=== PATIENT | male | born 1970 | race Caucasian/White ===

== ENCOUNTER 2020-12-31 08:06 | Inpatient (IN) | payer OTHER ==
[2020-12-31] MEDS ORDERED: SODIUM CHLORIDE 0.9% 500 ML 500 ML IV STA (08:35)
[2020-12-31] MEDS ORDERED: HYDROmorphone 0.5 MG/0.5 ML SYRINGE IVP STA (08:35)
[2020-12-31] MEDS ORDERED: LORazepam 2 MG/ML INJ IV STA (08:36)
[2020-12-31] MEDS ORDERED: PANTOPRAZOLE 40 MG/10 ML VIAL IVP STA (08:40)
--- NOTE | 2020-12-31 09:01 | ED ---
General Adult HPI - General Chief complaint: GI Bleed Stated complaint: abd pain & blood in stool Time Seen by Provider: 12/31/20 08:28 Source: patient, RN notes reviewed, old records reviewed Mode of arrival: ambulatory Limitations: no limitations - History of Present Illness Initial comments: 42-year-old male presenting with 24 hours of bright red rectal bleeding. Multiple episodes including some clots. No previous history of inflammatory bowel disease. The patient has had crampy lower abdominal pain over this period as well which she describes as quite severe. He states that he also had some right shoulder pain for the past 2 weeks without injury. No central chest pain. No fever. He's had several episodes of vomiting. He does admit to daily alcohol consumption and states that for the past 2 days he has not had any alcohol. - Related Data Home Medications Medication Instructions Recorded Confirmed Gabapentin [Neurontin] 100 mg PO DAILY 12/31/20 12/31/20 Insulin Degludec [Tresiba 30 units SQ QAM 12/31/20 12/31/20 Flextouch U-100 Pen] traMADol HCL 50 mg PO BID PRN 12/31/20 12/31/20 Allergies Allergy/AdvReac Type Severity Reaction Status Date / Time metformin AdvReac Nausea Verified 12/31/20 11:06 Review of Systems ROS Statement: Those systems with pertinent positive or pertinent negative responses have been documented in the HPI. ROS Other: All systems not noted in ROS Statement are negative. Past Medical History Past Medical History: Diabetes Mellitus, Hypertension Additional Past Medical History / Comment(s): neuropathy legs and feet, alcoholism Additional Past Surgical History / Comment(s): bone graft and finger Past Psychological History: No Psychological Hx Reported Smoking Status: Current every day smoker Past Alcohol Use History: Abuse, Daily Past Drug Use History: Marijuana General Exam Limitations: no limitations General appearance: alert, anxious Head exam: Present: atraumatic, normocephalic Eye exam: Present: normal appearance, PERRL ENT exam: Present: mucous membranes dry Neck exam: Present: normal inspection. Absent: tenderness, meningismus Respiratory exam: Present: normal lung sounds bilaterally. Absent: respiratory distress, wheezes Cardiovascular Exam: Present: regular rate, normal rhythm GI/Abdominal exam: Present: tenderness (Bilateral lower quadrants). Absent: distended, guarding, rebound Extremities exam: Present: normal inspection, normal capillary refill. Absent: pedal edema, calf tenderness Neurological exam: Present: alert, oriented X3, CN II-XII intact, other (Resting tremor). Absent: motor sensory deficit Psychiatric exam: Present: anxious Skin exam: Present: warm, dry, intact. Absent: cyanosis, diaphoretic Course Vital Signs 12/31/20 08:21 Temperature 98.4 F Pulse Rate 63 Respiratory 18 Rate Blood Pressure 133/93 O2 Sat by Pulse 98 Oximetry EKG Findings - EKG Comments: EKG Findings:: EKG: Sinus rhythm with sinus arrhythmia, rate of 78, AR interval 150, QRS duration 102, QTC 478. No ST segment elevation. Medical Decision Making - Medical Decision Making 42-year-old male with abdominal pain, bright red rectal bleeding. Patient describes a fairly significant amount of bright red blood and clots. His hemoglobin is stable at 16.6. Repeat will be pending. CT showing colitis. He has minor L abnormalities likely secondary to daily alcohol use. He will be watched on a CIWA scale for withdrawal. Will be admitted to internal medicine with gastroenterology on consult. Case discussed with Dr. Oliver. - Lab Data Result diagrams: 12/31/20 08:53 12/31/20 08:53 Lab Results 12/31/20 12/31/20 12/31/20 Range/Units 08:32 08:47 08:53 WBC 8.3 (3.8-10.6) k/uL RBC 4.72 (4.30-5.90) m/uL Hgb 16.6 (13.0-17.5) gm/dL Hct 48.0 (39.0-53.0) % MCV 101.7 H (80.0-100.0) fL MCH 35.1 H (25.0-35.0) pg MCHC 34.5 (31.0-37.0) g/dL RDW 13.3 (11.5-15.5) % Plt Count 104 L (150-450) k/uL MPV 10.0 Neutrophils % 85 % Lymphocytes % 10 % Monocytes % 3 % Eosinophils % 1 % Basophils % 0 % Neutrophils # 7.0 (1.3-7.7) k/uL Lymphocytes # 0.8 L (1.0-4.8) k/uL Monocytes # 0.3 (0-1.0) k/uL Eosinophils # 0.1 (0-0.7) k/uL Basophils # 0.0 (0-0.2) k/uL Macrocytosis Slight PT (9.0-12.0) sec INR (<1.2) APTT (22.0-30.0) sec Sodium (137-145) mmol/L Potassium (3.5-5.1) mmol/L Chloride (98-107) mmol/L Carbon Dioxide (22-30) mmol/L Anion Gap mmol/L BUN (9-20) mg/dL Creatinine (0.66-1.25) mg/dL Est GFR (CKD-EPI)AfAm (>60 ml/min/1.73 sqM) Est GFR (CKD-EPI)NonAf (>60 ml/min/1.73 sqM) Glucose (74-99) mg/dL Plasma Lactic Acid Samir (0.7-2.0) mmol/L Calcium (8.4-10.2) mg/dL Magnesium (1.6-2.3) mg/dL Total Bilirubin (0.2-1.3) mg/dL AST (17-59) U/L ALT (4-49) U/L Alkaline Phosphatase (38-126) U/L Troponin I (0.000-0.034) ng/mL Total Protein (6.3-8.2) g/dL Albumin (3.5-5.0) g/dL Lipase (23-300) U/L Blood Type O Positive Blood Type Confirm O Positive Blood Type Recheck Bld Type Recheck Status Antibody Screen NEGATIVE Spec Expiration Date 12/31/20 12/31/20 12/31/20 Range/Units 08:53 08:53 08:53 WBC (3.8-10.6) k/uL RBC (4.30-5.90) m/uL Hgb (13.0-17.5) gm/dL Hct (39.0-53.0) % MCV (80.0-100.0) fL MCH (25.0-35.0) pg MCHC (31.0-37.0) g/dL RDW (11.5-15.5) % Plt Count (150-450) k/uL MPV Neutrophils % % Lymphocytes % % Monocytes % % Eosinophils % % Basophils % % Neutrophils # (1.3-7.7) k/uL Lymphocytes # (1.0-4.8) k/uL Monocytes # (0-1.0) k/uL Eosinophils # (0-0.7) k/uL Basophils # (0-0.2) k/uL Macrocytosis PT 11.7 (9.0-12.0) sec INR 1.1 (<1.2) APTT 25.5 (22.0-30.0) sec Sodium 131 L (137-145) mmol/L Potassium 3.3 L (3.5-5.1) mmol/L Chloride 93 L (98-107) mmol/L Carbon Dioxide 26 (22-30) mmol/L Anion Gap 12 mmol/L BUN 7 L (9-20) mg/dL Creatinine 0.55 L (0.66-1.25) mg/dL Est GFR (CKD-EPI)AfAm >90 (>60 ml/min/1.73 sqM) Est GFR (CKD-EPI)NonAf >90 (>60 ml/min/1.73 sqM) Glucose 270 H (74-99) mg/dL Plasma Lactic Acid Samir (0.7-2.0) mmol/L Calcium 9.0 (8.4-10.2) mg/dL Magnesium 1.4 L (1.6-2.3) mg/dL Total Bilirubin 2.6 H (0.2-1.3) mg/dL AST 93 H (17-59) U/L ALT 45 (4-49) U/L Alkaline Phosphatase 115 (38-126) U/L Troponin I <0.012 (0.000-0.034) ng/mL Total Protein 7.6 (6.3-8.2) g/dL Albumin 3.9 (3.5-5.0) g/dL Lipase 69 (23-300) U/L Blood Type Blood Type Confirm Blood Type Recheck Bld Type Recheck Status Antibody Screen Spec Expiration Date 12/31/20 12/31/20 Range/Units 08:53 08:53 WBC (3.8-10.6) k/uL RBC (4.30-5.90) m/uL Hgb (13.0-17.5) gm/dL Hct (39.0-53.0) % MCV (80.0-100.0) fL MCH (25.0-35.0) pg MCHC (31.0-37.0) g/dL RDW (11.5-15.5) % Plt Count (150-450) k/uL MPV Neutrophils % % Lymphocytes % % Monocytes % % Eosinophils % % Basophils % % Neutrophils # (1.3-7.7) k/uL Lymphocytes # (1.0-4.8) k/uL Monocytes # (0-1.0) k/uL Eosinophils # (0-0.7) k/uL Basophils # (0-0.2) k/uL Macrocytosis PT (9.0-12.0) sec INR (<1.2) APTT (22.0-30.0) sec Sodium (137-145) mmol/L Potassium (3.5-5.1) mmol/L Chloride (98-107) mmol/L Carbon Dioxide (22-30) mmol/L Anion Gap mmol/L BUN (9-20) mg/dL Creatinine (0.66-1.25) mg/dL Est GFR (CKD-EPI)AfAm (>60 ml/min/1.73 sqM) Est GFR (CKD-EPI)NonAf (>60 ml/min/1.73 sqM) Glucose (74-99) mg/dL Plasma Lactic Acid Samir 2.0 (0.7-2.0) mmol/L Calcium (8.4-10.2) mg/dL Magnesium (1.6-2.3) mg/dL Total Bilirubin (0.2-1.3) mg/dL AST (17-59) U/L ALT (4-49) U/L Alkaline Phosphatase (38-126) U/L Troponin I (0.000-0.034) ng/mL Total Protein (6.3-8.2) g/dL Albumin (3.5-5.0) g/dL Lipase (23-300) U/L Blood Type Blood Type Confirm Blood Type Recheck No Previous Record Bld Type Recheck Status CABO Indicated Antibody Screen Spec Expiration Date 01/03/20212352 Disposition Clinical Impression: Hematochezia, Colitis Disposition: ADMITTED IP TO THIS [facility] Condition: Stable Is patient prescribed a controlled substance at d/c from ED?: No Referrals: None,Stated [Primary Care Provider] - 1-2 days Decision to Admit Reason: Admit from EC Decision Date: 12/31/20 Decision Time: 11:37
[2020-12-31 09:17] LABS: Basophils % (A) 0 %; Eosinophils # (A) 0.1 k/uL (0-0.7); Eosinophils % (A) 1 %; HGB 16.6 gm/dL (13.0-17.5); Lymphocytes # (A) 0.8 k/uL (1.0-4.8); Lymphocytes % (A) 10 %; MCH 35.1 pg (25.0-35.0); MCHC 34.5 g/dL (31.0-37.0); MCV 101.7 fL (80.0-100.0); Macrocytosis Slight; Monocytes # (A) 0.3 k/uL (0-1.0); Monocytes % (A) 3 %; Neutrophils % (A) 85 %; Platelet Count 104 k/uL (150-450); RBC 4.72 m/uL (4.30-5.90); RDW 13.3 % (11.5-15.5); WBC 8.3 k/uL (3.8-10.6)
[2020-12-31 09:24] LABS: ALT 45 U/L (4-49); AST 93 U/L (17-59); African American GFR (CKD) >90 (>60 ml/min/1.73 sqM); Albumin 3.9 g/dL (3.5-5.0); Alkaline Phosphatase 115 U/L (38-126); Anion Gap 12 mmol/L; Blood Urea Nitrogen 7 mg/dL (9-20); Carbon Dioxide 26 mmol/L (22-30); Chloride 93 mmol/L (98-107); Glucose 270 mg/dL (74-99); INR 1.1 (<1.2); Lipase 69 U/L (23-300); Magnesium 1.4 mg/dL (1.6-2.3); Non-African American GFR(CKD) >90 (>60 ml/min/1.73 sqM); Partial Thromboplastin Time 25.5 sec (22.0-30.0); Potassium 3.3 mmol/L (3.5-5.1); Prothrombin Time 11.7 sec (9.0-12.0); Sodium 131 mmol/L (137-145); Total Bilirubin 2.6 mg/dL (0.2-1.3); Total Protein 7.6 g/dL (6.3-8.2)
--- NOTE | 2020-12-31 10:50 | CT ---
EXAMINATION TYPE: CT abdomen pelvis w con DATE OF EXAM: 12/31/2020 COMPARISON: HISTORY: Abdominal pain and rectal bleeding CT DLP: 990.5 mGycm Automated exposure control for dose reduction was used. TECHNIQUE: Helical acquisition of images from the lung bases through the pelvis have been completed. CONTRAST: Performed without Oral Contrast and with IV Contrast, patient injected with 100 ml mL of Isovue 300. FINDINGS: LUNG BASES: No significant abnormality is appreciated. AORTA: No significant abnormality is appreciated. LIVER/GB: Liver shows low attenuation likely due to hepatic steatosis. PANCREAS: No significant abnormality is seen. SPLEEN: No significant abnormality is seen. ADRENALS: No significant abnormality is seen. KIDNEYS: No significant abnormality is seen. REPRODUCTIVE ORGANS: No significant abnormality is seen BOWEL: There is abnormal thickening of the colon with some pericolonic inflammatory change. The appe ndix is normal FREE AIR: No Free Air visible. ASCITES: Small amount of free fluid is present within the pelvis. PELVIC ADENOPATHY: None visualized. RETROPERITONEAL ADENOPATHY: No Retroperitoneal Adenopathy visible. URINARY BLADDER: No significant abnormality is seen. OSSEOUS STRUCTURES: No significant abnormality is seen. IMPRESSION: CORRELATE FOR COLITIS and additional findings above.
[2020-12-31] MEDS ORDERED: POTASSIUM CHLORIDE ER 20 MEQ TAB.ER PO STA (10:52)
[2020-12-31] MEDS ORDERED: MAGNESIUM SULFATE-D5W PMX 1 GM in DEXTROSE/WATER 1 100ML.BAG IVPB ONE (10:52)
[2020-12-31] MEDS ORDERED: ACETAMINOPHEN TAB 325 MG TAB PO PRN (11:34)
[2020-12-31] MEDS ORDERED: THIAMINE 100 MG/ML 2 ML VIAL IM STA (11:34)
[2020-12-31] MEDS ORDERED: LORazepam 2 MG/ML INJ IV PRN ×2 (11:34)
[2020-12-31] MEDS ORDERED: NALOXONE 0.4 MG/ML 1 ML VIAL IV PRN (11:34)
[2020-12-31 12:01] LABS: Appearance,Urine Clear (Clear); Bilirubin,Urine Negative (Negative); Blood,Urine Negative (Negative); Color,Urine Yellow; Glucose,Urine (UA) 3+ (Negative); Ketones,Urine 1+ (Negative); Leukocyte Esterase,Urine Negative (Negative); Nitrite,Urine Negative (Negative); Protein,Urine Negative (Negative); Urobilinogen,Urine <2.0 mg/dL (<2.0)
[2020-12-31] MEDS: SODIUM CHLORIDE 0.9% 1,000 ML IV SCH (12:01)
[2020-12-31 12:06] LABS: Specific Gravity,Urine >1.050 (1.001-1.035)
[2020-12-31] MEDS: HYDROmorphone 0.5 MG/0.5 ML SYRINGE IVP PRN ×3 (13:38→22:19)
[2020-12-31] MEDS: LEVOFLOXACIN 500MG-D5W PMX 500 MG in DEXTROSE/WATER 1 100ML.BAG IVPB SCH (13:40)
--- NOTE | 2020-12-31 14:50 | P.CONS ---
History of Present Illness - Reason for Consult Consult date: 12/31/20 rectal bleeding, colitis Requesting physician: Osito Whitney - Chief Complaint Rectal bleeding - History of Present Illness This is a 50-year-old male who presented to the emergency department today with complaints of abdominal cramping and pain associated with rectal bleeding. Has a past medical history that includes diabetes mellitus, hypertension, and neuropathy. Patient states he was feeling constipated and took a laxative and then started having abdominal cramping followed by multiple episodes of rectal bleeding yesterday. The bleeding continued and he had 1-2 more episodes today which she states was a larger amount. He denies any previous history of rectal bleeding. He has no previous history of colonoscopy. He does have a history of all abuse. Admitting labs include WBC 8.3 hemoglobin 16 hematocrit 48 platelet count 104,000 INR 1.1 total bilirubin 2.6 AST 93 ALT 45 alk phos 115. He denies any previous history of ulcerative colitis or Crohn's disease. Had a CT of the abdomen and pelvis that had findings of abdominal thickening of the colon with some pericolonic inflammatory change. Appendix is normal. Correlate for colitis. Review of Systems REVIEW OF SYSTEMS: CARDIOPULMONARY: No chest pain or shortness of breath. Gastrointestinal: Abdominal cramping associated with loose bowel movements with bright red blood. No nausea or vomiting. No hematemesis, coffee-ground emesis. GENITOURINARY: No dysuria or hematuria. MUSCULOSKELETAL: Reports normal range of motion., Joint pain. SKIN: No rashes. No jaundice. ENDOCRINE: No chills, fevers. No excessive weight gain or loss. No polydipsia or polyuria. PSYCHIATRIC: Unremarkable. NEUROLOGY: No change in mental status. Denies dizziness, headache. ENT: Vision unremarkable. CONSTITUTIONAL: No recent weight loss. No fever, chills, night sweats. Past Medical History Past Medical History: Diabetes Mellitus, Hypertension Additional Past Medical History / Comment(s): neuropathy legs and feet, alcoholism Additional Past Surgical History / Comment(s): bone graft and finger Past Psychological History: No Psychological Hx Reported Smoking Status: Current every day smoker Past Alcohol Use History: Abuse, Daily Past Drug Use History: Marijuana Medications and Allergies Home Medications Medication Instructions Recorded Confirmed Type Gabapentin [Neurontin] 100 mg PO DAILY 12/31/20 12/31/20 History Insulin Degludec [Tresiba 30 units SQ QAM 10/11/21 10/11/21 History Flextouch U-100 Pen] traMADol HCL 50 mg PO BID PRN 12/31/20 12/31/20 History Allergies Allergy/AdvReac Type Severity Reaction Status Date / Time metformin AdvReac Nausea Verified 12/31/20 11:06 Physical Exam Vitals: Vital Signs Temp Pulse Resp BP Pulse Ox 12/31/20 13:00 75 18 151/101 97 12/31/20 12:25 66 18 97 12/31/20 11:25 78 18 97 12/31/20 10:25 70 18 143/92 97 12/31/20 09:25 73 18 97 12/31/20 08:21 98.4 F 63 18 133/93 98 Intake and Output 12/30/20 12/31/20 12/31/20 22:59 06:59 14:59 Other: Weight 80.739 kg General appearance: The patient is alert, oriented, appears in no acute distress. HET: Head is normocephalic and atraumatic. Conjunctiva pink. Sclera anicteric. Neck: Supple without lymphadenopathy. Trachea midline. Heart: S1 S2. Regular rate and rhythm. Lungs: Clear to auscultation. Abdomen: Soft, lower abdominal tenderness, nondistended with bowel sounds. No guarding or rigidity. Skin: No rashes. No jaundice. Extremities: Normal skin color and turgor. No pedal edema. Neurological: No focal deficits. Alert and oriented 3.. Results CBC & Chem 7: 12/31/20 08:53 12/31/20 08:53 Labs: Abnormal Lab Results - Last 24 Hours (Table) 12/31/20 12/31/20 12/31/20 Range/Units 08:53 08:53 11:46 MCV 101.7 H (80.0-100.0) fL MCH 35.1 H (25.0-35.0) pg Plt Count 104 L (150-450) k/uL Lymphocytes # 0.8 L (1.0-4.8) k/uL Sodium 131 L (137-145) mmol/L Potassium 3.3 L (3.5-5.1) mmol/L Chloride 93 L (98-107) mmol/L BUN 7 L (9-20) mg/dL Creatinine 0.55 L (0.66-1.25) mg/dL Glucose 270 H (74-99) mg/dL Magnesium 1.4 L (1.6-2.3) mg/dL Total Bilirubin 2.6 H (0.2-1.3) mg/dL AST 93 H (17-59) U/L Ur Specific [place] >1.050 H (1.001-1.035) Urine Glucose (UA) 3+ H (Negative) Urine Ketones 1+ H (Negative) CT scan - pelvis: report reviewed (Abnormal thickening of the colon with some pericolonic inflammatory change. Correlate for colitis) Assessment and Plan (1) Colitis Narrative/Plan: 50-year-old male who presented to the emergency department with onset of abdominal pain and cramping that began yesterday followed by 5-6 episodes of loose stool with bright red blood. Patient states he was feeling constipated and took a laxative started having some cramping followed by rectal bleeding. He's had 2 further episodes today which he states were larger in amount. He has no previous history of a GI bleed, no history of Crohn's disease or ulcerative colitis. He has no previous history of colonoscopy. He does have a history of heavy alcohol use. Admitting labs WBC 8.3 hemoglobin 16 hematocrit 48 platelet count 104,000 INR 1.1 total bilirubin 2.6 AST 93 ALT 45 alkaline phosphatase 115. Likely dealing with infectious or ischemic colitis, unlikely inflammatory bowel disease. Will start on empiric antibiotics with Flagyl and Levaquin. Current Visit: Yes Status: Acute Code(s): K52.9 - NONINFECTIVE GASTROENTERITIS AND COLITIS, UNSPECIFIED SNOMED Code(s): 67406749 (2) Hematochezia Current Visit: Yes Status: Acute Code(s): K92.1 - MELENA SNOMED Code(s): 815805428 (3) Alcohol abuse Current Visit: Yes Status: Acute Code(s): F10.10 - ALCOHOL ABUSE, UNCOMPLICATED SNOMED Code(s): 13944694 Plan: 1. Continue symptomatic and supportive care 2. Continue clear liquid diet 3. Repeat CBC daily 4. Will start Levaquin and Flagyl 5. No plans on endoscopic evaluation at this time Thank you for this consultation, we will continue to follow. Dr. Thea Anderson I agree with the dictator's note, documented as a scribe by Sahra Hoff.
[2020-12-31] MEDS: metroNIDAZOLE-NS PMX 500 MG in SALINE 1 100ML.BAG IVPB SCH ×2 (16:52→23:54)
[2020-12-31 16:59] LABS: Basophils % (A) 0 %; Eosinophils # (A) 0.1 k/uL (0-0.7); Eosinophils % (A) 1 %; HCT 41.7 % (39.0-53.0); HGB 14.4 gm/dL (13.0-17.5); Lymphocytes # (A) 1.5 k/uL (1.0-4.8); Lymphocytes % (A) 20 %; MCH 34.8 pg (25.0-35.0); MCHC 34.5 g/dL (31.0-37.0); MCV 100.9 fL (80.0-100.0); Mean Platelet Volume 10.2; Monocytes # (A) 0.3 k/uL (0-1.0); Monocytes % (A) 4 %; Neutrophils # (A) 5.5 k/uL (1.3-7.7); Neutrophils % (A) 74 %; RBC 4.13 m/uL (4.30-5.90); RDW 13.1 % (11.5-15.5); WBC 7.5 k/uL (3.8-10.6)
[2020-12-31 17:45] LABS: Platelet Count 95 k/uL (150-450)
--- NOTE | 2020-12-31 18:58 | P.HPIM ---
History of Present Illness H&P Date: 12/31/20 Chief Complaint: Abdominal pain Patient is a 50-year-old male with a known history of hypertension and insulin- dependent diabetes type 2 and bilateral neuropathy diabetic in the legs, alcohol abuse and currently everyday smoker and marijuana use presents to ER with complaints of dark maroon colored stools per rectum. Patient is also complaining of passing clots and is also having lower abdominal cramping pain. Also complaining of nausea and episodes of vomiting.. Patient thought he is constipated and took laxatives at home. Patient presented to ER due to worsening symptoms. Denied any history of prior EGD or colonoscopy procedures. Patient does drink alcohol on daily basis. CT of the abdomen pelvis showed correlate for colitis. There is abnormal thickening of the colon with some acholic intermittently change. Laboratory data showed WBC 8.3 hemoglobin 16.6 and platelets 104 and MCV 101.7 INR 1.1 Sodium 131 potassium 3.3 chloride 93 BUN 7 and creatinine 0.55 and blood glucose is 270 on admission, magnesium 1.4, total bilirubin level is 2.6 AST 93 ALT 45 and alk phos 15 troponin 1 negative and lipase level is 69 Karen urinalysis showed increased specific gravity with 3+ glucose and 1+ ketones. C. diff was sent. [place] Virus PCR not detected. Review of Systems Constitutional: Patient denies any fever or chills . No generalized weakness or weight loss. Abdomen: Does complain of lower abdominal pain as a with nausea and vomiting and blood per rectum.. Cardiovascular: Patient denies any chest pain or short of breath no palpitations. Respiratory: patient denied any cough is from production. No shortness of breath Neurologic: Patient denied any numbness or tingling headache. Musculoskeletal: Patient denies any complaints of joint swelling or deformity. Skin: Negative Psychiatric: Anxious Endocrine: No heat or cold intolerance. No recent weight gain. Genitourinary: No dysuria or hematuria. All other 14 point ROS negative except the above Past Medical History Past Medical History: Diabetes Mellitus, Hypertension Additional Past Medical History / Comment(s): neuropathy legs and feet, alcoholism Additional Past Surgical History / Comment(s): bone graft and finger Past Psychological History: No Psychological Hx Reported Smoking Status: Current every day smoker Past Alcohol Use History: Abuse, Daily Past Drug Use History: Marijuana Medications and Allergies Home Medications Medication Instructions Recorded Confirmed Type Gabapentin [Neurontin] 100 mg PO DAILY 12/31/20 12/31/20 History Insulin Degludec [Tresiba 30 units SQ QAM 12/31/20 12/31/20 History Flextouch U-100 Pen] traMADol HCL 50 mg PO BID PRN 12/31/20 12/31/20 History Allergies Allergy/AdvReac Type Severity Reaction Status Date / Time metformin AdvReac Nausea Verified 12/31/20 11:06 Physical Exam Vitals: Vital Signs Temp Pulse Resp BP Pulse Ox 12/31/20 17:00 72 18 98 12/31/20 16:00 98.7 F 73 18 150/93 98 12/31/20 15:00 71 18 97 12/31/20 14:00 71 18 97 12/31/20 13:00 75 18 151/101 97 12/31/20 12:25 66 18 97 12/31/20 11:25 78 18 97 12/31/20 10:25 70 18 143/92 97 12/31/20 09:25 73 18 97 12/31/20 08:21 98.4 F 63 18 133/93 98 Intake and Output 12/31/20 12/31/20 12/31/20 06:59 14:59 22:59 Other: Weight 80.739 kg PHYSICAL EXAMINATION: Patient is lying in the bed comfortably, no acute distress, awake alert and oriented. Anxious. HEENT: Normocephalic. Neck is supple. Pupils reactive. Nostrils clear. Oral cavity is moist. Neck reveals no JVD, carotid bruits, or thyromegaly. CHEST EXAMINATION: Trachea is central. Symmetrical expansion. Bibasilar diminished sounds. Lung irizarry clear to auscultation and percussion. CARDIAC: Normal S1, S2 with no gallops. No murmurs ABDOMEN: Soft. Nontender. Bowel sounds normal. No organomegaly. No abdominal bruits. Extremities: reveal no edema. No clubbing or cyanosis Neurologically awake, alert, oriented x3 with well-coordinated movements. No focal deficits noted Skin: No rash or skin lesions. Psychiatric: Coperative. Could not bases are completely. Musculoskeletal: No joint swelling or deformity. Normal range of motion. Results CBC & Chem 7: 01/01/21 03:48 01/01/21 03:48 Labs: Abnormal Lab Results - Last 24 Hours (Table) 12/31/20 12/31/20 12/31/20 Range/Units 08:53 08:53 11:46 RBC (4.30-5.90) m/uL MCV 101.7 H (80.0-100.0) fL MCH 35.1 H (25.0-35.0) pg Plt Count 104 L (150-450) k/uL Lymphocytes # 0.8 L (1.0-4.8) k/uL Sodium 131 L (137-145) mmol/L Potassium 3.3 L (3.5-5.1) mmol/L Chloride 93 L (98-107) mmol/L BUN 7 L (9-20) mg/dL Creatinine 0.55 L (0.66-1.25) mg/dL Glucose 270 H (74-99) mg/dL Magnesium 1.4 L (1.6-2.3) mg/dL Total Bilirubin 2.6 H (0.2-1.3) mg/dL AST 93 H (17-59) U/L Ur Specific [place] >1.050 H (1.001-1.035) Urine Glucose (UA) 3+ H (Negative) Urine Ketones 1+ H (Negative) 12/31/20 Range/Units 16:31 RBC 4.13 L (4.30-5.90) m/uL MCV 100.9 H (80.0-100.0) fL MCH (25.0-35.0) pg Plt Count 95 L (150-450) k/uL Lymphocytes # (1.0-4.8) k/uL Sodium (137-145) mmol/L Potassium (3.5-5.1) mmol/L Chloride (98-107) mmol/L BUN (9-20) mg/dL Creatinine (0.66-1.25) mg/dL Glucose (74-99) mg/dL Magnesium (1.6-2.3) mg/dL Total Bilirubin (0.2-1.3) mg/dL AST (17-59) U/L Ur Specific [place] (1.001-1.035) Urine Glucose (UA) (Negative) Urine Ketones (Negative) Thrombosis Risk Factor Assmnt - DVT/VTE Prophylaxis DVT/VTE Prophylaxis: Mechanical Prophylaxis ordered Assessment and Plan Assessment: Acute colitis. Possible infectious colitis. Lower abdominal cramping pain and blood per rectum. Alcohol abuse Diabetes type 2 insulin-dependent with hyperglycemia on admission bilateral lower extremity diabetic peripheral neuropathy Hypertension Hypokalemia and hypomagnesemia Hypovolemic hyponatremia Currently with a smoker and marijuana use DVT prophylaxis with SCDs Plan: Patient will be continued on IV hydration and monitor hemoglobin level.. No active bleeding at this time. Patient will be continued on antibiotics in the form of Levaquin and Flagyl. Patient was started on clear liquid diet and GI is following. Monitor for alcohol withdrawal symptoms. Continue with multivitamins and thiamine. Follow-up BMP tomorrow. Time with Patient: Greater than 30
[2020-12-31] MEDS: THIAMINE 100 MG TAB PO SCH (19:38)
[2020-12-31] MEDS: LORazepam 2 MG/ML INJ IV PRN (19:40)
[2021-01-01] MEDS: SODIUM CHLORIDE 0.9% 1,000 ML IV SCH ×2 (02:45→13:36)
[2021-01-01] MEDS: HYDROmorphone 0.5 MG/0.5 ML SYRINGE IVP PRN (03:59)
[2021-01-01] MEDS: LORazepam 2 MG/ML INJ IV PRN (04:00)
[2021-01-01 07:16] LABS: Basophils % (A) 0 %; Eosinophils # (A) 0.1 k/uL (0-0.7); Eosinophils % (A) 1 %; HCT 42.8 % (39.0-53.0); HGB 14.1 gm/dL (13.0-17.5); Lymphocytes # (A) 1.2 k/uL (1.0-4.8); Lymphocytes % (A) 15 %; MCH 34.3 pg (25.0-35.0); MCHC 32.9 g/dL (31.0-37.0); MCV 104.3 fL (80.0-100.0); Macrocytosis Slight; Mean Platelet Volume 11.4; Monocytes # (A) 0.4 k/uL (0-1.0); Monocytes % (A) 6 %; Neutrophils % (A) 77 %; RBC 4.11 m/uL (4.30-5.90); RDW 12.5 % (11.5-15.5); WBC 7.8 k/uL (3.8-10.6)
[2021-01-01 07:29] LABS: African American GFR (CKD) >90 (>60 ml/min/1.73 sqM); Anion Gap 8 mmol/L; Blood Urea Nitrogen 4 mg/dL (9-20); Calcium 7.9 mg/dL (8.4-10.2); Carbon Dioxide 23 mmol/L (22-30); Chloride 100 mmol/L (98-107); Glucose 155 mg/dL (74-99); Non-African American GFR(CKD) >90 (>60 ml/min/1.73 sqM); Potassium 3.7 mmol/L (3.5-5.1); Sodium 131 mmol/L (137-145)
[2021-01-01 07:35] LABS: Platelet Count 90 k/uL (150-450)
[2021-01-01] MEDS: metroNIDAZOLE-NS PMX 500 MG in SALINE 1 100ML.BAG IVPB SCH ×3 (07:53→23:24)
[2021-01-01] MEDS: INSULIN ASPART (NovoLOG) 100 UNIT/ML VIAL SQ SCH ×4 (07:54→20:53)
[2021-01-01] MEDS: THIAMINE 100 MG TAB PO SCH ×2 (07:54→17:44)
[2021-01-01] MEDS: PANTOPRAZOLE 40 MG/10 ML VIAL IV SCH (07:54)
[2021-01-01] MEDS ORDERED: traMADol 50 MG TAB PO PRN (10:29)
[2021-01-01] MEDS: GABAPENTIN 100 MG CAP PO SCH (11:11)
[2021-01-01 11:15] LABS: Glucose,Whole Blood 227 mg/dL (75-99)
[2021-01-01] MEDS: INSULIN DETEMIR (LEVEMIR) 100 UNIT/ML SYR SQ SCH (11:37)
[2021-01-01] MEDS: LEVOFLOXACIN 500MG-D5W PMX 500 MG in DEXTROSE/WATER 1 100ML.BAG IVPB SCH (13:38)
--- NOTE | 2021-01-01 14:24 | P.PN ---
Subjective Progress Note Date: 01/01/21 Principal diagnosis: colitis 5-year-old male who presented to the emergency department with complaints of abdominal pain and cramping associated with loose bloody stools. He had a CT of the abdomen and pelvis which was significant for colitis. Patient states he's had another 5-6 episodes of loose bloody bowel movements since yesterday. However he states that he's only had 1-2 so far today and watch less volume. Abdominal cramping is also improving. He remains on Flagyl and Levaquin. He is been afebrile. WBC 7.8 Hemoglobin is stable at 14.1 C. difficile toxin negati ve. Stool cultures pending. Objective - Vital Signs Vital signs: Vital Signs Temp 98.1 F 01/01/21 01:53 Pulse 86 01/01/21 01:53 Resp 18 01/01/21 01:53 BP 129/89 01/01/21 01:53 Pulse Ox 97 01/01/21 01:53 Intake & Output 12/31/20 01/01/21 01/01/21 18:59 06:59 18:59 Weight 80.739 kg - Exam General appearance: The patient is alert, oriented, appears in no acute di stress. HET: Head is normocephalic and atraumatic. Conjunctiva pink. Sclera anicteric. Neck: Supple without lymphadenopathy. Abdomen: Soft, lower abdominal tenderness, nondistended with bowel sounds. No guarding or rigidity. Extremities: Normal skin color and turgor. No pedal edema Skin: No rashes, no jaundice Neurological: No focal deficits. Alert and oriented -3. - Labs CBC & Chem 7: 01/01/21 03:48 01/01/21 03:48 Labs: Abnormal Lab Results - Last 24 Hours (Table) 12/31/20 12/31/20 12/31/20 Range/Units 08:53 11:46 16:31 RBC 4.13 L (4.30-5.90) m/uL MCV 101.7 H 100.9 H (80.0-100.0) fL MCH 35.1 H (25.0-35.0) pg Plt Count 104 L 95 L (150-450) k/uL Lymphocytes # 0.8 L (1.0-4.8) k/uL Sodium (137-145) mmol/L BUN (9-20) mg/dL Creatinine (0.66-1.25) mg/dL Glucose (74-99) mg/dL Calcium (8.4-10.2) mg/dL Ur Specific Dema >1.050 H (1.001-1.035) Urine Glucose (UA) 3+ H (Negative) Urine Ketones 1+ H (Negative) 01/01/21 01/01/21 Range/Units 03:48 03:48 RBC 4.11 L (4.30-5.90) m/uL MCV 104.3 H (80.0-100.0) fL MCH (25.0-35.0) pg Plt Count 90 L (150-450) k/uL Lymphocytes # (1.0-4.8) k/uL Sodium 131 L (137-145) mmol/L BUN 4 L (9-20) mg/dL Creatinine 0.45 L (0.66-1.25) mg/dL Glucose 155 H (74-99) mg/dL Calcium 7.9 L (8.4-10.2) mg/dL Ur Specific Dema (1.001-1.035) Urine Glucose (UA) (Negative) Urine Ketones (Negative) Microbiology - Last 24 Hours (Table) 12/31/20 16:30 Stool Culture - Preliminary Stool Assessment and Plan (1) Colitis Narrative/Plan: 50-year-old male who presented to the emergency department with onset of abdo ellis pain and cramping that began yesterday followed by 5-6 episodes of loose stool with bright red blood. Patient states he was feeling constipated and took a laxative started having some cramping followed by rectal bleeding. He's had 2 further episodes today which he states were larger in amount. He has no previous history of a GI bleed, no history of Crohn's disease or ulcerative colitis. He has no previous history of colonoscopy. He does have a history of heavy alcohol use. Admitting labs WBC 8.3 hemoglobin 16 hematocrit 48 platelet count 104,000 INR 1.1 total bilirubin 2.6 AST 93 ALT 45 alkaline phosphatase 115. Likely dealing with infectious or ischemic colitis, unlikely inflammatory bowel disease. Will start on empiric antibiotics with Flagyl and Levaquin. Symptoms seem to be improving. Likely infectious colitis and patient is responding to antibiotics. Current Visit: Yes Status: Acute Code(s): K52.9 - NONINFECTIVE GASTROENTERITIS AND COLITIS, UNSPECIFIED SNOMED Code(s): 87817999 (2) Hematochezia Current Visit: Yes Status: Acute Code(s): K92.1 - MELENA SNOMED Code(s): 059997141 (3) Alcohol abuse Current Visit: Yes Status: Acute Code(s): F10.10 - ALCOHOL ABUSE, UNCOMPLICATED SNOMED Code(s): 22452764 Plan: 1. Continue symptomatic and supportive care 2. Advance to full liquid diet 3. Repeat CBC daily 4. Continue Levaquin and Flagyl 5. No plans on endoscopic evaluation at this time. Recommend outpatient colonoscopy in 6-8 weeks Thank you for this consultation, we will continue to follow. Dr. Thea Anderson I agree with the dictator's note, documented as a scribe by Sahra Hoff.
[2021-01-01 17:33] LABS: Glucose,Whole Blood 155 mg/dL (75-99)
[2021-01-01] MEDS ORDERED: MELATONIN 3 MG TABLET PO PRN (19:40)
[2021-01-01 20:28] LABS: Glucose,Whole Blood 110 mg/dL (75-99)
[2021-01-02] MEDS: SODIUM CHLORIDE 0.9% 1,000 ML IV SCH (06:30)
[2021-01-02 06:54] LABS: Glucose,Whole Blood 114 mg/dL (75-99)
[2021-01-02] MEDS: INSULIN ASPART (NovoLOG) 100 UNIT/ML VIAL SQ SCH ×2 (07:08→12:41)
[2021-01-02] MEDS: GABAPENTIN 100 MG CAP PO SCH (08:19)
[2021-01-02] MEDS: PANTOPRAZOLE 40 MG/10 ML VIAL IV SCH (08:19)
[2021-01-02] MEDS: THIAMINE 100 MG TAB PO SCH (08:19)
[2021-01-02] MEDS: INSULIN DETEMIR (LEVEMIR) 100 UNIT/ML SYR SQ SCH (08:19)
[2021-01-02] MEDS: metroNIDAZOLE-NS PMX 500 MG in SALINE 1 100ML.BAG IVPB SCH (08:19)
[2021-01-02 12:02] LABS: Glucose,Whole Blood 141 mg/dL (75-99)
[2021-01-02] MEDS: LEVOFLOXACIN 500MG-D5W PMX 500 MG in DEXTROSE/WATER 1 100ML.BAG IVPB SCH (13:00)
[2021-01-02 14:27] VITALS: BMI 24.1
[2021-01-02 15:00] VITALS: BP 145/87; PULSE 129; RESP 17; TEMP 99
--- NOTE | 2021-01-02 15:51 | P.PN ---
Subjective Progress Note Date: 01/02/21 Principal diagnosis: colitis 5-year-old male who presented to the emergency department with complaints of abdominal pain and cramping associated with loose bloody stools. He had a CT of the abdomen and pelvis which was significant for colitis. Patient states abdominal cramping improved, as well as diarrhea. States he is still having loose stools and had one this morning however they are nonbloody. He remains on Flagyl and Levaquin. He is been afebrile. Objective - Vital Signs Vital signs: Vital Signs Temp 99.0 F 01/02/21 14:00 Pulse 129 H 01/02/21 14:00 Resp 17 01/02/21 14:00 BP 145/87 01/02/21 14:00 Pulse Ox 99 01/02/21 14:00 Intake & Output 01/01/21 01/02/21 01/02/21 18:59 06:59 18:59 Intake Total 800 925 800 Balance 800 925 800 Weight 80.739 kg 80.739 kg Intake: Intake, IV Titration 800 925 800 Amount Levofloxacin 500Mg-D5w 100 100 Pmx 500 mg In Dextrose/ Water 1 100ml.bag @ 100 mls/hr IVPB Q24H [facility] Rx#: [id number] Sodium Chloride 0.9% 1, 600 825 600 000 ml @ 75 mls/hr IV . [id number] [facility] Rx#:[id number] metroNIDAZOLE-NS PMX 500 100 100 100 mg In Saline 1 100ml.bag @ 100 mls/hr IVPB Q8HR [facility] Rx#:[id number] - Exam General appearance: The patient is alert, oriented, appears in no acute distress. HET: Head is normocephalic and atraumatic. Conjunctiva pink. Sclera anicteric. Neck: Supple without lymphadenopathy. Abdomen: Soft, nontender, nondistended with bowel sounds. No guarding or rigidity. Extremities: Normal skin color and turgor. No pedal edema Skin: No rashes, no jaundice Neurological: No focal deficits. Alert and oriented -3. - Labs CBC & Chem 7: 01/01/21 03:48 01/01/21 03:48 Labs: Abnormal Lab Results - Last 24 Hours (Table) 10/12/21 10/12/21 10/13/21 Range/Units 17:32 20:26 06:52 POC Glucose (mg/dL) 155 H 110 H 114 H (75-99) mg/dL 01/02/21 Range/Units 11:58 POC Glucose (mg/dL) 141 H (75-99) mg/dL Assessment and Plan (1) Colitis Narrative/Plan: 50-year-old male who presented to the emergency department with onset of abdominal pain and cramping that began yesterday followed by 5-6 episodes of loose stool with bright red blood. Patient states he was feeling constipated and took a laxative started having some cramping followed by rectal bleeding. He's had 2 further episodes today which he states were larger in amount. He has no previous history of a GI bleed, no history of Crohn's disease or ulcerative colitis. He has no previous history of colonoscopy. He does have a history of heavy alcohol use. Admitting labs WBC 8.3 hemoglobin 16 hematocrit 48 platelet count 104,000 INR 1.1 total bilirubin 2.6 AST 93 ALT 45 alkaline phosphatase 115. Likely dealing with infectious or ischemic colitis, unlikely inflammatory bowel disease. Will start on empiric antibiotics with Flagyl and Levaquin. Symptoms seem to be improving. Likely infectious colitis and patient is responding to antibiotics. Patient will follow-up in 3-4 weeks for outpatient colonoscopy Status: Acute Code(s): K52.9 - NONINFECTIVE GASTROENTERITIS AND COLITIS, UNSPECIFIED SNOMED Code(s): 47093823 (2) Hematochezia Status: Acute Code(s): K92.1 - MELENA SNOMED Code(s): 036570726 (3) Alcohol abuse Status: Acute Code(s): F10.10 - ALCOHOL ABUSE, UNCOMPLICATED SNOMED Code(s): 17887337 Plan: 1. Continue symptomatic and supportive care 2. Advance low fiber diet 3. Continue oral Levaquin and Flagyl 4. No plans on endoscopic evaluation at this time. Recommend outpatient colonoscopy in 6-8 weeks Thank you for this consultation, patient is cleared for discharge from gastroenterology. Dr. Thea Anderson I agree with the dictator's note, documented as a scribe by Sahra Hoff.
--- NOTE | 2021-01-20 23:18 | P.PN ---
Subjective Progress Note Date: 01/01/21 Principal diagnosis: Acute colitis. Possible infectious colitis. Lower abdominal cramping pain and blood per rectum. 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 Patient is also complaining of passing clots and is also having lower abdominal cramping pain. Also complaining of nausea and episodes of vomiting.. Patient thought he is constipated and took laxatives at home. Patient presented to ER due to worsening symptoms. Denied any history of prior EGD or colonoscopy procedures. Patient does drink alcohol on daily basis. CT of the abdomen pelvis showed correlate for colitis. There is abnormal thickening of the colon with some acholic intermittently change. Laboratory data showed WBC 8.3 hemoglobin 16.6 and platelets 104 and MCV 101.7 INR 1.1 Sodium 131 potassium 3.3 chloride 93 BUN 7 and creatinine 0.55 and blood glucose is 270 on admission, magnesium 1.4, total bilirubin level is 2.6 AST 93 ALT 45 and alk phos 15 troponin 1 negative and lipase level is 69 Karen urinalysis showed increased specific gravity with 3+ glucose and 1+ ketones. C. diff was sent. Dumas Virus PCR not detected. 01/01/2021 Patient is currently lying in the bed. Awake alert and oriented. Still having episodes of loose bloody bowel movements. Interval decrease in frequency 1-2 so far. Abdominal cramping is also improving. Patient is being cannula antibiotics above Levaquin and Flagyl due to CT evidence of colitis. Patient has been afebrile. Laboratory data showed WBC 7.8 hemoglobin 14.1 and platelets 90 BUN 4 and creatinine 0.45 Nausea with no episodes of vomiting. No chest pain or shortness breath. Patient is being continued alcohol withdrawal protocol. Diet advanced to full liquid diet. Current medications reviewed. Objective - Vital Signs Vital signs: Vital Signs Temp 97.9 F 01/01/21 18:52 Pulse 61 01/01/21 18:52 Resp 17 01/01/21 18:52 BP 138/95 01/01/21 18:52 Pulse Ox 95 01/01/21 18:52 Intake & Output 01/01/21 01/01/21 01/02/21 06:59 18:59 06:59 Intake Total 800 Balance 800 Weight 80.739 kg Intake: Intake, IV Titration 800 Amount Levofloxacin 500Mg-D5w 100 Pmx 500 mg In Dextrose/ Water 1 100ml.bag @ 100 mls/hr IVPB Q24H [facility] Rx#: [id number] Sodium Chloride 0.9% 1, 600 000 ml @ 75 mls/hr IV . [id number] [facility] Rx#:[id number] metroNIDAZOLE-NS PMX 500 100 mg In Saline 1 100ml.bag @ 100 mls/hr IVPB Q8HR [facility] Rx#:[id number] - Exam PHYSICAL EXAMINATION: Patient is lying in the bed comfortably, no acute distress, awake alert and oriented. Anxious. HEENT: Normocephalic. Neck is supple. Pupils reactive. Nostrils clear. Oral cavity is moist. Neck reveals no JVD, carotid bruits, or thyromegaly. CHEST EXAMINATION: Trachea is central. Symmetrical expansion. Bibasilar diminished sounds. Lung irizarry clear to auscultation and percussion. CARDIAC: Normal S1, S2 with no gallops. No murmurs ABDOMEN: Soft. Nontender. Bowel sounds normal. No organomegaly. No abdominal bruits. Extremities: reveal no edema. No clubbing or cyanosis Neurologically awake, alert, oriented x3 with well-coordinated movements. No focal deficits noted Skin: No rash or skin lesions. Psychiatric: Coperative. Could not bases are completely. Musculoskeletal: No joint swelling or deformity. Normal range of motion. - Labs CBC & Chem 7: 01/01/21 03:48 01/01/21 03:48 Labs: Abnormal Lab Results - Last 24 Hours (Table) 01/01/21 01/01/21 01/01/21 Range/Units 03:48 03:48 11:13 RBC 4.11 L (4.30-5.90) m/uL MCV 104.3 H (80.0-100.0) fL Plt Count 90 L (150-450) k/uL Sodium 131 L (137-145) mmol/L BUN 4 L (9-20) mg/dL Creatinine 0.45 L (0.66-1.25) mg/dL Glucose 155 H (74-99) mg/dL POC Glucose (mg/dL) 227 H (75-99) mg/dL Calcium 7.9 L (8.4-10.2) mg/dL 01/01/21 01/01/21 Range/Units 17:32 20:26 RBC (4.30-5.90) m/uL MCV (80.0-100.0) fL Plt Count (150-450) k/uL Sodium (137-145) mmol/L BUN (9-20) mg/dL Creatinine (0.66-1.25) mg/dL Glucose (74-99) mg/dL POC Glucose (mg/dL) 155 H 110 H (75-99) mg/dL Calcium (8.4-10.2) mg/dL Microbiology - Last 24 Hours (Table) 12/31/20 16:30 Stool Culture - Preliminary Stool Assessment and Plan Assessment: Acute colitis. Possible infectious colitis. Lower abdominal cramping pain and blood per rectum. Alcohol abuse Diabetes type 2 insulin-dependent with hyperglycemia on admission bilateral lower extremity diabetic peripheral neuropathy Hypertension Hypokalemia and hypomagnesemia Hypovolemic hyponatremia Currently with a smoker and marijuana use DVT prophylaxis with SCDs Plan: Patient will be continued on IV hydration and monitor hemoglobin level.. No active bleeding at this time. Patient will be continued on antibiotics in the form of Levaquin and Flagyl. Patient was started on full liquid diet and GI is following. Monitor for alcohol withdrawal symptoms. Continue with multivitamins and thiamine. Follow-up BMP tomorrow.
--- NOTE | 2021-01-20 23:22 | P.DS ---
Providers Date of admission: 12/31/20 11:34 Expected date of discharge: 01/02/21 Attending physician: Ksenia Oliver Consults: 12/31/20 11:34 Consult Physician Routine Consulting Provider: Viviana Anderson Consult Reason/Comments: GI bleed Do you want consulting provider notified?: Yes Primary care physician: Stated None Hospital Course: Discharge diagnosis Acute colitis. Possible infectious colitis. Lower abdominal cramping pain and blood per rectum. improved. Alcohol abuse Diabetes type 2 insulin-dependent with hyperglycemia on admission bilateral lower extremity diabetic peripheral neuropathy Hypertension Hypokalemia and hypomagnesemia Hypovolemic hyponatremia Currently with a smoker and marijuana use DVT prophylaxis with SCDs Hospital course Patient is a 50-year-old male with a known history of hypertension and insulin- dependent diabetes type 2 and bilateral neuropathy diabetic in the legs, alcohol abuse and currently everyday smoker and marijuana use presents to ER with complaints of dark maroon colored stools per rectum. Patient is also complaining of passing clots and is also having lower abdominal cramping pain. Also complaining of nausea and episodes of vomiting.. Patient thought he is constipated and took laxatives at home. Patient presented to ER due to worsening symptoms. Denied any history of prior EGD or colonoscopy procedures. Patient does drink alcohol on daily basis. CT of the abdomen pelvis showed correlate for colitis. There is abnormal thickening of the colon with some acholic intermittently change. Laboratory data showed WBC 8.3 hemoglobin 16.6 and platelets 104 and MCV 101.7 INR 1.1 Sodium 131 potassium 3.3 chloride 93 BUN 7 and creatinine 0.55 and blood glucose is 270 on admission, magnesium 1.4, total bilirubin level is 2.6 AST 93 ALT 45 and alk phos 15 troponin 1 negative and lipase level is 69 Karen urinalysis showed increased specific gravity with 3+ glucose and 1+ ketones. C. diff was sent. Dumas Virus PCR not detected. 01/01/2021 Patient is currently lying in the bed. Awake alert and oriented. Still having episodes of loose bloody bowel movements. Interval decrease in frequency 1-2 so far. Abdominal cramping is also improving. Patient is being cannula antibiotics above Levaquin and Flagyl due to CT evidence of colitis. Patient has been afebrile. Laboratory data showed WBC 7.8 hemoglobin 14.1 and platelets 90 BUN 4 and creatinine 0.45 Nausea with no episodes of vomiting. No chest pain or shortness breath. Patient is being continued alcohol withdrawal protocol. Diet advanced to full liquid diet. 01/02/2021 Patient is currently resting in the bed comfortably. Diarrhea is much improved. No complaints of chest pain or shortness breath. Patient has been afebrile. Nonbloody bowel movements. Tolerating oral diet advanced to full liquid diet and as tolerated. Patient is cleared from GI standpoint and will be discharged and follow-up with GI in the clinic for colonoscopy in the next 6 to 8 weeks. Patient was counseled extensively for alcohol abuse/cessation and information given for follow-up with GI clinic. Patient is being discharged home today. PHYSICAL EXAMINATION: Patient is lying in the bed comfortably, no acute distress, awake alert and oriented.. HEENT: Normocephalic. Neck is supple. Pupils reactive. Nostrils clear. Oral cavity is moist. Neck reveals no JVD, carotid bruits, or thyromegaly. CHEST EXAMINATION: Trachea is central. Symmetrical expansion. Lung irizarry clear to auscultation and percussion. CARDIAC: Normal S1, S2 with no gallops. No murmurs ABDOMEN: Soft. Bowel sounds normal. No organomegaly. No abdominal bruits. Extremities: reveal no edema. No clubbing or cyanosis Neurologically awake, alert, oriented x3 with well-coordinated movements. No focal deficits noted Skin: No rash or skin lesions. Psychiatric: Cooperative. Nonsuicidal Musculoskeletal: No joint swelling or deformity. Normal range of motion. Objective - Vital Signs Vital signs: Vital Signs Temp 99.0 F 01/02/21 14:00 Pulse 129 H 01/02/21 14:00 Resp 17 01/02/21 14:00 BP 145/87 01/02/21 14:00 Pulse Ox 99 01/02/21 14:00 Intake & Output 01/01/21 01/02/21 01/02/21 18:59 06:59 18:59 Intake Total 800 925 800 Balance 800 925 800 Weight 80.739 kg 80.739 kg Intake: Intake, IV Titration 800 925 800 Amount Levofloxacin 500Mg-D5w 100 100 Pmx 500 mg In Dextrose/ Water 1 100ml.bag @ 100 mls/hr IVPB Q24H [facility] Rx#: [id number] Sodium Chloride 0.9% 1, 600 825 600 000 ml @ 75 mls/hr IV . [id number] [facility] Rx#:[id number] metroNIDAZOLE-NS PMX 500 100 100 100 mg In Saline 1 100ml.bag @ 100 mls/hr IVPB Q8HR [facility] Rx#:[id number] Patient Condition at Discharge: Stable Plan - Discharge Summary New Discharge Prescriptions: New Levofloxacin [Levaquin] 500 mg PO DAILY 4 Days #4 tab Thiamine [Vitamin B-1] 100 mg PO DAILY #30 tab metroNIDAZOLE [Flagyl] 500 mg PO Q8HR 4 Days #12 tab Continue traMADol HCL 50 mg PO BID PRN PRN Reason: Pain Gabapentin [Neurontin] 100 mg PO DAILY Insulin Degludec [Tresiba Flextouch U-100 Pen] 30 units SQ QAM Discharge Medication List Gabapentin [Neurontin] 100 mg PO DAILY 12/31/20 [History] Insulin Degludec [Tresiba Flextouch U-100 Pen] 30 units SQ QAM 12/31/20 [History] traMADol HCL 50 mg PO BID PRN 12/31/20 [History] Levofloxacin [Levaquin] 500 mg PO DAILY 4 Days #4 tab 01/02/21 [Rx] Thiamine [Vitamin B-1] 100 mg PO DAILY #30 tab 01/02/21 [Rx] metroNIDAZOLE [Flagyl] 500 mg PO Q8HR 4 Days #12 tab 01/02/21 [Rx] Follow up Appointment(s)/Referral(s): Viviana Anderson MD [STAFF PHYSICIAN] - 02/20/21 (Office will mail out prep instructions prior to appointment for colonoscopy. Office will also send prescriptions for prep to [facility] in [place]. Hospital will call the afternoon before colonoscopy with your scheduled time.) None,Stated [Primary Care Provider] - 1-2 days Patient Instructions/Handouts: Rectal Bleeding (DC), Colitis (ED) Discharge Disposition: HOME SELF-CARE
== END 2021-01-02 14:45 | disposition home or self-care (01) | DRG 392 ==
LOC: EC 08:06 → 4SSUR 11:34
PROVIDERS: ADMIT Internal Medicine; ATTEND Internal Medicine
DX: A09 Infectious gastroenteritis and colitis, unspecified (principal); E87.1 Hypo-osmolality and hyponatremia; K92.1 Melena; E11.42 Type 2 diabetes mellitus with diabetic polyneuropathy; Z20.822 Contact with and (suspected) exposure to COVID-19; E11.65 Type 2 diabetes mellitus with hyperglycemia; E83.42 Hypomagnesemia; E86.1 Hypovolemia; E87.6 Hypokalemia; F10.10 Alcohol abuse, uncomplicated; F17.200 Nicotine dependence, unspecified, uncomplicated; I10 Essential (primary) hypertension; K59.00 Constipation, unspecified; Z79.4 Long term (current) use of insulin; Z79.899 Other long term (current) drug therapy
CPT/HCPCS: 36415; 74177; 80048; 80053; 81003; 83605; 83690; 83735; 84484; 85025; 85610; 85730; 86850; 86900; 86901; 87045; 87046; 87324; 87635; 93005; 96374; 96375; 99285

== ENCOUNTER 2021-02-20 07:27 | Day surgery (SDC) | payer OTHER ==
[2021-02-18 18:00] VITALS: BMI 23.1
[2021-02-20 08:03] VITALS: TEMP 97.3
[2021-02-20] MEDS: LACTATED RINGERS 1,000 ML IV SCH ×2 (08:11→08:33)
[2021-02-20 08:20] LABS: Glucose,Whole Blood 137 mg/dL (75-99)
[2021-02-20] MEDS ORDERED: PROPOFOL 10 MG/ML 20 ML VIAL IV ONE (08:36)
[2021-02-20] MEDS ORDERED: LIDOCAINE 1% INJ 10MG/ML (20 ML MDV) ONE (08:36)
--- NOTE | 2021-02-20 08:51 | P.PCN ---
Date of Procedure: 02/20/21 Procedure(s) Performed: BRIEF HISTORY: Patient is a 89-year-old pleasant white male scheduled for an elective colonoscopy as a part of evaluation of recent episode of acute colitis for which she was admitted to [facility] for 2 days ago treated with empiric antibiotics. He presented with lower abdominal pain and bloody diarrhea of 2 days' duration. CAT scan showed thickening of the colon. He was treated with antibiotics and symptoms subsided. He scheduled for an elective colonoscopy today. PROCEDURE PERFORMED: Colonoscopy. PREOPERATIVE DIAGNOSIS: 8 cm of acute colitis with rectal bleeding and diarrhea. IV sedation per Anesthesia. PROCEDURE: After informed consent was obtained, the patient, was brought into the endoscopy unit. IV sedation was administered by Anesthesia under continuous monitoring. Digital rectal examination was normal. Initially the Olympus CF-160 flexible video colonoscope was then inserted in the rectum, gradually advanced into the cecum without any difficulty. Careful examination was performed as the scope was gradually being withdrawn. Ileocecal valve and the appendiceal orifice were visualized and appeared normal. Prep was excellent. Mucosa of the cecum, ascending colon, transverse colon, descending colon, sigmoid colon, and rectum appeared normal. Retroflexion was performed in the rectum and monitor hemorrhoids were seen. The patient tolerated the procedure well. IMPRESSION: Normal-appearing colon from rectum to cecum with no evidence of colitis or colorectal neoplasia . Small internal hemorrhoids. RECOMMENDATIONS: Findings of this examination were discussed with the patient as well as his family. He was lightly had an episode of acute infectious colitis that has completely resolved. No evidence of inflammatory bowel disease. He was advised to be a high-fiber diet. He can have a repeat screening colonoscopy in 10 years.
[2021-02-20 09:08] VITALS: BP 111/84; PULSE 90; RESP 16
== END 2021-02-20 09:33 | disposition home or self-care (01) ==
LOC: ORWHC2ENDO 07:27
PROVIDERS: ATTEND Internal Medicine Gastroenterology
DX: K52.9 Noninfective gastroenteritis and colitis, unspecified (principal); K62.5 Hemorrhage of anus and rectum; K64.8 Other hemorrhoids; F17.210 Nicotine dependence, cigarettes, uncomplicated; K21.9 Gastro-esophageal reflux disease without esophagitis; I10 Essential (primary) hypertension; E11.40 Type 2 diabetes mellitus with diabetic neuropathy, unspecified; Z79.899 Other long term (current) drug therapy
CPT/HCPCS: 45378; J2001; J2704

== ENCOUNTER → 2021-05-15 | Outpatient (CLI) | payer OTHER ==
--- NOTE | 2021-05-16 03:51 | MR ---
EXAMINATION TYPE: MR shoulder RT wo con DATE OF EXAM: 05/15/2021 COMPARISON: None HISTORY: Right shoulder pain, injury 2 weeks ago. Multiplanar multiecho imaging of the right shoulder without contrast. There is some retraction of the supraspinatus tendon. There is a large full-thickness tear of the sup raspinatus tendon. There is a mild shoulder joint effusion. There is some spurring at the AC joint an d mild subacromial impingement. The subscapularis tendon is intact. The biceps tendon is intact. Glenoid yvonne appear intact. There i s some increased fluid signal in the infraspinatus muscle and tendon seen on the sagittal images. IMPRESSION: Large rotator cuff tear with full-thickness defect in the anterior aspect of the supraspinatus tendon . Shoulder joint effusion. There is edema and fluid involving the infraspinatus tendon and muscle consistent with at least parti al tear.
== END | disposition home or self-care (01) ==
LOC: RADMRIMAIN 18:37
PROVIDERS: ATTEND Orthopaedic Surgery
DX: S46.011A Strain of muscle(s) and tendon(s) of the rotator cuff of right shoulder, initial encounter (principal); M25.411 Effusion, right shoulder; X58.XXXA Exposure to other specified factors, initial encounter

== ENCOUNTER 2021-07-02 05:48 | Day surgery (SDC) | payer OTHER ==
[2021-07-01 08:52] VITALS: BMI 23.1
--- NOTE | 2021-07-01 13:20 | HP ---
HISTORY AND PHYSICAL CHIEF COMPLAINT: Right shoulder pain. HISTORY OF PRESENT ILLNESS: The patient is a 50-year-old [id number] male who presents with right shoulder pain after an injury in April. He was lifting a door frame in his garage when he felt a pop in his shoulder. He notes pain and weakness ever since. He denies significant previous problems. PAST MEDICAL HISTORY: Significant for type 2 diabetes and neuropathy. PAST SURGICAL HISTORY: Significant for right hand surgery. CURRENT MEDICATIONS: Gabapentin along with tramadol, lisinopril and Tresiba. FAMILY HISTORY: Negative. SOCIAL HISTORY: Significant for social alcohol use. REVIEW OF SYSTEMS: Sixteen-point review of systems otherwise reviewed and is noncontributory. PHYSICAL EXAMINATION: On examination, the patient is approximately 6 feet tall, 185 pounds of mesomorphic habitus. HEENT exam is nonfocal. Neck is supple. On examination of the right shoulder, he is tender about the anterior subacromial space. Active range of motion: Forward elevation 40 degrees, external rotation with arm at side 55 degrees, internal rotation to L3. Passively I am able to forward-elevate him 165 degrees. Motor strength 4 minus over 5 for abduction and external rotation. Impingement test, Neer test and Speed test are positive. His distal neurovascular exam appears otherwise intact in the left upper extremity. MRI report right shoulder shows evidence of a large rotator cuff tear with some retraction. No definite muscular atrophy is noted. IMPRESSION: 1. Acute symptomatic right rotator cuff tear. 2. Diabetes. RECOMMENDATIONS: I talked to the patient at length regarding his condition along with treatment options. With the acute nature of his injury, at this point I have recommended proceeding with surgical intervention. We will plan to proceed with arthroscopic evaluation of the right shoulder with probable rotator cuff repair and possible biceps tenotomy. Risks and benefits were discussed at length in layman's terms. We will likely perform it an as outpatient procedure. MMODL / IJN: [id number] /
[~2021-07-02 05:48] MED LIST: DEXAMETHASONE SOD PHOSPHATE 4 MG/ML 1 ML VIAL IV ONE; LACTATED RINGERS 1,000 ML IV SCH; ONDANSETRON 4 MG/2 ML VIAL IVP ONE
[2021-07-02] MEDS ORDERED: HYDROmorphone 0.5 MG/0.5 ML SYRINGE IVP PRN (07:00)
[2021-07-02 07:02] LABS: Glucose,Whole Blood 147 mg/dL (75-99)
[2021-07-02] MEDS ORDERED: LIDOCAINE 1% (10MG/ML) FOR IV START INTRADERMA ONE (07:02)
[2021-07-02] MEDS ORDERED: MIDAZOLAM 2 MG/2 ML VIAL IV ONE (07:16)
[2021-07-02] MEDS ORDERED: fentaNYL (PF) 50 MCG/ML 2 ML AMP IV ONE (07:16)
[2021-07-02] MEDS ORDERED: ROCURONIUM 10 MG/ML (5 ML VIAL) IV ONE (07:43)
[2021-07-02] MEDS ORDERED: SUCCINYLCHOLINE CHLORIDE 100 MG/5 ML SYR IV ONE (07:43)
[2021-07-02] MEDS ORDERED: ROPIVACAINE 5 MG/ML 30 ML VIAL ONE (07:43)
[2021-07-02] MEDS ORDERED: MIDAZOLAM 2 MG/2 ML VIAL ONE (07:43)
[2021-07-02] MEDS ORDERED: PHENYLEPHRINE-0.9% NACL SYG 1,000 MCG/10 ML SYRINGE ONE (07:43)
[2021-07-02] MEDS ORDERED: DEXAMETHASONE SOD PHOSPHATE 4 MG/ML 1 ML VIAL ONE (07:43)
[2021-07-02] MEDS ORDERED: PROPOFOL 10 MG/ML 20 ML VIAL IV ONE (07:43)
[2021-07-02] MEDS ORDERED: LIDOCAINE 1% INJ 10MG/ML (20 ML MDV) ONE (07:43)
[2021-07-02] MEDS ORDERED: fentaNYL (PF) 50 MCG/ML 2 ML AMP ONE (07:43)
[2021-07-02] MEDS ORDERED: EPINEPHrine (PF) 1 ML in SODIUM CHLORIDE 0.9% IRRIGATIO 3,000 ML IRRIGATION ONE ×8 (07:45)
[2021-07-02] MEDS ORDERED: LACTATED RINGERS 1,000 ML IV ONE (09:02)
--- NOTE | 2021-07-02 09:12 | P.OP ---
Date of Procedure: 07/02/21 Preoperative Diagnosis: Acute right rotator cuff tear Postoperative Diagnosis: 5 cm rotator cuff tear/high-grade partial-thickness tear interarticular portion proximal biceps Procedure(s) Performed: Right shoulder arthroscopic subacromial decompression/biceps tenotomy/rotator cuff repair Implants: Arthrex 4.75 mm swivel lock anchor 2, 5.5 mm swivel lock anchor 2 [facility] Surgeon: Uriel Mckeon Pediatric Care Coordinator #1: Leonel Chavez Estimated Blood Loss (ml): 10 Pathology: none sent Condition: stable Disposition: PACU Indications for Procedure: The patient's a 50-year-old male who presents after falling injuring his right shoulder recently with significant pain and weakness. His MRI showed a large rotator cuff tear. A discussion of the risks and benefits of operative intervention was made with the patient. He opted to proceed with surgery. Operative risks to include infection, neurovascular injury, development of blood clots, possible tendon rerupture, possible postoperative stiffness and need for subsequent procedures was discussed. Informed consent was obtained. Operative Findings: As below Description of Procedure: The patient was brought to the operating room, and after induction of general anesthesia was placed in a beachchair position. A preoperative interscalene block was placed for postoperative analgesia. I examined the right shoulder. There was no gross block to passive motion or gross glenohumeral instability. The right upper extremity was prepped and draped in normal fashion. The bony outlines the acromion, distal clavicle, and coracoid process were outlined with a skin marker. The glenohumeral joint was inflated with 50 mL of saline utilizing a spinal needle from posterior approach. A posterior portal was made through a 5 mm skin incision 1 cm medial and inferior to the posterior lateral border time. A blunt trocar was used to easily into the joint. Diagnostic arthroscopy was performed. An anterior portal was made just lateral to the coracoid process entering the joint above the subscapularis tendon. The subscapularis tendon appeared to be intact. Anterior labrum was intact. The inferior recess was inspected. The posterior labrum was intact. There was a high-grade partial-thickness tear of the long head of the biceps involving interarticular portion. It was elected to proceed with release at this point. This was released from the superior labrum with electrocautery and was allowed to retract to the bicipital groove. On inspection the rotator cuff, a large tear involving the supraspinatus and infraspinatus was noted with some retraction. A lateral portal was made 2 centimeters inferior to the anterior lateral border of the acromion. The rotator cuff was then mobilized with a traction suture. This was then brought back to the greater tuberosity. Bursal adhesions were removed with a motorized shaver. The soft tissue on the undersurface of the acromion was debrided with a motorized shaver and electrocautery clearly defining the anterior medial and lateral borders as well as the distal clavicle. An anterior inferior acromioplasty was performed with a motorized marilyn starting anterolateral, then extending this posteriorly, then extending this medially. I converted to a flat acromion and this was verified in the posterior and lateral viewing portals. The greater tuberosity was lightly decorticating with a shaver down to a bleeding bony surface. An accessory superior lateral portals made just off the lateral edge of the acromion for anchor placement. 2 anchors were then placed just off the articular surface with the appropriate starting awl. 4.75 mm anchors preloaded with #2 fiber tape were placed. Good purchase was obtained. These fiber tapes were then passed the rotator cuff with a scorpion suture passer. A lateral row was created crisscrossing these tapes. 5.5 mm swivel lock anchors x 2 were placed laterally. Good purchase was obtained. Final arthroscopic view showed adequate compression at the footprint. The arthroscope was then removed. The portals were closed with simple 3-0 nylon sutures. A sterile dressing was applied in addition to an abductor brace. The patient was then awoken from general anesthesia and transferred to recovery room in good condition. Blood loss was estimated at 10 mL. No complications were incurred. Sponge and needle counts were correct in the case. Leonel RIGGS assisted and the major components of the case to include arm positioning, anchor placement, and rotator cuff repair.
--- NOTE | 2021-07-02 09:16 | P.ANPRN ---
Procedure Note - Anesthesia - Nerve Block Performed Right Interscalene Single Time Out Performed: Yes ([id number]) Date of Procedure: 07/02/21 Procedure Start Time: :17 Procedure Stop Time: :24 Indication: Acute Post-Operative Pain, Requested by Surgeon Specifically requested for management of pain by : Uriel Mckeon Sedation Type: Sedate with meaningful contact maintained Preparation: Sterile Prep Position: Supine Catheter: None Needle Types: Pajunk Needle Gauge: 21 Ultrasound used to visualize needle placement: Yes Ultrasound used to observe medication spread: Yes Injectate: 0.5% Ropivacaine (see comment for volume) (30cc + decadron 4mg) Blood Aspirated: No Pain Paresthesia on Injection Noted: No Resistance on Injection: Normal Image Stored and Saved: Yes Events: Uneventful and Well Tolerated
[2021-07-02 09:20] VITALS: TEMP 97.1
[2021-07-02 09:28] LABS: Glucose,Whole Blood 157 mg/dL (75-99)
[2021-07-02 10:13] VITALS: RESP 20
[2021-07-02 10:28] VITALS: BP 151/95; PULSE 70
== END 2021-07-02 10:58 | disposition home or self-care (01) ==
LOC: OR 05:48
PROVIDERS: ATTEND Orthopaedic Surgery
DX: M75.101 Unspecified rotator cuff tear or rupture of right shoulder, not specified as traumatic (principal); E11.9 Type 2 diabetes mellitus without complications; G62.9 Polyneuropathy, unspecified; Z79.899 Other long term (current) drug therapy; G89.18 Other acute postprocedural pain
CPT/HCPCS: 29822; 64415; 76942; C1713 ×2; C1894; J2250; J1100; J0690; J2405; J0171; J2001; J3010; J2795; J2370; J0330; J2704

== ENCOUNTER → 2023-04-27 | Outpatient (CLI) | payer BC ==
--- NOTE | 2023-04-27 14:54 | NM ---
EXAMINATION TYPE: NM bone 3 phase DATE OF EXAM: 04/27/2023 COMPARISON: NONE CLINICAL INDICATION: Male, 52 years old with history of E08.621 DIABETES MELLITUS DUE TO UNDERLYING C ONDIT; Triple phase bone scintigraphy was performed following the injection of 25.1 mCi Tc 99m MDP. Immedia te images and 5.5 hours post injection images acquired. FINDINGS: Increased radiotracer accumulation noted on all 3 phases of scarring involving the left sec ond toe. Osteomyelitis is not excluded. Degenerative uptake about the left midfoot and left first met atarsal-phalangeal joint. Nonspecific Focal intense uptake involving the right second toe. IMPRESSION: Osteomyelitis left second toe is not excluded.
== END | disposition home or self-care (01) ==
LOC: RADNMMAIN 07:08
PROVIDERS: ATTEND Thoracic Surgery (Cardiothoracic Vascular Surgery)
DX: E08.621 Diabetes mellitus due to underlying condition with foot ulcer (principal); L97.525 Non-pressure chronic ulcer of other part of left foot with muscle involvement without evidence of necrosis; L97.515 Non-pressure chronic ulcer of other part of right foot with muscle involvement without evidence of necrosis; F17.210 Nicotine dependence, cigarettes, uncomplicated
CPT/HCPCS: 78315; A9503

== ENCOUNTER 2023-07-28 08:06 | Emergency (ER) | payer BC ==
[2023-07-28 08:14] VITALS: RESP 18
--- NOTE | 2023-07-28 09:07 | XR ---
EXAMINATION TYPE: XR foot complete LT DATE OF EXAM: 07/28/2023 COMPARISON: NONE HISTORY: Discoloration and swelling fifth toe TECHNIQUE: Three views are submitted. FINDINGS: Moderate hypertrophic arthropathy present with hallux valgus. There is sclerosis and deformity of the distal margin proximal phalanx second digit which may be rela kristine to incomplete healed fracture. Chronic osteomyelitis not excluded. Regard to the fifth digit there is no acute fracture or destructive change. Vascular calcifications n oted. IMPRESSION: 1. Sclerosis and lucency proximal phalanx second digit most likely on the basis of incompletely heale d fracture. Chronic osteomyelitis not excluded. 2. No acute fracture or destructive change of the fifth digit.
--- NOTE | 2023-07-28 09:54 | ED ---
General Adult HPI - General Chief complaint: Skin/Abscess/Foreign Body Stated complaint: L foot pain Time Seen by Provider: 07/28/23 08:13 Source: patient, RN notes reviewed Mode of arrival: ambulatory Limitations: no limitations - History of Present Illness Initial comments: 52-year-old male presents emergency department complaint of left foot discolora tion. Patient states he is unsure if he had an injury has neuropathy states he cannot feel when he has injuries he states he believes there is a wound there is a chronic infection of his second digit. Patient denies fevers or chills no other complaints. Patient states blood sugar was 120 this morning. - Related Data Home Medications Medication Instructions Recorded Confirmed Gabapentin [Neurontin] 100 mg PO TID 12/31/20 07/02/21 Insulin Degludec [Tresiba 18 units SQ HS 12/31/20 07/02/21 Flextouch U-100 Pen] traMADol HCL 50 mg PO BID PRN 12/31/20 07/02/21 lisinopriL [Zestril] 10 mg PO QAM 02/18/21 07/02/21 Previous Rx's Medication Instructions Recorded Thiamine [Vitamin B-1] 100 mg PO DAILY #30 tab 01/02/21 HYDROcodone/APAP 7.5-325MG [[place] 1 each PO Q6HR PRN #28 tab 07/02/21 7.5] Cephalexin [Keflex] 500 mg PO Q6HR #40 cap 07/28/23 Allergies Allergy/AdvReac Type Severity Reaction Status Date / Time metformin AdvReac Nausea Verified 07/02/21 06:26 Review of Systems ROS Statement: Those systems with pertinent positive or pertinent negative responses have been documented in the HPI. ROS Other: All systems not noted in ROS Statement are negative. Past Medical History Past Medical History: Diabetes Mellitus, GERD/Reflux, Hypertension, Osteoarthritis (OA) Additional Past Medical History / Comment(s): Neuropathy legs and feet, Ulcerative Colitis, "resolved for some time now". History of Any Multi-Drug Resistant Organisms: None Reported Past Surgical History: Orthopedic Surgery Additional Past Surgical History / Comment(s): 3rd & 4th fingers reattached w/bone grafts after accident, colonoscopy. Past Anesthesia/Blood Transfusion Reactions: No Reported Reaction Past Psychological History: No Psychological Hx Reported Smoking Status: Never smoker Past Alcohol Use History: Abuse, Daily Past Drug Use History: Marijuana - Past Family History Father Family Medical History: Diabetes Mellitus, Hyperlipidemia, Hypertension Brother(s) Family Medical History: Diabetes Mellitus, Hyperlipidemia, Hypertension General Exam Limitations: no limitations General appearance: alert, in no apparent distress Head exam: Present: atraumatic, normocephalic, normal inspection Neck exam: Present: normal inspection, full ROM. Absent: tenderness, meningismus, lymphadenopathy Respiratory exam: Present: normal lung sounds bilaterally. Absent: respiratory distress, wheezes, rales, rhonchi, stridor Cardiovascular Exam: Present: regular rate, normal rhythm, normal heart sounds. Absent: systolic murmur, diastolic murmur, rubs, gallop, clicks Course Vital Signs 07/28/23 07/28/23 08:07 10:08 Temperature 98.0 F 98.1 F Pulse Rate 97 84 Respiratory 18 18 Rate Blood Pressure 162/91 160/85 O2 Sat by Pulse 98 96 Oximetry Medical Decision Making - Medical Decision Making Was pt. sent in by a medical professional or institution (Dr. PA, DIRECTOR WRITING, urgent care, hospital, or senior care...) When possible be specific @ -No Did you speak to anyone other than the patient for history (EMS, parent, family, police, friend...)? What history was obtained from this source @ -No Did you review nursing and triage notes (agree or disagree)? Why? @ -I reviewed and agree with nursing and triage notes Were old charts reviewed (outside hosp., previous admission, EMS record, old EKG, old radiological studies, urgent care reports/EKG's, senior care records)? Report findings @ -No old charts were reviewed Differential Diagnosis (chest pain, altered mental status, abdominal pain women, abdominal pain men, vaginal bleeding, weakness, fever, dyspnea, syncope, headache, dizziness, GI bleed, back pain, seizure, CVA, palpatations, mental health, musculoskeletal)? @ -Foot contusion, foot fracture, diabetic infection EKG interpreted by me (3pts min.). @ -None X-rays interpreted by me (1pt min.). @ -X-ray a left foot showing chronic changes second digit otherwise no acute normality CT interpreted by me (1pt min.). @ -None done U/S interpreted by me (1pt. min.). @ -None done What testing was considered but not performed or refused? (CT, X-rays, U/S, labs)? Why? @ -None What meds were considered but not given or refused? Why? @ -None Did you discuss the management of the patient with other professionals (professionals i.e. , PA, DIRECTOR WRITING, lab, RT, psych nurse, manager social media, human resources trainee, teacher, navigation officer, director of casework department)? Give summary @ -No Was smoking cessation discussed for >3mins.? @ -No Was critical care preformed (if so, how long)? @ -No Were there social determinants of health that impacted care today? How? (Homelessness, low income, unemployed, alcoholism, drug addiction, transportation, low edu. Level, literacy, decrease access to med. care, fci, rehab)? @ -No Was there de-escalation of care discussed even if they declined (Discuss DNR or withdrawal of care, Hospice)? DNR status @ -No What co-morbidities impacted this encounter? (DM, HTN, Smoking, COPD, CAD, Cancer, CVA, ARF, Chemo, Hep., AIDS, mental health diagnosis, sleep apnea, morbid obesity)? @ -Diabetes Was patient admitted / discharged? Hospital course, mention meds given and route, prescriptions, significant lab abnormalities, going to OR and other pertinent info. @ -Discharged patient has left foot contusion he does have a small open wound will be placed on antibiotics given his diabetic history will follow-up with podiatry Undiagnosed new problem with uncertain prognosis? @ -No Drug Therapy requiring intensive monitoring for toxicity (Heparin, Nitro, Insulin, Cardizem)? @ -No Were any procedures done? @ -No Diagnosis/symptom? @ -Foot contusion, open wound Acute, or Chronic, or Acute on Chronic? @ -Acute Uncomplicated (without systemic symptoms) or Complicated (systemic symptoms)? @ -Uncomplicated Side effects of treatment? @ -No Exacerbation, Progression, or Severe Exacerbation? @ -No Poses a threat to life or bodily function? How? (Chest pain, [place], [place], pneumonia, PE, COPD, DKA, ARF, appy, cholecystitis, CVA, Diverticulitis, Homicidal, Suicidal, threat to staff... and all critical care pts) @ -No Disposition Clinical Impression: Foot contusion, Open wound of foot Disposition: HOME SELF-CARE Condition: Stable Instructions (If sedation given, give patient instructions): Acute Wounds (ED) Additional Instructions: Please return to the Emergency Department if symptoms worsen or any other concerns. Prescriptions: Cephalexin [Keflex] 500 mg PO Q6HR #40 cap Is patient prescribed a controlled substance at d/c from ED?: No Referrals: Anushka Grimes [Primary Care Provider] - 1-2 days Landon Noe DPM [STAFF PHYSICIAN] - 1-2 days Time of Disposition: 09:53
[2023-07-28 10:37] VITALS: BP 160/85; PULSE 84; TEMP 98.1
== END 2023-07-28 10:10 | disposition home or self-care (01) ==
LOC: EC 08:06
DX: S91.302A Unspecified open wound, left foot, initial encounter (principal); S90.32XA Contusion of left foot, initial encounter; Z88.5 Allergy status to narcotic agent; X58.XXXA Exposure to other specified factors, initial encounter
CPT/HCPCS: 99283

== ENCOUNTER 2024-06-03 08:32 | Emergency (ER) | payer BC ==
[2024-06-03] MEDS: SODIUM CHLORIDE 0.9% 1,000 ML IV ONE (10:00)
[2024-06-03] MEDS: methylPREDNISolone SOD SUCCI 40 MG/ML 1 ML VIAL IV STA (10:00)
[2024-06-03] MEDS: KETOROLAC 15 MG/ML 1 ML VIAL IVP STA (10:00)
--- NOTE | 2024-06-03 10:52 | XR ---
EXAMINATION TYPE: XR shoulder complete LT DATE OF EXAM: 06/03/2024 10:31 AM COMPARISON: None CLINICAL INDICATION: Male, 53 years old with history of neck pain, left radiculopathy symptoms; PHH, pain TECHNIQUE: XR shoulder complete LT; examined in AP, internally rotated and scapular Y projections. FINDINGS: No evidence of acute osseous pathology, joint dislocation, or soft tissue swelling. The remaining po rtions of the visualized chest are unremarkable. Degeneration changes of the acromion, distal clavic le with osteophyte formation. There is osteophyte formation of the glenoid and humeral head. There is joint space narrowing of glenohumeral joint. IMPRESSION: 1. No acute osseous pathology. 2. Mild shoulder osteoarthrosis. [facility], , 06/03/2024 10:50 AM
--- NOTE | 2024-06-03 10:53 | XR ---
EXAMINATION TYPE: XR hand complete RT DATE OF EXAM: 06/03/2024 10:31 AM COMPARISON: None CLINICAL INDICATION: Male, 53 years old with history of hand pain; PHH, pain TECHNIQUE: XR hand complete RT 3 views were obtained. FINDINGS: Normal alignment of the visualized joints. No acute osseous pathology is identified. No e vidence of soft tissue swelling. Multifocal degeneration changes with joint space narrowing and osteo phyte formation. Particularly the second digit distal interphalangeal joint.. Osseous fusion of the d istal interphalangeal joints of the third and fourth digits. IMPRESSION: 1. No acute osseous pathology. 2. Mild Second digit distal interphalangeal joint osteoarthrosis as well as throughout the joints of the hand. 3. Osseous fusion of the distal interphalangeal joints of the third and fourth digits. [facility], , 06/03/2024 10:51 AM
--- NOTE | 2024-06-03 11:05 | CT ---
EXAMINATION TYPE: CT cervical spine wo con DATE OF EXAM: 06/03/2024 10:45 AM COMPARISON: None. CLINICAL INDICATION: Male, 53 years old with history of neck pain, left radiculopathy symptoms; neck pain, left radiculopathy symptoms TECHNIQUE: Axial CT images from the skull base to the inferior aspect of T2 we obtained without intra venous contrast. Coronal and sagittal reformatted images were also reviewed. Contrast used: mL of , (if blank None) Oral contrast used: (if blank None) CT DLP: 487.7 mGycm, Automated exposure control for dose reduction was used. FINDINGS: Fracture: None. Osseous structures: Multilevel degenerative disc disease changes with endplate spurring and disc oste ophyte complex's. Findings worse at C5-C6. Vertebral alignment: Alignment within normal limits. Spinal canal/Neural Foramina: Disc osteophyte complexes at C5-C6 with at least mild spinal canal sten osis. Facet joint uncovertebral joint arthropathy scattered throughout the cervical spine with varyin g degrees of neural foraminal stenosis. Moderate bilateral C5-C6 and left C6-C7 neural foraminal sten osis.. Neck soft tissues: Prevertebral soft tissues are within normal limits. Other: The airway is patent. Atherosclerosis of the carotid bifurcations. IMPRESSION: 1. No evidence of cervical spine fracture. 2. Moderate to severe C5-C6 disc degeneration changes with moderate to severe bilateral neural forami nal stenosis as well as moderate severe left C6-C7 neural foraminal stenosis which is moderate to sev ere. [facility], , 06/03/2024 11:02 AM
[2024-06-03] MEDS: MORPHINE SULFATE 4 MG/ML SYRINGE IVP STA (11:37)
[2024-06-03] MEDS: LIDOCAINE 4% PATCH TOPICAL STA (11:38)
--- NOTE | 2024-06-03 12:22 | ED ---
General Adult HPI - General Chief complaint: Extremity Injury, Upper Stated complaint: neck,back,shoulder pain Time Seen by Provider: 06/03/24 09:06 Source: patient, RN notes reviewed, old records reviewed Mode of arrival: ambulatory Limitations: no limitations - History of Present Illness Initial comments: Patient is a 53-year-old male who presents emergency department complaining of left-sided neck pain and shoulder pain. States he was lifting heavy things at work which she does regularly 2 days ago when the pain started. States is loc ated on the top part of his left shoulder with involvement of the trapezius muscle on his left back and he has shooting pains from his left neck down into his fingertips on the left side. Pain with certain movements of the left arm as well as certain movements of the neck. Endorses pulling sensation. Presents for further evaluation at this time. Denies any chest pain, shortness of breath. Denies any blurry vision. Denies any leg or midline back pain. Denies any new injuries other than the heavy lifting. He does endorse a right first metacarpal pain and is currently wearing an Declan bandage. States this is typical for his rheumatoid arthritis. - Related Data Home Medications Medication Instructions Recorded Confirmed Gabapentin [Neurontin] 100 mg PO TID 12/31/20 07/02/21 Insulin Degludec [Tresiba 18 units SQ HS 12/31/20 07/02/21 Flextouch U-100 Pen] traMADol HCL 50 mg PO BID PRN 12/31/20 07/02/21 lisinopriL [Zestril] 10 mg PO QAM 02/18/21 07/02/21 Previous Rx's Medication Instructions Recorded Thiamine [Vitamin B-1] 100 mg PO DAILY #30 tab 01/02/21 HYDROcodone/APAP 7.5-325MG [[place] 1 each PO Q6HR PRN #28 tab 07/02/21 7.5] Cephalexin [Keflex] 500 mg PO Q6HR #40 cap 07/28/23 Acetaminophen [Tylenol Extra 500 mg PO TID PRN 7 Days #21 packet 06/03/24 Strength] HYDROcodone/APAP 5-325MG [[place] 1 tab PO Q4HR PRN 3 Days #18 tab 06/03/24 5-325] Lidocaine 5% Patch [Lidoderm 5% 1 patch TOPICAL DAILY PRN 14 Days 06/03/24 Patch] #14 patch Allergies Allergy/AdvReac Type Severity Reaction Status Date / Time metformin AdvReac Nausea Verified 06/03/24 08:40 Review of Systems ROS Statement: Those systems with pertinent positive or pertinent negative responses have been documented in the HPI. Review of Systems: CONST: Denies fever EYES: Denies blurry vision ENT: Denies nasal congestion C/V: Denies Chest pain RESP: Denies shortness of breath GI: Denies abdominal pain : Denies dysuria SKIN: Denies rash. MSK: Endorses neck pain, shoulder pain NEURO: Denies headache ROS Other: All systems not noted in ROS Statement are negative. Past Medical History Past Medical History: Diabetes Mellitus, GERD/Reflux, Hypertension, Osteoarthritis (OA) Additional Past Medical History / Comment(s): Neuropathy legs and feet, Ulcerative Colitis, "resolved for some time now". History of Any Multi-Drug Resistant Organisms: None Reported Past Surgical History: Orthopedic Surgery Additional Past Surgical History / Comment(s): 3rd & 4th fingers reattached w/bone grafts after accident, colonoscopy. Past Anesthesia/Blood Transfusion Reactions: No Reported Reaction Past Psychological History: No Psychological Hx Reported Smoking Status: Never smoker Past Alcohol Use History: Abuse, Daily Past Drug Use History: Marijuana - Past Family History Father Family Medical History: Diabetes Mellitus, Hyperlipidemia, Hypertension Brother(s) Family Medical History: Diabetes Mellitus, Hyperlipidemia, Hypertension General Exam - General Exam Comments Initial Comments: General: Appears in moderate distress secondary to pain in the left shoulder and left neck and HEAD: Normal with no signs of head trauma. EYES: PERRLA, EOMI, conjunctiva normal, no discharge. Pupils are 2 mm and equal bilaterally. ENT: Hearing grossly intact, normal oropharynx. RESPIRATORY: Clear breath sounds bilaterally. No wheezes, rales, or rhonchi. C/V: Regular rate and rhythm. S1 and S2 auscultated, no edema, peripheral pulses 2+ and intact throughout ABD: Abd is soft, nontender, nondistended EXT: No obvious deformity. Decreased range of motion left shoulder secondary to pain. Pain is aggravated by movement of the neck as well as movement of the left shoulder. Seems to be the trapezius muscle as well as possible radiculopathy. No significant midline spinal tenderness to palpation of the cervical or thoracic spine. No obvious injuries. Right hand does show edema at the first metacarpal joint. SKIN: No rashes or lesions observed on exposed skin. NEURO: Alert and oriented x 4. No focal deficits. Limitations: no limitations Course Vital Signs 06/03/24 06/03/24 08:38 12:42 Temperature 97.4 F L 97.9 F Pulse Rate 87 84 Respiratory 24 20 Rate Blood Pressure 108/74 112/72 O2 Sat by Pulse 98 99 Oximetry Medical Decision Making - Medical Decision Making Was pt. sent in by a medical professional or institution (, PA, [facility] [employer]TER, urgent care, hospital, or correction...) When possible be specific @ -No Did you speak to anyone other than the patient for history (EMS, parent, family, police, friend...)? What history was obtained from this source @ -No Did you review nursing and triage notes (agree or disagree)? Why? @ -I reviewed and agree with nursing and triage notes Were old charts reviewed (outside hosp., previous admission, EMS record, old EKG, old radiological studies, urgent care reports/EKG's, correction records)? Report findings @ -No old charts were reviewed Differential Diagnosis (chest pain, altered mental status, abdominal pain women, abdominal pain men, vaginal bleeding, weakness, fever, dyspnea, syncope, headache, dizziness, GI bleed, back pain, seizure, CVA, palpatations, mental health, musculoskeletal)? @ -Differential Musculoskeletal Muscular strain, contusion, ligament sprain, fracture, arthritis, septic arthritis, bursitis, cellulitis, muscle spasm, nerve compression, DVT, arterial occlusion, herpes zoster, electrolyte abnormality, tumor.... This is not meant to be in all inclusive list EKG interpreted by me (3pts min.). @ -As above X-rays interpreted by me (1pt min.). @ -Right hand x-ray shows arthritis. Left shoulder x-ray shows arthritis but no obvious acute process CT interpreted by me (1pt min.). @ -CT cervical spine shows diffuse degeneration with left-sided foraminal stenosis narrowing. Moderate to severe. Worse on the left. U/S interpreted by me (1pt. min.). @ -None done What testing was considered but not performed or refused? (CT, X-rays, U/S, labs)? Why? @ -None What meds were considered but not given or refused? Why? @ -None Did you discuss the management of the patient with other professionals (professionals i.e. , PA, [facility], lab, RT, psych nurse, delinquency prevention social worker, mid level business analyst, teacher, chief compliance officer, business case analyst)? Give summary @ -No Was smoking cessation discussed for >3mins.? @ -No Was critical care preformed (if so, how long)? @ -No Were there social determinants of health that impacted care today? How? (Homelessness, low income, unemployed, alcoholism, drug addiction, transportation, low edu. Level, literacy, decrease access to med. care, [facility], rehab)? @ -No Was there de-escalation of care discussed even if they declined (Discuss DNR or withdrawal of care, Hospice)? DNR status @ -No What co-morbidities impacted this encounter? (DM, HTN, Smoking, COPD, CAD, Cancer, CVA, ARF, Chemo, Hep., AIDS, mental health diagnosis, sleep apnea, morbid obesity)? @ -None Was patient admitted / discharged? Hospital course, mention meds given and route, prescriptions, significant lab abnormalities, going to OR and other pertinent info. @ -Patient presents with what seems like musculoskeletal pain of the left shoulder as well as radiculopathy of the neck and shoulder. Patient will be administered analgesia medications and we will obtain imaging. Screening EKG obtained in triage which was unremarkable. Vitals are within acceptable limits. He was in agreement this plan. Imaging negative for any obvious acute traumatic injury however neck CT does show the significant degeneration of the left neck as well as significant foraminal stenosis that is moderate to severe in nature. This is likely the source of his pain. Patient redosed medications and reevaluated. He is feeling improved. We discussed his findings. He will be given a work note and follow- up with orthopedic spine. He was in agreement this plan. Patient has followed up with Dr. Mckeon in the past which is why he was provided with contact information for Dr. Duarte. I instructed the patient to follow up with their PCP in the next 1-3 days. I explained that the patient should return to the emergency department if they experience any worsening symptoms. Strict return precautions were discussed with the patient. The patient expressed understanding of these instructions. I answered all questions that the patient had. The patient was discharged home in fair condition with their prescriptions and follow up information. Undiagnosed new problem with uncertain prognosis? @ -No Drug Therapy requiring intensive monitoring for toxicity (Heparin, Nitro, Insulin, Cardizem)? @ -No Were any procedures done? @ -No Diagnosis/symptom? @ -Cervical spine degeneration, cervical radiculopathy, arthritis Acute, or Chronic, or Acute on Chronic? @ -Acute Uncomplicated (without systemic symptoms) or Complicated (systemic symptoms)? @ -Complicated Side effects of treatment? @ -No Exacerbation, Progression, or Severe Exacerbation? @ -No Poses a threat to life or bodily function? How? (Chest pain, [place], [place], pneumonia, PE, COPD, DKA, ARF, appy, cholecystitis, CVA, Diverticulitis, Homicidal, Suicidal, threat to staff... and all critical care pts) @ -Unlikely at this time - EKG Data -: EKG Interpreted by Me EKG Comments: 12-lead Electrocardiogram Interpretation Note EKG was reviewed and interpreted by myself. 12-lead ECG performed at 0846 is interpreted by me as revealing normal sinus rhythm at a rate of 87 beats per minute. [place] is normal. [place] interval is 152 ms, QRS duration is 96 ms, QTc is 408 ms.. There were no ST or T wave abnormalities to suggest myocardial ischemia or injury. R wave progression across the precordium was satisfactory. By my interpretation this EKG is non-diagnostic for acute ischemia. Disposition Clinical Impression: Cervical spine degeneration, Cervical radiculopathy, Arthritis Disposition: HOME SELF-CARE Condition: Fair Instructions (If sedation given, give patient instructions): Cervical Radiculopathy (ED), Neck Pain (ED) Additional Instructions: You have significant cervical radiculopathy, degeneration of the cervical spine. You need to follow-up with spinal surgeon. You have previously saw Dr. Ibrahim of orthopedic surgery and can follow-up with Dr. Duarte who is also out of that office. Return to the ER for any worsening symptoms. Use the prescribed medications as well as [id number] ibuprofen 800 mg every 8 hours. Take pain medications as needed for pain control. Prescriptions: Lidocaine 5% Patch [Lidoderm 5% Patch] 1 patch TOPICAL DAILY PRN 14 Days #14 patch PRN Reason: Pain HYDROcodone/APAP 5-325MG [[place] 5-325] 1 tab PO Q4HR PRN 3 Days #18 tab PRN Reason: Pain Acetaminophen [Tylenol Extra Strength] 500 mg PO TID PRN 7 Days #21 packet PRN Reason: Pain Is patient prescribed a controlled substance at d/c from ED?: Yes When asked, does pt state using other controlled substances?: No If prescribed controlled substance>3 days was MAPS reviewed?: Prescribed <3 Days If opioid is for acute pain is fill amount 7 days or less?: Yes Referrals: Anushka Grimes [Primary Care Provider] - 1-2 days Parish Duarte DO [Doctor of Osteopathic Medicine] - 1-2 days Time of Disposition: 12:21
[2024-06-03 12:44] VITALS: BP 112/72; PULSE 84; RESP 20; TEMP 97.9
== END 2024-06-03 12:43 | disposition home or self-care (01) ==
LOC: EC 08:32
DX: M48.02 Spinal stenosis, cervical region (principal); M54.12 Radiculopathy, cervical region; M19.041 Primary osteoarthritis, right hand; Z88.8 Allergy status to other drugs, medicaments and biological substances
CPT/HCPCS: 73030; 73130; 72125; 99284; 96374; 96375; 96361; J2270; J3360; J1885; J2919

== ENCOUNTER 2024-06-05 16:03 | Inpatient (IN) | payer BC ==
--- NOTE | 2024-06-05 16:38 | ED ---
Recheck HPI - General Chief Complaint: Recheck/Abnormal Lab/Rx Stated Complaint: Back Pain Time Seen by Provider: 06/05/24 16:34 Source: patient, RN notes reviewed Mode of arrival: EMS Limitations: no limitations - History of Present Illness Initial Comments: 53-year-old male presenting for neck pain. He was seen in the ER for same complaint 2 days ago where he underwent CT of the neck and diagnosed with significant cervical radiculopathy and degeneration. He has been taking [place] fives, lidocaine patches, ibuprofen, and Tylenol however reports pain has worsened. Admits to heavy lifting prior to symptom onset however denies any specific injury or trauma. Also reports his urine has been dark brown for the for the past 5 days and worsening right hand redness and swelling. Denies chest pain, shortness of breath, fever. He does endorse nausea. Denies focal weakness, numbness, or tingling. - Related Data Home Medications Medication Instructions Recorded Confirmed Gabapentin [Neurontin] 100 mg PO TID 12/31/20 07/02/21 Insulin Degludec [Tresiba 18 units SQ HS 12/31/20 07/02/21 Flextouch U-100 Pen] traMADol HCL 50 mg PO BID PRN 12/31/20 07/02/21 lisinopriL [Zestril] 10 mg PO QAM 02/18/21 07/02/21 Previous Rx's Medication Instructions Recorded Thiamine [Vitamin B-1] 100 mg PO DAILY #30 tab 01/02/21 HYDROcodone/APAP 7.5-325MG [[place] 1 each PO Q6HR PRN #28 tab 07/02/21 7.5] Cephalexin [Keflex] 500 mg PO Q6HR #40 cap 07/28/23 Acetaminophen [Tylenol Extra 500 mg PO TID PRN 7 Days #21 packet 06/03/24 Strength] HYDROcodone/APAP 5-325MG [[place] 1 tab PO Q4HR PRN 3 Days #18 tab 06/03/24 5-325] Lidocaine 5% Patch [Lidoderm 5% 1 patch TOPICAL DAILY PRN 14 Days 06/03/24 Patch] #14 patch Allergies Allergy/AdvReac Type Severity Reaction Status Date / Time metformin AdvReac Nausea Verified 06/05/24 16:12 Review of Systems ROS Statement: Those systems with pertinent positive or pertinent negative responses have been documented in the HPI. ROS Other: All systems not noted in ROS Statement are negative. Past Medical History Past Medical History: Diabetes Mellitus, GERD/Reflux, Hypertension, Osteoarthritis (OA) Additional Past Medical History / Comment(s): Neuropathy legs and feet, Ulcerative Colitis, "resolved for some time now". History of Any Multi-Drug Resistant Organisms: None Reported Past Surgical History: Orthopedic Surgery Additional Past Surgical History / Comment(s): 3rd & 4th fingers reattached w/bone grafts after accident, colonoscopy. Past Anesthesia/Blood Transfusion Reactions: No Reported Reaction Past Psychological History: No Psychological Hx Reported Smoking Status: Never smoker Past Alcohol Use History: Abuse, Daily Past Drug Use History: Marijuana - Past Family History Father Family Medical History: Diabetes Mellitus, Hyperlipidemia, Hypertension Brother(s) Family Medical History: Diabetes Mellitus, Hyperlipidemia, Hypertension General Exam Limitations: no limitations General appearance: alert, in no apparent distress Head exam: Present: atraumatic, normocephalic, normal inspection Eye exam: Present: normal appearance, PERRL, EOMI. Absent: scleral icterus, conjunctival injection, periorbital swelling ENT exam: Present: normal exam, mucous membranes moist Neck exam: Present: normal inspection, other (No point tenderness to palpation). Absent: tenderness, meningismus, lymphadenopathy Respiratory exam: Present: normal lung sounds bilaterally. Absent: respiratory distress, wheezes, rales, rhonchi, stridor Cardiovascular Exam: Present: regular rate, normal rhythm, normal heart sounds. Absent: systolic murmur, diastolic murmur, rubs, gallop, clicks Extremities exam: Present: normal inspection, full ROM, normal capillary refill. Absent: tenderness, pedal edema, joint swelling, calf tenderness Neurological exam: Present: alert, oriented X3 Psychiatric exam: Present: normal affect, normal mood Skin exam: Present: warm, dry, intact, normal color. Absent: rash Course Vital Signs 06/05/24 06/05/24 16:09 17:27 Temperature 97.5 F L Pulse Rate 106 H 101 H Respiratory 24 22 Rate Blood Pressure 180/106 212/81 O2 Sat by Pulse 97 99 Oximetry Medical Decision Making - Medical Decision Making Was pt. sent in by a medical professional or institution (, PA, ASSEMBLY LINE LEADER, urgent care, hospital, or skilled nursing...) When possible be specific @ -No Did you speak to anyone other than the patient for history (EMS, parent, family, police, friend...)? What history was obtained from this source @ -Family supplemented history Did you review nursing and triage notes (agree or disagree)? Why? @ -I reviewed and agree with nursing and triage notes Were old charts reviewed (outside hosp., previous admission, EMS record, old EKG, old radiological studies, urgent care reports/EKG's, skilled nursing records)? Report findings @ -Reviewed ER chart from [address] which revealed significant degeneration of left neck and significant for aminal stenosis Differential Diagnosis (chest pain, altered mental status, abdominal pain women, abdominal pain men, vaginal bleeding, weakness, fever, dyspnea, syncope, headache, dizziness, GI bleed, back pain, seizure, CVA, palpatations, mental health, musculoskeletal)? @ -Differential Back Pain: Strain, zoster, cauda equina syndrome, epidural abscess, vertebral osteomyelitis, discitis, fracture, subluxation, disc herniation, DJD, spinal stenosis, dissection, AAA, pancreatitis, peptic ulcer disease, pyelonephritis, kidney stone, this is not meant to be an all-inclusive list. EKG interpreted by me (3pts min.). @ -As above X-rays interpreted by me (1pt min.). @ -None done CT interpreted by me (1pt min.). @ -CT angio chest, abdomen, pelvis reveals no evidence for aortic dissection, aneurysm, or occlusion, nodular contour to the liver with splenomegaly U/S interpreted by me (1pt. min.). @ -Ultrasound bilateral lower extremities pending at time of admission What testing was considered but not performed or refused? (CT, X-rays, U/S, labs)? Why? @ -None What meds were considered but not given or refused? Why? @ -None Did you discuss the management of the patient with other professionals (professionals i.e. , PA, ASSEMBLY LINE LEADER, lab, RT, psych nurse, nephrology social worker, tax consultant, teacher, business development officer, family caseworker)? Give summary @ -I spoke with Dr. Cardoso who accepts admission for intractable back pain and alcohol withdrawal Was smoking cessation discussed for >3mins.? @ -No Was critical care preformed (if so, how long)? @ -No Were there social determinants of health that impacted care today? How? (Homelessness, low income, unemployed, alcoholism, drug addiction, transportation, low edu. Level, literacy, decrease access to med. care, usp, rehab)? @ -No Was there de-escalation of care discussed even if they declined (Discuss DNR or withdrawal of care, Hospice)? DNR status @ -No What co-morbidities impacted this encounter? (DM, HTN, Smoking, COPD, CAD, Cancer, CVA, ARF, Chemo, Hep., AIDS, mental health diagnosis, sleep apnea, morbid obesity)? @ -alcohol use disorder Was patient admitted / discharged? Hospital course, mention meds given and rou te, prescriptions, significant lab abnormalities, going to OR and other pertinent info. @ -Admitted. 53-year-old male presenting for neck/back pain x 3 days. No specific injury or trauma. He was evaluated in the ER 2 days ago and diagnosed with cervical radiculopathy/degeneration at that time. Patient is hypertensive and tachycardic. Neurovascularly intact. There is diffuse erythema and edema to right hand. Appears very uncomfortable on physical examination. Patient was provided with IV fluids and pain medication with little improvement of symptoms. Lab work remarkable for white blood cell count 11, creatinine 1.71, BUN 47, lactic 2.4, glucose 236, phosphorus 2.1, venous CO2 27, D-dimer 7.88, urinalysis remarkable for large amount of red blood cells and white blood cells. Patient was provided with an additional dose of pain medication and labetalol for hypertension/tachycardia. CT angio chest/abdomen/pelvis reveals no evidence for aortic dissection, aneurysm, or occlusion. Pain continues to be uncontrolled. Ultrasound bilateral lower extremities pending at time of admission. I spoke with Dr. Cardoso who accepts admission for intractable back pain and alcohol withdrawal. [facility] protocol will be initiated. Case was discussed with my ED attending Dr. Aceves. Undiagnosed new problem with uncertain prognosis? @ -No Drug Therapy requiring intensive monitoring for toxicity (Heparin, Nitro, Insulin, Cardizem)? @ -No Were any procedures done? @ -No Diagnosis/symptom? @ -Intractable back pain, alcohol withdrawal Acute, or Chronic, or Acute on Chronic? @ -Acute Uncomplicated (without systemic symptoms) or Complicated (systemic symptoms)? @ -Complicated Side effects of treatment? @ -No Exacerbation, Progression, or Severe Exacerbation? @ -No Poses a threat to life or bodily function? How? (Chest pain, [place], [place], pneumonia, PE, COPD, DKA, ARF, appy, cholecystitis, CVA, Diverticulitis, Homicidal, Suicidal, threat to staff... and all critical care pts) @ -Yes - Lab Data Result diagrams: 06/05/24 16:30 06/05/24 16:30 Lab Results 06/05/24 06/05/24 06/05/24 Range/Units 16:20 16:30 16:30 WBC 11.0 H (3.8-10.6) k/uL RBC 4.60 (4.30-5.90) m/uL Hgb 14.4 (13.0-17.5) gm/dL Hct 45.5 (39.0-53.0) % MCV 99.0 (80.0-100.0) fL MCH 31.2 (25.0-35.0) pg MCHC 31.5 (31.0-37.0) g/dL RDW 13.6 (11.5-15.5) % Plt Count 106 L (150-450) k/uL MPV 10.0 Neutrophils % 88 % Lymphocytes % 6 % Monocytes % 3 % Eosinophils % 1 % Basophils % 0 % Neutrophils # 9.6 H (1.3-7.7) k/uL Lymphocytes # 0.7 L (1.0-4.8) k/uL Monocytes # 0.4 (0-1.0) k/uL Eosinophils # 0.1 (0-0.7) k/uL Basophils # 0.0 (0-0.2) k/uL Manual Slide Review Performed PT (10.0-12.5) sec INR (<1.2) APTT (22.0-30.0) sec D-Dimer (<0.60) mg/L FEU VBG pH (7.31-7.41) VBG pCO2 (37-51) mmHg VBG HCO3 (24-28) mmol/L Sodium 134 L (137-145) mmol/L Potassium 4.4 (3.5-5.1) mmol/L Chloride 102 (98-107) mmol/L Carbon Dioxide 23 (22-30) mmol/L Anion Gap 9 mmol/L BUN 47 H (9-20) mg/dL Creatinine 1.78 H (0.66-1.25) mg/dL Est GFR (CKD-EPI)AfAm 50 (>60 ml/min/1.73 sqM) Est GFR (CKD-EPI)NonAf 43 (>60 ml/min/1.73 sqM) Glucose 236 H (74-99) mg/dL Plasma Lactic Acid Samir (0.7-2.0) mmol/L Calcium 8.5 (8.4-10.2) mg/dL Phosphorus 2.1 L (2.5-4.5) mg/dL Magnesium 1.9 (1.6-2.3) mg/dL Total Bilirubin 1.7 H (0.2-1.3) mg/dL AST 40 (17-59) U/L ALT 21 (4-49) U/L Alkaline Phosphatase 150 H (38-126) U/L Ammonia (<30) umol/L Creatine Kinase 29 L (55-170) U/L Total Protein 6.8 (6.3-8.2) g/dL Albumin 2.9 L (3.5-5.0) g/dL Lipase (23-300) U/L Urine Color Red Urine Appearance Cloudy (Clear) Urine pH 6.0 (5.0-8.0) Ur Specific [place] 1.018 (1.001-1.035) Urine Protein 2+ H (Negative) Urine Glucose (UA) 3+ H (Negative) Urine Ketones Negative (Negative) Urine Blood Large H (Negative) Urine Nitrite Negative (Negative) Urine Bilirubin Negative (Negative) Urine Urobilinogen <2.0 (<2.0) mg/dL Ur Leukocyte Esterase Trace H (Negative) Urine RBC >182 H (0-5) /hpf Urine WBC 84 H (0-5) /hpf Urine Bacteria Occasional H (None) /hpf Serum Alcohol mg/dL 06/05/24 06/05/24 06/05/24 Range/Units 17:58 17:58 17:58 WBC (3.8-10.6) k/uL RBC (4.30-5.90) m/uL Hgb (13.0-17.5) gm/dL Hct (39.0-53.0) % MCV (80.0-100.0) fL MCH (25.0-35.0) pg MCHC (31.0-37.0) g/dL RDW (11.5-15.5) % Plt Count (150-450) k/uL MPV Neutrophils % % Lymphocytes % % Monocytes % % Eosinophils % % Basophils % % Neutrophils # (1.3-7.7) k/uL Lymphocytes # (1.0-4.8) k/uL Monocytes # (0-1.0) k/uL Eosinophils # (0-0.7) k/uL Basophils # (0-0.2) k/uL Manual Slide Review PT (10.0-12.5) sec INR (<1.2) APTT (22.0-30.0) sec D-Dimer (<0.60) mg/L FEU VBG pH 7.46 H (7.31-7.41) VBG pCO2 27 L (37-51) mmHg VBG HCO3 19 L (24-28) mmol/L Sodium (137-145) mmol/L Potassium (3.5-5.1) mmol/L Chloride (98-107) mmol/L Carbon Dioxide (22-30) mmol/L Anion Gap mmol/L BUN (9-20) mg/dL Creatinine (0.66-1.25) mg/dL Est GFR (CKD-EPI)AfAm (>60 ml/min/1.73 sqM) Est GFR (CKD-EPI)NonAf (>60 ml/min/1.73 sqM) Glucose (74-99) mg/dL Plasma Lactic Acid Samir 2.4 H* (0.7-2.0) mmol/L Calcium (8.4-10.2) mg/dL Phosphorus (2.5-4.5) mg/dL Magnesium (1.6-2.3) mg/dL Total Bilirubin (0.2-1.3) mg/dL AST (17-59) U/L ALT (4-49) U/L Alkaline Phosphatase (38-126) U/L Ammonia 12 (<30) umol/L Creatine Kinase (55-170) U/L Total Protein (6.3-8.2) g/dL Albumin (3.5-5.0) g/dL Lipase 103 (23-300) U/L Urine Color Urine Appearance (Clear) Urine pH (5.0-8.0) Ur Specific [place] (1.001-1.035) Urine Protein (Negative) Urine Glucose (UA) (Negative) Urine Ketones (Negative) Urine Blood (Negative) Urine Nitrite (Negative) Urine Bilirubin (Negative) Urine Urobilinogen (<2.0) mg/dL Ur Leukocyte Esterase (Negative) Urine RBC (0-5) /hpf Urine WBC (0-5) /hpf Urine Bacteria (None) /hpf Serum Alcohol <10 mg/dL 06/05/24 Range/Units 17:58 WBC (3.8-10.6) k/uL RBC (4.30-5.90) m/uL Hgb (13.0-17.5) gm/dL Hct (39.0-53.0) % MCV (80.0-100.0) fL MCH (25.0-35.0) pg MCHC (31.0-37.0) g/dL RDW (11.5-15.5) % Plt Count (150-450) k/uL MPV Neutrophils % % Lymphocytes % % Monocytes % % Eosinophils % % Basophils % % Neutrophils # (1.3-7.7) k/uL Lymphocytes # (1.0-4.8) k/uL Monocytes # (0-1.0) k/uL Eosinophils # (0-0.7) k/uL Basophils # (0-0.2) k/uL Manual Slide Review PT 12.2 (10.0-12.5) sec INR 1.1 (<1.2) APTT 27.0 (22.0-30.0) sec D-Dimer 7.88 H (<0.60) mg/L FEU VBG pH (7.31-7.41) VBG pCO2 (37-51) mmHg VBG HCO3 (24-28) mmol/L Sodium (137-145) mmol/L Potassium (3.5-5.1) mmol/L Chloride (98-107) mmol/L Carbon Dioxide (22-30) mmol/L Anion Gap mmol/L BUN (9-20) mg/dL Creatinine (0.66-1.25) mg/dL Est GFR (CKD-EPI)AfAm (>60 ml/min/1.73 sqM) Est GFR (CKD-EPI)NonAf (>60 ml/min/1.73 sqM) Glucose (74-99) mg/dL Plasma Lactic Acid Samir (0.7-2.0) mmol/L Calcium (8.4-10.2) mg/dL Phosphorus (2.5-4.5) mg/dL Magnesium (1.6-2.3) mg/dL Total Bilirubin (0.2-1.3) mg/dL AST (17-59) U/L ALT (4-49) U/L Alkaline Phosphatase (38-126) U/L Ammonia (<30) umol/L Creatine Kinase (55-170) U/L Total Protein (6.3-8.2) g/dL Albumin (3.5-5.0) g/dL Lipase (23-300) U/L Urine Color Urine Appearance (Clear) Urine pH (5.0-8.0) Ur Specific [place] (1.001-1.035) Urine Protein (Negative) Urine Glucose (UA) (Negative) Urine Ketones (Negative) Urine Blood (Negative) Urine Nitrite (Negative) Urine Bilirubin (Negative) Urine Urobilinogen (<2.0) mg/dL Ur Leukocyte Esterase (Negative) Urine RBC (0-5) /hpf Urine WBC (0-5) /hpf Urine Bacteria (None) /hpf Serum Alcohol mg/dL - EKG Data -: EKG Interpreted by Nd EKG Comments: EKG reveals sinus tachycardia with no acute ST changes. Ventricular rate 102 bpm, WA interval 153, QRS duration 98, QT/QTc 318/376 Disposition Clinical Impression: Intractable back pain, Alcohol withdrawal Disposition: ADMITTED IP TO THIS [facility] Referrals: None,Stated [Primary Care Provider] - 1-2 days Time of Disposition: 18:55
[2024-06-05 16:41] LABS: Basophils % (A) 0 %; Eosinophils # (A) 0.1 k/uL (0-0.7); Eosinophils % (A) 1 %; HCT 45.5 % (39.0-53.0); HGB 14.4 gm/dL (13.0-17.5); Lymphocytes # (A) 0.7 k/uL (1.0-4.8); Lymphocytes % (A) 6 %; MCH 31.2 pg (25.0-35.0); MCHC 31.5 g/dL (31.0-37.0); Monocytes # (A) 0.4 k/uL (0-1.0); Monocytes % (A) 3 %; Neutrophils # (A) 9.6 k/uL (1.3-7.7); Neutrophils % (A) 88 %; Platelet Count 106 k/uL (150-450); RDW 13.6 % (11.5-15.5)
[2024-06-05 16:50] LABS: ALT 21 U/L (4-49); African American GFR (CKD) 50 (>60 ml/min/1.73 sqM); Albumin 2.9 g/dL (3.5-5.0); Anion Gap 9 mmol/L; Blood Urea Nitrogen 47 mg/dL (9-20); Calcium 8.5 mg/dL (8.4-10.2); Carbon Dioxide 23 mmol/L (22-30); Chloride 102 mmol/L (98-107); Creatine Kinase 29 U/L (55-170); Glucose 236 mg/dL (74-99); Non-African American GFR(CKD) 43 (>60 ml/min/1.73 sqM); Phosphorus 2.1 mg/dL (2.5-4.5); Sodium 134 mmol/L (137-145); Total Bilirubin 1.7 mg/dL (0.2-1.3); Total Protein 6.8 g/dL (6.3-8.2)
[2024-06-05 16:53] LABS: Potassium 4.4 mmol/L (3.5-5.1)
[2024-06-05 16:54] LABS: AST 40 U/L (17-59); Alkaline Phosphatase 150 U/L (38-126); Magnesium 1.9 mg/dL (1.6-2.3)
[2024-06-05 16:55] LABS: Appearance,Urine Cloudy (Clear); Bacteria,Urine Occasional /hpf; Bilirubin,Urine Negative (Negative); Blood,Urine Large (Negative); Color,Urine Red; Glucose,Urine (UA) 3+ (Negative); Ketones,Urine Negative (Negative); Leukocyte Esterase,Urine Trace (Negative); Nitrite,Urine Negative (Negative); Protein,Urine 2+ (Negative); RBC,Urine >182 /hpf (0-5); Specific Gravity,Urine 1.018 (1.001-1.035); Urobilinogen,Urine <2.0 mg/dL (<2.0); WBC,Urine 84 /hpf (0-5)
[2024-06-05] MEDS: SODIUM CHLORIDE 0.9% 1,000 ML IV STA (17:02)
[2024-06-05] MEDS: HYDROmorphone 1 MG/ML 1 ML SYRINGE IVP STA ×2 (17:03→17:33)
[2024-06-05] MEDS: ORPHENADRINE 30 MG/ML 2 ML VIAL IM STA (17:04)
[2024-06-05] MEDS: FAMOTIDINE 20 MG/2 ML VIAL IV STA (17:05)
[2024-06-05] MEDS: KETOROLAC 15 MG/ML 1 ML VIAL IVP STA (17:31)
[2024-06-05] MEDS: LORazepam 2 MG/ML INJ IV STA (17:51)
[2024-06-05] MEDS: SODIUM CHLORIDE 0.9% 1,000 ML IV ONE (18:00)
[2024-06-05 18:06] LABS: VBG PH 7.46 (7.31-7.41)
--- NOTE | 2024-06-05 18:25 | CT ---
EXAMINATION TYPE: CT noncontrast chest abdomen pelvis. CT angio thor/abd pel aorta DATE OF EXAM: 06/05/2024 6:05 PM COMPARISON: 12/31/2020. CLINICAL INDICATION: Male, 53 years old with history of pain; [facility], Pt was here on Thursday for same thi ng and was d/c home. Pt having pain to his back, neck and estefany arms. Medications at home not working. Pt was given 200 mcg of Fentanyl on route by EMS. Pt is also having swelling to right hand that is ge tting worse. TECHNIQUE: Noncontrast CT chest abdomen pelvis followed by CT angiogram chest abdomen pelvis. A Multiple axial CT images of the chest, abdomen, and pelvis were obtained prior to and after the administration of IV contrast. 3-D reformats and maximum intensity projection format were performed on a separate worksta tion. . Contrast used:100ml mL of Isovue 370 with IV Contrast, Oral contrast used: CT DLP: 1572.3 mGycm, Automated exposure control for dose reduction was used. FINDINGS: ARTERIAL VASCULATURE: Ascending thoracic aorta and descending thoracic aorta are within normal limits for size. There is no evidence for intramural hematoma within the aorta on noncontrast imaging. Post contrast imaging demonstrates no evidence for dissection. The major vessels of the aortic arch are pa tent. The major vessels of the abdominal aorta are patent. Small varicosities are seen in the upper abdomen near the esophagus. PULMONARY ARTERIAL VASCULATURE: Normal caliber. No evidence of filling defect to suggest pulmonary em bolus. VENOUS SYSTEM: Unremarkable. LUNGS/ PLEURA: No focal consolidation, pneumothorax or pleural effusion. AIRWAY: Patent and unremarkable. HEART: Size within normal limits. No significant coronary artery calcifications. MEDIASTINUM: No gross evidence of adenopathy. MUSCULOSKELETAL: No acute osseous abnormalities SOFT TISSUES/LYMPH NODES: Unremarkable. LOWER NECK: No significant findings. Abdomen: LIVER: Nodular contour to liver. Correlate lobe hypertrophy changes. GALLBLADDER AND BILE DUCTS: Unremarkable. PANCREAS: Unremarkable. SPLEEN: Largely measuring up to 14.3 cm. ADRENAL GLANDS: Unremarkable. KIDNEYS AND URETERS: Nonobstructing left renal collecting 4 mm. No right renal calculi. No obstructiv e uropathy. PELVIS BLADDER: Unremarkable REPRODUCTIVE: Prostate is enlarged in size measuring 5.0 cm in transverse dimension. ABDOMEN & PELVIS STOMACH AND BOWEL: No evidence of bowel obstruction. Scattered colonic diverticula. The appendix is n ormal. PERITONEUM/RETROPERITONEUM: No evidence of pneumoperitoneum or free fluid. MUSCULOSKELETAL: No acute osseous abnormalities. Mild disc degeneration changes are present throughou t the thoracolumbar spine. No evidence for significant spinal canal or neural foraminal stenosis. LYMPH NODES: No gross evidence for lymphadenopathy. SOFT TISSUE/ABDOMINAL WALL: Bilateral fat-containing inguinal hernias. No umbilical hernia. IMPRESSION: 1. No evidence for aortic dissection, aneurysm or occlusion. 2. Nodular contour to liver with splenomegaly. A few varicosities in the upper abdomen, correlate fo r cirrhosis with early portal hypertension. 3. Prostatomegaly, correlate with serum PSA. 4. Bilateral fat-containing inguinal hernias. 5. Nonobstructing left renal calculus. 6. Colonic diverticulosis. [facility], , 06/05/2024 6:23 PM
[2024-06-05 18:27] LABS: INR 1.1 (<1.2); Prothrombin Time 12.2 sec (10.0-12.5)
[2024-06-05 18:32] LABS: Alcohol <10 mg/dL; Lipase 103 U/L (23-300)
[2024-06-05 18:36] LABS: Lactic Acid, Venous 2.4 mmol/L (0.7-2.0)
[2024-06-05] MEDS: LABETALOL 5 MG/ML VIAL MDV IVP STA (18:46)
[2024-06-05] MEDS ORDERED: ONDANSETRON 4 MG/2 ML VIAL IVP PRN (19:04)
[2024-06-05] MEDS ORDERED: IBUPROFEN 400 MG TAB PO PRN (19:04)
[2024-06-05] MEDS ORDERED: NALOXONE 0.4 MG/ML 1 ML VIAL IV PRN (19:04)
[2024-06-05] MEDS ORDERED: LORazepam 0.5 MG TAB PO PRN (19:07)
[2024-06-05] MEDS ORDERED: LORazepam 1 MG TAB PO PRN ×3 (19:07)
[2024-06-05] MEDS ORDERED: LORazepam 2 MG/ML INJ IV PRN ×3 (19:07)
--- NOTE | 2024-06-05 19:47 | US ---
EXAMINATION TYPE: US venous doppler duplex UE RT DATE OF EXAM: 06/05/2024 COMPARISON: NONE CLINICAL INDICATION: Male, 53 years old with history of dvt; Elevated ddimer. Poor historian. Hand redness. TECHNIQUE: Grayscale, color Doppler and spectral Doppler imaging of the upper extremity. SIDE PERFORMED: Right VESSELS IMAGED: IJV Subclavian Vein Axilla Vein Brachial Vein(s) Radial Paired Veins Ulnar Paired Veins Cephalic Vein* Basilic Vein* (*superficial vessels) FINDINGS: Right Arm: Negative for DVT at time of scan Grayscale, color doppler, spectral doppler imaging performed of the deep veins of the upper extremiti es. IMPRESSION: No evidence for deep vein tendinosis. [facility], , 06/05/2024 7:45 PM
--- NOTE | 2024-06-05 19:48 | US ---
EXAMINATION TYPE: US venous doppler duplex LE BI DATE OF EXAM: 06/05/2024 6:38 PM COMPARISON: NONE CLINICAL INDICATION: Male, 53 years old with history of dvt; Elevated ddimer. Poor historian. No re dness or swelling, Pain TECHNIQUE: The lower extremity deep venous system is examined utilizing real time linear array sonog gudelia with graded compression, color doppler sonography, and spectral doppler. SIDE PERFORMED: Bilateral FINDINGS: VESSELS IMAGED: Common Femoral Vein Deep Femoral Vein Greater Saphenous Vein * Femoral Vein Popliteal Vein Small Saphenous Vein * Proximal Calf Veins (* superficial vessels) Right Leg: Negative for DVT, Color Doppler imaging shows patency of the vessels. Spectral waveforms are within normal limits. Left Leg: Negative for DVT, Color Doppler imaging shows patency of the vessels. Spectral waveforms a re within normal limits. IMPRESSION: No ultrasound evidence for deep venous thrombosis. [facility], , 06/05/2024 7:46 PM
[2024-06-05] MEDS: HYDROmorphone 0.5 MG/0.5 ML SYRINGE IVP STA (19:52)
[2024-06-05] MEDS: THIAMINE 100 MG/ML 2 ML VIAL IM STA (19:58)
[2024-06-05] MEDS: SODIUM CHLORIDE 0.9% 1,000 ML IV SCH (21:27)
[2024-06-05] MEDS ORDERED: DEXTROSE 50% SYRINGE 50 ML IVP PRN ×2 (21:28)
--- NOTE | 2024-06-05 21:54 | XR ---
EXAMINATION TYPE: XR hand limited RT DATE OF EXAM: 06/05/2024 9:42 PM COMPARISON: None CLINICAL INDICATION: Male, 53 years old with history of fracture??; , pain TECHNIQUE: XR hand limited RT 3 views were obtained. FINDINGS: Normal alignment of the visualized joints. No acute osseous pathology is identified. Soft tissue swelling of the hand. Multifocal degeneration changes with joint space narrowing and osteophy te formation worse at the second digit metatarsophalangeal joint.. ankylosis of the third and fourth digits distal interphalangeal joints. IMPRESSION: 1. Soft tissue swelling without fracture definitely visualized acute osseous pathology. 2. Multifocal osteoarthrosis throughout the joints of the hand worse at the second digit metacarpal phalangeal joint. 3. Ankylosis of the third and fourth digits distal interphalangeal joints. [facility], , 06/05/2024 9:52 PM
[2024-06-05] MEDS: INSULIN GLARGINE (LANTUS) 100 UNIT/ML SYR SQ SCH (22:03)
[2024-06-05 22:52] LABS: Glucose,Whole Blood 187 mg/dL (70-110)
--- NOTE | 2024-06-05 22:53 | HP ---
HISTORY AND PHYSICAL CHIEF COMPLAINT: Neck pain, back pain as well as right arm pain. HISTORY OF PRESENT ILLNESS: This 53-year-old gentleman with a past medical history of diabetes mellitus, GERD, hypertension, history of ETOH, and rheumatoid arthritis, is complaining of neck and back pain as well as significant right arm pain. There is some significant swelling also. The patient also had multiple bruises, possibly from falls. The patient is confused at this time. PAST MEDICAL HISTORY: Rheumatoid arthritis, diabetes mellitus, EtOH. Rest of history and rest of the chart is also reviewed. HOME MEDICATIONS: Reviewed and include insulin. ALLERGIES: Metformin. FAMILY HISTORY: History of diabetes mellitus and hypertension. SOCIAL HISTORY: History of EtOH abuse and THC. REVIEW OF SYSTEMS: Fourteen-point review of systems negative except as mentioned earlier. PHYSICAL EXAMINATION: VITAL SIGNS: Pulse is 105, blood pressure 130/88, respirations 16. HEENT: Conjunctivae are normal. NECK: No jugular venous distention. No carotid bruit. RESPIRATION: Breath sounds diminished at the bases. A few scattered rhonchi. ABDOMEN: Soft and nontender. LEGS: No excoriations present. EXTREMITIES: Examination of the right hand, significant pain and swelling and erythema; tenderness and cellulitis present. NERVOUS SYSTEM: No focal deficits. LABORATORY DATA: Reviewed. ASSESSMENT: 1. Acute cellulitis of the right hand as well as rheumatoid arthritis, acute exacerbation possibly. 2. Possible acute delirium tremens. 3. Elevated WBC. 4. Diabetes mellitus type 2. 5. Hypertension. 6. History of EtOH. 7. Multiple complex medical issues. RECOMMENDATIONS AND DISCUSSION: This 53-year-old gentleman presented with multiple complex medical issues, we will monitor the patient closely. I would recommend empiric antibiotics as well as IV steroids. The compliance has been questioned at this time, and I would recommend Infectious Disease evaluation as well. The prognosis is guarded because of the multiple complex medical conditions. Further recommendations to follow. See orders for further details. I would recommend a course of steroids also at this time. X-rays of the hand also will be ordered. The thoracic aortic study showed no aortic dissection, but splenomegaly. Prognosis is guarded. [facility] protocol. MMAMILCARL / IJN: [id number] /
[2024-06-06] MEDS: HYDROmorphone 0.5 MG/0.5 ML SYRINGE IVP PRN (00:28)
[2024-06-06] MEDS: PIPERACILLIN-TAZOBACTAM 3.375 GM in SODIUM CHLORIDE 0.9% 100 ML IVPB SCH (00:29)
[2024-06-06] MEDS: methylPREDNISolone SOD SUCCI 125 MG/2 ML VIAL IV SCH (00:29)
[2024-06-06 08:38] LABS: Glucose,Whole Blood 262 mg/dL (70-110)
[2024-06-06] MEDS: HEPARIN SODIUM,PORCINE 5,000 UNIT/ML 1 ML VIAL SQ SCH (08:44)
[2024-06-06] MEDS: PANTOPRAZOLE 40 MG TABLET PO SCH (08:45)
[2024-06-06] MEDS: INSULIN LISPRO (HumaLOG) 100 UNIT/ML 10 mL VL SQ SCH (08:51)
[2024-06-06 09:27] LABS: Blood Urea Nitrogen 43.8 mg/dL (9.0-27.0); Chloride 108 mmol/L (96-109); Glucose 246 mg/dL (70-110); Potassium 4.5 mmol/L (3.5-5.5); Sodium 138 mmol/L (135-145)
[2024-06-06 09:28] LABS: ALT 18 U/L (10-49); AST 35 U/L (14-35); Albumin 2.4 g/dL (3.8-4.9); Albumin/Globulin Ratio 0.77 Ratio (1.60-3.17); Alkaline Phosphatase 138 U/L (41-126); Calcium 7.5 mg/dL (8.7-10.3); Carbon Dioxide 16.7 mmol/L (21.6-31.8); Globulin 3.1 g/dL (1.6-3.3); Total Bilirubin 1.2 mg/dL (0.3-1.2); Total Protein 5.5 g/dL (6.2-8.2)
--- NOTE | 2024-06-06 09:45 | P.CNOR ---
History of Present Illness - [facility] Consult date: 06/06/24 Consult reason: other (Right hand swelling redness and pain, along with persistent neck pain and left upper extremity radicular pain) History of present illness: Patient is a 53-year-old male accompanied by his . He is seen and examined at bedside. His primary complaint is that of his right hand swelling redness and pain. He says that his hands been having some swelling over the past several days but yesterday it became significantly more swollen and red over the dorsum of his hand primarily toward his index finger. The patient denies fevers or chills. 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 He does not recall a specific injury to his hands or fingers. He was trying to move a large weight around at work a few days ago and started having swelling after that. They tried treating his hand for arthritic issues when he presented to the emergency room a couple of days ago. But he had worsening of his hand symptoms with swelling and erythema and he presented back to the emergency room yesterday. He had not been started on any antibiotics prior to his second visit to the emergency room yesterday. Patient also has history of chronic neck pain. He had been having worsening particular at his neck and toward his left upper extremity in his biceps. He presented to the emergency room a few days ago in this regard. He was treated for some pain control and his degenerative disc disease at his cervical spine and was plan for follow-up on outpatient basis. The patient denies any specific injury to his neck. He denies any progressive weakness in his upper extremity. He says the pain stems from his neck down toward his bicep and into his hand and fingers primarily on the left side. He has significant soreness with his neck which is chronic for him but has been having worsening over the past several months and over the past couple of weeks. He has a history of right shoulder rotator cuff injury with surgery [place] [address] Ibrahim. 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 He is right-hand dominant. He denies any specific injury but did do some increased heavy work moving some batteries the other day. He began having swelling in his right hand a few days ago and got significantly worse at his right hand yesterday. He has chronic issues at his cervical spine with radicular type pain toward his left upper extremity. History of right rotator cuff surgery. He is diabetic. He denies chest pain or shortness of breath. Past Medical History Past Medical History: Diabetes Mellitus, GERD/Reflux, Hypertension, Osteoar thritis (OA) Additional Past Medical History / Comment(s): Neuropathy legs and feet, Ulcerative Colitis, "resolved for some time now". History of Any Multi-Drug Resistant Organisms: None Reported Past Surgical History: Orthopedic Surgery Additional Past Surgical History / Comment(s): 3rd & 4th fingers reattached w/bone grafts after accident, colonoscopy. Past Anesthesia/Blood Transfusion Reactions: No Reported Reaction Past Psychological History: No Psychological Hx Reported Smoking Status: Never smoker Past Alcohol Use History: Abuse, Daily Past Drug Use History: Marijuana - Past Family History Father Family Medical History: Diabetes Mellitus, Hyperlipidemia, Hypertension Brother(s) Family Medical History: Diabetes Mellitus, Hyperlipidemia, Hypertension Medications and Allergies Home Medications Medication Instructions Recorded Confirmed Type Insulin Degludec [Tresiba 25 units SQ BID 12/31/20 06/05/24 History Flextouch U-100 Pen] HYDROcodone/APAP 5-325MG [[place] 1 tab PO Q4HR PRN 3 Days #18 tab 06/03/24 06/05/24 Rx 5-325] Allergies Allergy/AdvReac Type Severity Reaction Status Date / Time metformin AdvReac Nausea Verified 06/05/24 19:36 Physical Examination Osteopathic Statement: *. No significant issues noted on an osteopathic structural exam other than those noted in the History and Physical/Consult. - Wrist & Hand right Location of pain: dorsal hand (There is significant diffuse swelling of his dorsal hand targeting over his index MCP joint. There is small abrasion at that area. The swelling is soft. He has further inflammation and erythema at the proximal phalanx of his index finger. He has good motion through his other fingers), index finger (At the index finger he has limited motion. He is able to try to flex. I am able to touch and move his finger at the PIP and MCP joint. There is no flexor tendon streaking. There is no streaking up his arm or above his wrist. There is no specific fluid abscess.) Wrist pain modifiers: with motion, other Symptoms: dorsal hand swelling Appearance: hand redness, hand erythema, wrist warmth (dorsal) Results - Labs Labs: Abnormal Lab Results - Last 24 Hours (Table) 06/05/24 06/05/24 06/05/24 Range/Units 16:20 16:30 16:30 WBC 11.0 H (3.8-10.6) k/uL Plt Count 106 L (150-450) k/uL Neutrophils # 9.6 H (1.3-7.7) k/uL Lymphocytes # 0.7 L (1.0-4.8) k/uL ESR (0-20) mm/Hr D-Dimer (<0.60) mg/L FEU VBG pH (7.31-7.41) VBG pCO2 (37-51) mmHg VBG HCO3 (24-28) mmol/L Sodium 134 L (137-145) mmol/L Carbon Dioxide (21.6-31.8) mmol/L Anion Gap (4.00-12.00) mmol/L BUN 47 H (9-20) mg/dL Creatinine 1.78 H (0.66-1.25) mg/dL Est GFR (CKD-EPI) (>=60) BUN/Creatinine Ratio (12.00-20.00) Ratio Glucose 236 H (74-99) mg/dL POC Glucose (mg/dL) (70-110) mg/dL Plasma Lactic Acid Samir (0.7-2.0) mmol/L Calcium (8.7-10.3) mg/dL Phosphorus 2.1 L (2.5-4.5) mg/dL Total Bilirubin 1.7 H (0.2-1.3) mg/dL Alkaline Phosphatase 150 H (38-126) U/L Creatine Kinase 29 L (55-170) U/L C-Reactive Protein (<1.0) mg/dL Total Protein (6.2-8.2) g/dL Albumin 2.9 L (3.5-5.0) g/dL Albumin/Globulin Ratio (1.60-3.17) Ratio Urine Protein 2+ H (Negative) Urine Glucose (UA) 3+ H (Negative) Urine Blood Large H (Negative) Ur Leukocyte Esterase Trace H (Negative) Urine RBC >182 H (0-5) /hpf Urine WBC 84 H (0-5) /hpf Urine Bacteria Occasional H (None) /hpf 06/05/24 06/05/24 06/05/24 Range/Units 17:58 17:58 17:58 WBC (3.8-10.6) k/uL Plt Count (150-450) k/uL Neutrophils # (1.3-7.7) k/uL Lymphocytes # (1.0-4.8) k/uL ESR (0-20) mm/Hr D-Dimer 7.88 H (<0.60) mg/L FEU VBG pH 7.46 H (7.31-7.41) VBG pCO2 27 L (37-51) mmHg VBG HCO3 19 L (24-28) mmol/L Sodium (137-145) mmol/L Carbon Dioxide (21.6-31.8) mmol/L Anion Gap (4.00-12.00) mmol/L BUN (9-20) mg/dL Creatinine (0.66-1.25) mg/dL Est GFR (CKD-EPI) (>=60) BUN/Creatinine Ratio (12.00-20.00) Ratio Glucose (74-99) mg/dL POC Glucose (mg/dL) (70-110) mg/dL Plasma Lactic Acid Samir 2.4 H* (0.7-2.0) mmol/L Calcium (8.7-10.3) mg/dL Phosphorus (2.5-4.5) mg/dL Total Bilirubin (0.2-1.3) mg/dL Alkaline Phosphatase (38-126) U/L Creatine Kinase (55-170) U/L C-Reactive Protein (<1.0) mg/dL Total Protein (6.2-8.2) g/dL Albumin (3.5-5.0) g/dL Albumin/Globulin Ratio (1.60-3.17) Ratio Urine Protein (Negative) Urine Glucose (UA) (Negative) Urine Blood (Negative) Ur Leukocyte Esterase (Negative) Urine RBC (0-5) /hpf Urine WBC (0-5) /hpf Urine Bacteria (None) /hpf 06/05/24 06/05/24 06/05/24 Range/Units 21:46 21:46 22:51 WBC (3.8-10.6) k/uL Plt Count (150-450) k/uL Neutrophils # (1.3-7.7) k/uL Lymphocytes # (1.0-4.8) k/uL ESR 72 H (0-20) mm/Hr D-Dimer (<0.60) mg/L FEU VBG pH (7.31-7.41) VBG pCO2 (37-51) mmHg VBG HCO3 (24-28) mmol/L Sodium (137-145) mmol/L Carbon Dioxide (21.6-31.8) mmol/L Anion Gap (4.00-12.00) mmol/L BUN (9-20) mg/dL Creatinine (0.66-1.25) mg/dL Est GFR (CKD-EPI) (>=60) BUN/Creatinine Ratio (12.00-20.00) Ratio Glucose (74-99) mg/dL POC Glucose (mg/dL) 187 H (70-110) mg/dL Plasma Lactic Acid Samir (0.7-2.0) mmol/L Calcium (8.7-10.3) mg/dL Phosphorus (2.5-4.5) mg/dL Total Bilirubin (0.2-1.3) mg/dL Alkaline Phosphatase (38-126) U/L Creatine Kinase (55-170) U/L C-Reactive Protein 18.0 H (<1.0) mg/dL Total Protein (6.2-8.2) g/dL Albumin (3.5-5.0) g/dL Albumin/Globulin Ratio (1.60-3.17) Ratio Urine Protein (Negative) Urine Glucose (UA) (Negative) Urine Blood (Negative) Ur Leukocyte Esterase (Negative) Urine RBC (0-5) /hpf Urine WBC (0-5) /hpf Urine Bacteria (None) /hpf 06/06/24 06/06/24 Range/Units 06:37 08:36 WBC (3.8-10.6) k/uL Plt Count (150-450) k/uL Neutrophils # (1.3-7.7) k/uL Lymphocytes # (1.0-4.8) k/uL ESR (0-20) mm/Hr D-Dimer (<0.60) mg/L FEU VBG pH (7.31-7.41) VBG pCO2 (37-51) mmHg VBG HCO3 (24-28) mmol/L Sodium (137-145) mmol/L Carbon Dioxide 16.7 L (21.6-31.8) mmol/L Anion Gap 13.30 H (4.00-12.00) mmol/L BUN 43.8 H (9-20) mg/dL Creatinine 2.0 H (0.66-1.25) mg/dL Est GFR (CKD-EPI) 40 L (>=60) BUN/Creatinine Ratio 21.90 H (12.00-20.00) Ratio Glucose 246 H (74-99) mg/dL POC Glucose (mg/dL) 262 H (70-110) mg/dL Plasma Lactic Acid Samir (0.7-2.0) mmol/L Calcium 7.5 L (8.7-10.3) mg/dL Phosphorus (2.5-4.5) mg/dL Total Bilirubin (0.2-1.3) mg/dL Alkaline Phosphatase 138 H (38-126) U/L Creatine Kinase (55-170) U/L C-Reactive Protein (<1.0) mg/dL Total Protein 5.5 L (6.2-8.2) g/dL Albumin 2.4 L (3.5-5.0) g/dL Albumin/Globulin Ratio 0.77 L (1.60-3.17) Ratio Urine Protein (Negative) Urine Glucose (UA) (Negative) Urine Blood (Negative) Ur Leukocyte Esterase (Negative) Urine RBC (0-5) /hpf Urine WBC (0-5) /hpf Urine Bacteria (None) /hpf H & H 06/05/24 Range/Units 16:30 Hgb 14.4 (13.0-17.5) gm/dL Hct 45.5 (39.0-53.0) % Coagulation 06/05/24 Range/Units 17:58 INR 1.1 (<1.2) Result Diagrams: 06/05/24 16:30 06/06/24 06:37 - Diagnostic results Wrist/Hand x-ray: report reviewed, image reviewed (Right hand x-ray shows diffuse swelling. There is no evidence of fracture or foreign bodies) CT scan - cervical: report reviewed, image reviewed (CT scan from 2 days ago shows significant disc degeneration C5-6 C6-7 with evidence of stenosis at those levels. There is no fracture. There is no instability) Assessment and Plan Assessment: Right hand cellulitis with swelling and erythema Right index finger swelling and erythema with tenderness Cervical degenerative disc disease with spinal stenosis C5-6 C6-7 Left upper extremity radiculopathy Chronic diabetes Plan: Right hand cellulitis with swelling and erythema Right index finger swelling and erythema with tenderness Cervical degenerative disc disease with spinal stenosis C5-6 C6-7 Left upper extremity radiculopathy Chronic diabetes Possible EtOH withdrawal The patient has a number of medical issues and has 2 acute issues being actively treated. He has significant right hand cellulitis which have been worsening over the past day. He had just started antibiotics here in the emergency room. We have to monitor closely to see if he develops a specific abscess or evidence of flexor tendon synovitis. His primary issue is around his MCP joint of his right index finger and the proximal phalanx of his right index finger with spreading erythema over the dorsum of his hand. He is not having pain out of proportion with his exam nor significant pain with passive stretch. In terms of his right hand cellulitis and erythema, at this point I think he should continue his IV antibiotics. I agree with the evaluation with infectious disease. Will have to monitor the area closely to see if he develops evidence of flexor tendon synovitis or specific abscess. For the current time being I do not plan surgical intervention and we would like to see if his infection seems to resolve with antibiotic and medical management. Will have them place a warm compress of his right hand to see if we can help with some of the swelling and erythema as well. His duplex was negative for any DVT He also has significant disc degeneration at his cervical spine at C5-6 C6-7 with evidence of stenosis causing left upper extremity radiculopathy He is not having acute neurologic loss at his left upper extremity or weakness. He has diffuse pain and is difficult for him to perform activities with robust strength. I think that he could have some benefit with steroid medication. He is a diabetic and I explained to him the issues with his blood sugars and the steroid. I also explained the difficulties in terms of his infectious process at his right hand and treating his other issue of inflammation at his neck and radicular symptoms with steroid. He seems to understand this. He will continue the IV steroid medication to see if it helps alleviate some of the issues at his neck and left upper extremity. If he is not responding well we may need further imaging such as an MRI. Typically we would consider the possibility of interventional pain management but in the face of active infection at his right hand I would not plan on doing interventional epidural steroid injections at this point. The patient is being actively manage in terms of his insulin-dependent diabetes. He is also being actively managed in terms of possible ETOH withdrawal We will continue to follow along closely with you in terms of his cellulitis at his right upper extremity and his cervical spine stenosis with radiculopathy. Time with Patient: Greater than 30
[2024-06-06 10:31] LABS: Basophils # (A) 0.11 X 10*3/uL (0.00-0.10); Basophils % (A) 0.9 %; Eosinophils # (A) 0 X 10*3/uL (0.04-0.35); Eosinophils % (A) 0 %; HCT 39.8 % (39.6-50.0); HGB 13.2 g/dL (13.0-17.0); Lymphocytes # (A) 0.72 X 10*3/uL (0.90-5.00); Lymphocytes % (A) 5.8 %; MCH 32.4 pg (27.0-32.0); MCHC 33.2 g/dL (32.0-37.0); MCV 97.5 FL (80.0-97.0); Mean Platelet Volume 12.2 FL (9.5-12.2); NRBC Per 100 WBC 0 X 10*3/uL (0.00-0.01); Neutrophils # (A) 11.02 X 10*3/uL (1.80-7.70); Neutrophils % (A) 88.6 %; Platelet Count 86 X 10*3/uL (140-440); RBC 4.08 X 10*6/uL (4.40-5.60); RBC Morphology Normal (Normal); RDW 14.4 % (11.5-14.5); WBC 12.44 X 10*3/uL (4.50-10.00)
[2024-06-06 11:39] LABS: Glucose,Whole Blood 290 mg/dL (70-110)
[2024-06-06] MEDS: methylPREDNISolone SOD SUCCI 40 MG/ML 1 ML VIAL IV SCH (16:02)
[2024-06-06] MEDS: HYDROcodone/APAP 5-325MG 1 EACH TAB PO PRN (16:10)
[2024-06-06 17:33] LABS: Glucose,Whole Blood 329 mg/dL (70-110)
[2024-06-06] MEDS: THIAMINE 100 MG TAB PO SCH (18:16)
[2024-06-06] MEDS ORDERED: LORazepam 1 MG/0.5 ML VIAL IV PRN ×3 (18:33→18:35)
[2024-06-06 20:33] LABS: Glucose,Whole Blood 280 mg/dL (70-110)
[2024-06-06] MEDS: INSULIN GLARGINE (LANTUS) 100 UNIT/ML SYR SQ SCH (21:23)
--- NOTE | 2024-06-06 23:16 | PN ---
PROGRESS NOTE DATE OF SERVICE: 06/06/2024 SUBJECTIVE: This is a 53-year-old gentleman, who was admitted with acute cellulitis of the hands, also had possible rheumatoid arthritis acute exacerbation also. The patient also has cervical DJD as well. The culture is preliminarily showing gram-positive cocci in clusters. There is no history of any fever, rigors, or chills. PHYSICAL EXAMINATION: VITAL SIGNS: Pulse is 84, blood pressure 160/109, respirations 18. HEENT: Conjunctivae normal. NECK: No JVD. CARDIOVASCULAR: S1, S2. RESPIRATIONS: Breath sounds diminished at the bases. Bilateral scattered rhonchi and crackles. ABDOMEN: Soft, significant swelling and pain of the right hand present. LABORATORY DATA: Reviewed. C-reactive protein is 18. Rest of the labs are noted. ASSESSMENT: 1. Acute cellulitis of the right hand as well as possible rheumatoid arthritis acute exacerbation. 2. Possible acute delirium tremens with alcohol withdrawal. 3. Diabetes mellitus, type 2. 4. Elevated WBC with possible sepsis with Staph aureus. 5. Hypertension. 6. History of EtOH. 7. Multiple complex medical issues. RECOMMENDATIONS: Recommend to continue current management. Continue symptomatic treatment. Continue with antibiotics. Infectious Disease evaluation. Orthopedic evaluation recommended. I would also recommend to initiate Lantus and continue to monitor. Guarded prognosis because of multiple complex medical issues. Further recommendations to follow. See orders for further details. MMODL / IJN: [id number] /
--- NOTE | 2024-06-06 23:39 | P.CONS ---
History of Present Illness - Reason for Consult Consult date: 06/06/24 Sepsis Requesting physician: Bang Clark - Chief Complaint Right hand pain swelling redness x 2 days - History of Present Illness Patient is a 53-year-old male with a past medical history of again for diabetes mellitus reflux hypertension osteoarthritis chronic back pain presenting to the hospital for evaluation of worsening pain swelling and redness to the right hand area that apparently started getting worse over the last day or 2 patient denies any history of any trauma has been complaining of pain to the right hand to be sharp moderate intensity without radiation with associated swelling redness denied any skin breakdown or any drainage on presentation to the hospital the patient was afebrile no fever have been recorded subsequently patient was tachycardic but not hypotensive or hypoxic did have white count of 12.44 creatinine is 2.0 electrolytes are normal liver enzymes normal patient did have a x-ray of the hand soft tissue swelling without fracture venous Doppler negative for DVT right leg was also negative for DVT patient be started on Zosyn infectious he was consulted for further management of antibiotic therapy Review of Systems Positive point and negatives has been mentioned in the HPI, complete review of systems was performed and all other systems are negative Past Medical History Past Medical History: Diabetes Mellitus, GERD/Reflux, Hypertension, Osteoarthri tis (OA) Additional Past Medical History / Comment(s): Neuropathy legs and feet, Ulcerative Colitis, "resolved for some time now". History of Any Multi-Drug Resistant Organisms: None Reported Past Surgical History: Orthopedic Surgery Additional Past Surgical History / Comment(s): 3rd & 4th fingers reattached w/bone grafts after accident, colonoscopy. Past Anesthesia/Blood Transfusion Reactions: No Reported Reaction Past Psychological History: No Psychological Hx Reported Smoking Status: Never smoker Past Alcohol Use History: Abuse, Daily Past Drug Use History: Marijuana - Past Family History Father Family Medical History: Diabetes Mellitus, Hyperlipidemia, Hypertension Brother(s) Family Medical History: Diabetes Mellitus, Hyperlipidemia, Hypertension Medications and Allergies Home Medications Medication Instructions Recorded Confirmed Type Insulin Degludec [Tresiba 25 units SQ BID 12/31/20 06/05/24 History Flextouch U-100 Pen] HYDROcodone/APAP 5-325MG [[place] 1 tab PO Q4HR PRN 3 Days #18 tab 06/03/24 06/05/24 Rx 5-325] Allergies Allergy/AdvReac Type Severity Reaction Status Date / Time metformin AdvReac Nausea Verified 06/05/24 19:36 Physical Exam Vitals: Vital Signs Temp Pulse Resp BP Pulse Ox 06/06/24 13:45 84 18 164/109 99 06/06/24 12:00 81 20 160/94 97 06/06/24 11:30 92 20 142/94 96 06/06/24 08:00 91 22 150/98 95 06/06/24 05:49 91 18 123/92 95 06/06/24 03:44 96 16 139/92 97 06/06/24 00:15 96 16 126/78 95 06/05/24 22:11 101 H 18 156/97 95 06/05/24 20:11 105 H 16 138/87 95 06/05/24 18:55 108 H 18 142/82 97 06/05/24 17:27 101 H 22 212/81 99 06/05/24 16:09 97.5 F L 106 H 24 180/106 97 Intake and Output 06/05/24 06/06/24 06/06/24 22:59 06:59 14:59 Output Total 800 Balance -800 Output: Urine 800 Other: Voiding Method Toilet Weight 83.915 kg GENERAL DESCRIPTION: Male lying in bed, no distress. No tachypnea or accessory muscle of respiration use. HEENT: Shows Pallor , no scleral icterus. Oral mucous membrane is dry. No pharyngeal erythema or thrush NECK: Trachea central, no thyromegaly. LUNGS: Unlabored breathing. Clear to auscultation anteriorly. No wheeze or crackle. HEART: S1, S2, regular rate and rhythm. No loud murmur ABDOMEN: Soft, no tenderness , guarding or rigidity, no organomegaly EXTREMITIES: Right hand dorsum did have diffuse swelling and redness which is warm and tender to touch no drainage SKIN: No rash, no masses palpable. NEUROLOGICAL: The patient is awake, alert, oriented x3, mood and affect normal. Results CBC & Chem 7: 06/06/24 06:37 06/06/24 06:37 Labs: Abnormal Lab Results - Last 24 Hours (Table) 06/05/24 06/05/24 06/05/24 Range/Units 16:20 16:30 16:30 WBC 11.0 H (3.8-10.6) k/uL RBC (4.40-5.60) X 10*6/uL MCV (80.0-97.0) FL MCH (27.0-32.0) pg Plt Count 106 L (150-450) k/uL Immature Gran # (0.00-0.04) X 10*3/uL Neutrophils # 9.6 H (1.3-7.7) k/uL Lymphocytes # 0.7 L (1.0-4.8) k/uL Eosinophils # (0.04-0.35) X 10*3/uL Basophils # (0.00-0.10) X 10*3/uL ESR (0-20) mm/Hr D-Dimer (<0.60) mg/L FEU VBG pH (7.31-7.41) VBG pCO2 (37-51) mmHg VBG HCO3 (24-28) mmol/L Sodium 134 L (137-145) mmol/L Carbon Dioxide (21.6-31.8) mmol/L Anion Gap (4.00-12.00) mmol/L BUN 47 H (9-20) mg/dL Creatinine 1.78 H (0.66-1.25) mg/dL Est GFR (CKD-EPI) (>=60) BUN/Creatinine Ratio (12.00-20.00) Ratio Glucose 236 H (74-99) mg/dL POC Glucose (mg/dL) (70-110) mg/dL Hemoglobin A1c (<=6.0) % Plasma Lactic Acid Samir (0.7-2.0) mmol/L Calcium (8.7-10.3) mg/dL Phosphorus 2.1 L (2.5-4.5) mg/dL Total Bilirubin 1.7 H (0.2-1.3) mg/dL Alkaline Phosphatase 150 H (38-126) U/L Creatine Kinase 29 L (55-170) U/L C-Reactive Protein (<1.0) mg/dL Total Protein (6.2-8.2) g/dL Albumin 2.9 L (3.5-5.0) g/dL Albumin/Globulin Ratio (1.60-3.17) Ratio Urine Protein 2+ H (Negative) Urine Glucose (UA) 3+ H (Negative) Urine Blood Large H (Negative) Ur Leukocyte Esterase Trace H (Negative) Urine RBC >182 H (0-5) /hpf Urine WBC 84 H (0-5) /hpf Urine Bacteria Occasional H (None) /hpf 06/05/24 06/05/24 06/05/24 Range/Units 17:58 17:58 17:58 WBC (3.8-10.6) k/uL RBC (4.40-5.60) X 10*6/uL MCV (80.0-97.0) FL MCH (27.0-32.0) pg Plt Count (150-450) k/uL Immature Gran # (0.00-0.04) X 10*3/uL Neutrophils # (1.3-7.7) k/uL Lymphocytes # (1.0-4.8) k/uL Eosinophils # (0.04-0.35) X 10*3/uL Basophils # (0.00-0.10) X 10*3/uL ESR (0-20) mm/Hr D-Dimer 7.88 H (<0.60) mg/L FEU VBG pH 7.46 H (7.31-7.41) VBG pCO2 27 L (37-51) mmHg VBG HCO3 19 L (24-28) mmol/L Sodium (137-145) mmol/L Carbon Dioxide (21.6-31.8) mmol/L Anion Gap (4.00-12.00) mmol/L BUN (9-20) mg/dL Creatinine (0.66-1.25) mg/dL Est GFR (CKD-EPI) (>=60) BUN/Creatinine Ratio (12.00-20.00) Ratio Glucose (74-99) mg/dL POC Glucose (mg/dL) (70-110) mg/dL Hemoglobin A1c (<=6.0) % Plasma Lactic Acid Samir 2.4 H* (0.7-2.0) mmol/L Calcium (8.7-10.3) mg/dL Phosphorus (2.5-4.5) mg/dL Total Bilirubin (0.2-1.3) mg/dL Alkaline Phosphatase (38-126) U/L Creatine Kinase (55-170) U/L C-Reactive Protein (<1.0) mg/dL Total Protein (6.2-8.2) g/dL Albumin (3.5-5.0) g/dL Albumin/Globulin Ratio (1.60-3.17) Ratio Urine Protein (Negative) Urine Glucose (UA) (Negative) Urine Blood (Negative) Ur Leukocyte Esterase (Negative) Urine RBC (0-5) /hpf Urine WBC (0-5) /hpf Urine Bacteria (None) /hpf 06/05/24 06/05/24 06/05/24 Range/Units 21:46 21:46 22:51 WBC (3.8-10.6) k/uL RBC (4.40-5.60) X 10*6/uL MCV (80.0-97.0) FL MCH (27.0-32.0) pg Plt Count (150-450) k/uL Immature Gran # (0.00-0.04) X 10*3/uL Neutrophils # (1.3-7.7) k/uL Lymphocytes # (1.0-4.8) k/uL Eosinophils # (0.04-0.35) X 10*3/uL Basophils # (0.00-0.10) X 10*3/uL ESR 72 H (0-20) mm/Hr D-Dimer (<0.60) mg/L FEU VBG pH (7.31-7.41) VBG pCO2 (37-51) mmHg VBG HCO3 (24-28) mmol/L Sodium (137-145) mmol/L Carbon Dioxide (21.6-31.8) mmol/L Anion Gap (4.00-12.00) mmol/L BUN (9-20) mg/dL Creatinine (0.66-1.25) mg/dL Est GFR (CKD-EPI) (>=60) BUN/Creatinine Ratio (12.00-20.00) Ratio Glucose (74-99) mg/dL POC Glucose (mg/dL) 187 H (70-110) mg/dL Hemoglobin A1c (<=6.0) % Plasma Lactic Acid Samir (0.7-2.0) mmol/L Calcium (8.7-10.3) mg/dL Phosphorus (2.5-4.5) mg/dL Total Bilirubin (0.2-1.3) mg/dL Alkaline Phosphatase (38-126) U/L Creatine Kinase (55-170) U/L C-Reactive Protein 18.0 H (<1.0) mg/dL Total Protein (6.2-8.2) g/dL Albumin (3.5-5.0) g/dL Albumin/Globulin Ratio (1.60-3.17) Ratio Urine Protein (Negative) Urine Glucose (UA) (Negative) Urine Blood (Negative) Ur Leukocyte Esterase (Negative) Urine RBC (0-5) /hpf Urine WBC (0-5) /hpf Urine Bacteria (None) /hpf 06/06/24 06/06/24 06/06/24 Range/Units 06:37 06:37 06:37 WBC 12.44 H (3.8-10.6) k/uL RBC 4.08 L (4.40-5.60) X 10*6/uL MCV 97.5 H (80.0-97.0) FL MCH 32.4 H (27.0-32.0) pg Plt Count 86 L (150-450) k/uL Immature Gran # 0.09 H (0.00-0.04) X 10*3/uL Neutrophils # 11.02 H (1.3-7.7) k/uL Lymphocytes # 0.72 L (1.0-4.8) k/uL Eosinophils # 0 L (0.04-0.35) X 10*3/uL Basophils # 0.11 H (0.00-0.10) X 10*3/uL ESR (0-20) mm/Hr D-Dimer (<0.60) mg/L FEU VBG pH (7.31-7.41) VBG pCO2 (37-51) mmHg VBG HCO3 (24-28) mmol/L Sodium (137-145) mmol/L Carbon Dioxide 16.7 L (21.6-31.8) mmol/L Anion Gap 13.30 H (4.00-12.00) mmol/L BUN 43.8 H (9-20) mg/dL Creatinine 2.0 H (0.66-1.25) mg/dL Est GFR (CKD-EPI) 40 L (>=60) BUN/Creatinine Ratio 21.90 H (12.00-20.00) Ratio Glucose 246 H (74-99) mg/dL POC Glucose (mg/dL) (70-110) mg/dL Hemoglobin A1c 8.4 H (<=6.0) % Plasma Lactic Acid Samir (0.7-2.0) mmol/L Calcium 7.5 L (8.7-10.3) mg/dL Phosphorus (2.5-4.5) mg/dL Total Bilirubin (0.2-1.3) mg/dL Alkaline Phosphatase 138 H (38-126) U/L Creatine Kinase (55-170) U/L C-Reactive Protein (<1.0) mg/dL Total Protein 5.5 L (6.2-8.2) g/dL Albumin 2.4 L (3.5-5.0) g/dL Albumin/Globulin Ratio 0.77 L (1.60-3.17) Ratio Urine Protein (Negative) Urine Glucose (UA) (Negative) Urine Blood (Negative) Ur Leukocyte Esterase (Negative) Urine RBC (0-5) /hpf Urine WBC (0-5) /hpf Urine Bacteria (None) /hpf 06/06/24 06/06/24 Range/Units 08:36 11:38 WBC (3.8-10.6) k/uL RBC (4.40-5.60) X 10*6/uL MCV (80.0-97.0) FL MCH (27.0-32.0) pg Plt Count (150-450) k/uL Immature Gran # (0.00-0.04) X 10*3/uL Neutrophils # (1.3-7.7) k/uL Lymphocytes # (1.0-4.8) k/uL Eosinophils # (0.04-0.35) X 10*3/uL Basophils # (0.00-0.10) X 10*3/uL ESR (0-20) mm/Hr D-Dimer (<0.60) mg/L FEU VBG pH (7.31-7.41) VBG pCO2 (37-51) mmHg VBG HCO3 (24-28) mmol/L Sodium (137-145) mmol/L Carbon Dioxide (21.6-31.8) mmol/L Anion Gap (4.00-12.00) mmol/L BUN (9-20) mg/dL Creatinine (0.66-1.25) mg/dL Est GFR (CKD-EPI) (>=60) BUN/Creatinine Ratio (12.00-20.00) Ratio Glucose (74-99) mg/dL POC Glucose (mg/dL) 262 H 290 H (70-110) mg/dL Hemoglobin A1c (<=6.0) % Plasma Lactic Acid Samir (0.7-2.0) mmol/L Calcium (8.7-10.3) mg/dL Phosphorus (2.5-4.5) mg/dL Total Bilirubin (0.2-1.3) mg/dL Alkaline Phosphatase (38-126) U/L Creatine Kinase (55-170) U/L C-Reactive Protein (<1.0) mg/dL Total Protein (6.2-8.2) g/dL Albumin (3.5-5.0) g/dL Albumin/Globulin Ratio (1.60-3.17) Ratio Urine Protein (Negative) Urine Glucose (UA) (Negative) Urine Blood (Negative) Ur Leukocyte Esterase (Negative) Urine RBC (0-5) /hpf Urine WBC (0-5) /hpf Urine Bacteria (None) /hpf Microbiology - Last 24 Hours (Table) 06/05/24 19:45 Blood Culture Gram Stain - Preliminary Blood Assessment and Plan (1) Sepsis Current Visit: Yes Status: Acute Code(s): A41.9 - SEPSIS, UNSPECIFIED ORGANISM SNOMED Code(s): 91205276 (2) Cellulitis of right hand Current Visit: Yes Status: Acute Code(s): L03.113 - CELLULITIS OF RIGHT UPPER LIMB SNOMED Code(s): 38693502209546498 Plan: 1patient [facility] with sepsis in this patient who did have elevated white count tachycardia meeting criteria for SIRS source is right hand cellulitis and likely from gram-positive skin ana 2-marked area of the redness 3-discontinue Zosyn 4-start the patient cefazolin 2 g every 8 hours We will follow on clinical condition and cultures to further adjust medication if needed Thank you for this consultation we will follow the patient along with you Dictation was produced using [employer] dictation software. please excuse any grammatical, word or spelling errors. Time with Patient: Greater than 30
[2024-06-06] MEDS: HYDROmorphone 1 MG/ML 1 ML SYRINGE IVP PRN (23:44)
[2024-06-07 08:30] LABS: Glucose,Whole Blood 172 mg/dL (70-110)
--- NOTE | 2024-06-07 08:36 | P.PN ---
Progress Note - Text Progress Note Date: 06/07/24 The patient is seen and examined at bedside. He denies any fevers. His culture came back sensitive to cefazolin and that has been changed with appropriate antibiotic. Infectious disease has seen him. He feels his hand has made some slight improvement . It is still swollen at the dorsum of his hand is still sore at his index finger. He denies any problems in his forearm. Denies any other issues. He feels his neck is still sore globally as well as his left upper extremity. But this has not changed significantly for him. On exam he is afebrile. His neck has good motion. Left upper extremities full active and passive range of motion. 5 out of 5 strength throughout. Mildly positive Spurling's on the left. In his right hand, there is still significant swelling dorsally with erythema. It is diminished very slightly. There is erythema around his proximal phalanx. There is no streaking volarly or at his palm or over his flexor tendon. There is no streaking up his wrist. He does not have pain with passive stretch that is tightness around his finger and knuckle. He has some motion in his finger but is somewhat limited at his index finger. His other fingers move well. Assessment and plan Right hand cellulitis with significant swelling and tightness Cervical degenerative disc disease with left lower extremity radiculopathy without neurologic loss I think the patient's primary current issue is at his right hand. He has significant cellulitis and swelling. He has started to make some improvement but has not resolved as much as I would have expected. If he does not continue to improve significantly we would consider incision and drainage surgically. I explained this to him today. We will have him n.p.o. after midnight if he is not improving well, we can consider the possibility of surgical washout tomorrow. In regards to his cervical spine, he is not having any neurologic loss. His pain is fairly controlled but still bothering him. I do not think that his cervical spine at is keeping him in the hospital at this point and that is something that could be manage outpatient. I think that we need to address the infectious issue at his right hand before we can do much with his neck. Will continue to follow him closely. I will make him n.p.o. after midnight if his hand is not improving
[2024-06-07] MEDS: FOLIC ACID 1 MG TAB PO SCH (08:58)
[2024-06-07] MEDS: MULTIVITAMINS, THERA 1 EACH TAB PO SCH (08:58)
[2024-06-07 09:16] LABS: ALT 14 U/L (10-49); AST 26 U/L (14-35); Albumin 2.4 g/dL (3.8-4.9); Albumin/Globulin Ratio 0.69 Ratio (1.60-3.17); Alkaline Phosphatase 128 U/L (41-126); BUN/Creat Ratio 22.26 Ratio (12.00-20.00); Blood Urea Nitrogen 51.2 mg/dL (9.0-27.0); Calcium 7.4 mg/dL (8.7-10.3); Carbon Dioxide 17.4 mmol/L (21.6-31.8); Chloride 107 mmol/L (96-109); Globulin 3.5 g/dL (1.6-3.3); Glucose 174 mg/dL (70-110); Sodium 138 mmol/L (135-145); Total Bilirubin 0.6 mg/dL (0.3-1.2); Total Protein 5.9 g/dL (6.2-8.2)
[2024-06-07 09:37] LABS: HCT 38.2 % (39.6-50.0); HGB 12.9 g/dL (13.0-17.0); MCHC 33.8 g/dL (32.0-37.0); MCV 94.8 FL (80.0-97.0); Mean Platelet Volume 12.2 FL (9.5-12.2); NRBC Per 100 WBC 0 X 10*3/uL (0.00-0.01); Platelet Count 105 X 10*3/uL (140-440); RBC 4.03 X 10*6/uL (4.40-5.60); RDW 14.6 % (11.5-14.5); WBC 14.95 X 10*3/uL (4.50-10.00)
[2024-06-07 10:54] LABS: Basophils # (A) 0.06 X 10*3/uL (0.00-0.10); Basophils % (A) 0.4 %; Eosinophils # (A) 0 X 10*3/uL (0.04-0.35); Eosinophils % (A) 0 %; Lymphocytes # (A) 0.95 X 10*3/uL (0.90-5.00); Lymphocytes % (A) 6.4 %; Monocytes # (A) 0.67 X 10*3/uL (0.20-1.00); Monocytes % (A) 4.5 %; Neutrophils # (A) 12.89 X 10*3/uL (1.80-7.70); Neutrophils % (A) 86.2 %
[2024-06-07 12:42] LABS: Glucose,Whole Blood 264 mg/dL (70-110)
[2024-06-07] MEDS: methylPREDNISolone SOD SUCCI 40 MG/ML 1 ML VIAL IV SCH (16:11)
[2024-06-07 17:05] LABS: Glucose,Whole Blood 239 mg/dL (70-110)
[2024-06-07 20:21] LABS: Glucose,Whole Blood 208 mg/dL (70-110)
--- NOTE | 2024-06-07 21:37 | PN ---
PROGRESS NOTE DATE OF SERVICE: 06/07/2024 SUBJECTIVE: This is a 53-year-old gentleman, who was admitted with acute cellulitis of the right hand. He had a possible rheumatoid arthritis also. Orthopedic Surgery is following the patient closely as well. If the hand is not improving, we will consider surgical evaluation also. The culture showed presumptive Staph aureus PAST MEDICAL HISTORY: Reviewed. REVIEW OF SYSTEMS: Fourteen-point review of systems negative except as mentioned earlier. CURRENT MEDICATIONS: Reviewed. PHYSICAL EXAMINATION: VITAL SIGNS: Pulse is 74, blood pressure 140/90, respirations 20. HEENT: Conjunctivae normal. CARDIOVASCULAR: S1 and S2. ABDOMEN: Soft. EXTREMITIES: Significant pain and swelling and erythema. Bluish discoloration. Tenderness present. LABORATORY DATA: Noted. Creatinine is 2.3. X-ray, soft tissue swelling without any fracture multifocal DJD, ankylosis. ASSESSMENT: 1. Acute cellulitis of the right hand as well as possible rheumatoid arthritis with acute exacerbation with Staphylococcus sepsis. 2. Acute delirium with alcohol withdrawal. 3. Diabetes mellitus type 2. 4. Elevated WBC. 5. Hypertension. 6. History of EtOH. 7. Multiple complex medical issues. RECOMMENDATIONS: Recommended to continue current medications, continue symptomatic treatment. Taper steroids faster. Otherwise, I would recommend monitoring blood sugars closely. Antibiotics. Orthopedic evaluation. Guarded prognosis because of multiple complex medical issues. Further recommendations to follow. See orders for details. MMODL / IJN: [id number] /
[2024-06-08 07:28] LABS: Glucose,Whole Blood 206 mg/dL (70-110)
--- NOTE | 2024-06-08 08:35 | P.PN ---
Progress Note - Text Progress Note Date: 06/08/24 The patient is seen and examined at bedside. He still has significant erythema at the dorsum of his hand and at his index finger on the right. He says it is sore and does not feel like it is getting better. He denies fevers. He denies any new issues in his left upper extremity or his neck. He remained afebrile overnight Chest has good excursion with deep inspiration expiration. Abdomen soft nontender. Right hand has continued swelling the dorsum of the hand at the base of the index finger. It is sore to touch it is not out of proportion with exam. There is no streaking. His elbow is nontender. Right hand cellulitis Right hand abscess Minimal improvement despite IV antibiotics I think that the patient is not responding well to the antibiotics and likely has an abscess. I think that he needs surgical formal decompression of the abscess and irrigation and debridement to help with the infectious process. I discussed this with him at length today I discussed the risk complications alternatives benefits of surgery and of the anesthesia involved. I discussed the issues with the wound and the continued need for IV antibiotics and the possible need for further surgery. I answered his questions and he is agreeable and will sign informed consent for irrigation debridement at the right hand abscess. We will plan for surgery today.
[2024-06-08 08:44] LABS: HCT 37.9 % (39.6-50.0); HGB 12.7 g/dL (13.0-17.0); MCH 31.7 pg (27.0-32.0); MCHC 33.5 g/dL (32.0-37.0); MCV 94.5 FL (80.0-97.0); Mean Platelet Volume 12.5 FL (9.5-12.2); NRBC Per 100 WBC 0 X 10*3/uL (0.00-0.01); Platelet Count 104 X 10*3/uL (140-440); RBC 4.01 X 10*6/uL (4.40-5.60); RDW 14.6 % (11.5-14.5); WBC 15.97 X 10*3/uL (4.50-10.00)
--- NOTE | 2024-06-08 09:05 | XR ---
EXAMINATION TYPE: XR chest 2V DATE OF EXAM: 06/08/2024 8:56 AM COMPARISON: None. CLINICAL INDICATION: Male, 53 years old with history of Preop evaluation: Shortness of breath TECHNIQUE: XR chest 2V views of the chest are obtained. FINDINGS: Scattered senescent parenchymal changes noted. Hyperinflation compatible with COPD. No evidence for infiltrate. No evidence for atelectasis. Heart size is stable. Mediastinal structures are stable and grossly unremarkable. No evidence for hilar prominence. Degenerative changes dorsal spine. IMPRESSION: 1. No evidence for acute pulmonary disease. [facility], , 06/08/2024 9:02 AM
[2024-06-08 09:13] LABS: BUN/Creat Ratio 24.82 Ratio (12.00-20.00); Blood Urea Nitrogen 54.6 mg/dL (9.0-27.0); Carbon Dioxide 18.1 mmol/L (21.6-31.8); Chloride 106 mmol/L (96-109); Glucose 174 mg/dL (70-110); Sodium 136 mmol/L (135-145)
[2024-06-08 09:14] LABS: ALT 10 U/L (10-49); AST 25 U/L (14-35); Albumin 2.3 g/dL (3.8-4.9); Albumin/Globulin Ratio 0.68 Ratio (1.60-3.17); Alkaline Phosphatase 123 U/L (41-126); Calcium 7.5 mg/dL (8.7-10.3); Creatine Kinase 31 U/L (35-257); Globulin 3.4 g/dL (1.6-3.3); Total Bilirubin 0.4 mg/dL (0.3-1.2); Total Protein 5.7 g/dL (6.2-8.2); Uric Acid 6.1 mg/dL (3.7-8.7)
[2024-06-08] MEDS: hydrALAZINE HCL 20 MG/ML 1 ML VIAL IVP STA (09:40)
[2024-06-08 10:03] LABS: Basophils # (A) 0.11 X 10*3/uL (0.00-0.10); Basophils % (A) 0.7 %; Eosinophils # (A) 0 X 10*3/uL (0.04-0.35); Eosinophils % (A) 0 %; Lymphocytes # (A) 1.25 X 10*3/uL (0.90-5.00); Lymphocytes % (A) 7.8 %; Monocytes # (A) 0.62 X 10*3/uL (0.20-1.00); Monocytes % (A) 3.9 %; Neutrophils # (A) 13.64 X 10*3/uL (1.80-7.70); Neutrophils % (A) 85.4 %; RBC Morphology Normal (Normal)
[2024-06-08 10:37] LABS: Glucose,Whole Blood 193 mg/dL (70-110)
[2024-06-08] MEDS: LACTATED RINGERS 1,000 ML IV ONE (10:40)
[2024-06-08] MEDS: LABETALOL SYRINGE 5 MG/ML (4 ML SYR) IVP STA (10:58)
[2024-06-08] MEDS ORDERED: fentaNYL (PF) 50 MCG/ML 2 ML AMP ONE (11:14)
[2024-06-08] MEDS ORDERED: PROPOFOL 10 MG/ML 20 ML VIAL IV ONE (11:14)
[2024-06-08] MEDS ORDERED: SUCCINYLCHOLINE CHLORIDE 200 MG/10 ML VIAL IV ONE (11:14)
[2024-06-08] MEDS ORDERED: MIDAZOLAM 2 MG/2 ML VIAL ONE (11:14)
[2024-06-08] MEDS ORDERED: KETOROLAC 15 MG/ML 1 ML VIAL ONE (11:14)
[2024-06-08] MEDS ORDERED: HYDROmorphone (PF) 1 MG/ML ONE (11:14)
[2024-06-08] MEDS ORDERED: LIDOCAINE 1% INJ 10MG/ML (20 ML MDV) ONE (11:14)
[2024-06-08] MEDS ORDERED: PHENYLEPHRINE 10 MG/ML VIAL ONE (11:14)
[2024-06-08] MEDS ORDERED: BENZOCAINE/MENTHOL LOZENG 1 EACH LOZENGE MUCOUS MEM PRN (12:06)
--- NOTE | 2024-06-08 12:16 | P.OP ---
Date of Procedure: 06/08/24 Preoperative Diagnosis: Right hand abscess, right hand cellulitis, minimal response to antibiotics Postoperative Diagnosis: Right hand abscess, right hand cellulitis, minimal response to antibiotics With findings of deep space abscess at the right dorsum of the hand and right proximal phalanx of the index finger Anesthesia: GETA Pathology: other (Deep cultures x 2 at the right dorsum of the hand and x 1 at the right proximal phalanx index finger) Condition: stable Disposition: PACU Description of Procedure: BRIEF OPERATIVE NOTE Preoperative Diagnosis:Right hand abscess, right hand cellulitis, minimal response to antibiotics Postoperative Diagnosis:Right hand abscess, right hand cellulitis, minimal response to antibiotics With findings of significant abscess with purulence and pus at the deep space of the hand Procedure: Irrigation and excisional debridement of right hand deep space wound over the dorsum of the hand and metacarpals with a 2 cm incision and through a separate incision a deep space irrigation and excisional debridement of the abscess at the right dorsum of the proximal phalanx of the index finger Surgeon: Dr. Martinez Prepress Supervisor: Stew RIGGS who is present throughout the entire the case persistence during positioning, dissection, exposure, visualization, and all crucial elements of the case as well as closure. Anesthesia: General anesthesia per Dr. Portillo Estimated blood loss: Approximately 50 cc Findings of copious amounts of pus and purulence from the dorsum of the hand and the proximal phalanx base soft tissue of the index finger Complications: None apparent Components implanted: I placed iodoform gauze x 2 Disposition: To recovery room in good stable condition. OPERATIVE INDICATIONS The patient has been having swelling and erythema in his right hand over the past few days. He had been treated with IV antibiotics over the past 2 days and had some improvement initially but the improvement seemed to stall between last night and today. He had continued erythema at his right dorsum of his hand and the base of his right index finger. He was not having significant volar erythema or swelling. He was not having streaking over his flexor tendon. He had been on IV antibiotics as per infectious disease. He was not having significant improvement over the past 24 hours and I felt that there was some f luctuance at the area and I believe that there was an abscess at the space. I discussed with him the various possibilities of continuing conservative treatment with the medication and antibiotics through the IV as well as the possibility of surgical intervention for formal irrigation and excisional debridement. I discussed the risk complications alternatives and benefits of surgery at length with him.. The patient has been through conservative treatment. We discussed various treatment options including surgery, and the patient wishes to proceed with surgery We discussed the risk, patient's alternatives and benefits of surgery including but not limited to, risk of bleeding risk of infection, risk of need for further surgery, risk of decreased, loss of motion, muscle function, malunion nonunion, hardware failure, nerve damage, paralysis, heart attack, and . OPERATIVE SUMMARY After discussing all the risks, patient alternatives and benefits at length, the patient elected to proceed with surgical intervention, signed informed consent, and presented for their procedure. The patient was seen and examined in the preoperative holding area and the surgical site was marked. The patient was given antibiotics and brought to the operating room. The patient was remained on supine position onto his stretcher being care pad any bony promises pressure points and keeping his head neck in good neutral alignment and position. He was intubated and sedated by anesthesia in standard fashion. Once his airway and C-spine were secured his right upper extremity was prepped and draped in normal standard fashion and arm table we were careful to maintain the patient's cervical spine and good neutral alignment and position throughout. The patient was prepped and draped in a normal standard fashion. An appropriate timeout and keystone protocol performed. We were able to proceed with the surgery. Appropriate timeout was completed and we will proceed with the surgery. He had a nonsterile tourniquet placed over his proximal arm before the draping but we did not inflate it. Over the dorsum of his hand I made a longitudinal 2 cm incision. I was able to dissect through the skin and scope his tissue and there was obvious copious amounts of purulence and pus that was able to be evacuated. There is greater than 100 cc of pus at the space. I took deep cultures at the right hand x 2 for this. This was copiously irrigated and suctioned dry. At the index finger I also placed small incision at the dorsal ulnar aspect and we had pus from that space through the abscess which was able to be extracted. It extended down to the deep space. It did not seem to extend into the flexor tendon sheath. We were able to extract significant pus from that space. Both areas were copiously irrigated suctioned dry. There was denuded tissue which was excised appropriately. All of the pus that was removed and we put at least 3 L of antibiotic saline and regular saline. The area was perfused appropriately without any evidence of further purulence. The wound is clean and dry and I was able to place iodoform gauze into the space and loosely close the skin. I was able to dressed with a bulky dressing and nonstick nonadherent dressing. We will drop the draping the patient was woken up by anesthesia extubated and able to be transferred to recovery room in good stable condition. The patient will be admitted to the hospital for appropriate postoperative care, continued IV antibiotics medical management and monitoring. We will continue to follow them closely about the postoperative course. At this point I do not have further plans of surgical intervention but we will need to follow closely each day to determine if he needs repeat irrigation and debridement.
[2024-06-08] MEDS: SODIUM CHLORIDE 0.9% 1,000 ML IV ONE (12:49)
--- NOTE | 2024-06-08 13:03 | P.PN ---
Subjective Progress Note Date: 06/07/24 Principal diagnosis: Reason for follow-up is right hand cellulitis and bacteremia Patient is a 53-year-old male with a past medical history of again for diabetes mellitus reflux hypertension osteoarthritis chronic back pain presenting to the hospital for evaluation of worsening pain swelling and redness to the right hand area patient be diagnosed with cellulitis subsequent blood culture came positive with MSSA. On today's evaluation that is 06/07/2024, Patient is afebrile this morning patient denies having any chest pain shortness of breath or cough, the patient is currently on room air, patient denies any abdominal pain no diarrhea no nausea no vomiting or pain cellulitis slightly decreased. Patient white count is 14.85, platelets 2.3 Objective - Vital Signs Vital signs: Vital Signs Temp 97.9 F 06/07/24 13:04 Pulse 74 06/07/24 13:04 Resp 20 06/07/24 13:04 BP 145/91 06/07/24 13:04 Pulse Ox 96 06/07/24 13:04 FiO2 Intake & Output 06/06/24 06/07/24 06/07/24 18:59 06:59 18:59 Intake Total 240 740 Output Total 800 Balance -800 240 740 Weight 83.915 kg Intake: Intake, IV Titration 240 Amount Sodium Chloride 0.9% 1, 190 000 ml @ 20 mls/hr IV . Q24H [facility] Rx#:[id number] ceFAZolin 2 gm In Sodium 50 Chloride 0.9% 50 ml @ 100 mls/hr IVPB Q8HR [facility] Rx# :[id number] Oral 740 Output: Urine 800 Other: Voiding Method Toilet Toilet # Voids 2 1 - Exam GENERAL DESCRIPTION: ashley pugh male lying in bed in no distress RESPIRATORY SYSTEM: Unlabored breathing , decreased breath sounds at bases HEART: S1 S2 regular rate and rhythm , ABDOMEN: Soft , no tenderness EXTREMITIES: Right swelling redness slightly decreased - Labs CBC & Chem 7: 06/08/24 03:27 06/08/24 03:27 Labs: Abnormal Lab Results - Last 24 Hours (Table) 06/06/24 06/06/24 06/07/24 Range/Units 17:26 20:29 04:37 WBC 14.95 H (4.50-10.00) X 10*3/uL RBC 4.03 L (4.40-5.60) X 10*6/uL Hgb 12.9 L (13.0-17.0) g/dL Hct 38.2 L (39.6-50.0) % RDW 14.6 H (11.5-14.5) % Plt Count 105 L (140-440) X 10*3/uL Immature Gran # 0.38 H (0.00-0.04) X 10*3/uL Neutrophils # 12.89 H (1.80-7.70) X 10*3/uL Eosinophils # 0 L (0.04-0.35) X 10*3/uL Carbon Dioxide (21.6-31.8) mmol/L Anion Gap (4.00-12.00) mmol/L BUN (9.0-27.0) mg/dL Creatinine (0.6-1.5) mg/dL Est GFR (CKD-EPI) (>=60) BUN/Creatinine Ratio (12.00-20.00) Ratio Glucose (70-110) mg/dL POC Glucose (mg/dL) 329 H 280 H (70-110) mg/dL Calcium (8.7-10.3) mg/dL Alkaline Phosphatase (41-126) U/L Total Protein (6.2-8.2) g/dL Albumin (3.8-4.9) g/dL Globulin (1.6-3.3) g/dL Albumin/Globulin Ratio (1.60-3.17) Ratio 06/07/24 06/07/24 06/07/24 Range/Units 04:37 08:27 12:19 WBC (4.50-10.00) X 10*3/uL RBC (4.40-5.60) X 10*6/uL Hgb (13.0-17.0) g/dL Hct (39.6-50.0) % RDW (11.5-14.5) % Plt Count (140-440) X 10*3/uL Immature Gran # (0.00-0.04) X 10*3/uL Neutrophils # (1.80-7.70) X 10*3/uL Eosinophils # (0.04-0.35) X 10*3/uL Carbon Dioxide 17.4 L (21.6-31.8) mmol/L Anion Gap 13.60 H (4.00-12.00) mmol/L BUN 51.2 H (9.0-27.0) mg/dL Creatinine 2.3 H (0.6-1.5) mg/dL Est GFR (CKD-EPI) 34 L (>=60) BUN/Creatinine Ratio 22.26 H (12.00-20.00) Ratio Glucose 174 H (70-110) mg/dL POC Glucose (mg/dL) 172 H 264 H (70-110) mg/dL Calcium 7.4 L (8.7-10.3) mg/dL Alkaline Phosphatase 128 H (41-126) U/L Total Protein 5.9 L (6.2-8.2) g/dL Albumin 2.4 L (3.8-4.9) g/dL Globulin 3.5 H (1.6-3.3) g/dL Albumin/Globulin Ratio 0.69 L (1.60-3.17) Ratio Microbiology - Last 24 Hours (Table) 06/05/24 19:45 Blood Culture Gram Stain - Preliminary Blood Blood Culture - Preliminary Presumptive Staph aureus Molecular ID Assessment and Plan (1) Sepsis Current Visit: Yes Status: Acute Code(s): A41.9 - SEPSIS, UNSPECIFIED ORGANISM SNOMED Code(s): 14998467 (2) Cellulitis of right hand Current Visit: Yes Status: Acute Code(s): L03.113 - CELLULITIS OF RIGHT UPPER LIMB SNOMED Code(s): 19964515356832283 Plan: 1patient presented hospital with sepsis in this patient who did have elevated white count tachycardia meeting criteria for SIRS source is right hand cellulitis and likely from gram-positive skin ana 2-patient did have a positive blood culture with MSSA source likely right hand cellulitis 3would benefit from a CT however the patient did have elevated creatinineto make sure no evidence of any underlying abscess that may need to be drained surgically , will discuss with ortho 4will treat with cefazolin blood culture to be document clearance of his bacteremia Dictation was produced using [employer] dictation software. please excuse any grammatical, word or spelling errors. Time with Patient: Less than 30
[2024-06-08 13:22] LABS: Glucose,Whole Blood 186 mg/dL (70-110)
[2024-06-08] MEDS: SODIUM CHLORIDE 0.9% 1,000 ML IV SCH (13:24)
--- NOTE | 2024-06-08 16:43 | P.PN ---
Subjective Progress Note Date: 06/08/24 Principal diagnosis: Reason for follow-up is right hand cellulitis and bacteremia Patient is a 53-year-old male with a past medical history of again for diabetes mellitus reflux hypertension osteoarthritis chronic back pain presenting to the hospital for evaluation of worsening pain swelling and redness to the right hand area patient be diagnosed with cellulitis subsequent blood culture came positive with MSSA. Patient is status post surgical drainage of the right hand abscess completed by orthopedic 06/08/2024 On today's evaluation that is 06/08/2024,the patient denies any fever or any chills, patient is breathing comfortably on room air, the patient denies chest pain shortness of breath and no significant cough, patient denies abdominal pain, no nausea vomiting or diarrhea. Pain to the right hand slightly decreased in intensity. Patient white count is 15.97 creatinine is 2.2 blood culture repeat pending Objective - Vital Signs Vital signs: Vital Signs Temp 97.3 F L 06/08/24 10:23 Pulse 75 06/08/24 12:44 Resp 16 06/08/24 12:44 BP 147/83 06/08/24 12:44 Pulse Ox 96 06/08/24 11:09 FiO2 Intake & Output 06/07/24 06/08/24 06/08/24 18:59 06:59 18:59 Intake Total 7899 236 3785 Output Total 50 Balance 1520 250 950 Intake: IV 1000 Intake, IV Titration 250 Amount Sodium Chloride 0.9% 1, 200 000 ml @ 20 mls/hr IV . Q24H [facility] Rx#:[id number] ceFAZolin 2 gm In Sodium 50 Chloride 0.9% 50 ml @ 100 mls/hr IVPB Q8HR [facility] Rx# :[id number] Oral 1520 Output: Estimated Blood Loss 50 Other: Voiding Method Toilet Toilet Toilet # Voids 2 3 1 - Exam GENERAL DESCRIPTION: ashley pugh male lying in bed in no distress RESPIRATORY SYSTEM: Unlabored breathing , decreased breath sounds at bases HEART: S1 S2 regular rate and rhythm , ABDOMEN: Soft , no tenderness EXTREMITIES: Right hand is currently dressing in OR dressing - Labs CBC & Chem 7: 06/08/24 03:27 06/08/24 03:27 Labs: Abnormal Lab Results - Last 24 Hours (Table) 06/07/24 06/07/24 06/08/24 Range/Units 17:04 20:19 03:27 WBC 15.97 H (4.50-10.00) X 10*3/uL RBC 4.01 L (4.40-5.60) X 10*6/uL Hgb 12.7 L (13.0-17.0) g/dL Hct 37.9 L (39.6-50.0) % RDW 14.6 H (11.5-14.5) % Plt Count 104 L (140-440) X 10*3/uL MPV 12.5 H (9.5-12.2) FL Immature Gran # 0.35 H (0.00-0.04) X 10*3/uL Neutrophils # 13.64 H (1.80-7.70) X 10*3/uL Eosinophils # 0 L (0.04-0.35) X 10*3/uL Basophils # 0.11 H (0.00-0.10) X 10*3/uL Carbon Dioxide (21.6-31.8) mmol/L BUN (9.0-27.0) mg/dL Creatinine (0.6-1.5) mg/dL Est GFR (CKD-EPI) (>=60) BUN/Creatinine Ratio (12.00-20.00) Ratio Glucose (70-110) mg/dL POC Glucose (mg/dL) 239 H 208 H (70-110) mg/dL Calcium (8.7-10.3) mg/dL Creatine Kinase (35-257) U/L Total Protein (6.2-8.2) g/dL Albumin (3.8-4.9) g/dL Globulin (1.6-3.3) g/dL Albumin/Globulin Ratio (1.60-3.17) Ratio 06/08/24 06/08/24 06/08/24 Range/Units 03:27 07:25 10:36 WBC (4.50-10.00) X 10*3/uL RBC (4.40-5.60) X 10*6/uL Hgb (13.0-17.0) g/dL Hct (39.6-50.0) % RDW (11.5-14.5) % Plt Count (140-440) X 10*3/uL MPV (9.5-12.2) FL Immature Gran # (0.00-0.04) X 10*3/uL Neutrophils # (1.80-7.70) X 10*3/uL Eosinophils # (0.04-0.35) X 10*3/uL Basophils # (0.00-0.10) X 10*3/uL Carbon Dioxide 18.1 L (21.6-31.8) mmol/L BUN 54.6 H (9.0-27.0) mg/dL Creatinine 2.2 H (0.6-1.5) mg/dL Est GFR (CKD-EPI) 35 L (>=60) BUN/Creatinine Ratio 24.82 H (12.00-20.00) Ratio Glucose 174 H (70-110) mg/dL POC Glucose (mg/dL) 206 H 193 H (70-110) mg/dL Calcium 7.5 L (8.7-10.3) mg/dL Creatine Kinase 31 L (35-257) U/L Total Protein 5.7 L (6.2-8.2) g/dL Albumin 2.3 L (3.8-4.9) g/dL Globulin 3.4 H (1.6-3.3) g/dL Albumin/Globulin Ratio 0.68 L (1.60-3.17) Ratio Microbiology - Last 24 Hours (Table) 06/07/24 04:37 Blood Culture - Preliminary Blood 06/05/24 19:45 Blood Culture Gram Stain - Final Blood Blood Culture - Final Staphylococcus aureus Molecular ID Assessment and Plan (1) Sepsis Current Visit: Yes Status: Acute Code(s): A41.9 - SEPSIS, UNSPECIFIED ORGANISM SNOMED Code(s): 19108811 (2) Cellulitis of right hand Current Visit: Yes Status: Acute Code(s): L03.113 - CELLULITIS OF RIGHT UPPER LIMB SNOMED Code(s): 61141092682183956 Plan: 1patient presented hospital with sepsis in this patient who did have elevated white count tachycardia meeting criteria for SIRS source is right hand cellulitis and likely from gram-positive skin ana 2-patient did have a positive blood culture with MSSA source likely right hand cellulitis 3patient is status post surgical drainage of the abscess and deep culture. 4we will switch antibiotic therapy to Naficillin keeping in mind the infection bacteremia Dictation was produced using [employer] software. please excuse any grammatical, word or spelling errors. Time with Patient: Less than 30
[2024-06-08 17:13] LABS: Glucose,Whole Blood 257 mg/dL (70-110)
[2024-06-08 20:48] LABS: Glucose,Whole Blood 233 mg/dL (70-110)
[2024-06-08] MEDS: NAFCILLIN 2 GM in DEXTROSE 5% IN WATER 100 ML IVPB SCH (20:52)
[2024-06-08 22:18] LABS: Basophils # (A) 0.02 X 10*3/uL (0.00-0.10); Basophils % (A) 0.1 %; Crenated RBC 2+ (None Seen); Eosinophils # (A) 0 X 10*3/uL (0.04-0.35); Eosinophils % (A) 0 %; HGB 13.5 g/dL (13.0-17.0); Lymphocytes # (A) 0.95 X 10*3/uL (0.90-5.00); Lymphocytes % (A) 6.4 %; MCH 31.8 pg (27.0-32.0); MCHC 32.1 g/dL (32.0-37.0); MCV 99.1 FL (80.0-97.0); Mean Platelet Volume 12.2 FL (9.5-12.2); Monocytes # (A) 0.56 X 10*3/uL (0.20-1.00); Monocytes % (A) 3.7 %; NRBC Per 100 WBC 0.03 X 10*3/uL (0.00-0.01); Neutrophils # (A) 13.15 X 10*3/uL (1.80-7.70); Neutrophils % (A) 87.9 %; Platelet Count 103 X 10*3/uL (140-440); RBC 4.24 X 10*6/uL (4.40-5.60); RDW 15.3 % (11.5-14.5); WBC 14.96 X 10*3/uL (4.50-10.00)
[2024-06-09 07:27] LABS: Glucose,Whole Blood 131 mg/dL (70-110)
[2024-06-09 09:29] LABS: BUN/Creat Ratio 25.45 Ratio (12.00-20.00); Calcium 6.7 mg/dL (8.7-10.3); Chloride 105 mmol/L (96-109); Glucose 315 mg/dL (70-110); Potassium 3.7 mmol/L (3.5-5.5); Sodium 135 mmol/L (135-145)
[2024-06-09 09:48] LABS: Acanthocytes 2+ (None Seen); Basophils # (A) 0.06 X 10*3/uL (0.00-0.10); Basophils % (A) 0.4 %; Eosinophils # (A) 0 X 10*3/uL (0.04-0.35); Eosinophils % (A) 0 %; HCT 34.6 % (39.6-50.0); HGB 11.8 g/dL (13.0-17.0); Lymphocytes # (A) 1.12 X 10*3/uL (0.90-5.00); MCH 32.1 pg (27.0-32.0); MCHC 34.1 g/dL (32.0-37.0); Mean Platelet Volume 11.4 FL (9.5-12.2); Monocytes # (A) 0.92 X 10*3/uL (0.20-1.00); Monocytes % (A) 6.5 %; NRBC Per 100 WBC 0 X 10*3/uL (0.00-0.01); Neutrophils # (A) 11.67 X 10*3/uL (1.80-7.70); Platelet Count 79 X 10*3/uL (140-440); RBC 3.68 X 10*6/uL (4.40-5.60); RDW 14.8 % (11.5-14.5); WBC 14.06 X 10*3/uL (4.50-10.00)
--- NOTE | 2024-06-09 10:15 | P.PN ---
Progress Note - Text Progress Note Date: 06/09/24 Postoperative day #1 Patient is seen and examined today at bedside. The patient has some pain around the surgical site as expected, but he says it feels less sore today and less tense. Pain is being controlled with medication. He denies fevers chills. He says his neck and his left upper extremity has not had any change in his managing adequately. Physical Exam Afebrile with stable vital signs Abdomen is soft nontender. Chest has good excursion deep and space expiration At his right hand, I took down the dressing. I left the t iodoform gauze intact. He incision site is clean and intact with some scant bloody drainage. There is no obvious purulence on the dressing. The erythema has significantly improved as is the swelling. He has better motion in his hands and fingers. There is still significant swelling at the hand and finger but it is improved considerably compared to yesterday. There is no streaking up his arm or forearm Extremities have not had neurologic change from prior to surgery. Calves and thighs were soft nontender without evidence of DVT. Assessment/Plan Postoperative day #1 status post incision and excisional drainage at the right hand abscess to the dorsum of his hand and the index finger proximal phalanx with significant improvement thus far Patient is progressing as expected from the surgery. I left the iodoform gauze drains intact which will be pulled tomorrow morning. At this point I do not have plans of surgery again but we will have to monitor this closely His infectious disease note is appreciated and they have changed the antibiotics. We are awaiting further cultures. We did new cultures at the time of surgery but he had already been on antibiotics. It is okay for him to try to mobilize his fingers with gentle motion without any heavy activity. If other surfaces need to take the dressing down it is okay from a surgical standpoint. To just leave the iodoform gauze intact and replace dry gauze to cover the hand with dry dressing and Declan wrap. We will continue to increase the patient's mobilization with therapy. We will continue pain control with oral or IV medications. We'll continue to follow patient closely.
--- NOTE | 2024-06-09 10:22 | P.PN ---
Subjective Progress Note Date: 06/08/24 This is a pleasant 53-year-old male who was recently admitted with right hand swelling and concerns for cellulitis as well as rheumatoid arthritis. Orthopedics following and scheduled to undergo I&D with washout today. Patient is maintained on antibiotics with infectious disease following and will await deep tissue cultures to determine appropriate antibiotics. Patient to continue with local wound care and elevating right hand while at rest. Continue with pain management. Cultures preliminary showing presumptive Staph aureus MSSA. Kidney functions worsened at 2.3 creatinine and will consult nephrology and appreciate input and recommendations. Continue IV hydration. Also recommend incentive spirometer and increased activity as tolerated and getting out of the bed more frequently. Monitor for any fevers. Review of systems: Constitutional: No reports of fatigue, fever, or chills Cardiovascular: No reports of chest pain or palpitations Respiratory: No reports of shortness of breath or cough GI: No reports of nausea, no reports of vomiting, no diarrhea : No reports of dysuria or retention Neurovascular: reports of right hand pain and swelling although denies numbness All medications have been reviewed PHYSICAL EXAMINATION: GENERAL: The patient is alert and oriented x4, Well developed, well nourished. HEENT: Pupils are round and equally reacting to light. EOMI. no scleral icterus. No conjunctival pallor. Normocephalic, atraumatic. No pharyngeal erythema. No thyromegaly. CARDIOVASCULAR: S1 and S2 muffled PULMONARY: diminished breath sounds bilaterally with no wheezing or rhonchi noted. ABDOMEN: soft. Nontender on exam. non-distended, normoactive bowel sounds. No palpable organomegaly. MUSCULOSKELETAL: No joint swelling or deformity. EXTREMITIES: No cyanosis, clubbing, or pedal edema. Significant right hand swelling with redness with intact skin NEUROLOGICAL: Gross neurological examination did not reveal any focal deficits. SKIN: No rashes. Assessment: Acute cellulitis of the right hand as well as possible rheumatoid arthritis with acute exacerbation with sepsis, present on admission MSSA sepsis secondary to above Leukocytosis, secondary to above History of GERD Acute kidney injury, likely ATN secondary to sepsis Acute delirium with alcohol withdrawal, maintained on CIWA protocol Diabetes mellitus, type II uncontrolled with hyperglycemia Thrombocytopenia, likely secondary to ongoing alcohol abuse History of hypertension History of daily EtOH use GI prophylaxis DVT prophylaxis Full code Plan: Recommend to continue with current medications and management with orthopedics and infectious disease following. Patient is currently maintained on Unasyn and blood cultures preliminary showing Staphylococcus aureus MSSA and repeat blood cultures pending at this time Patient being followed by orthopedics scheduled to undergo incision and drainage and washout and hopeful for deep cultures to determine appropriate discharge antibiotics Patient may require IV antibiotic on discharge although will wait cultures and discuss further with orthopedics as well as infectious disease Follow-up on repeat labs and continue with gentle hydration Continue CIWA protocol although patient does not appear to be actively withdrawing Nephrology consulted and pending for acute kidney injury with a creatinine of 2.3. Patient is continued on heparin subcu and will monitor closely platelet levels. Encouraged increase activity as tolerated and getting up out of the bed more frequently Continue monitoring Accu-Cheks before meals and at bedtime and home medications have been resumed. Will adjust insulins accordingly Continue local wound care per ID and orthopedic recommendations and instructed patient to continue elevating right hand while at rest Due to multiple complex medical issues, overall prognosis is guarded The impression and plan of care has been dictated by Ruthy Ariza, nurse practitioner as directed. Dr. Eduardo MD I have performed a history and examination and MDM of this patient, discussed the same with the dictator, and agree with the dictator's assessment and plan as written ,documented as a scribe. Based on total visit time, I have performed more than 50% of the visit. Any additional findings or plans will be noted. Objective - Vital Signs Vital signs: Vital Signs Temp 97.4 F L 06/08/24 13:15 Pulse 73 06/08/24 13:15 Resp 19 06/08/24 13:15 BP 165/91 06/08/24 13:15 Pulse Ox 97 06/08/24 13:15 FiO2 Intake & Output 06/07/24 06/08/24 06/08/24 18:59 06:59 18:59 Intake Total 2310 532 4607 Output Total 50 Balance 1520 250 950 Intake: IV 1000 Intake, IV Titration 250 Amount Sodium Chloride 0.9% 1, 200 000 ml @ 20 mls/hr IV . Q24H [facility] Rx#:[id number] ceFAZolin 2 gm In Sodium 50 Chloride 0.9% 50 ml @ 100 mls/hr IVPB Q8HR [facility] Rx# :[id number] Oral 1520 Output: Estimated Blood Loss 50 Other: Voiding Method Toilet Toilet Toilet # Voids 2 3 1 - Labs CBC & Chem 7: 06/09/24 05:23 06/09/24 05:19 Labs: Abnormal Lab Results - Last 24 Hours (Table) 06/07/24 06/07/24 06/08/24 Range/Units 17:04 20:19 03:27 WBC 15.97 H (4.50-10.00) X 10*3/uL RBC 4.01 L (4.40-5.60) X 10*6/uL Hgb 12.7 L (13.0-17.0) g/dL Hct 37.9 L (39.6-50.0) % RDW 14.6 H (11.5-14.5) % Plt Count 104 L (140-440) X 10*3/uL MPV 12.5 H (9.5-12.2) FL Immature Gran # 0.35 H (0.00-0.04) X 10*3/uL Neutrophils # 13.64 H (1.80-7.70) X 10*3/uL Eosinophils # 0 L (0.04-0.35) X 10*3/uL Basophils # 0.11 H (0.00-0.10) X 10*3/uL Carbon Dioxide (21.6-31.8) mmol/L BUN (9.0-27.0) mg/dL Creatinine (0.6-1.5) mg/dL Est GFR (CKD-EPI) (>=60) BUN/Creatinine Ratio (12.00-20.00) Ratio Glucose (70-110) mg/dL POC Glucose (mg/dL) 239 H 208 H (70-110) mg/dL Calcium (8.7-10.3) mg/dL Creatine Kinase (35-257) U/L Total Protein (6.2-8.2) g/dL Albumin (3.8-4.9) g/dL Globulin (1.6-3.3) g/dL Albumin/Globulin Ratio (1.60-3.17) Ratio 06/08/24 06/08/24 06/08/24 Range/Units 03:27 07:25 10:36 WBC (4.50-10.00) X 10*3/uL RBC (4.40-5.60) X 10*6/uL Hgb (13.0-17.0) g/dL Hct (39.6-50.0) % RDW (11.5-14.5) % Plt Count (140-440) X 10*3/uL MPV (9.5-12.2) FL Immature Gran # (0.00-0.04) X 10*3/uL Neutrophils # (1.80-7.70) X 10*3/uL Eosinophils # (0.04-0.35) X 10*3/uL Basophils # (0.00-0.10) X 10*3/uL Carbon Dioxide 18.1 L (21.6-31.8) mmol/L BUN 54.6 H (9.0-27.0) mg/dL Creatinine 2.2 H (0.6-1.5) mg/dL Est GFR (CKD-EPI) 35 L (>=60) BUN/Creatinine Ratio 24.82 H (12.00-20.00) Ratio Glucose 174 H (70-110) mg/dL POC Glucose (mg/dL) 206 H 193 H (70-110) mg/dL Calcium 7.5 L (8.7-10.3) mg/dL Creatine Kinase 31 L (35-257) U/L Total Protein 5.7 L (6.2-8.2) g/dL Albumin 2.3 L (3.8-4.9) g/dL Globulin 3.4 H (1.6-3.3) g/dL Albumin/Globulin Ratio 0.68 L (1.60-3.17) Ratio //25 Range/Units 13:19 WBC (4.50-10.00) X 10*3/uL RBC (4.40-5.60) X 10*6/uL Hgb (13.0-17.0) g/dL Hct (39.6-50.0) % RDW (11.5-14.5) % Plt Count (140-440) X 10*3/uL MPV (9.5-12.2) FL Immature Gran # (0.00-0.04) X 10*3/uL Neutrophils # (1.80-7.70) X 10*3/uL Eosinophils # (0.04-0.35) X 10*3/uL Basophils # (0.00-0.10) X 10*3/uL Carbon Dioxide (21.6-31.8) mmol/L BUN (9.0-27.0) mg/dL Creatinine (0.6-1.5) mg/dL Est GFR (CKD-EPI) (>=60) BUN/Creatinine Ratio (12.00-20.00) Ratio Glucose (70-110) mg/dL POC Glucose (mg/dL) 186 H (70-110) mg/dL Calcium (8.7-10.3) mg/dL Creatine Kinase (35-257) U/L Total Protein (6.2-8.2) g/dL Albumin (3.8-4.9) g/dL Globulin (1.6-3.3) g/dL Albumin/Globulin Ratio (1.60-3.17) Ratio Microbiology - Last 24 Hours (Table) 06/07/24 04:37 Blood Culture - Preliminary Blood 06/05/24 19:45 Blood Culture Gram Stain - Final Blood Blood Culture - Final Staphylococcus aureus Molecular ID
--- NOTE | 2024-06-09 11:46 | P.NPCON ---
History of Present Illness - Reason for Consult acute renal failure - History of Present Illness Patient is a 53-year-old male who is admitted to the hospital with significant right hand pain and swelling. He has underlying history of rheumatoid arthritis and diabetes as well. Wound cultures are growing Staph aureus. Patient is status post I&D of right hand abscess on 06/08/2024. Currently maintained on nafcillin. Patient was on cefazolin previously. No previous history of kidney diseases. Serum creatinine was 1.7 on admission and increased to 2.2 today. It was 0.9 on 04/08/2023. Patient is voiding on his own. Past Medical History Past Medical History: Diabetes Mellitus, GERD/Reflux, Hypertension, Osteoarthritis (OA) Additional Past Medical History / Comment(s): Neuropathy legs and feet, Ulcerative Colitis, "resolved for some time now". History of Any Multi-Drug Resistant Organisms: None Reported Past Surgical History: Orthopedic Surgery Additional Past Surgical History / Comment(s): 3rd & 4th fingers reattached w/bone grafts after accident, colonoscopy. Past Anesthesia/Blood Transfusion Reactions: No Reported Reaction Past Psychological History: No Psychological Hx Reported Smoking Status: Never smoker Past Alcohol Use History: Abuse, Daily Past Drug Use History: Marijuana - Past Family History Father Family Medical History: Diabetes Mellitus, Hyperlipidemia, Hypertension Brother(s) Family Medical History: Diabetes Mellitus, Hyperlipidemia, Hypertension Medications and Allergies Home Medications Medication Instructions Recorded Confirmed Type Insulin Degludec [Tresiba 25 units SQ BID 12/31/20 06/05/24 History Flextouch U-100 Pen] HYDROcodone/APAP 5-325MG [[place] 1 tab PO Q4HR PRN 3 Days #18 tab 06/03/24 06/05/24 Rx 5-325] Allergies Allergy/AdvReac Type Severity Reaction Status Date / Time metformin AdvReac Nausea Verified 06/05/24 19:36 Physical Exam Vitals: Vital Signs Temp Pulse Pulse Resp BP BP Pulse Ox 06/09/24 08:00 18 06/09/24 07:26 97.7 F 65 19 164/86 97 06/09/24 01:57 98.4 F 78 16 129/74 95 06/08/24 20:00 98.3 F 74 16 166/85 95 06/08/24 16:33 73 157/87 94 L 06/08/24 15:15 70 158/87 94 L 06/08/24 14:45 73 170/97 94 L 06/08/24 14:15 77 156/93 95 06/08/24 14:00 72 161/92 96 06/08/24 13:45 91 104/57 96 06/08/24 13:30 73 144/85 97 06/08/24 13:15 97.4 F L 73 19 165/91 97 06/08/24 12:44 75 16 147/83 06/08/24 12:29 79 16 161/92 06/08/24 12:14 78 16 158/90 Intake and Output 06/08/24 06/09/24 06/09/24 22:59 06:59 14:59 Intake Total 590 Balance 590 Intake: Intake, IV Titration 50 Amount ceFAZolin 2 gm In Sodium 50 Chloride 0.9% 50 ml @ 100 mls/hr IVPB Q8HR [facility] Rx# :[id number] Oral 540 Other: Voiding Method Toilet Toilet # Voids 1 3 Patient is awake, comfortable, alert oriented x 3 Examination of the heart S1 and S2 Examination of the lungs bilateral breath sounds are heard Abdomen is soft nontender Examination of lower extremity shows no significant edema Right hand is swollen and is currently dressed [employer] exam grossly intact Results - Lab Results Most recent lab results Calcium 6.7 mg/dL (8.7-10.3) L 06/09/24 05:19 Phosphorus 2.1 mg/dL (2.5-4.5) L 06/05/24 16:30 Magnesium 2.0 mg/dL (1.5-2.4) 06/09/24 05:19 06/09/24 05:23 06/09/24 05:19 Assessment and Plan Assessment: 1. Acute kidney injury, ATN from underlying infection. UA shows 2+ protein and RBCs more than 182 with WBCs 84. Rule out underlying GN. No proteinuria noted in 2020. Check ultrasound of the kidneys 2. [place] metabolic acidosis associated with acute kidney injury 3. Right hand cellulitis/abscess status post I&D on 06/08/2024 maintained on nafcillin. Wound cultures are growing MSSA 4. Mental status changes on admission, currently improved 5. History of EtOH abuse Plan: Continue with IV fluids Avoid NSAIDs Check baseline serologies Check ultrasound of the kidneys Thank you for the consultation. We will continue to follow the patient with you during his hospitalization.
[2024-06-09 12:20] LABS: Glucose,Whole Blood 137 mg/dL (70-110)
[2024-06-09] MEDS: HYDROcodone/APAP 5-325MG 1 EACH TAB PO PRN (15:39)
--- NOTE | 2024-06-09 16:18 | P.PN ---
Subjective Progress Note Date: 06/09/24 Principal diagnosis: Reason for follow-up is right hand cellulitis and bacteremia Patient is a 53-year-old male with a past medical history of again for diabetes mellitus reflux hypertension osteoarthritis chronic back pain presenting to the hospital for evaluation of worsening pain swelling and redness to the right hand area patient be diagnosed with cellulitis subsequent blood culture came positive with MSSA. Patient is status post surgical drainage of the right hand abscess completed by orthopedic 06/08/2024 On today's evaluation that is 06/09/2024,the patient remains to be afebrile, patient is on room air not requiring supplemental oxygen and denies any shor tness of breath no chest pain or cough.Patient denies having any nausea or vomiting, no abdominal pain and no diarrhea has been reported pain in the right hand has decreased in intensity. Patient white count is 14.06 creatinine is 2.2 right hand culture positive for MSSA blood culture repeat on 06/07/2024 has been negative Objective - Vital Signs Vital signs: Vital Signs Temp 97.7 F 06/09/24 07:26 Pulse 65 06/09/24 07:26 Resp 18 06/09/24 08:00 BP 164/86 06/09/24 07:26 Pulse Ox 97 06/09/24 07:26 FiO2 Intake & Output 06/08/24 06/09/24 06/09/24 18:59 06:59 18:59 Intake Total 1590 Output Total 50 Balance 1540 Intake: IV 1000 Intake, IV Titration 50 Amount ceFAZolin 2 gm In Sodium 50 Chloride 0.9% 50 ml @ 100 mls/hr IVPB Q8HR [facility] Rx# :[id number] Oral 540 Output: Estimated Blood Loss 50 Other: Voiding Method Toilet Toilet Toilet # Voids 1 3 - Exam GENERAL DESCRIPTION: ashley pugh male lying in bed in no distress RESPIRATORY SYSTEM: Unlabored breathing , decreased breath sounds at bases HEART: S1 S2 regular rate and rhythm , ABDOMEN: Soft , no tenderness EXTREMITIES: Right hand is currently dressed no drainage - Labs CBC & Chem 7: 06/09/24 05:23 06/09/24 05:19 Labs: Abnormal Lab Results - Last 24 Hours (Table) 06/08/24 06/08/24 06/08/24 Range/Units 13:19 15:09 17:11 WBC 14.96 H (4.50-10.00) X 10*3/uL RBC 4.24 L (4.40-5.60) X 10*6/uL Hgb (13.0-17.0) g/dL Hct (39.6-50.0) % MCV 99.1 H (80.0-97.0) FL MCH (27.0-32.0) pg RDW 15.3 H (11.5-14.5) % Plt Count 103 L (140-440) X 10*3/uL Immature Gran # 0.28 H (0.00-0.04) X 10*3/uL Neutrophils # 13.15 H (1.80-7.70) X 10*3/uL Eosinophils # 0 L (0.04-0.35) X 10*3/uL NRBC/100 WBC Diff 0.03 H (0.00-0.01) X 10*3/uL Crenated Cell 2+ A (None Seen) Acanthocytes (Spur) (None Seen) Carbon Dioxide (21.6-31.8) mmol/L Anion Gap (4.00-12.00) mmol/L BUN (9.0-27.0) mg/dL Creatinine (0.6-1.5) mg/dL Est GFR (CKD-EPI) (>=60) BUN/Creatinine Ratio (12.00-20.00) Ratio Glucose (70-110) mg/dL POC Glucose (mg/dL) 186 H 257 H (70-110) mg/dL Calcium (8.7-10.3) mg/dL 06/08/24 06/09/24 06/09/24 Range/Units 20:40 05:19 05:23 WBC 14.06 H (4.50-10.00) X 10*3/uL RBC 3.68 L (4.40-5.60) X 10*6/uL Hgb 11.8 L (13.0-17.0) g/dL Hct 34.6 L (39.6-50.0) % MCV (80.0-97.0) FL MCH 32.1 H (27.0-32.0) pg RDW 14.8 H (11.5-14.5) % Plt Count 79 L (140-440) X 10*3/uL Immature Gran # 0.29 H (0.00-0.04) X 10*3/uL Neutrophils # 11.67 H (1.80-7.70) X 10*3/uL Eosinophils # 0 L (0.04-0.35) X 10*3/uL NRBC/100 WBC Diff (0.00-0.01) X 10*3/uL Crenated Cell (None Seen) Acanthocytes (Spur) 2+ A (None Seen) Carbon Dioxide 16.0 L (21.6-31.8) mmol/L Anion Gap 14.00 H (4.00-12.00) mmol/L BUN 56.0 H (9.0-27.0) mg/dL Creatinine 2.2 H (0.6-1.5) mg/dL Est GFR (CKD-EPI) 35 L (>=60) BUN/Creatinine Ratio 25.45 H (12.00-20.00) Ratio Glucose 315 H (70-110) mg/dL POC Glucose (mg/dL) 233 H (70-110) mg/dL Calcium 6.7 L (8.7-10.3) mg/dL 06/09/24 Range/Units 07:19 WBC (4.50-10.00) X 10*3/uL RBC (4.40-5.60) X 10*6/uL Hgb (13.0-17.0) g/dL Hct (39.6-50.0) % MCV (80.0-97.0) FL MCH (27.0-32.0) pg RDW (11.5-14.5) % Plt Count (140-440) X 10*3/uL Immature Gran # (0.00-0.04) X 10*3/uL Neutrophils # (1.80-7.70) X 10*3/uL Eosinophils # (0.04-0.35) X 10*3/uL NRBC/100 WBC Diff (0.00-0.01) X 10*3/uL Crenated Cell (None Seen) Acanthocytes (Spur) (None Seen) Carbon Dioxide (21.6-31.8) mmol/L Anion Gap (4.00-12.00) mmol/L BUN (9.0-27.0) mg/dL Creatinine (0.6-1.5) mg/dL Est GFR (CKD-EPI) (>=60) BUN/Creatinine Ratio (12.00-20.00) Ratio Glucose (70-110) mg/dL POC Glucose (mg/dL) 131 H (70-110) mg/dL Calcium (8.7-10.3) mg/dL Microbiology - Last 24 Hours (Table) 06/08/24 11:39 Gram Stain - Preliminary Finger - Right Second Wound Culture - Preliminary Presumptive Staph aureus 06/08/24 11:39 Gram Stain - Preliminary Hand - Right Wound Culture - Preliminary Presumptive Staph aureus 06/08/24 11:39 Gram Stain - Preliminary Hand - Right Wound Culture - Preliminary Presumptive Staph aureus 06/07/24 04:37 Blood Culture - Preliminary Blood 06/05/24 19:45 Blood Culture Gram Stain - Final Blood Blood Culture - Final Staphylococcus aureus Molecular ID Assessment and Plan (1) Sepsis Current Visit: Yes Status: Acute Code(s): A41.9 - SEPSIS, UNSPECIFIED ORGANISM SNOMED Code(s): 79912302 (2) Cellulitis of right hand Current Visit: Yes Status: Acute Code(s): L03.113 - CELLULITIS OF RIGHT UPPER LIMB SNOMED Code(s): 41856653918294682 Plan: 1patient presented hospital with sepsis in this patient who did have elevated white count tachycardia meeting criteria for SIRS source is right hand cellulitis and likely from gram-positive skin ana 2-patient did have a positive blood culture with MSSA source likely right hand cellulitis 3patient is status post surgical drainage of the abscess and deep culture. 4patient to continue with Naficillin, patient has cleared his bacteremia will need a midline and outpatient IV cefazolin on discharge once cleared by other consultants. Discussed with the case management director Dictation was produced using [email or web address] dictation software. please excuse any grammatical, word or spelling errors. Time with Patient: Less than 30
[2024-06-09 17:10] LABS: Glucose,Whole Blood 169 mg/dL (70-110)
[2024-06-09] MEDS: HYDROmorphone 1 MG/ML 1 ML SYRINGE IVP PRN (17:23)
[2024-06-09 20:18] LABS: DNA Double-Stranded Negative (Negative)
[2024-06-09 20:25] LABS: Glucose,Whole Blood 112 mg/dL (70-110)
[2024-06-10 07:31] LABS: Glucose,Whole Blood 77 mg/dL (70-110)
[2024-06-10 08:17] LABS: Magnesium 1.9 mg/dL (1.5-2.4)
[2024-06-10 08:49] LABS: BUN/Creat Ratio 23.71 Ratio (12.00-20.00); Blood Urea Nitrogen 49.8 mg/dL (9.0-27.0); Calcium 7.1 mg/dL (8.7-10.3); Carbon Dioxide 16.4 mmol/L (21.6-31.8); Chloride 104 mmol/L (96-109); Glucose 64 mg/dL (70-110); Potassium 3.1 mmol/L (3.5-5.5); Sodium 133 mmol/L (135-145)
--- NOTE | 2024-06-10 09:06 | P.PN ---
Progress Note - Text Progress Note Date: 06/10/24 Orthopedics: History of present illness: Patient is a very pleasant 53-year-old male who is seen examined the bedside with his family present for follow-up evaluation of his right hand. He is status post incision and excisional drainage of the right hand abscess to the dorsum of the right hand and index finger at the proximal phalanx. He has had significant improvement so far postoperatively. He continues with IV antibiotics. He has better range of motion of the fingers of his right hand. Dressing is changed with iodoform gauze removed. There is some mild drainage without obvious purulent discharge. Patient states his most significant pain is pain radiating from his cervical spine to his shoulder blades. He feels muscle spasm. He has had difficulty with controlling his pain. Patient continues to be seen exam by multiple medical providers including infectious disease and medicine. Blood cultures were identified as gram-positive cocci in clusters. Nafcillin is appropriate for organism identified per pharmacy. Patient will continue with his antibiotic per infectious disease. Infectious diseases planning for PICC line with outpatient cefazolin IV. Patient states they have had discussion with human services case manager about home care for PICC line management and medications. Physical Exam: Patient is awake, alert, and oriented 3 Vital signs stable Good chest excursion with deep inspiration and expiration Dressing is removed over the right hand and index finger Iodoform gauze is removed from the dorsum of the right hand right index finger Significant improvement of swelling over the dorsum of the right hand Some continued swelling at the right index finger. No significant active drainage from the surgical sites at the dorsum of the right hand and index finger Patient is able to perform some active range of motion of the fingers of the right hand without significant difficulty Dressing is reapplied over the right hand and right index finger Assessment: Status post incision and excisional drainage of the right hand abscess to the dorsum of the right hand and right index finger at the proximal phalanx Right hand cellulitis Right index finger cellulitis Cervical degenerative disc disease C5-6 and C6-7 spinal stenosis Left upper extremity radiculopathy Cervical pain radiating to the shoulder blades Chronic diabetes mellitus Sepsis at presentation Plan: 1. We will continue with dressing changes as needed over the right hand and right index finger. We will continue wound care. We would consider consultation with wound care if needed 2. Patient is improving from an orthopedic standpoint. Will continue to follow the patient closely. We did discuss in detail patient's plan of care will be controlled by infectious disease in terms of antibiotic regimen at the time of discharge. Infectious disease is currently planning for PICC line placement with cefazolin at discharge. Patient states case management has discussed home care with PICC line treatment and IV antibiotic administration. 3. Patient is also having continued cervical pain radiating to shoulder blades. He has left upper extremity radiculopathy. He will continue with oral hydrocodone and IV Dilaudid as prescribed as needed for pain control. We will add cyclobenzaprine 10 mg, 1 tab, 3 times daily, as needed for muscle spasm. 4. We will continue to follow patient closely. If he continues to improve and he is cleared by infectious disease and medicine, patient could be discharged home over the next 1 to 2 days.
[2024-06-10 09:16] LABS: Basophils % (A) 0.5 %; Eosinophils # (A) 0 X 10*3/uL (0.04-0.35); Eosinophils % (A) 0 %; HCT 40.7 % (39.6-50.0); Lymphocytes # (A) 1.54 X 10*3/uL (0.90-5.00); Lymphocytes % (A) 7.5 %; MCH 32.2 pg (27.0-32.0); MCHC 34.4 g/dL (32.0-37.0); MCV 93.6 FL (80.0-97.0); Mean Platelet Volume 11.3 FL (9.5-12.2); Monocytes # (A) 1.19 X 10*3/uL (0.20-1.00); Monocytes % (A) 5.8 %; NRBC Per 100 WBC 0 X 10*3/uL (0.00-0.01); Neutrophils # (A) 17.26 X 10*3/uL (1.80-7.70); Neutrophils % (A) 83.5 %; Platelet Count 112 X 10*3/uL (140-440); RBC 4.35 X 10*6/uL (4.40-5.60); WBC 20.64 X 10*3/uL (4.50-10.00)
--- NOTE | 2024-06-10 09:21 | P.PN ---
Subjective Progress Note Date: 06/09/24 This is a pleasant 53-year-old male who was recently admitted with right hand swelling and concerns for cellulitis as well as rheumatoid arthritis. Orthopedics following and scheduled to undergo I&D with washout today. Patient is maintained on antibiotics with infectious disease following and will await deep tissue cultures to determine appropriate antibiotics. Patient to continue with local wound care and elevating right hand while at rest. Continue with pain management. Cultures preliminary showing presumptive Staph aureus MSSA. Kidney functions worsened at 2.3 creatinine and will consult nephrology and appreciate input and recommendations. Continue IV hydration. Also recommend incentive spirometer and increased activity as tolerated and getting out of the bed more frequently. Monitor for any fevers. 06/09/2024 Patient is seen in follow-up status post incision and drainage along with washout of the right hand with orthopedics today. Per OR documentation, there were copious amounts of purulent drainage noted requiring 2 small incisions and cultures were obtained. Preliminary cultures are showing Staphylococcus aureus and will await finalized cultures. Infectious disease following and will discuss if patient will require likely IV antibiotics on discharge. Patient is afebrile although white count remains elevated at 14.06. Patient is also maintained on gentle hydration and will continue along with nafcillin per ID recommendations. Will discuss further with infectious disease regarding discharge planning. Patient is not ready for discharge as of yet. Patient to continue on CIWA protocol and encouraged increase activity as tolerated. Patient does not appear to be actively withdrawing although continues to have difficulty with pain management. Review of systems: Constitutional: No reports of fatigue, fever, or chills Cardiovascular: No reports of chest pain or palpitations Respiratory: No reports of shortness of breath or cough GI: No reports of nausea, no reports of vomiting, no diarrhea : No reports of dysuria or retention Neurovascular: reports of right hand pain and swelling although denies numbness All medications have been reviewed PHYSICAL EXAMINATION: GENERAL: The patient is alert and oriented x4, Well developed, well nourished. Mildly anxious HEENT: Pupils are round and equally reacting to light. EOMI. no scleral icterus. No conjunctival pallor. Normocephalic, atraumatic. No pharyngeal erythema. No thyromegaly. CARDIOVASCULAR: S1 and S2 muffled PULMONARY: diminished breath sounds bilaterally with no wheezing or rhonchi noted. ABDOMEN: soft. Nontender on exam. non-distended, normoactive bowel sounds. No palpable organomegaly. MUSCULOSKELETAL: No joint swelling or deformity. EXTREMITIES: No cyanosis, clubbing, or pedal edema. Significant right hand swelling with redness with intact skin NEUROLOGICAL: Gross neurological examination did not reveal any focal deficits. SKIN: No rashes. Assessment: Acute cellulitis of the right hand as well as possible rheumatoid arthritis with acute exacerbation with sepsis, present on admission MSSA sepsis secondary to above, cultures from incision and drainage also showing Staphylococcus aureus Leukocytosis, secondary to above History of GERD Acute kidney injury, likely ATN secondary to sepsis Acute delirium with alcohol withdrawal, maintained on CIWA protocol Diabetes mellitus, type II uncontrolled with hyperglycemia Thrombocytopenia, likely secondary to ongoing alcohol abuse History of hypertension History of daily EtOH use GI prophylaxis DVT prophylaxis Full code Plan: Recommend to continue with current medications and management with orthopedics and infectious disease following. Patient is currently maintained on Unasyn and blood cultures preliminary showing Staphylococcus aureus MSSA and repeat blood cultures pending at this time. Wound culture showing this as well as patient is status post incision and drainage with washout and cultures were sent per orthopedics Patient will likely require IV antibiotic on discharge although will await cult ures and discuss further with orthopedics as well as infectious disease Follow-up on repeat labs and continue with gentle hydration Continue CIWA protocol although patient does not appear to be actively withdrawing Nephrology following for acute kidney injury with a creatinine of 2.2. Patient is continued on heparin subcu and will monitor closely platelet levels. Encouraged increase activity as tolerated and getting up out of the bed more frequently Continue monitoring Accu-Cheks before meals and at bedtime and home medications have been resumed. Will adjust insulins accordingly Continue local wound care per ID and orthopedic recommendations and instructed patient to continue elevating right hand while at rest Social work following in the event patient will require IV antibiotics on disc harge. To verify coverage and currently awaiting finalized cultures to determine appropriate antibiotics per ID recommendations Due to multiple complex medical issues, overall prognosis is guarded The impression and plan of care has been dictated by Ruthy Ariza, nurse practitioner as directed. Dr. Eduadro MD I have performed a history and examination and MDM of this patient, discussed the same with the dictator, and agree with the dictator's assessment and plan as written ,documented as a scribe. Based on total visit time, I have performed more than 50% of the visit. Any additional findings or plans will be noted. Objective - Vital Signs Vital signs: Vital Signs Temp 97.7 F 06/09/24 12:14 Pulse 71 06/09/24 12:14 Resp 19 06/09/24 12:14 BP 158/85 06/09/24 12:14 Pulse Ox 99 06/09/24 12:14 FiO2 Intake & Output 06/08/24 06/09/24 06/09/24 18:59 06:59 18:59 Intake Total 1590 Output Total 50 Balance 1540 Intake: IV 1000 Intake, IV Titration 50 Amount ceFAZolin 2 gm In Sodium 50 Chloride 0.9% 50 ml @ 100 mls/hr IVPB Q8HR [facility] Rx# :[id number] Oral 540 Output: Estimated Blood Loss 50 Other: Voiding Method Toilet Toilet Toilet # Voids 1 3 - Labs CBC & Chem 7: 06/09/24 05:23 06/10/24 05:28 Labs: Abnormal Lab Results - Last 24 Hours (Table) 06/08/24 06/08/24 06/08/24 Range/Units 15:09 17:11 20:40 WBC 14.96 H (4.50-10.00) X 10*3/uL RBC 4.24 L (4.40-5.60) X 10*6/uL Hgb (13.0-17.0) g/dL Hct (39.6-50.0) % MCV 99.1 H (80.0-97.0) FL MCH (27.0-32.0) pg RDW 15.3 H (11.5-14.5) % Plt Count 103 L (140-440) X 10*3/uL Immature Gran # 0.28 H (0.00-0.04) X 10*3/uL Neutrophils # 13.15 H (1.80-7.70) X 10*3/uL Eosinophils # 0 L (0.04-0.35) X 10*3/uL NRBC/100 WBC Diff 0.03 H (0.00-0.01) X 10*3/uL Crenated Cell 2+ A (None Seen) Acanthocytes (Spur) (None Seen) Carbon Dioxide (21.6-31.8) mmol/L Anion Gap (4.00-12.00) mmol/L BUN (9.0-27.0) mg/dL Creatinine (0.6-1.5) mg/dL Est GFR (CKD-EPI) (>=60) BUN/Creatinine Ratio (12.00-20.00) Ratio Glucose (70-110) mg/dL POC Glucose (mg/dL) 257 H 233 H (70-110) mg/dL Calcium (8.7-10.3) mg/dL 06/09/24 06/09/24 06/09/24 Range/Units 05:19 05:23 07:19 WBC 14.06 H (4.50-10.00) X 10*3/uL RBC 3.68 L (4.40-5.60) X 10*6/uL Hgb 11.8 L (13.0-17.0) g/dL Hct 34.6 L (39.6-50.0) % MCV (80.0-97.0) FL MCH 32.1 H (27.0-32.0) pg RDW 14.8 H (11.5-14.5) % Plt Count 79 L (140-440) X 10*3/uL Immature Gran # 0.29 H (0.00-0.04) X 10*3/uL Neutrophils # 11.67 H (1.80-7.70) X 10*3/uL Eosinophils # 0 L (0.04-0.35) X 10*3/uL NRBC/100 WBC Diff (0.00-0.01) X 10*3/uL Crenated Cell (None Seen) Acanthocytes (Spur) 2+ A (None Seen) Carbon Dioxide 16.0 L (21.6-31.8) mmol/L Anion Gap 14.00 H (4.00-12.00) mmol/L BUN 56.0 H (9.0-27.0) mg/dL Creatinine 2.2 H (0.6-1.5) mg/dL Est GFR (CKD-EPI) 35 L (>=60) BUN/Creatinine Ratio 25.45 H (12.00-20.00) Ratio Glucose 315 H (70-110) mg/dL POC Glucose (mg/dL) 131 H (70-110) mg/dL Calcium 6.7 L (8.7-10.3) mg/dL 06/09/24 Range/Units 12:17 WBC (4.50-10.00) X 10*3/uL RBC (4.40-5.60) X 10*6/uL Hgb (13.0-17.0) g/dL Hct (39.6-50.0) % MCV (80.0-97.0) FL MCH (27.0-32.0) pg RDW (11.5-14.5) % Plt Count (140-440) X 10*3/uL Immature Gran # (0.00-0.04) X 10*3/uL Neutrophils # (1.80-7.70) X 10*3/uL Eosinophils # (0.04-0.35) X 10*3/uL NRBC/100 WBC Diff (0.00-0.01) X 10*3/uL Crenated Cell (None Seen) Acanthocytes (Spur) (None Seen) Carbon Dioxide (21.6-31.8) mmol/L Anion Gap (4.00-12.00) mmol/L BUN (9.0-27.0) mg/dL Creatinine (0.6-1.5) mg/dL Est GFR (CKD-EPI) (>=60) BUN/Creatinine Ratio (12.00-20.00) Ratio Glucose (70-110) mg/dL POC Glucose (mg/dL) 137 H (70-110) mg/dL Calcium (8.7-10.3) mg/dL Microbiology - Last 24 Hours (Table) 06/07/24 04:37 Blood Culture - Preliminary Blood 06/08/24 11:39 Gram Stain - Preliminary Finger - Right Second Wound Culture - Preliminary Presumptive Staph aureus 06/08/24 11:39 Gram Stain - Preliminary Hand - Right Wound Culture - Preliminary Presumptive Staph aureus 06/08/24 11:39 Gram Stain - Preliminary Hand - Right Wound Culture - Preliminary Presumptive Staph aureus 06/05/24 19:45 Blood Culture Gram Stain - Final Blood Blood Culture - Final Staphylococcus aureus Molecular ID
[2024-06-10] MEDS: CYCLOBENZAPRINE 10 MG TAB PO PRN (09:22)
[2024-06-10 12:22] LABS: Glucose,Whole Blood 109 mg/dL (70-110)
[2024-06-10 13:51] VITALS: BMI 24.4
[2024-06-10 14:23] LABS: Anti-Glomerular Basement Memb <1.5 U/mL (<7.0)
[2024-06-10] MEDS ORDERED: Potassium Replacement Protocol 1 EACH MISC MISCELLANE PRN (15:32)
[2024-06-10] MEDS: POTASSIUM CHLORIDE ER 20 MEQ TAB.ER PO SCH (15:51)
[2024-06-10] MEDS: cloNIDine HCL 0.1 MG TAB PO SCH (15:51)
--- NOTE | 2024-06-10 16:01 | P.PN ---
Subjective Progress Note Date: 06/10/24 Principal diagnosis: Reason for follow-up is right hand cellulitis and bacteremia Patient is a 53-year-old male with a past medical history of again for diabetes mellitus reflux hypertension osteoarthritis chronic back pain presenting to the hospital for evaluation of worsening pain swelling and redness to the right hand area patient be diagnosed with cellulitis subsequent blood culture came positive with MSSA. Patient is status post surgical drainage of the right hand abscess completed by orthopedic 06/08/2024 On today's evaluation that is 06/10/2024, the patient continues to be afebrile, the patient is on room air and breathing comfortably, the Pt denies having any chest pain or cough, the patient denies having any abdominal pain no vomiting or any diarrhea, pain to the right hand is currently controlled. Patient white count is 20.64, creatinine is 2.1 blood culture from 06/07/2024 came back positive this morning local culture also growing MSSA Objective - Vital Signs Vital signs: Vital Signs Temp 94.5 F L 06/10/24 07:17 Pulse 55 L 06/10/24 07:17 Resp 18 06/10/24 07:17 BP 165/93 06/10/24 07:17 Pulse Ox 98 06/10/24 07:17 FiO2 Intake & Output 06/09/24 06/10/24 06/10/24 18:59 06:59 18:59 Other: Voiding Method Toilet Toilet # Voids 1 3 - Exam GENERAL DESCRIPTION: ashley pugh male lying in bed in no distress RESPIRATORY SYSTEM: Unlabored breathing , decreased breath sounds at bases HEART: S1 S2 regular rate and rhythm , ABDOMEN: Soft , no tenderness EXTREMITIES: Right hand is currently dressed no drainage - Labs CBC & Chem 7: 06/10/24 05:28 06/10/24 05:28 Labs: Abnormal Lab Results - Last 24 Hours (Table) 06/09/24 06/09/24 06/10/24 Range/Units 17:08 20:20 05:28 WBC 20.64 H (4.50-10.00) X 10*3/uL RBC 4.35 L (4.40-5.60) X 10*6/uL MCH 32.2 H (27.0-32.0) pg RDW 15.0 H (11.5-14.5) % Plt Count 112 L (140-440) X 10*3/uL Immature Gran # 0.55 H (0.00-0.04) X 10*3/uL Neutrophils # 17.26 H (1.80-7.70) X 10*3/uL Monocytes # 1.19 H (0.20-1.00) X 10*3/uL Eosinophils # 0 L (0.04-0.35) X 10*3/uL Sodium (135-145) mmol/L Potassium (3.5-5.5) mmol/L Carbon Dioxide (21.6-31.8) mmol/L Anion Gap (4.00-12.00) mmol/L BUN (9.0-27.0) mg/dL Creatinine (0.6-1.5) mg/dL Est GFR (CKD-EPI) (>=60) BUN/Creatinine Ratio (12.00-20.00) Ratio Glucose (70-110) mg/dL POC Glucose (mg/dL) 169 H 112 H (70-110) mg/dL Calcium (8.7-10.3) mg/dL 06/10/24 Range/Units 05:28 WBC (4.50-10.00) X 10*3/uL RBC (4.40-5.60) X 10*6/uL MCH (27.0-32.0) pg RDW (11.5-14.5) % Plt Count (140-440) X 10*3/uL Immature Gran # (0.00-0.04) X 10*3/uL Neutrophils # (1.80-7.70) X 10*3/uL Monocytes # (0.20-1.00) X 10*3/uL Eosinophils # (0.04-0.35) X 10*3/uL Sodium 133 L (135-145) mmol/L Potassium 3.1 L (3.5-5.5) mmol/L Carbon Dioxide 16.4 L (21.6-31.8) mmol/L Anion Gap 12.60 H (4.00-12.00) mmol/L BUN 49.8 H (9.0-27.0) mg/dL Creatinine 2.1 H (0.6-1.5) mg/dL Est GFR (CKD-EPI) 37 L (>=60) BUN/Creatinine Ratio 23.71 H (12.00-20.00) Ratio Glucose 64 L (70-110) mg/dL POC Glucose (mg/dL) (70-110) mg/dL Calcium 7.1 L (8.7-10.3) mg/dL Microbiology - Last 24 Hours (Table) 06/08/24 11:39 Anaerobic Culture - Preliminary Hand - Right 06/08/24 11:39 Anaerobic Culture - Preliminary Hand - Right 06/08/24 11:39 Anaerobic Culture - Preliminary Finger - Right Second 06/07/24 04:37 Blood Culture Gram Stain - Preliminary Blood Blood Culture - Preliminary Presumptive Staph aureus 06/08/24 11:39 Gram Stain - Final Hand - Right Wound Culture - Final Staphylococcus aureus 06/08/24 11:39 Gram Stain - Final Finger - Right Second Wound Culture - Final Staphylococcus aureus 06/08/24 11:39 Gram Stain - Final Hand - Right Wound Culture - Final Staphylococcus aureus Assessment and Plan (1) Sepsis Current Visit: Yes Status: Acute Code(s): A41.9 - SEPSIS, UNSPECIFIED ORGANISM SNOMED Code(s): 06655292 (2) Cellulitis of right hand Current Visit: Yes Status: Acute Code(s): L03.113 - CELLULITIS OF RIGHT UPPER LIMB SNOMED Code(s): 60656769794862203 Plan: 1patient presented hospital with sepsis in this patient who did have elevated white count tachycardia meeting criteria for SIRS source is right hand cellulitis and likely from gram-positive skin ana 2-patient did have a positive blood culture with MSSA source likely right hand cellulitis 3patient is status post surgical drainage of the abscess and deep culture which are growing MSSA. 4patient to continue with Naficillin, patient blood culture from 06/07/2024 came back positive this morning blood culture have been repeated and once those are negative he will be to get a midline for outpatient antibiotic therapy discussed with the nursing staff Dictation was produced using [employer] dictation software. please excuse any grammatical, word or spelling errors. Time with Patient: Less than 30
--- NOTE | 2024-06-10 16:05 | CT ---
EXAMINATION TYPE: CT upper extremity RT wo con CT DLP: 523.8 mGycm, Automated exposure control for dose reduction was used. DATE OF EXAM: 06/10/2024 3:53 PM COMPARISON: Right hand radiograph 06/05/2024, 06/03/2024, right upper extremity venous ultrasound 2024 CLINICAL INDICATION:Male, 53 years old with history of Right hand cellulitis bacteremia; PHH, Celluli tis TECHNIQUE: Axial images were obtained of the right upper extremity without the use of IV contrast. A dditional coronal and sagittal reformatted images and soft tissue and bone window were obtained for r eview. 3-D reconstruction was created on a separate workstation. FINDINGS: There is no evidence of fracture, subluxation, or dislocation. Ankylosis of the DIP joints third and fourth. No osseous erosions. No soft tissue gas. No joint effusion. Degenerative disc disea se with joint space narrowing and subchondral cystic changes with marginal osteophytosis at the secon d MCP joint. Mild soft tissue swelling of the dorsal forearm and throughout the hand. No evidence for organized fluid collection. 3 mm calcification within the superficial aspect of the ulnar forearm mi dportion. No focal muscular atrophy. IMPRESSION: 1. No acute fracture or dislocation. No osseous erosion to suggest osteomyelitis. 2. Mild soft tissue edema of the hand and dorsal forearm. No definitive organized fluid collection wi thin the limitations of a noncontrast exam. 3. 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 [facility], , 06/10/2024 4:02 PM
[2024-06-10 17:29] LABS: Glucose,Whole Blood 89 mg/dL (70-110)
--- NOTE | 2024-06-10 19:38 | P.PN ---
Subjective Patient is seen for follow-up for acute kidney injury. Maintained on IV fluids Serum creatinine staying at 2.1 mg/dL Patient is voiding well. Objective - Vital Signs Vital signs: Vital Signs Temp 97.4 F L 06/10/24 19:15 Pulse 58 L 06/10/24 19:15 Resp 16 06/10/24 19:15 BP 144/90 06/10/24 19:15 Pulse Ox 94 L 06/10/24 19:15 FiO2 Intake & Output 06/10/24 06/10/24 06/11/24 06:59 18:59 06:59 Intake Total 2310 Balance 2310 Weight 83.915 kg Intake: Intake, IV Titration 750 Amount Nafcillin 2 gm In 300 Dextrose 5% in Water 100 ml @ 50 mls/hr IVPB Q4HR SUN Rx#:[id number] Sodium Chloride 0.9% 1, 450 000 ml @ 75 mls/hr IV . [id number] SUN Rx#:[id number] Oral 1560 Other: Voiding Method Toilet # Voids 3 4 - Exam Patient is awake, he is comfortable, no acute distress Examination of the heart S1 and S2 Examination of the lungs bilateral breath sounds are heard Abdomen is soft nontender Examination of lower extremities shows no evidence of edema Right hand is dressed. - Labs CBC & Chem 7: 06/10/24 05:28 06/10/24 05:28 Labs: Abnormal Lab Results - Last 24 Hours (Table) 06/09/24 06/10/24 06/10/24 Range/Units 20:20 05:28 05:28 WBC 20.64 H (4.50-10.00) X 10*3/uL RBC 4.35 L (4.40-5.60) X 10*6/uL MCH 32.2 H (27.0-32.0) pg RDW 15.0 H (11.5-14.5) % Plt Count 112 L (140-440) X 10*3/uL Immature Gran # 0.55 H (0.00-0.04) X 10*3/uL Neutrophils # 17.26 H (1.80-7.70) X 10*3/uL Monocytes # 1.19 H (0.20-1.00) X 10*3/uL Eosinophils # 0 L (0.04-0.35) X 10*3/uL Sodium 133 L (135-145) mmol/L Potassium 3.1 L (3.5-5.5) mmol/L Carbon Dioxide 16.4 L (21.6-31.8) mmol/L Anion Gap 12.60 H (4.00-12.00) mmol/L BUN 49.8 H (9.0-27.0) mg/dL Creatinine 2.1 H (0.6-1.5) mg/dL Est GFR (CKD-EPI) 37 L (>=60) BUN/Creatinine Ratio 23.71 H (12.00-20.00) Ratio Glucose 64 L (70-110) mg/dL POC Glucose (mg/dL) 112 H (70-110) mg/dL Calcium 7.1 L (8.7-10.3) mg/dL Microbiology - Last 24 Hours (Table) 06/08/24 11:39 Anaerobic Culture - Preliminary Hand - Right 06/08/24 11:39 Anaerobic Culture - Preliminary Hand - Right 06/08/24 11:39 Anaerobic Culture - Preliminary Finger - Right Second 06/07/24 04:37 Blood Culture Gram Stain - Preliminary Blood Blood Culture - Preliminary Presumptive Staph aureus 06/08/24 11:39 Gram Stain - Final Hand - Right Wound Culture - Final Staphylococcus aureus 06/08/24 11:39 Gram Stain - Final Finger - Right Second Wound Culture - Final Staphylococcus aureus 06/08/24 11:39 Gram Stain - Final Hand - Right Wound Culture - Final Staphylococcus aureus Assessment and Plan Assessment: 1. Acute kidney injury, ATN from underlying infection. UA shows 2+ protein and RBCs more than 182 with WBCs 84. Rule out underlying GN. No proteinuria noted in 2020. Check ultrasound of the kidneys 2. Nongap metabolic acidosis associated with acute kidney injury 3. Right hand cellulitis/abscess status post I&D on 06/08/2024 maintained on nafcillin. Wound cultures are growing MSSA 4. Mental status changes on admission, currently improved 5. History of EtOH abuse Plan: Continue with IV fluids, change to IV bicarb Avoid NSAIDs Check baseline serologies Check ultrasound of the kidneys Repeat labs in a.m.
--- NOTE | 2024-06-10 20:21 | US ---
EXAMINATION TYPE: US kidneys/renal and bladder DATE OF EXAM: 06/10/2024 COMPARISON: CT 06/05/2024, 12/31/2020 CLINICAL INDICATION: Male, 53 years old with history of harsh; Hx Alcohol use, none since Thursday; Ba ck pain and pain with breathing, Hx HTN and DM, patient denies any other signs, symptoms, or relevant history TECHNIQUE: Grayscale imaging of the bilateral kidneys and urinary bladder: FINDINGS: EXAM MEASUREMENTS: Right Kidney: 12.9 x 7.7 x 5.7 cm Left Kidney: 15.8 x 5.9 x 6.2 cm Post Void Residual Volume: NA mL Right Kidney: WNL Left Kidney: WNL Bladder: Not distended Bilateral Jets seen: Not able to assess Normal Post Void Residual: Not able to assess There is no evidence for hydronephrosis at this point in time. No nephrolithiasis is seen. No julisa s are identified. Corticomedullary differentiation is maintained bilaterally. Urinary bladder is not distended which limits evaluation. Incidental hydropic gallbladder without visualized cholelithiasis. Measures up to 10 cm in length. Incidental large spleen measuring 16.8 cm in greatest dimension. IMPRESSION: 1. No hydronephrosis or nephrolithiasis. 2. Mild splenomegaly. 3. Hydropic gallbladder. [facility], , 06/10/2024 8:18 PM
[2024-06-10 20:26] LABS: Glucose,Whole Blood 77 mg/dL (70-110)
[2024-06-11 07:29] LABS: Glucose,Whole Blood 44 mg/dL (70-110)
[2024-06-11 07:52] LABS: Glucose,Whole Blood 46 mg/dL (70-110)
--- NOTE | 2024-06-11 08:04 | P.PN ---
Subjective Progress Note Date: 06/10/24 This is a pleasant 53-year-old male who was recently admitted with right hand swelling and concerns for cellulitis as well as rheumatoid arthritis. Orthopedics following and scheduled to undergo I&D with washout today. Patient is maintained on antibiotics with infectious disease following and will await deep tissue cultures to determine appropriate antibiotics. Patient to continue with local wound care and elevating right hand while at rest. Continue with pain management. Cultures preliminary showing presumptive Staph aureus MSSA. Kidney functions worsened at 2.3 creatinine and will consult nephrology and appreciate input and recommendations. Continue IV hydration. Also recommend incentive spirometer and increased activity as tolerated and getting out of the bed more frequently. Monitor for any fevers. 06/09/2024 Patient is seen in follow-up status post incision and drainage along with washout of the right hand with orthopedics today. Per OR documentation, there were copious amounts of purulent drainage noted requiring 2 small incisions and cultures were obtained. Preliminary cultures are showing Staphylococcus aureus and will await finalized cultures. Infectious disease following and will discuss if patient will require likely IV antibiotics on discharge. Patient is afebrile although white count remains elevated at 14.06. Patient is also maintained on gentle hydration and will continue along with nafcillin per ID recommendations. Will discuss further with infectious disease regarding discharge planning. Patient is not ready for discharge as of yet. Patient to continue on CIWA protocol and encouraged increase activity as tolerated. Patient does not appear to be actively withdrawing although continues to have difficulty with pain management. 06/10/2024 Patient is seen in follow-up today status post incision and drainage with washout with orthopedics maintained on antibiotics with infectious disease following as well. Patient continues to report significant pain in the hand and difficulty managing pain which has been adjusted and will obtain repeat CT for further evaluation. Patient has been instructed to continue with dressing changes per orthopedics and wound care. Elevate right hand while at rest. Awaiting cultures to determine discharge antibiotics and also to place a PICC line although blood cultures remain positive. Will follow-up with daily blood cultures to monitor clearance of bacteremia. White count remains elevated although patient is afebrile. Review of systems: Constitutional: No reports of fatigue, fever, or chills Cardiovascular: No reports of chest pain or palpitations Respiratory: No reports of shortness of breath or cough GI: No reports of nausea, no reports of vomiting, no diarrhea : No reports of dysuria or retention Neurovascular: reports of right hand pain and swelling although denies numbness All medications have been reviewed PHYSICAL EXAMINATION: GENERAL: The patient is alert and oriented x4, Well developed, well nourished. Mildly anxious HEENT: Pupils are round and equally reacting to light. EOMI. no scleral icterus. No conjunctival pallor. Normocephalic, atraumatic. No pharyngeal erythema. No thyromegaly. CARDIOVASCULAR: S1 and S2 muffled PULMONARY: diminished breath sounds bilaterally with no wheezing or rhonchi noted. ABDOMEN: soft. Nontender on exam. non-distended, normoactive bowel sounds. No palpable organomegaly. MUSCULOSKELETAL: No joint swelling or deformity. EXTREMITIES: No cyanosis, clubbing, or pedal edema. Significant right hand swelling with redness, surgical dressing just changed NEUROLOGICAL: Gross neurological examination did not reveal any focal deficits. SKIN: No rashes. Assessment: Acute cellulitis of the right hand as well as possible rheumatoid arthritis with acute exacerbation with sepsis, present on admission, status post incision and d rainage with washout with orthopedics, cultures remain positive for Staphylococcus aureus MSSA sepsis secondary to above with bacteremia, cultures from incision and drainage also showing Staphylococcus aureus Leukocytosis, secondary to above History of GERD Acute kidney injury, likely ATN secondary to sepsis Acute delirium with alcohol withdrawal, maintained on CIWA protocol, improved and patient is not actively withdrawing Diabetes mellitus, type II uncontrolled with hyperglycemia Thrombocytopenia, likely secondary to ongoing alcohol abuse History of hypertension History of daily EtOH use GI prophylaxis DVT prophylaxis Full code Plan: Recommend to continue with current medications and management with orthopedics and infectious disease following. Patient is currently maintained on Unasyn and blood cultures preliminary showing Staphylococcus aureus MSSA and repeat blood cultures are growing positive as well. Repeat blood culture ordered daily. Wound culture showing this as well as patient is status post incision and drainage with washout and cultures were sent per orthopedics Patient will likely require IV antibiotic on discharge although will await cultures and clearance of bacteremia and discuss further with orthopedics as well as infectious disease Follow-up on repeat labs and continue with gentle hydration Continue CIWA protocol although patient does not appear to be actively withdrawing, will transition to [facility]. [facility] following for acute kidney injury with a creatinine of 2.2. Patient is continued on heparin subcu and will monitor closely platelet levels. Encouraged increase activity as tolerated and getting up out of the bed more frequently Continue monitoring Accu-Cheks before meals and at bedtime and home medications have been resumed. Will adjust insulins accordingly Continue local wound care per ID and orthopedic recommendations and instructed patient to continue elevating right hand while at rest. Persistent swelling and pain and will obtain a CT of the right upper extremity Social work following in the event patient will require IV antibiotics on discharge. To verify coverage and currently awaiting finalized cultures to d etermine appropriate antibiotics per ID recommendations Due to multiple complex medical issues, overall prognosis is guarded The impression and plan of care has been dictated by Ruthy Ariza, nurse practitioner as directed. Dr. Eduardo MD I have performed a history and examination and MDM of this patient, discussed the same with the dictator, and agree with the dictator's assessment and plan as written ,documented as a scribe. Based on total visit time, I have performed more than 50% of the visit. Any additional findings or plans will be noted. Objective - Vital Signs Vital signs: Vital Signs Temp 97.5 F L 06/11/24 07:57 Pulse 67 06/11/24 07:57 Resp 17 06/11/24 07:57 BP 163/89 06/11/24 07:57 Pulse Ox 99 06/11/24 07:57 FiO2 Intake & Output 06/10/24 06/11/24 06/11/24 18:59 06:59 18:59 Intake Total 2310 Balance 2310 Weight 83.915 kg Intake: Intake, IV Titration 750 Amount Nafcillin 2 gm In 300 Dextrose 5% in Water 100 ml @ 50 mls/hr IVPB Q4HR SUN Rx#:[id number] Sodium Chloride 0.9% 1, 450 000 ml @ 75 mls/hr IV . [id number] SUN Rx#:[id number] Oral 1560 Other: Voiding Method Toilet # Voids 4 3 - Labs CBC & Chem 7: 06/10/24 05:28 06/10/24 05:28 Labs: Abnormal Lab Results - Last 24 Hours (Table) 06/10/24 06/10/24 06/11/24 Range/Units 05:28 05:28 07:22 WBC 20.64 H (4.50-10.00) X 10*3/uL RBC 4.35 L (4.40-5.60) X 10*6/uL MCH 32.2 H (27.0-32.0) pg RDW 15.0 H (11.5-14.5) % Plt Count 112 L (140-440) X 10*3/uL Immature Gran # 0.55 H (0.00-0.04) X 10*3/uL Neutrophils # 17.26 H (1.80-7.70) X 10*3/uL Monocytes # 1.19 H (0.20-1.00) X 10*3/uL Eosinophils # 0 L (0.04-0.35) X 10*3/uL Sodium 133 L (135-145) mmol/L Potassium 3.1 L (3.5-5.5) mmol/L Carbon Dioxide 16.4 L (21.6-31.8) mmol/L Anion Gap 12.60 H (4.00-12.00) mmol/L BUN 49.8 H (9.0-27.0) mg/dL Creatinine 2.1 H (0.6-1.5) mg/dL Est GFR (CKD-EPI) 37 L (>=60) BUN/Creatinine Ratio 23.71 H (12.00-20.00) Ratio Glucose 64 L (70-110) mg/dL POC Glucose (mg/dL) 44 L* (70-110) mg/dL Calcium 7.1 L (8.7-10.3) mg/dL 06/11/24 Range/Units 07:45 WBC (4.50-10.00) X 10*3/uL RBC (4.40-5.60) X 10*6/uL MCH (27.0-32.0) pg RDW (11.5-14.5) % Plt Count (140-440) X 10*3/uL Immature Gran # (0.00-0.04) X 10*3/uL Neutrophils # (1.80-7.70) X 10*3/uL Monocytes # (0.20-1.00) X 10*3/uL Eosinophils # (0.04-0.35) X 10*3/uL Sodium (135-145) mmol/L Potassium (3.5-5.5) mmol/L Carbon Dioxide (21.6-31.8) mmol/L Anion Gap (4.00-12.00) mmol/L BUN (9.0-27.0) mg/dL Creatinine (0.6-1.5) mg/dL Est GFR (CKD-EPI) (>=60) BUN/Creatinine Ratio (12.00-20.00) Ratio Glucose (70-110) mg/dL POC Glucose (mg/dL) 46 L* (70-110) mg/dL Calcium (8.7-10.3) mg/dL Microbiology - Last 24 Hours (Table) 06/08/24 11:39 Anaerobic Culture - Preliminary Hand - Right 06/08/24 11:39 Anaerobic Culture - Preliminary Hand - Right 06/08/24 11:39 Anaerobic Culture - Preliminary Finger - Right Second 06/07/24 04:37 Blood Culture Gram Stain - Preliminary Blood Blood Culture - Preliminary Presumptive Staph aureus 06/08/24 11:39 Gram Stain - Final Hand - Right Wound Culture - Final Staphylococcus aureus 06/08/24 11:39 Gram Stain - Final Finger - Right Second Wound Culture - Final Staphylococcus aureus 06/08/24 11:39 Gram Stain - Final Hand - Right Wound Culture - Final Staphylococcus aureus
[2024-06-11 08:10] LABS: Glucose,Whole Blood 53 mg/dL (70-110)
[2024-06-11 08:33] LABS: Glucose,Whole Blood 58 mg/dL (70-110)
[2024-06-11 09:20] LABS: Glucose,Whole Blood 69 mg/dL (70-110)
[2024-06-11 09:54] LABS: Basophils # (A) 0.05 X 10*3/uL (0.00-0.10); Basophils % (A) 0.2 %; Eosinophils # (A) 0.02 X 10*3/uL (0.04-0.35); Eosinophils % (A) 0.1 %; HCT 37.4 % (39.6-50.0); HGB 12.4 g/dL (13.0-17.0); Lymphocytes % (A) 4.8 %; MCH 31.2 pg (27.0-32.0); MCHC 33.2 g/dL (32.0-37.0); Mean Platelet Volume 11.7 FL (9.5-12.2); Monocytes # (A) 0.62 X 10*3/uL (0.20-1.00); NRBC Per 100 WBC 0 X 10*3/uL (0.00-0.01); Neutrophils # (A) 18.91 X 10*3/uL (1.80-7.70); Neutrophils % (A) 90.3 %; Platelet Count 100 X 10*3/uL (140-440); RBC 3.98 X 10*6/uL (4.40-5.60); RDW 15.1 % (11.5-14.5); WBC 20.93 X 10*3/uL (4.50-10.00)
[2024-06-11 09:57] LABS: Glucose,Whole Blood 73 mg/dL (70-110)
[2024-06-11 10:16] LABS: Magnesium 1.9 mg/dL (1.5-2.4)
[2024-06-11 10:17] LABS: ALT 12 U/L (10-49); AST 34 U/L (14-35); Albumin 2.1 g/dL (3.8-4.9); Albumin/Globulin Ratio 0.64 Ratio (1.60-3.17); Alkaline Phosphatase 119 U/L (41-126); Blood Urea Nitrogen 48.4 mg/dL (9.0-27.0); Chloride 106 mmol/L (96-109); Globulin 3.3 g/dL (1.6-3.3); Glucose 51 mg/dL (70-110); Potassium 3.4 mmol/L (3.5-5.5); Sodium 136 mmol/L (135-145); Total Bilirubin 2.7 mg/dL (0.3-1.2); Total Protein 5.4 g/dL (6.2-8.2)
--- NOTE | 2024-06-11 12:05 | P.PN ---
Progress Note - Text Progress Note Date: 06/11/24 Orthopedics: History of present illness: Patient is a very pleasant 53-year-old male who is seen examined the bedside with his family present for follow-up evaluation of his right hand. He is status post incision and excisional drainage of the right hand abscess to the dorsum of the right hand and index finger at the proximal phalanx. He has had significant improvement so far postoperatively. He continues with IV antibiotics. He has better range of motion of the fingers of his right hand. Dressing is changed at the bedside. He continues to have drainage without obvious purulent discharge. Patient states his most significant pain is pain radiating from his cervical spine to his shoulder blades. He feels muscle spasm. His pain is better controlled since adding cyclobenzaprine. Patient continues to be seen exam by multiple medical providers including infectious disease and medicine. Blood cultures were identified as gram-positive cocci in clusters. Nafcillin is appropriate for organism identified per pharmacy. Patient will continue with his antibiotic per infectious disease. Infectious diseases planning for PICC line with outpatient cefazolin IV. Blood cultures have been taken. Infectious diseases waiting for negative blood cultures before PICC line and discharged with antibiotic medication. Patient states they have had discussion with binder caser about home care for PICC line management and medications. Physical Exam: Patient is awake, alert, and oriented 3 Vital signs stable Good chest excursion with deep inspiration and expiration Dressing is removed over the right hand and index finger Significant improvement of swelling over the dorsum of the right hand Some continued swelling at the right index finger. Erythema has significantly improved over the dorsum of the right hand Some continued erythema around the right index finger Mild drainage from the surgical sites at the dorsum of the right hand and index finger without purulent discharge Patient is able to perform some active range of motion of the fingers of the right hand without significant difficulty Patient has sensation over the fingers of his right hand and dorsum and palmar side of the right hand Dressing is reapplied over the right hand and right index finger Assessment: Status post incision and excisional drainage of the right hand abscess to the dorsum of the right hand and right index finger at the proximal phalanx Right hand cellulitis Right index finger cellulitis Cervical degenerative disc disease C5-6 and C6-7 spinal stenosis Left upper extremity radiculopathy Cervical pain radiating to the shoulder blades Chronic diabetes mellitus Sepsis at presentation Plan: Patient has continued to improve status post incision and excisional drainage of the right hand abscess to the dorsum of the right hand and right index finger at the proximal phalanx. 1. We will currently plan for Betadine/normal saline soaks 3 times per day 10 to 15 minutes/day with dressing changes 3 times per day. 2. Patient is improving from an orthopedic standpoint. We did discuss in detail patient's plan of care will be controlled by infectious disease in terms of antibiotic regimen at the time of discharge. Infectious disease is currently planning for PICC line placement with cefazolin at discharge when wound cultures are negative. Patient states case management has discussed home care with PICC line treatment and IV antibiotic administration. 3. Patient is also having continued cervical pain radiating to shoulder blades. He has left upper extremity radiculopathy. He will continue with oral hydrocod one, cyclobenzaprine and IV Dilaudid as prescribed as needed for pain control. His pain has been better controlled since adding the muscle relaxer but his pain continues to be present. 4. We will continue to follow patient closely. If he continues to improve and he is cleared by infectious disease and medicine, patient could be discharged home over the next 2-3 days.
--- NOTE | 2024-06-11 12:22 | P.PN ---
Subjective Patient is seen for follow-up for acute kidney injury. Maintained on IV fluids Serum creatinine staying at 2.0 mg/dL Blood sugar has been low, insulin on hold Patient is voiding well. Objective - Vital Signs Vital signs: Vital Signs Temp 97.5 F L 06/11/24 07:57 Pulse 67 06/11/24 07:57 Resp 17 06/11/24 07:57 BP 163/89 06/11/24 07:57 Pulse Ox 99 06/11/24 07:57 FiO2 Intake & Output 06/10/24 06/11/24 06/11/24 18:59 06:59 18:59 Intake Total 2310 960 Balance 2310 960 Weight 83.915 kg Intake: Intake, IV Titration 750 Amount Nafcillin 2 gm In 300 Dextrose 5% in Water 100 ml @ 50 mls/hr IVPB Q4HR [facility] Rx#:[id number] Sodium Chloride 0.9% 1, 450 000 ml @ 75 mls/hr IV . [id number] [facility] Rx#:[id number] Oral 1560 960 Other: Voiding Method Toilet # Voids 4 3 - Exam Patient is awake, he is comfortable, no acute distress Examination of the heart S1 and S2 Examination of the lungs bilateral breath sounds are heard Abdomen is soft nontender Examination of lower extremities shows no evidence of edema Right hand is dressed. - Labs CBC & Chem 7: 06/11/24 05:32 06/11/24 07:48 Labs: Abnormal Lab Results - Last 24 Hours (Table) 06/11/24 06/11/24 06/11/24 Range/Units 05:32 05:32 07:22 WBC 20.93 H (4.50-10.00) X 10*3/uL RBC 3.98 L (4.40-5.60) X 10*6/uL Hgb 12.4 L (13.0-17.0) g/dL Hct 37.4 L (39.6-50.0) % RDW 15.1 H (11.5-14.5) % Plt Count 100 L (140-440) X 10*3/uL Immature Gran # 0.33 H (0.00-0.04) X 10*3/uL Neutrophils # 18.91 H (1.80-7.70) X 10*3/uL Eosinophils # 0.02 L (0.04-0.35) X 10*3/uL Potassium 3.4 L (3.5-5.5) mmol/L Carbon Dioxide 17.0 L (21.6-31.8) mmol/L Anion Gap 13.00 H (4.00-12.00) mmol/L BUN 48.4 H (9.0-27.0) mg/dL Creatinine 2.0 H (0.6-1.5) mg/dL Est GFR (CKD-EPI) 40 L (>=60) BUN/Creatinine Ratio 24.20 H (12.00-20.00) Ratio Glucose 51 L (70-110) mg/dL POC Glucose (mg/dL) 44 L* (70-110) mg/dL Calcium 7.0 L (8.7-10.3) mg/dL Total Bilirubin 2.7 H (0.3-1.2) mg/dL Total Protein 5.4 L (6.2-8.2) g/dL Albumin 2.1 L (3.8-4.9) g/dL Albumin/Globulin Ratio 0.64 L (1.60-3.17) Ratio 06/11/24 06/11/24 06/11/24 Range/Units 07:45 07:48 08:08 WBC (4.50-10.00) X 10*3/uL RBC (4.40-5.60) X 10*6/uL Hgb (13.0-17.0) g/dL Hct (39.6-50.0) % RDW (11.5-14.5) % Plt Count (140-440) X 10*3/uL Immature Gran # (0.00-0.04) X 10*3/uL Neutrophils # (1.80-7.70) X 10*3/uL Eosinophils # (0.04-0.35) X 10*3/uL Potassium (3.5-5.5) mmol/L Carbon Dioxide (21.6-31.8) mmol/L Anion Gap (4.00-12.00) mmol/L BUN (9.0-27.0) mg/dL Creatinine (0.6-1.5) mg/dL Est GFR (CKD-EPI) (>=60) BUN/Creatinine Ratio (12.00-20.00) Ratio Glucose 46 L* (70-110) mg/dL POC Glucose (mg/dL) 46 L* 53 L (70-110) mg/dL Calcium (8.7-10.3) mg/dL Total Bilirubin (0.3-1.2) mg/dL Total Protein (6.2-8.2) g/dL Albumin (3.8-4.9) g/dL Albumin/Globulin Ratio (1.60-3.17) Ratio 06/11/24 06/11/24 Range/Units 08:30 09:17 WBC (4.50-10.00) X 10*3/uL RBC (4.40-5.60) X 10*6/uL Hgb (13.0-17.0) g/dL Hct (39.6-50.0) % RDW (11.5-14.5) % Plt Count (140-440) X 10*3/uL Immature Gran # (0.00-0.04) X 10*3/uL Neutrophils # (1.80-7.70) X 10*3/uL Eosinophils # (0.04-0.35) X 10*3/uL Potassium (3.5-5.5) mmol/L Carbon Dioxide (21.6-31.8) mmol/L Anion Gap (4.00-12.00) mmol/L BUN (9.0-27.0) mg/dL Creatinine (0.6-1.5) mg/dL Est GFR (CKD-EPI) (>=60) BUN/Creatinine Ratio (12.00-20.00) Ratio Glucose (70-110) mg/dL POC Glucose (mg/dL) 58 L 69 L (70-110) mg/dL Calcium (8.7-10.3) mg/dL Total Bilirubin (0.3-1.2) mg/dL Total Protein (6.2-8.2) g/dL Albumin (3.8-4.9) g/dL Albumin/Globulin Ratio (1.60-3.17) Ratio Microbiology - Last 24 Hours (Table) 06/08/24 11:39 Anaerobic Culture - Preliminary Hand - Right 06/08/24 11:39 Anaerobic Culture - Preliminary Hand - Right 06/08/24 11:39 Anaerobic Culture - Preliminary Finger - Right Second 06/07/24 04:37 Blood Culture Gram Stain - Preliminary Blood Blood Culture - Preliminary Presumptive Staph aureus 06/08/24 11:39 Gram Stain - Final Hand - Right Wound Culture - Final Staphylococcus aureus 06/08/24 11:39 Gram Stain - Final Finger - Right Second Wound Culture - Final Staphylococcus aureus 06/08/24 11:39 Gram Stain - Final Hand - Right Wound Culture - Final Staphylococcus aureus Assessment and Plan Assessment: 1. Acute kidney injury, ATN from underlying infection. UA shows 2+ protein and RBCs more than 182 with WBCs 84. Rule out underlying GN. All serologies are negative. No proteinuria noted in 2020. Check ultrasound of the kidneys 2. Nongap metabolic acidosis associated with acute kidney injury 3. Right hand cellulitis/abscess status post I&D on 06/08/2024 maintained on nafcillin. Wound cultures are growing MSSA 4. Mental status changes on admission, currently improved 5. History of EtOH abuse Plan: Continue with IV fluids, change to IV bicarb Avoid NSAIDs Repeat labs in a.m.
[2024-06-11 12:53] LABS: Glucose,Whole Blood 141 mg/dL (70-110)
[2024-06-11] MEDS: DEXTROSE 5% IN WATER 1,000 ML with SODIUM BICARB (1 MEQ/ML) 150 ML IV SCH (13:08)
--- NOTE | 2024-06-11 15:37 | P.PN ---
Subjective Progress Note Date: 06/11/24 Principal diagnosis: Reason for follow-up is right hand cellulitis and bacteremia Patient is a 53-year-old male with a past medical history of again for diabetes mellitus reflux hypertension osteoarthritis chronic back pain presenting to the hospital for evaluation of worsening pain swelling and redness to the right hand area patient be diagnosed with cellulitis subsequent blood culture came positive with MSSA. Patient is status post surgical drainage of the right hand abscess completed by orthopedic 06/08/2024 On today's evaluation that is 06/11/2024, patient did not have any fever and denies any chills, patient is breathing comfortably on room air, patient with no chest pain or cough patient did not have any abdominal pain nausea vomiting or any loose stools or pain to the right hand is currently controlled. Patient white count is 20.93, creatinine is 2.0 Objective - Vital Signs Vital signs: Vital Signs Temp 98.1 F 06/11/24 14:46 Pulse 97 06/11/24 14:46 Resp 19 06/11/24 14:46 BP 136/87 06/11/24 14:46 Pulse Ox 99 06/11/24 14:46 FiO2 Intake & Output 06/10/24 06/11/24 06/11/24 18:59 06:59 18:59 Intake Total 2310 960 Balance 2310 960 Weight 83.915 kg Intake: Intake, IV Titration 750 Amount Nafcillin 2 gm In 300 Dextrose 5% in Water 100 ml @ 50 mls/hr IVPB Q4HR [facility] Rx#:[id number] Sodium Chloride 0.9% 1, 450 000 ml @ 75 mls/hr IV . [id number] [facility] Rx#:[id number] Oral 1560 960 Other: Voiding Method Toilet # Voids 4 3 - Exam GENERAL DESCRIPTION: ashley pugh male lying in bed in no distress RESPIRATORY SYSTEM: Unlabored breathing , decreased breath sounds at bases HEART: S1 S2 regular rate and rhythm , ABDOMEN: Soft , no tenderness EXTREMITIES: Right hand is currently dressed no drainage - Labs CBC & Chem 7: 06/11/24 05:32 06/11/24 07:48 Labs: Abnormal Lab Results - Last 24 Hours (Table) 06/11/24 06/11/24 06/11/24 Range/Units 05:32 05:32 07:22 WBC 20.93 H (4.50-10.00) X 10*3/uL RBC 3.98 L (4.40-5.60) X 10*6/uL Hgb 12.4 L (13.0-17.0) g/dL Hct 37.4 L (39.6-50.0) % RDW 15.1 H (11.5-14.5) % Plt Count 100 L (140-440) X 10*3/uL Immature Gran # 0.33 H (0.00-0.04) X 10*3/uL Neutrophils # 18.91 H (1.80-7.70) X 10*3/uL Eosinophils # 0.02 L (0.04-0.35) X 10*3/uL Potassium 3.4 L (3.5-5.5) mmol/L Carbon Dioxide 17.0 L (21.6-31.8) mmol/L Anion Gap 13.00 H (4.00-12.00) mmol/L BUN 48.4 H (9.0-27.0) mg/dL Creatinine 2.0 H (0.6-1.5) mg/dL Est GFR (CKD-EPI) 40 L (>=60) BUN/Creatinine Ratio 24.20 H (12.00-20.00) Ratio Glucose 51 L (70-110) mg/dL POC Glucose (mg/dL) 44 L* (70-110) mg/dL Calcium 7.0 L (8.7-10.3) mg/dL Total Bilirubin 2.7 H (0.3-1.2) mg/dL Total Protein 5.4 L (6.2-8.2) g/dL Albumin 2.1 L (3.8-4.9) g/dL Albumin/Globulin Ratio 0.64 L (1.60-3.17) Ratio 06/11/24 06/11/24 06/11/24 Range/Units 07:45 07:48 08:08 WBC (4.50-10.00) X 10*3/uL RBC (4.40-5.60) X 10*6/uL Hgb (13.0-17.0) g/dL Hct (39.6-50.0) % RDW (11.5-14.5) % Plt Count (140-440) X 10*3/uL Immature Gran # (0.00-0.04) X 10*3/uL Neutrophils # (1.80-7.70) X 10*3/uL Eosinophils # (0.04-0.35) X 10*3/uL Potassium (3.5-5.5) mmol/L Carbon Dioxide (21.6-31.8) mmol/L Anion Gap (4.00-12.00) mmol/L BUN (9.0-27.0) mg/dL Creatinine (0.6-1.5) mg/dL Est GFR (CKD-EPI) (>=60) BUN/Creatinine Ratio (12.00-20.00) Ratio Glucose 46 L* (70-110) mg/dL POC Glucose (mg/dL) 46 L* 53 L (70-110) mg/dL Calcium (8.7-10.3) mg/dL Total Bilirubin (0.3-1.2) mg/dL Total Protein (6.2-8.2) g/dL Albumin (3.8-4.9) g/dL Albumin/Globulin Ratio (1.60-3.17) Ratio 06/11/24 06/11/24 06/11/24 Range/Units 08:30 09:17 12:36 WBC (4.50-10.00) X 10*3/uL RBC (4.40-5.60) X 10*6/uL Hgb (13.0-17.0) g/dL Hct (39.6-50.0) % RDW (11.5-14.5) % Plt Count (140-440) X 10*3/uL Immature Gran # (0.00-0.04) X 10*3/uL Neutrophils # (1.80-7.70) X 10*3/uL Eosinophils # (0.04-0.35) X 10*3/uL Potassium (3.5-5.5) mmol/L Carbon Dioxide (21.6-31.8) mmol/L Anion Gap (4.00-12.00) mmol/L BUN (9.0-27.0) mg/dL Creatinine (0.6-1.5) mg/dL Est GFR (CKD-EPI) (>=60) BUN/Creatinine Ratio (12.00-20.00) Ratio Glucose (70-110) mg/dL POC Glucose (mg/dL) 58 L 69 L 141 H (70-110) mg/dL Calcium (8.7-10.3) mg/dL Total Bilirubin (0.3-1.2) mg/dL Total Protein (6.2-8.2) g/dL Albumin (3.8-4.9) g/dL Albumin/Globulin Ratio (1.60-3.17) Ratio Microbiology - Last 24 Hours (Table) 06/07/24 04:37 Blood Culture Gram Stain - Final Blood Blood Culture - Final Staphylococcus aureus 06/08/24 11:39 Anaerobic Culture - Preliminary Hand - Right 06/08/24 11:39 Anaerobic Culture - Preliminary Hand - Right 06/08/24 11:39 Anaerobic Culture - Preliminary Finger - Right Second Assessment and Plan (1) Sepsis Current Visit: Yes Status: Acute Code(s): A41.9 - SEPSIS, UNSPECIFIED ORGANISM SNOMED Code(s): 14451042 (2) Cellulitis of right hand Current Visit: Yes Status: Acute Code(s): L03.113 - CELLULITIS OF RIGHT UPPER LIMB SNOMED Code(s): 54799943599475005 Plan: 1patient presented hospital with sepsis in this patient who did have elevated white count tachycardia meeting criteria for SIRS source is right hand cellulitis and likely from gram-positive skin ana 2-patient did have a positive blood culture with MSSA source likely right hand cellulitis 3patient is status post surgical drainage of the abscess and deep culture which are growing MSSA. 4patient to continue with Naficillin, currently waiting for the blood culture to be negative before placement of a PICC line for outpatient IV antibiotic therapy Dictation was produced using [employer] dictation software. please excuse any grammatical, word or spelling errors. Time with Patient: Less than 30
[2024-06-11 17:47] LABS: Glucose,Whole Blood 100 mg/dL (70-110)
[2024-06-11 20:08] LABS: Glucose,Whole Blood 111 mg/dL (70-110)
--- NOTE | 2024-06-11 22:30 | PN ---
PROGRESS NOTE DATE OF SERVICE: 06/11/2024 SUBJECTIVE: This 53-year-old gentleman admitted with acute cellulitis of right hand after surgery. Cultures are growing MSSA. No chest pain. No palpitation. PHYSICAL EXAMINATION: VITAL SIGNS: Pulse is 97, blood pressure n. CHEST: Clear. CARDIOVASCULAR: S1, S2 normal. EXTREMITIES: Right arm swelling, status post surgery. LABORATORY DATA: Reviewed. ASSESSMENT: 1. Acute cellulitis and abscess of the right hand, status post incision and drainage. 2. Increased WBC. 3. Methicillin-sensitive Staphylococcus aureus sepsis. 4. Multiple complex medical issues, refer to the previous chart. RECOMMENDATIONS: Recommend to continue current management and continue symptomatic treatment. Continue with nafcillin. Otherwise, repeat labs will be ordered. Monitor CBC closely. Prognosis guarded. Further recommendations to follow. MMODL / IJN: [id number] / MTDD
[2024-06-12 07:01] LABS: Glucose,Whole Blood 127 mg/dL (70-110)
[2024-06-12 09:26] LABS: Basophils # (A) 0.03 X 10*3/uL (0.00-0.10); Basophils % (A) 0.2 %; Eosinophils # (A) 0.03 X 10*3/uL (0.04-0.35); Eosinophils % (A) 0.2 %; HGB 12.6 g/dL (13.0-17.0); Lymphocytes # (A) 0.93 X 10*3/uL (0.90-5.00); Lymphocytes % (A) 6.1 %; MCH 31.6 pg (27.0-32.0); MCHC 34.1 g/dL (32.0-37.0); MCV 92.7 FL (80.0-97.0); Mean Platelet Volume 11.6 FL (9.5-12.2); Monocytes # (A) 0.55 X 10*3/uL (0.20-1.00); Monocytes % (A) 3.6 %; NRBC Per 100 WBC 0 X 10*3/uL (0.00-0.01); Neutrophils # (A) 13.55 X 10*3/uL (1.80-7.70); Neutrophils % (A) 88.5 %; Platelet Count 102 X 10*3/uL (140-440); RBC 3.99 X 10*6/uL (4.40-5.60); RDW 15.4 % (11.5-14.5); WBC 15.31 X 10*3/uL (4.50-10.00)
[2024-06-12 10:17] LABS: BUN/Creat Ratio 20.13 Ratio (12.00-20.00); Blood Urea Nitrogen 46.3 mg/dL (9.0-27.0); Calcium 7.3 mg/dL (8.7-10.3); Carbon Dioxide 17.6 mmol/L (21.6-31.8); Chloride 102 mmol/L (96-109); Glucose 106 mg/dL (70-110); Potassium 3.3 mmol/L (3.5-5.5); Sodium 132 mmol/L (135-145)
[2024-06-12 12:07] LABS: Glucose,Whole Blood 154 mg/dL (70-110)
--- NOTE | 2024-06-12 12:42 | P.PN ---
Progress Note - Text Progress Note Date: 06/12/24 Orthopedics: History of present illness: Patient is a very pleasant 53-year-old male who is seen examined the bedside with his family present for follow-up evaluation of his right hand. He is status post incision and excisional drainage of the right hand abscess to the dorsum of the right hand and index finger at the proximal phalanx. He has had significant improvement so far postoperatively. He continues with IV antibiotics. He has better range of motion of the fingers of his right hand. Dressing is removed at the bedside. He started daily soaks 3 times per day yesterday with Betadine and normal saline. He continues to have drainage wi thout obvious purulent discharge. He has a little bit of increased swelling at the knuckles of his right hand and right index finger as compared to yesterday. The dressing reapplied to his right hand after his last soak may have been too tight. He feels he has not had significant change in his symptoms as compared to yesterday. Patient states his most significant pain is pain radiating from his cervical spine to his shoulder blades. He feels muscle spasm. His pain is better controlled since adding cyclobenzaprine. Patient continues to be seen exam by multiple medical providers including infectious disease and medicine. He states he is retaining some fluid and will be given Lasix. Blood cultures were identified as gram-positive cocci in clusters. Nafcillin is appropriate for organism identified per pharmacy. Patient will continue with his antibiotic per infectious disease. Infectious diseases planning for PICC line with outpatient cefazolin IV. Blood cultures have been taken. Infectious diseases waiting for negative blood cultures before PICC line and discharged with antibiotic medication. Patient states they have had discussion with case advocate about home care for P ICC line management and medications. Physical Exam: Patient is awake, alert, and oriented 3 Vital signs stable Good chest excursion with deep inspiration and expiration Dressing is removed over the right hand and index finger Significant improvement of swelling over the dorsum of the right hand with some increased swelling over the knuckles of the right hand Some continued swelling at the right index finger slightly increased as compared to yesterday Erythema has significantly improved over the dorsum of the right hand Some continued erythema around the right index finger Mild drainage from the surgical sites at the dorsum of the right hand and index finger without purulent discharge Patient is able to perform some active range of motion of the fingers of the right hand without significant difficulty Patient has sensation over the fingers of his right hand and dorsum and palmar side of the right hand Dressing is reapplied over the right hand and right index finger Assessment: Status post incision and excisional drainage of the right hand abscess to the dorsum of the right hand and right index finger at the proximal phalanx Right hand cellulitis Right index finger cellulitis Cervical degenerative disc disease C5-6 and C6-7 spinal stenosis Left upper extremity radiculopathy Cervical pain radiating to the shoulder blades Chronic diabetes mellitus Sepsis at presentation Plan: Patient has continued to improve status post incision and excisional drainage of the right hand abscess to the dorsum of the right hand and right index finger at the proximal phalanx. 1. We will currently continue with Betadine/normal saline soaks 3 times per day 10 to 15 minutes/day with dressing changes 3 times per day. 2. Patient is improving from an orthopedic standpoint. We did discuss in detail patient's plan of care will be controlled by infectious disease in terms of antibiotic regimen at the time of discharge. Infectious disease is currently planning for PICC line placement with cefazolin at discharge when wound cultures are negative. Patient states case management has discussed home care with PICC line treatment and IV antibiotic administration. 3. Patient is also having continued cervical pain radiating to shoulder blades. He has left upper extremity radiculopathy. He will continue with oral hydrocod one, cyclobenzaprine and IV Dilaudid as prescribed as needed for pain control. His pain has been better controlled since adding the muscle relaxer but his pain continues to be present. 4. We will continue to follow patient closely. If he continues to improve and he is cleared by infectious disease and medicine, patient could be discharged home over the next 2-3 days.
--- NOTE | 2024-06-12 12:52 | P.PN ---
Subjective Patient is seen for follow-up for acute kidney injury. Maintained on IV fluids Serum creatinine staying at 2.0 mg/dL. It is 2.3 today. Maintained on IV bicarb however complaining of increased leg swelling today. Objective - Vital Signs Vital signs: Vital Signs Temp 98.6 F 06/12/24 07:00 Pulse 95 06/12/24 07:00 Resp 18 06/12/24 07:00 BP 149/85 06/12/24 07:00 Pulse Ox 95 06/12/24 07:00 FiO2 Intake & Output 06/11/24 06/12/24 06/12/24 18:59 06:59 18:59 Intake Total 2950 2190 Balance 2950 2190 Intake: Intake, IV Titration 1110 1110 Amount Dextrose 5% in Water 1, 960 960 000 ml @ 80 mls/hr IV . [id number] [facility] with Sodium Bicarb (1 Meq/ml) 150 ml Rx#:[id number] Nafcillin 2 gm In 150 150 Dextrose 5% in Water 100 ml @ 50 mls/hr IVPB Q4HR [facility] Rx#:[id number] Oral 1840 1080 Other: Voiding Method Toilet # Voids 4 2 - Exam Patient is awake, he is comfortable, no acute distress Examination of the heart S1 and S2 Examination of the lungs bilateral breath sounds are heard Abdomen is soft nontender Examination of lower extremities shows 1+ edema Right hand dressing is off. Swelling has decreased. Erythema noted. - Labs CBC & Chem 7: 06/12/24 04:31 06/12/24 04:31 Labs: Abnormal Lab Results - Last 24 Hours (Table) 06/11/24 06/11/24 06/12/24 Range/Units 12:36 20:05 04:31 WBC 15.31 H (4.50-10.00) X 10*3/uL RBC 3.99 L (4.40-5.60) X 10*6/uL Hgb 12.6 L (13.0-17.0) g/dL Hct 37.0 L (39.6-50.0) % RDW 15.4 H (11.5-14.5) % Plt Count 102 L (140-440) X 10*3/uL Immature Gran # 0.22 H (0.00-0.04) X 10*3/uL Neutrophils # 13.55 H (1.80-7.70) X 10*3/uL Eosinophils # 0.03 L (0.04-0.35) X 10*3/uL Sodium (135-145) mmol/L Potassium (3.5-5.5) mmol/L Carbon Dioxide (21.6-31.8) mmol/L Anion Gap (4.00-12.00) mmol/L BUN (9.0-27.0) mg/dL Creatinine (0.6-1.5) mg/dL Est GFR (CKD-EPI) (>=60) BUN/Creatinine Ratio (12.00-20.00) Ratio POC Glucose (mg/dL) 141 H 111 H (70-110) mg/dL Calcium (8.7-10.3) mg/dL 06/12/24 06/12/24 06/12/24 Range/Units 04:31 06:59 12:06 WBC (4.50-10.00) X 10*3/uL RBC (4.40-5.60) X 10*6/uL Hgb (13.0-17.0) g/dL Hct (39.6-50.0) % RDW (11.5-14.5) % Plt Count (140-440) X 10*3/uL Immature Gran # (0.00-0.04) X 10*3/uL Neutrophils # (1.80-7.70) X 10*3/uL Eosinophils # (0.04-0.35) X 10*3/uL Sodium 132 L (135-145) mmol/L Potassium 3.3 L (3.5-5.5) mmol/L Carbon Dioxide 17.6 L (21.6-31.8) mmol/L Anion Gap 12.40 H (4.00-12.00) mmol/L BUN 46.3 H (9.0-27.0) mg/dL Creatinine 2.3 H (0.6-1.5) mg/dL Est GFR (CKD-EPI) 34 L (>=60) BUN/Creatinine Ratio 20.13 H (12.00-20.00) Ratio POC Glucose (mg/dL) 127 H 154 H (70-110) mg/dL Calcium 7.3 L (8.7-10.3) mg/dL Microbiology - Last 24 Hours (Table) 06/08/24 11:39 Anaerobic Culture - Final Hand - Right 06/08/24 11:39 Anaerobic Culture - Final Finger - Right Second 06/08/24 11:39 Anaerobic Culture - Final Hand - Right 06/10/24 11:03 Blood Culture Gram Stain - Preliminary Blood Blood Culture - Preliminary Molecular ID 06/07/24 04:37 Blood Culture Gram Stain - Final Blood Blood Culture - Final Staphylococcus aureus Assessment and Plan Assessment: 1. Acute kidney injury, ATN from underlying infection. UA shows 2+ protein and RBCs more than 182 with WBCs 84. Rule out underlying GN. All serologies are negative. No proteinuria noted in 2020. No obstruction noted on ultrasound of the kidneys 2. Nongap metabolic acidosis associated with acute kidney injury 3. Right hand cellulitis/abscess status post I&D on 06/08/2024 maintained on nafcillin. Wound cultures are growing MSSA 4. Mental status changes on admission, currently improved 5. History of EtOH abuse Plan: May DC IV fluids Add oral sodium bicarb Avoid NSAIDs Repeat labs in a.m.
[2024-06-12] MEDS: FUROSEMIDE 10 MG/ML 2 ML VIAL IV ONE (12:55)
--- NOTE | 2024-06-12 16:33 | P.PN ---
Subjective Progress Note Date: 06/12/24 Principal diagnosis: Reason for follow-up is right hand cellulitis and bacteremia Patient is a 53-year-old male with a past medical history of again for diabetes mellitus reflux hypertension osteoarthritis chronic back pain presenting to the hospital for evaluation of worsening pain swelling and redness to the right hand area patient be diagnosed with cellulitis subsequent blood culture came positive with MSSA. Patient is status post surgical drainage of the right hand abscess completed by orthopedic 06/08/2024 On today's evaluation that is 06/12/2024, Patient is afebrile patient is currently on room air and denies having any shortness of breath, the patient den ies any chest pain or cough, the patient denies any nausea vomiting did not have any abdominal pain and no diarrhea pain to the right hand is currently controlled. Patient white count down to 15.31, creatinine is 2.3 blood culture from 06/10/2024 also came back positive Objective - Vital Signs Vital signs: Vital Signs Temp 98.6 F 06/12/24 07:00 Pulse 95 06/12/24 07:00 Resp 18 06/12/24 07:00 BP 149/85 06/12/24 07:00 Pulse Ox 95 06/12/24 07:00 FiO2 Intake & Output 06/11/24 06/12/24 06/12/24 18:59 06:59 18:59 Intake Total 2950 2190 Balance 2950 2190 Intake: Intake, IV Titration 1110 1110 Amount Dextrose 5% in Water 1, 960 960 000 ml @ 80 mls/hr IV . [id number] SUN with Sodium Bicarb (1 Meq/ml) 150 ml Rx#:[id number] Nafcillin 2 gm In 150 150 Dextrose 5% in Water 100 ml @ 50 mls/hr IVPB Q4HR SUN Rx#:[id number] Oral 1840 1080 Other: Voiding Method Toilet # Voids 4 2 - Exam GENERAL DESCRIPTION: ashley pugh male lying in bed in no distress RESPIRATORY SYSTEM: Unlabored breathing , decreased breath sounds at bases HEART: S1 S2 regular rate and rhythm , ABDOMEN: Soft , no tenderness EXTREMITIES: Right hand is currently dressed no drainage - Labs CBC & Chem 7: 06/12/24 04:31 06/12/24 04:31 Labs: Abnormal Lab Results - Last 24 Hours (Table) 06/11/24 06/12/24 06/12/24 Range/Units 20:05 04:31 04:31 WBC 15.31 H (4.50-10.00) X 10*3/uL RBC 3.99 L (4.40-5.60) X 10*6/uL Hgb 12.6 L (13.0-17.0) g/dL Hct 37.0 L (39.6-50.0) % RDW 15.4 H (11.5-14.5) % Plt Count 102 L (140-440) X 10*3/uL Immature Gran # 0.22 H (0.00-0.04) X 10*3/uL Neutrophils # 13.55 H (1.80-7.70) X 10*3/uL Eosinophils # 0.03 L (0.04-0.35) X 10*3/uL Sodium 132 L (135-145) mmol/L Potassium 3.3 L (3.5-5.5) mmol/L Carbon Dioxide 17.6 L (21.6-31.8) mmol/L Anion Gap 12.40 H (4.00-12.00) mmol/L BUN 46.3 H (9.0-27.0) mg/dL Creatinine 2.3 H (0.6-1.5) mg/dL Est GFR (CKD-EPI) 34 L (>=60) BUN/Creatinine Ratio 20.13 H (12.00-20.00) Ratio POC Glucose (mg/dL) 111 H (70-110) mg/dL Calcium 7.3 L (8.7-10.3) mg/dL 06/12/24 06/12/24 Range/Units 06:59 12:06 WBC (4.50-10.00) X 10*3/uL RBC (4.40-5.60) X 10*6/uL Hgb (13.0-17.0) g/dL Hct (39.6-50.0) % RDW (11.5-14.5) % Plt Count (140-440) X 10*3/uL Immature Gran # (0.00-0.04) X 10*3/uL Neutrophils # (1.80-7.70) X 10*3/uL Eosinophils # (0.04-0.35) X 10*3/uL Sodium (135-145) mmol/L Potassium (3.5-5.5) mmol/L Carbon Dioxide (21.6-31.8) mmol/L Anion Gap (4.00-12.00) mmol/L BUN (9.0-27.0) mg/dL Creatinine (0.6-1.5) mg/dL Est GFR (CKD-EPI) (>=60) BUN/Creatinine Ratio (12.00-20.00) Ratio POC Glucose (mg/dL) 127 H 154 H (70-110) mg/dL Calcium (8.7-10.3) mg/dL Microbiology - Last 24 Hours (Table) 06/08/24 11:39 Anaerobic Culture - Final Hand - Right 06/08/24 11:39 Anaerobic Culture - Final Finger - Right Second 06/08/24 11:39 Anaerobic Culture - Final Hand - Right 06/10/24 11:03 Blood Culture Gram Stain - Preliminary Blood Blood Culture - Preliminary Molecular ID 06/07/24 04:37 Blood Culture Gram Stain - Final Blood Blood Culture - Final Staphylococcus aureus Assessment and Plan (1) Sepsis Current Visit: Yes Status: Acute Code(s): A41.9 - SEPSIS, UNSPECIFIED ORGANISM SNOMED Code(s): 41747148 (2) Cellulitis of right hand Current Visit: Yes Status: Acute Code(s): L03.113 - CELLULITIS OF RIGHT UPPER LIMB SNOMED Code(s): 47106512844122698 Plan: 1patient presented hospital with sepsis in this patient who did have elevated white count tachycardia meeting criteria for SIRS source is right hand cellulitis and likely from gram-positive skin ana 2-patient did have a positive blood culture with MSSA source likely right hand cellulitis 3patient is status post surgical drainage of the abscess and deep culture which are growing MSSA. 4patient to continue with Naficillin, however the blood cultures from treated 04/11/2024 also came back positive we will obtain echocardiogram to patient evidence of any endovascular seeding repeat blood culture Dictation was produced using [employer] dictation software. please excuse any grammatical, word or spelling errors. Time with Patient: Less than 30
[2024-06-12 17:23] LABS: Glucose,Whole Blood 120 mg/dL (70-110)
[2024-06-12] MEDS: SODIUM BICARBONATE TAB 650 MG TAB PO SCH (20:00)
[2024-06-12 20:15] LABS: Glucose,Whole Blood 176 mg/dL (70-110)
--- NOTE | 2024-06-13 01:27 | PN ---
PROGRESS NOTE DATE OF SERVICE: 06/12/2024 HISTORY: 53-year-old gentleman, admitted with cellulitis and abscess of the right hand on IV antibiotics. Multiple cultures showing emesis and sepsis even up to 06/10. PHYSICAL EXAMINATION: VITAL SIGNS: Pulse is 95, blood pressure 114/85, respirations 18. CHEST: Clear to auscultation. ABDOMEN: Soft. EXTREMITIES: Right hand status post I and D. LABORATORY DATA: Reviewed. ASSESSMENT: 1. Acute cellulitis and abscess of the right hand, status post incision and drainage. 2. Persistent MSSA bacteremia and sepsis. 3. Increased WBC. 4. Multiple complex medical issues include rheumatoid arthritis. RECOMMENDATIONS: Recommended to continue current medications, continue symptomatic treatment. I would also recommend 2D echo. Continue to monitor. Closely follow with multiple consultants. Further recommendations to follow. MMODL / IJN: [id number] /
[2024-06-13 07:17] LABS: Glucose,Whole Blood 183 mg/dL (70-110)
[2024-06-13 08:38] LABS: Basophils # (A) 0.03 X 10*3/uL (0.00-0.10); Basophils % (A) 0.2 %; Eosinophils # (A) 0.05 X 10*3/uL (0.04-0.35); Eosinophils % (A) 0.4 %; HCT 33.9 % (39.6-50.0); HGB 11.7 g/dL (13.0-17.0); Lymphocytes # (A) 1.15 X 10*3/uL (0.90-5.00); Lymphocytes % (A) 8.2 %; MCH 31.8 pg (27.0-32.0); MCHC 34.5 g/dL (32.0-37.0); MCV 92.1 FL (80.0-97.0); Mean Platelet Volume 11.2 FL (9.5-12.2); Monocytes # (A) 0.71 X 10*3/uL (0.20-1.00); NRBC Per 100 WBC 0 X 10*3/uL (0.00-0.01); Neutrophils # (A) 11.96 X 10*3/uL (1.80-7.70); Neutrophils % (A) 84.9 %; Platelet Count 132 X 10*3/uL (140-440); RBC 3.68 X 10*6/uL (4.40-5.60); RDW 15.4 % (11.5-14.5); WBC 14.09 X 10*3/uL (4.50-10.00)
--- NOTE | 2024-06-13 08:39 | P.PN ---
Progress Note - Text Progress Note Date: 06/13/24 Orthopedics: History of present illness: Patient is a very pleasant 53-year-old male who is seen examined the bedside with his family present for follow-up evaluation of his right hand. He is status post incision and excisional drainage of the right hand abscess to the dorsum of the right hand and index finger at the proximal phalanx performed on 06/08/2024. He has continued to have some improvement so far postoperatively. He continues with IV antibiotics. He has better range of motion of the fingers of his right hand. Dressing is removed at the bedside. He continues with daily soaks 3 times per day yesterday with Betadine and normal saline. He continues to have drainage without obvious purulent discharge. He has improvement as compared to yesterday of the increased swelling at the knuckles of his right hand and right index finger. He continues to have swelling most significant at the right index finger. The erythema on the volar aspect of his right hand at the base of the index finger has also improved. He feels he has not had significant change in his symptoms as compared to yesterday. He continues to state his most significant pain is pain radiating from his cervical spine to his shoulder blades. He feels muscle spasm. His pain is better controlled since adding cyclobenzaprine. Patient continues to be seen exam by multiple medical providers including infectious disease and medicine. He states he is retaining some fluid and will be given Lasix. Blood cultures were identified as gram-positive cocci in clusters. Cultures taken from 06/10/2024, have remained positive. Nafcillin is appropriate for organism identified per pharmacy. Patient will continue with his antibiotic per infectious disease. Infectious diseases planning for PICC line with outpatient cefazolin IV. Infectious diseases waiting for negative blood cultures before PICC line and discharged with antibiotic medication. Patient states they have had discussion with rehabilitation case coordinator about home care for PICC line management and medications. Physical Exam: Patient is awake, alert, and oriented 3 Vital signs stable Good chest excursion with deep inspiration and expiration Dressing is removed over the right hand and index finger Improvement of swelling over the dorsum of the right hand and improvement of the swelling over the knuckles of the right hand Continued swelling at the right index finger has remained fairly stable with slight improvement as compared to yesterday Erythema has had some improvement over the dorsum of the right hand, knuckles of the right hand and right index finger as compared to yesterday, 06/12/2024 Some continued erythema around the right index finger Erythema on the volar aspect of his right hand at the base of the index finger and palm towards the thumb side has also improved. Mild drainage from the surgical sites at the dorsum of the right hand and index finger without purulent discharge Patient is able to perform some active range of motion of the fingers of the r ight hand without significant difficulty Patient has sensation over the fingers of his right hand and dorsum and palmar side of the right hand Suture remains intact at the dorsum of the right hand and over the right index finger from surgical incision sites Preparation is made at the bedside and patient is starting a soak Assessment: Status post incision and excisional drainage of the right hand abscess to the dorsum of the right hand and right index finger at the proximal phalanx Right hand cellulitis Right index finger cellulitis Cervical degenerative disc disease C5-6 and C6-7 spinal stenosis Left upper extremity radiculopathy Cervical pain radiating to the shoulder blades Chronic diabetes mellitus Sepsis with continued positive blood cultures Plan: Patient is discussed in detail with Dr. Brody Martinez. Patient has continued to improve status post incision and excisional drainage of the right hand abscess to the dorsum of the right hand and right index finger at the proximal phalanx. He has had improvement today as compared to yesterday with decreased erythema on the volar aspect of his right hand, dorsal aspect of the right hand, and at the right index finger. He does continue to have some swelling in the right hand and right index finger. The swelling has improved quite well over the dorsum of the right hand and knuckles of the right hand as compared to yesterday. There has been some mild improvement of the swelling of the right index finger. I am not able to express any pus with palpation over the surgical incision site at the right index finger or the dorsum of the right hand. We are not currently planning for further surgical intervention at this time and will recommend continuing with soaks 3 times daily and antibiotic regimen with dressing changes 3 times daily. 1. We will currently continue with Betadine/normal saline soaks 3 times per day 10 to 15 minutes/day with dressing changes 3 times per day. 2. Patient is improving from an orthopedic standpoint and has had some improvement as compared to yesterday. We did discuss in detail patient's plan of care will be controlled by infectious disease in terms of antibiotic regimen at the time of discharge. Infectious disease is currently planning for PICC line placement with cefazolin at discharge when wound cultures are negative. Patient states case management has discussed home care with PICC line treatment and IV antibiotic administration. 3. Patient is also having continued cervical pain radiating to shoulder blades. He has left upper extremity radiculopathy. He will continue with oral hydrocodone, cyclobenzaprine and IV Dilaudid as prescribed as needed for pain control. His pain has been better controlled since adding the muscle relaxer but his pain continues to be present. 4. Repeat labs have been ordered including CBC and metabolic panel. Repeat blood culture has also been ordered by infectious disease. 5. We will continue to follow patient closely. If he continues to improve and he is cleared by infectious disease and medicine, patient could be cleared for discharge home with PICC line and appropriate antibiotic medications per infectious disease with close outpatient following at [facility]. I have reviewed labs and imaging. agree with above
[2024-06-13 08:51] LABS: BUN/Creat Ratio 17.67 Ratio (12.00-20.00); Blood Urea Nitrogen 42.4 mg/dL (9.0-27.0); Calcium 7.3 mg/dL (8.7-10.3); Carbon Dioxide 19.1 mmol/L (21.6-31.8); Chloride 99 mmol/L (96-109); Glucose 179 mg/dL (70-110); Potassium 3.3 mmol/L (3.5-5.5); Sodium 129 mmol/L (135-145)
--- NOTE | 2024-06-13 09:05 | P.PN ---
Subjective Patient is seen in follow-up for acute kidney injury. Has been waiting. Has pain in his hand. Oral intake fair. Vital signs are stable. General: No acute distress. HEENT: Head exam is unremarkable. LUNGS: No audible rhonchi or wheezes. HEART: Rate and Rhythm are regular. ABDOMEN: Nontender. EXTREMITITES: 2+ edema. Hand swelling noted. No drainage. Objective - Vital Signs Vital signs: Vital Signs Temp 98 F 06/13/24 07:40 Pulse 94 06/13/24 07:40 Resp 20 06/13/24 07:40 BP 157/87 06/13/24 07:40 Pulse Ox 96 06/13/24 07:40 FiO2 Intake & Output 06/12/24 06/13/24 06/13/24 18:59 06:59 18:59 Intake Total 710 200 Balance 710 200 Intake: Intake, IV Titration 710 Amount Dextrose 5% in Water 1, 560 000 ml @ 80 mls/hr IV . [id number] SUN with Sodium Bicarb (1 Meq/ml) 150 ml Rx#:[id number] Nafcillin 2 gm In 150 Dextrose 5% in Water 100 ml @ 50 mls/hr IVPB Q4HR SUN Rx#:[id number] Oral 200 Other: Voiding Method Toilet # Voids 2 - Labs CBC & Chem 7: 06/13/24 04:04 06/13/24 04:04 Labs: Abnormal Lab Results - Last 24 Hours (Table) 06/12/24 06/12/24 06/12/24 Range/Units 04:31 04:31 12:06 WBC 15.31 H (4.50-10.00) X 10*3/uL RBC 3.99 L (4.40-5.60) X 10*6/uL Hgb 12.6 L (13.0-17.0) g/dL Hct 37.0 L (39.6-50.0) % RDW 15.4 H (11.5-14.5) % Plt Count 102 L (140-440) X 10*3/uL Immature Gran # 0.22 H (0.00-0.04) X 10*3/uL Neutrophils # 13.55 H (1.80-7.70) X 10*3/uL Eosinophils # 0.03 L (0.04-0.35) X 10*3/uL Sodium 132 L (135-145) mmol/L Potassium 3.3 L (3.5-5.5) mmol/L Carbon Dioxide 17.6 L (21.6-31.8) mmol/L Anion Gap 12.40 H (4.00-12.00) mmol/L BUN 46.3 H (9.0-27.0) mg/dL Creatinine 2.3 H (0.6-1.5) mg/dL Est GFR (CKD-EPI) 34 L (>=60) BUN/Creatinine Ratio 20.13 H (12.00-20.00) Ratio Glucose (70-110) mg/dL POC Glucose (mg/dL) 154 H (70-110) mg/dL Calcium 7.3 L (8.7-10.3) mg/dL 06/12/24 06/12/24 06/13/24 Range/Units 17:22 20:13 04:04 WBC 14.09 H (4.50-10.00) X 10*3/uL RBC 3.68 L (4.40-5.60) X 10*6/uL Hgb 11.7 L (13.0-17.0) g/dL Hct 33.9 L (39.6-50.0) % RDW 15.4 H (11.5-14.5) % Plt Count 132 L (140-440) X 10*3/uL Immature Gran # 0.19 H (0.00-0.04) X 10*3/uL Neutrophils # 11.96 H (1.80-7.70) X 10*3/uL Eosinophils # (0.04-0.35) X 10*3/uL Sodium (135-145) mmol/L Potassium (3.5-5.5) mmol/L Carbon Dioxide (21.6-31.8) mmol/L Anion Gap (4.00-12.00) mmol/L BUN (9.0-27.0) mg/dL Creatinine (0.6-1.5) mg/dL Est GFR (CKD-EPI) (>=60) BUN/Creatinine Ratio (12.00-20.00) Ratio Glucose (70-110) mg/dL POC Glucose (mg/dL) 120 H 176 H (70-110) mg/dL Calcium (8.7-10.3) mg/dL 06/13/24 06/13/24 Range/Units 04:04 06:59 WBC (4.50-10.00) X 10*3/uL RBC (4.40-5.60) X 10*6/uL Hgb (13.0-17.0) g/dL Hct (39.6-50.0) % RDW (11.5-14.5) % Plt Count (140-440) X 10*3/uL Immature Gran # (0.00-0.04) X 10*3/uL Neutrophils # (1.80-7.70) X 10*3/uL Eosinophils # (0.04-0.35) X 10*3/uL Sodium 129 L (135-145) mmol/L Potassium 3.3 L (3.5-5.5) mmol/L Carbon Dioxide 19.1 L (21.6-31.8) mmol/L Anion Gap (4.00-12.00) mmol/L BUN 42.4 H (9.0-27.0) mg/dL Creatinine 2.4 H (0.6-1.5) mg/dL Est GFR (CKD-EPI) 32 L (>=60) BUN/Creatinine Ratio (12.00-20.00) Ratio Glucose 179 H (70-110) mg/dL POC Glucose (mg/dL) 183 H (70-110) mg/dL Calcium 7.3 L (8.7-10.3) mg/dL Microbiology - Last 24 Hours (Table) 06/10/24 11:03 Blood Culture Gram Stain - Preliminary Blood Blood Culture - Preliminary Presumptive Staph aureus Molecular ID 06/08/24 11:39 Anaerobic Culture - Final Hand - Right 06/08/24 11:39 Anaerobic Culture - Final Finger - Right Second 06/08/24 11:39 Anaerobic Culture - Final Hand - Right Assessment and Plan Plan: Assessment: 1. Acute kidney injury secondary to septic ATN. Creatinine 2.4 today. Creatinine 0.9 dated April 08, 2023. No hydronephrosis noted on ultrasound. Urine eosinophils 1%. 2. Metabolic acidosis secondary to acute kidney injury. On oral bicarb. 3. Hypokalemia from diuresis. 4. Hypervolemic hyponatremia. 5. Right hand cellulitis/abscess status post I&D in June 08, 2024. On antibiotics. Wound culture and blood culture positive for Staph aureus. Plan: Lasix 40 mg IV once today. Add 1500 cc fluid restriction. Encouraged oral intake. Replace potassium. Change PPI to Pepcid. Follow-up echocardiogram. Follow-up pending serologies. Check hepatitis panel. Continue to monitor renal function and urine output. Repeat UA.
[2024-06-13] MEDS: POTASSIUM CHLORIDE ER 20 MEQ TAB.ER PO STA (09:29)
[2024-06-13] MEDS: FUROSEMIDE 10 MG/ML 4 ML VIAL IV STA (09:29)
[2024-06-13 12:11] LABS: Appearance,Urine Cloudy (Clear); Bacteria,Urine Occasional /hpf; Bilirubin,Urine Negative (Negative); Blood,Urine Large (Negative); Color,Urine Light Red; Glucose,Urine (UA) 1+ (Negative); Ketones,Urine Negative (Negative); Leukocyte Esterase,Urine Trace (Negative); Nitrite,Urine Negative (Negative); PH, Urine 5.5 (5.0-8.0); Protein,Urine 1+ (Negative); RBC,Urine 139 /hpf (0-5); Specific Gravity,Urine 1.013 (1.001-1.035); Squamous Epithelial Cell,Urine <1 /hpf (0-4); Urobilinogen,Urine <2.0 mg/dL (<2.0); WBC,Urine 17 /hpf (0-5)
[2024-06-13 12:49] LABS: Glucose,Whole Blood 152 mg/dL (70-110)
--- NOTE | 2024-06-13 16:40 | P.PN ---
Subjective Progress Note Date: 06/13/24 Principal diagnosis: Reason for follow-up is right hand cellulitis and bacteremia Patient is a 53-year-old male with a past medical history of again for diabetes mellitus reflux hypertension osteoarthritis chronic back pain presenting to the hospital for evaluation of worsening pain swelling and redness to the right hand area patient be diagnosed with cellulitis subsequent blood culture came positive with MSSA. Patient is status post surgical drainage of the right hand abscess completed by orthopedic 06/08/2024 On today's evaluation that is 06/13/2024, patient has been afebrile, patient is breathing comfortably and is currently on room air, patient denies having any significant cough no chest pain, patient denies nausea vomiting or diarrhea and no abdominal pain, pain to the right hand is controlled. Complaining of more pain to the lower back area blood culture from 321 also came back positive Objective - Vital Signs Vital signs: Vital Signs Temp 97.6 F 06/13/24 12:45 Pulse 88 06/13/24 12:45 Resp 20 06/13/24 12:45 BP 133/76 06/13/24 12:45 Pulse Ox 97 06/13/24 12:45 FiO2 Intake & Output 06/12/24 06/13/24 06/13/24 18:59 06:59 18:59 Intake Total 710 200 Balance 710 200 Intake: Intake, IV Titration 710 Amount Dextrose 5% in Water 1, 560 000 ml @ 80 mls/hr IV . [id number] SUN with Sodium Bicarb (1 Meq/ml) 150 ml Rx#:[id number] Nafcillin 2 gm In 150 Dextrose 5% in Water 100 ml @ 50 mls/hr IVPB Q4HR SUN Rx#:[id number] Oral 200 Other: Voiding Method Toilet # Voids 2 - Exam GENERAL DESCRIPTION: ashley pugh male lying in bed in no distress RESPIRATORY SYSTEM: Unlabored breathing , decreased breath sounds at bases HEART: S1 S2 regular rate and rhythm , ABDOMEN: Soft , no tenderness EXTREMITIES: Right hand is currently dressed no drainage - Labs CBC & Chem 7: 06/13/24 04:04 06/13/24 04:04 Labs: Abnormal Lab Results - Last 24 Hours (Table) 06/12/24 06/12/24 06/13/24 Range/Units 17:22 20:13 04:04 WBC 14.09 H (4.50-10.00) X 10*3/uL RBC 3.68 L (4.40-5.60) X 10*6/uL Hgb 11.7 L (13.0-17.0) g/dL Hct 33.9 L (39.6-50.0) % RDW 15.4 H (11.5-14.5) % Plt Count 132 L (140-440) X 10*3/uL Immature Gran # 0.19 H (0.00-0.04) X 10*3/uL Neutrophils # 11.96 H (1.80-7.70) X 10*3/uL Sodium (135-145) mmol/L Potassium (3.5-5.5) mmol/L Carbon Dioxide (21.6-31.8) mmol/L BUN (9.0-27.0) mg/dL Creatinine (0.6-1.5) mg/dL Est GFR (CKD-EPI) (>=60) Glucose (70-110) mg/dL POC Glucose (mg/dL) 120 H 176 H (70-110) mg/dL Calcium (8.7-10.3) mg/dL Urine Protein (Negative) Urine Glucose (UA) (Negative) Urine Blood (Negative) Ur Leukocyte Esterase (Negative) Urine RBC (0-5) /hpf Urine WBC (0-5) /hpf Urine Bacteria (None) /hpf 06/13/24 06/13/24 06/13/24 Range/Units 04:04 06:59 11:50 WBC (4.50-10.00) X 10*3/uL RBC (4.40-5.60) X 10*6/uL Hgb (13.0-17.0) g/dL Hct (39.6-50.0) % RDW (11.5-14.5) % Plt Count (140-440) X 10*3/uL Immature Gran # (0.00-0.04) X 10*3/uL Neutrophils # (1.80-7.70) X 10*3/uL Sodium 129 L (135-145) mmol/L Potassium 3.3 L (3.5-5.5) mmol/L Carbon Dioxide 19.1 L (21.6-31.8) mmol/L BUN 42.4 H (9.0-27.0) mg/dL Creatinine 2.4 H (0.6-1.5) mg/dL Est GFR (CKD-EPI) 32 L (>=60) Glucose 179 H (70-110) mg/dL POC Glucose (mg/dL) 183 H (70-110) mg/dL Calcium 7.3 L (8.7-10.3) mg/dL Urine Protein 1+ H (Negative) Urine Glucose (UA) 1+ H (Negative) Urine Blood Large H (Negative) Ur Leukocyte Esterase Trace H (Negative) Urine RBC 139 H (0-5) /hpf Urine WBC 17 H (0-5) /hpf Urine Bacteria Occasional H (None) /hpf 06/13/24 Range/Units 12:47 WBC (4.50-10.00) X 10*3/uL RBC (4.40-5.60) X 10*6/uL Hgb (13.0-17.0) g/dL Hct (39.6-50.0) % RDW (11.5-14.5) % Plt Count (140-440) X 10*3/uL Immature Gran # (0.00-0.04) X 10*3/uL Neutrophils # (1.80-7.70) X 10*3/uL Sodium (135-145) mmol/L Potassium (3.5-5.5) mmol/L Carbon Dioxide (21.6-31.8) mmol/L BUN (9.0-27.0) mg/dL Creatinine (0.6-1.5) mg/dL Est GFR (CKD-EPI) (>=60) Glucose (70-110) mg/dL POC Glucose (mg/dL) 152 H (70-110) mg/dL Calcium (8.7-10.3) mg/dL Urine Protein (Negative) Urine Glucose (UA) (Negative) Urine Blood (Negative) Ur Leukocyte Esterase (Negative) Urine RBC (0-5) /hpf Urine WBC (0-5) /hpf Urine Bacteria (None) /hpf Microbiology - Last 24 Hours (Table) 06/10/24 11:03 Blood Culture Gram Stain - Preliminary Blood Blood Culture - Preliminary Presumptive Staph aureus Molecular ID 06/08/24 11:39 Anaerobic Culture - Final Hand - Right 06/08/24 11:39 Anaerobic Culture - Final Finger - Right Second 06/08/24 11:39 Anaerobic Culture - Final Hand - Right Assessment and Plan (1) Sepsis Current Visit: Yes Status: Acute Code(s): A41.9 - SEPSIS, UNSPECIFIED ORGANISM SNOMED Code(s): 59084187 (2) Cellulitis of right hand Current Visit: Yes Status: Acute Code(s): L03.113 - CELLULITIS OF RIGHT UPPER LIMB SNOMED Code(s): 37063301432720366 Plan: 1patient presented hospital with sepsis in this patient who did have elevated white count tachycardia meeting criteria for SIRS source is right hand cellulitis and likely from gram-positive skin ana 2-patient did have a positive blood culture with MSSA source likely right hand cellulitis 3patient is status post surgical drainage of the abscess and deep culture which are growing MSSA. 4patient to continue with Naficillin, however the blood cultures from treated 06/10/2024 also came back positive blood has been repeated to document clearance currently waiting for echo will also benefit from MRI of the lumbar spine will discuss with nephrology if he can get contrast with it for better result because of his back pain and persistent bacteremia Dictation was produced using [employer] dictation software. please excuse any grammatical, word or spelling errors. Time with Patient: Less than 30
--- NOTE | 2024-06-13 17:21 | CA ---
Transthoracic Echo Report Name: Adria Romo Age: 53 Gender: M : 1970 Exam Date: 06/13/2024 10:50 Exam Location: [facility] Ht (in): 73 Wt (lb): 185 Ordering Physician: Bang Clark MD Attending/Referring Phys: [employer] Phillip RDCS Procedure CPT: Indications: endocarditis? Cardiac Hx: Technical Quality: Good Contrast 1: Total Dose (mL): Contrast 2: Total Dose (mL): MEASUREMENTS (Male / Female) Normal Values 2D ECHO LV Diastolic Diameter PLAX 5.0 cm 4.2 - 5.9 / 3.9 - 5.3 cm LV Systolic Diameter PLAX 3.3 cm IVS Diastolic Thickness 1.0 cm 0.6 - 1.0 / 0.6 - 0.9 cm LVPW Diastolic Thickness 0.9 cm 0.6 - 1.0 / 0.6 - 0.9 cm LV Relative Wall Thickness 0.4 RV Internal Dim ED PLAX 3.1 cm LVOT Diameter 1.7 cm LA Systolic Diameter LX 3.9 cm 3.0 - 4.0 / 2.7 - 3.8 cm LV Diastolic Volume MOD BP 172.7 cm??? 67 - 155 / 56 - 104 cm??? LV Systolic Volume MOD BP 70.8 cm??? 22 - 58 / 19 - 49 cm??? LV Ejection Fraction MOD BP 59.0 % >= 55 % LV Cardiac Index MOD BP 4010.2 cm???/min???m??? LV Diastolic Volume MOD 4C 155.5 cm??? LV Systolic Volume MOD 4C 73.8 cm??? LV Ejection Fraction MOD 4C 52.5 % LV Cardiac Index MOD 4C 3213.0 cm???/min???m??? LV Diastolic Length 4C 8.8 cm LV Systolic Length 4C 7.0 cm LV Diastolic Volume MOD 2C 185.2 cm??? LV Systolic Volume MOD 2C 66.6 cm??? LV Ejection Fraction MOD 2C 64.1 % LV Cardiac Index MOD 2C 4669.2 cm???/min???m??? LV Diastolic Length 2C 9.1 cm LV Systolic Length 2C 7.2 cm LA Volume 77.8 cm??? 18 - 58 / 22 - 52 cm??? LA Volume Index 37.3 cm???/m??? 16 - 28 cm???/m??? DOPPLER MV Area PHT 4.7 cm??? Mitral E Point Velocity 57.1 cm/s Mitral A Point Velocity 79.4 cm/s Mitral E to A Ratio 0.7 MV Deceleration Time 160.1 ms TR Peak Velocity 186.9 cm/s TR Peak Gradient 14.0 mmHg Right Atrial Pressure 5.0 mmHg Pulmonary Artery Systolic Pressu 19.0 mmHg Right Ventricular Systolic Press 19.0 mmHg FINDINGS Left Ventricle Left ventricular ejection fraction is estimated at 55-60%. Mildly increased left ventricular diastolic volume. Mildly increased left ventricular systolic volume. Normal left ventricular systolic function with no obvious regional wall motion abnormalities. Right Ventricle Right ventricular dilatation. Unable to estimate the right ventricular systolic pressure. Right Atrium Normal right atrial size. Left Atrium Moderately increased left atrial volume. Mildly increased left atrial area. Mitral Valve Mitral valve thickened. No mitral stenosis. Trace mitral regurgitation. Aortic Valve Trileaflet aortic valve. Aortic valve sclerosis. No aortic stenosis. No aortic regurgitation. Tricuspid Valve Structurally normal tricuspid valve. No tricuspid stenosis. Trace tricuspid regurgitation. Pulmonic Valve Structurally normal pulmonic valve. No pulmonic stenosis. Trace pulmonic regurgitation. Pericardium No pericardial effusion. No pleural effusion. Aorta Normal size aortic root and proximal ascending aorta. CONCLUSIONS Normal LV systolic function Previewed by: Dr. Guevara Anderson MD (Electronically Signed) Final Date: 13 June 2024 17:20
[2024-06-13 17:24] LABS: Glucose,Whole Blood 284 mg/dL (70-110)
[2024-06-13 19:18] LABS: Hepatitis A Antibody IgM Nonreactive (Nonreactive); Hepatitis B Core IgM Nonreactive (Nonreactive); Hepatitis B Surface Antigen Nonreactive (Nonreactive); Hepatitis C IgG Antibody Nonreactive (Nonreactive)
[2024-06-13 20:13] LABS: Glucose,Whole Blood 205 mg/dL (70-110)
[2024-06-14] MEDS: POTASSIUM CHLORIDE ER 20 MEQ TAB.ER PO STA (03:00)
--- NOTE | 2024-06-14 05:52 | P.PN ---
Subjective Progress Note Date: 06/13/24 This is a pleasant 53-year-old male who was recently admitted with right hand swelling and concerns for cellulitis as well as rheumatoid arthritis. Orthopedics following and scheduled to undergo I&D with washout today. Patient is maintained on antibiotics with infectious disease following and will await deep tissue cultures to determine appropriate antibiotics. Patient to continue with local wound care and elevating right hand while at rest. Continue with pain management. Cultures preliminary showing presumptive Staph aureus MSSA. Kidney functions worsened at 2.3 creatinine and will consult nephrology and appreciate input and recommendations. Continue IV hydration. Also recommend incentive spirometer and increased activity as tolerated and getting out of the bed more frequently. Monitor for any fevers. 06/09/2024 Patient is seen in follow-up status post incision and drainage along with washout of the right hand with orthopedics today. Per OR documentation, there were copious amounts of purulent drainage noted requiring 2 small incisions and cultures were obtained. Preliminary cultures are showing Staphylococcus aureus and will await finalized cultures. Infectious disease following and will discuss if patient will require likely IV antibiotics on discharge. Patient is afebrile although white count remains elevated at 14.06. Patient is also maintained on gentle hydration and will continue along with nafcillin per ID recommendations. Will discuss further with infectious disease regarding discharge planning. Patient is not ready for discharge as of yet. Patient to continue on CIWA protocol and encouraged increase activity as tolerated. Patient does not appear to be actively withdrawing although continues to have difficulty with pain management. 06/10/2024 Patient is seen in follow-up today status post incision and drainage with washout with orthopedics maintained on antibiotics with infectious disease following as well. Patient continues to report significant pain in the hand and difficulty managing pain which has been adjusted and will obtain repeat CT for further evaluation. Patient has been instructed to continue with dressing changes per orthopedics and wound care. Elevate right hand while at rest. Awaiting cultures to determine discharge antibiotics and also to place a PICC line although blood cultures remain positive. Will follow-up with daily blood cultures to monitor clearance of bacteremia. White count remains elevated although patient is afebrile. 06/13/2024 Patient is seen in follow-up today continues on IV antibiotics with infectious disease and orthopedics following. Blood cultures remain positive although most recent on 06/10 are negative at this time and will need to monitor for clearance of bacteremia for PICC line placement. Patient will require IV antibiotics on discharge. Orthopedics following recommending continuing with continued IV antibiotic therapy. Patient is afebrile and white count is trending down. Patient continues to report significant back pain and has been using K-pad and muscle relaxers along with pain medications. Encouraged increase activity as tolerated. Review of systems: Constitutional: No reports of fatigue, fever, or chills Cardiovascular: No reports of chest pain or palpitations Respiratory: No reports of shortness of breath or cough GI: No reports of nausea, no reports of vomiting, no diarrhea : No reports of dysuria or retention Neurovascular: reports of right hand pain and swelling although denies numbness, reports significant back pain and spasms All medications have been reviewed PHYSICAL EXAMINATION: GENERAL: The patient is alert and oriented x4, Well developed, well nourished. Mildly anxious HEENT: Pupils are round and equally reacting to light. EOMI. no scleral icterus. No conjunctival pallor. Normocephalic, atraumatic. No pharyngeal erythema. No t hyromegaly. CARDIOVASCULAR: S1 and S2 muffled PULMONARY: diminished breath sounds bilaterally with no wheezing or rhonchi noted. ABDOMEN: soft. Nontender on exam. non-distended, normoactive bowel sounds. No palpable organomegaly. MUSCULOSKELETAL: No joint swelling or deformity. EXTREMITIES: No cyanosis, clubbing, or pedal edema. Significant right hand swelling with redness has improved, surgical dressing changed and currently dry and intact NEUROLOGICAL: Gross neurological examination did not reveal any focal deficits. SKIN: No rashes. Assessment: Acute cellulitis of the right hand as well as possible rheumatoid arthritis with acute exacerbation with sepsis, present on admission, status post incision and drainage with washout with orthopedics, cultures remain positive for Sta phylococcus aureus MSSA sepsis secondary to above with bacteremia, cultures from incision and drainage also showing Staphylococcus aureus, recent blood cultures from 06/10/2024 are negative and awaiting clearance of bacteremia for PICC line placement for continued IV antibiotics on discharge Leukocytosis, secondary to above, trending down History of GERD Acute kidney injury, likely ATN secondary to sepsis Acute delirium with alcohol withdrawal, maintained on CIWA protocol, improved and patient is not actively withdrawing Diabetes mellitus, type II uncontrolled with hyperglycemia Thrombocytopenia, likely secondary to ongoing alcohol abuse History of hypertension History of daily EtOH use GI prophylaxis DVT prophylaxis Full code Plan: Recommend to continue with current medications and management with orthopedics and infectious disease following. Patient is currently maintained on Unasyn and blood cultures preliminary showing Staphylococcus aureus MSSA and repeat blood cultures are growing positive as well. Repeat blood culture ordered daily. Wound culture showing this as well as patient is status post incision and drainage with washout and cultures were sent per orthopedics. Repeat blood culture from 06/10/2024 is negative for 24 hours Patient will require IV antibiotic on discharge although need to await finalized cultures and clearance of bacteremia for PICC line placement Follow-up on repeat labs and continue with gentle hydration Continue CIWA protocol although patient does not appear to be actively withdrawing, will transition [facility] following for acute kidney injury with a creatinine of 2.0. Minimally improving was given a dose of Lasix today recommend to continue with fluid restrictions. Repeat labs ordered for a.m. Patient is continued on heparin subcu and will monitor closely platelet levels. Encouraged increase activity as tolerated and getting up out of the bed more frequently Continue monitoring Accu-Cheks before meals and at bedtime and home medications have been resumed. Will adjust insulins accordingly Continue local wound care per ID and orthopedic recommendations and instructed patient to continue elevating right hand while at rest. Continue with soaks and washes 3 times daily per orthopedics Social work following as patient will require IV antibiotics on discharge. To verify coverage and currently awaiting finalized cultures to determine appropriate antibiotics per ID recommendations Due to multiple complex medical issues, overall prognosis is guarded The impression and plan of care has been dictated by Ruthy Ariza, nurse practitioner as directed. Dr. Wellington MD I have performed a history and examination and MDM of this patient, discussed the same with the dictator, and agree with the dictator's assessment and plan as written ,documented as a scribe. Based on total visit time, I have performed more than 50% of the visit. Any additional findings or plans will be noted. Objective - Vital Signs Vital signs: Vital Signs Temp 98 F 06/13/24 07:40 Pulse 94 06/13/24 07:40 Resp 20 06/13/24 07:40 BP 157/87 06/13/24 07:40 Pulse Ox 96 06/13/24 07:40 FiO2 Intake & Output 06/12/24 06/13/24 06/13/24 18:59 06:59 18:59 Intake Total 710 200 Balance 710 200 Intake: Intake, IV Titration 710 Amount Dextrose 5% in Water 1, 560 000 ml @ 80 mls/hr IV . [id number] SUN with Sodium Bicarb (1 Meq/ml) 150 ml Rx#:[id number] Nafcillin 2 gm In 150 Dextrose 5% in Water 100 ml @ 50 mls/hr IVPB Q4HR SUN Rx#:[id number] Oral 200 Other: Voiding Method Toilet # Voids 2 - Labs CBC & Chem 7: 06/13/24 04:04 06/14/24 01:17 Labs: Abnormal Lab Results - Last 24 Hours (Table) 06/12/24 06/12/24 06/12/24 Range/Units 12:06 17:22 20:13 WBC (4.50-10.00) X 10*3/uL RBC (4.40-5.60) X 10*6/uL Hgb (13.0-17.0) g/dL Hct (39.6-50.0) % RDW (11.5-14.5) % Plt Count (140-440) X 10*3/uL Immature Gran # (0.00-0.04) X 10*3/uL Neutrophils # (1.80-7.70) X 10*3/uL Sodium (135-145) mmol/L Potassium (3.5-5.5) mmol/L Carbon Dioxide (21.6-31.8) mmol/L BUN (9.0-27.0) mg/dL Creatinine (0.6-1.5) mg/dL Est GFR (CKD-EPI) (>=60) Glucose (70-110) mg/dL POC Glucose (mg/dL) 154 H 120 H 176 H (70-110) mg/dL Calcium (8.7-10.3) mg/dL 06/13/24 06/13/24 06/13/24 Range/Units 04:04 04:04 06:59 WBC 14.09 H (4.50-10.00) X 10*3/uL RBC 3.68 L (4.40-5.60) X 10*6/uL Hgb 11.7 L (13.0-17.0) g/dL Hct 33.9 L (39.6-50.0) % RDW 15.4 H (11.5-14.5) % Plt Count 132 L (140-440) X 10*3/uL Immature Gran # 0.19 H (0.00-0.04) X 10*3/uL Neutrophils # 11.96 H (1.80-7.70) X 10*3/uL Sodium 129 L (135-145) mmol/L Potassium 3.3 L (3.5-5.5) mmol/L Carbon Dioxide 19.1 L (21.6-31.8) mmol/L BUN 42.4 H (9.0-27.0) mg/dL Creatinine 2.4 H (0.6-1.5) mg/dL Est GFR (CKD-EPI) 32 L (>=60) Glucose 179 H (70-110) mg/dL POC Glucose (mg/dL) 183 H (70-110) mg/dL Calcium 7.3 L (8.7-10.3) mg/dL Microbiology - Last 24 Hours (Table) 06/10/24 11:03 Blood Culture Gram Stain - Preliminary Blood Blood Culture - Preliminary Presumptive Staph aureus Molecular ID 06/08/24 11:39 Anaerobic Culture - Final Hand - Right 06/08/24 11:39 Anaerobic Culture - Final Finger - Right Second 06/08/24 11:39 Anaerobic Culture - Final Hand - Right
[2024-06-14 06:49] LABS: Glucose,Whole Blood 168 mg/dL (70-110)
[2024-06-14 07:20] LABS: Glucose,Whole Blood 146 mg/dL (70-110)
[2024-06-14 08:32] LABS: Basophils # (A) 0.05 X 10*3/uL (0.00-0.10); Basophils % (A) 0.3 %; Eosinophils # (A) 0.06 X 10*3/uL (0.04-0.35); Eosinophils % (A) 0.3 %; HCT 37.5 % (39.6-50.0); HGB 12.5 g/dL (13.0-17.0); Lymphocytes # (A) 1.12 X 10*3/uL (0.90-5.00); Lymphocytes % (A) 6.5 %; MCH 31.8 pg (27.0-32.0); MCHC 33.3 g/dL (32.0-37.0); MCV 95.4 FL (80.0-97.0); Mean Platelet Volume 10.4 FL (9.5-12.2); Monocytes # (A) 0.93 X 10*3/uL (0.20-1.00); Monocytes % (A) 5.4 %; NRBC Per 100 WBC 0 X 10*3/uL (0.00-0.01); Neutrophils # (A) 14.85 X 10*3/uL (1.80-7.70); Platelet Count 193 X 10*3/uL (140-440); RBC 3.93 X 10*6/uL (4.40-5.60); RDW 15.8 % (11.5-14.5); WBC 17.27 X 10*3/uL (4.50-10.00)
[2024-06-14 08:51] LABS: BUN/Creat Ratio 14.93 Ratio (12.00-20.00); Blood Urea Nitrogen 44.8 mg/dL (9.0-27.0); Calcium 8.2 mg/dL (8.7-10.3); Carbon Dioxide 23.1 mmol/L (21.6-31.8); Chloride 97 mmol/L (96-109); Glucose 143 mg/dL (70-110); Magnesium 1.9 mg/dL (1.5-2.4); Sodium 132 mmol/L (135-145)
[2024-06-14] MEDS: FAMOTIDINE 20 MG TAB PO SCH (09:15)
--- NOTE | 2024-06-14 11:09 | P.PN ---
Subjective Patient is seen in follow-up for acute kidney injury. Renal function worsening. Has been voiding. No vomiting or diarrhea. Vital signs are stable. General: No acute distress. HEENT: Head exam is unremarkable. LUNGS: No audible rhonchi or wheezes. HEART: Rate and Rhythm are regular. ABDOMEN: Nontender. EXTREMITITES: 1+ edema. Hand swelling noted. No drainage. Objective - Vital Signs Vital signs: Vital Signs Temp 98.2 F 06/14/24 07:50 Pulse 92 06/14/24 07:50 Resp 16 06/14/24 07:50 BP 154/83 06/14/24 07:50 Pulse Ox 93 L 06/14/24 07:50 FiO2 Intake & Output 06/13/24 06/14/24 06/14/24 18:59 06:59 18:59 Intake Total 420 240 Balance 420 240 Intake: Intake, IV Titration 300 Amount Nafcillin 2 gm In 300 Dextrose 5% in Water 100 ml @ 50 mls/hr IVPB Q4HR [facility] Rx#:[id number] Oral 120 240 Other: Voiding Method Toilet # Voids 1 2 - Labs CBC & Chem 7: 06/14/24 04:28 06/14/24 04:28 Labs: Abnormal Lab Results - Last 24 Hours (Table) 06/13/24 06/13/24 06/13/24 Range/Units 11:50 12:47 17:22 WBC (4.50-10.00) X 10*3/uL RBC (4.40-5.60) X 10*6/uL Hgb (13.0-17.0) g/dL Hct (39.6-50.0) % RDW (11.5-14.5) % Immature Gran # (0.00-0.04) X 10*3/uL Neutrophils # (1.80-7.70) X 10*3/uL Sodium (135-145) mmol/L BUN (9.0-27.0) mg/dL Creatinine (0.6-1.5) mg/dL Est GFR (CKD-EPI) (>=60) Glucose (70-110) mg/dL POC Glucose (mg/dL) 152 H 284 H (70-110) mg/dL Calcium (8.7-10.3) mg/dL Urine Protein 1+ H (Negative) Urine Glucose (UA) 1+ H (Negative) Urine Blood Large H (Negative) Ur Leukocyte Esterase Trace H (Negative) Urine RBC 139 H (0-5) /hpf Urine WBC 17 H (0-5) /hpf Urine Bacteria Occasional H (None) /hpf 06/13/24 06/14/24 06/14/24 Range/Units 20:10 04:28 04:28 WBC 17.27 H (4.50-10.00) X 10*3/uL RBC 3.93 L (4.40-5.60) X 10*6/uL Hgb 12.5 L (13.0-17.0) g/dL Hct 37.5 L (39.6-50.0) % RDW 15.8 H (11.5-14.5) % Immature Gran # 0.26 H (0.00-0.04) X 10*3/uL Neutrophils # 14.85 H (1.80-7.70) X 10*3/uL Sodium 132 L (135-145) mmol/L BUN 44.8 H (9.0-27.0) mg/dL Creatinine 3.0 H (0.6-1.5) mg/dL Est GFR (CKD-EPI) 24 L (>=60) Glucose 143 H (70-110) mg/dL POC Glucose (mg/dL) 205 H (70-110) mg/dL Calcium 8.2 L (8.7-10.3) mg/dL Urine Protein (Negative) Urine Glucose (UA) (Negative) Urine Blood (Negative) Ur Leukocyte Esterase (Negative) Urine RBC (0-5) /hpf Urine WBC (0-5) /hpf Urine Bacteria (None) /hpf 06/14/24 06/14/24 Range/Units 06:48 07:19 WBC (4.50-10.00) X 10*3/uL RBC (4.40-5.60) X 10*6/uL Hgb (13.0-17.0) g/dL Hct (39.6-50.0) % RDW (11.5-14.5) % Immature Gran # (0.00-0.04) X 10*3/uL Neutrophils # (1.80-7.70) X 10*3/uL Sodium (135-145) mmol/L BUN (9.0-27.0) mg/dL Creatinine (0.6-1.5) mg/dL Est GFR (CKD-EPI) (>=60) Glucose (70-110) mg/dL POC Glucose (mg/dL) 168 H 146 H (70-110) mg/dL Calcium (8.7-10.3) mg/dL Urine Protein (Negative) Urine Glucose (UA) (Negative) Urine Blood (Negative) Ur Leukocyte Esterase (Negative) Urine RBC (0-5) /hpf Urine WBC (0-5) /hpf Urine Bacteria (None) /hpf Microbiology - Last 24 Hours (Table) 06/12/24 19:18 Blood Culture Gram Stain - Preliminary Blood Blood Culture - Preliminary 06/10/24 11:03 Blood Culture Gram Stain - Preliminary Blood Blood Culture - Preliminary Presumptive Staph aureus Molecular ID Assessment and Plan Plan: Assessment: 1. Acute kidney injury secondary to septic ATN. Creatinine 3.0 today. Creatinine 0.9 dated April 08, 2023. No hydronephrosis noted on ultrasound. Urine eosinophils 1%. Serologies negative. 2. Metabolic acidosis secondary to acute kidney injury. On oral bicarb. Improved. 3. Hypokalemia from diuresis. Replaced. Better. 4. Hypervolemic hyponatremia. Improved. 5. Right hand cellulitis/abscess status post I&D in June 08, 2024. On a ntibiotics. Wound culture and blood culture positive for Staph aureus. Plan: Hold off on diuretics today. Maintain 1500 cc fluid restriction. Encouraged oral intake. Changed PPI to Pepcid. Preserved ejection fraction noted on echocardiogram. Add prednisone due to concern for AIN. Follow-up pending serologies. Continue to monitor renal function and urine output. Avoid nephrotoxins. Schedule renal biopsy for definitive diagnosis. Patient agreeable.
--- NOTE | 2024-06-14 11:25 | P.PN ---
Progress Note - Text Progress Note Date: 06/14/24 The patient is seen and examined today at bedside. He is not complaining of new issues at his hand. He is continue to do soaks and regular wraps. Globally he still feels somewhat painful. His primary pain is at the base of his neck and toward his left shoulder. He had been having this pain somewhat persistently but we have been managing that with medication and focusing on the infectious process at his hand. He says he still able to mobilize and get up and around but he has to try to relieve his muscle aches at his base of his neck by rubbing his back up against the wall. He does not feel new weakness of his left upper extremity. On exam he has been afebrile His left upper extremity has full active and passive range of motion with 5 out of 5 strength. His neck has tenderness to palpation at the base of his cervical spine. There is positive muscle spasm particular to the left and his left trapezium left rhomboids. There is no hyperreflexia at the left upper extremity. He has 5 out of 5 strength of his left upper extremity At his right hand the dressing is taken down. There is no active purulence. There is some serosanguineous drainage on the dressing and I am able to express from the dorsum of his hand and his index finger. There is no significant erythema on the volar side. There is no streaking on the volar aspect of his hand. There is no streaking up his wrist. The erythema is generally decreasing. There is still some cysts diffuse and significant swelling around his knuckles and the base of his fingers of his index finger and towards the middle finger. He is able to bend his finger. There is no pain with passive stretch. There is some mild tenderness over his MCP joint volarly and dorsally. At his right forearm he said that he had A piece of metal toward the ulnar aspect a few weeks ago. It is not erythematous or broken down at that space. But he can feel a small nodule in the area and he wonders if there is metal retained in there. His labs showed increased white blood count today to 17. Yesterday it was 14. His BUN and creatinine are increasing. His urine results are abnormal. Assessment and plan right hand abscess Status post irrigation and debridement, gradually improving Persistent neck and upper thoracic pain with left upper extremity pain, unresolved Renal insufficiency likely due to septic renal injury being managed closely with nephrology In terms of the patient's hand, I think that he should continue his soaks regularly. He needs to maintain his elevation and regular dressing care. I do not see significant issues at the volar aspect of his hand to indicate flexor tendon synovitis. I think it is okay to have the patient eat today as I do not have plans for surgical intervention again today. The erythema is primarily dorsal and it seems to resolve well with elevation and soaks. When he keeps his hand in a dependent position it swells swollen quickly and gets a bit erythematous. His blood cultures have remained positive despite his antibiotics and there managing his IV antibiotics as per infectious disease. We will continue local wound care status post irrigation and debridement of his been performed. Will have to monitor this closely. In terms of the patient's neck pain and left upper extremity issues, he continues to have persistent pain over these areas. He is not having neurologic deficit but he has not had good resolution despite pain medications and further time. I think that further imaging of his neck is worthwhile. His recent thoracic imaging did not show any significant bony change or significant stenosis and evaluation of his cervical spine is warranted. I will obtain new x-ray of his cervical spine and MRI of his cervical spine as well. It is difficult to determine how much we will be able to work towards management of his cervical spine issues if they are degenerative in nature given his acute infectious process currently. However with the continued process going on and his lack of good response I think that imaging of the area is necessary for further evaluation to determine if there is other etiologies involved. We will order the MRI of his cervical spine today. In regards to the patient's renal issues, he is actively involved with evaluation and workup and treatment with nephrology. They have started steroid medication as well.
[2024-06-14 12:23] LABS: Glucose,Whole Blood 134 mg/dL (70-110)
--- NOTE | 2024-06-14 12:24 | XR ---
EXAMINATION TYPE: XR forearm RT DATE OF EXAM: 06/14/2024 CLINICAL INDICATION: Male, 53 years old with history of Right forearm subacute wound, detect for meta l, pain TECHNIQUE: Two views of the right forearm are obtained. COMPARISON: CT right forearm 4 days earlier. FINDINGS: There is no acute fracture or dislocation seen in the rightradius or ulna. The right elbo w and wrist joints appear within normal limits. There is 3 mm linear density in the ulnar soft tissue s at midshaft level corresponds to coronal image 25 tiny foreign body near the skin surface. IMPRESSION: As above. [facility], , 06/14/2024 12:21 PM
--- NOTE | 2024-06-14 12:26 | XR ---
EXAMINATION TYPE: XR cervical spine comp DATE OF EXAM: 06/14/2024 TECHNIQUE: Frontal, lateral, oblique, and open mouth view of the cervical spine are obtained. CLINICAL INDICATION: Male, 53 years old with history of Neck pain, left upper extremity pain, pain COMPARISON: CT cervical spine June 03, 2024 FINDINGS: The cervical spine is visualized in its entirety from C1 thru the top of T1 level, it is s table and straightened in alignment with slight grade 1 retrolisthesis of C5 on C6 redemonstrated. T he pre-vertebral soft tissue appears within normal limits. The C1-C2 articulation is within normal l imits on the open mouth view. Vertebral body heights are maintained. Moderate disc space narrowing a nd anterior spurring at C5-C6 and C6-C7 levels is redemonstrated. The oblique images are within vaishali l limits. [id number] calcified plaque bilateral carotid bulb level is seen in the overlying sof t tissue. IMPRESSION: As above. [facility], , 06/14/2024 12:24 PM
[2024-06-14] MEDS: predniSONE 50 MG TAB PO SCH (12:58)
[2024-06-14 13:20] LABS: HIV 2 AB Non-Reactive (Non-Reactive); HIV AB P24 Non-Reactive (Non-Reactive); HIV P24 AG Non-Reactive (Non-Reactive)
[2024-06-14] MEDS: DAPTOmycin 350 MG in SODIUM CHLORIDE 0.9% 50 ML IVPB SCH (14:00)
[2024-06-14] MEDS: DAPTOmycin 500 MG in SODIUM CHLORIDE 0.9% 50 ML IVPB SCH (14:04)
[2024-06-14 17:18] LABS: Glucose,Whole Blood 146 mg/dL (70-110)
[2024-06-14 20:24] LABS: Glucose,Whole Blood 172 mg/dL (70-110)
[2024-06-15 06:49] LABS: Glucose,Whole Blood 222 mg/dL (70-110)
[2024-06-15 08:53] LABS: BUN/Creat Ratio 16.39 Ratio (12.00-20.00); Blood Urea Nitrogen 45.9 mg/dL (9.0-27.0); Calcium 8.1 mg/dL (8.7-10.3); Carbon Dioxide 18.1 mmol/L (21.6-31.8); Chloride 101 mmol/L (96-109); Glucose 226 mg/dL (70-110); Potassium 4.3 mmol/L (3.5-5.5); Sodium 132 mmol/L (135-145)
[2024-06-15] MEDS: FAMOTIDINE 20 MG TAB PO SCH (09:23)
[2024-06-15 09:24] LABS: Basophils # (A) 0.02 X 10*3/uL (0.00-0.10); Basophils % (A) 0.1 %; Eosinophils # (A) 0.01 X 10*3/uL (0.04-0.35); Eosinophils % (A) 0.1 %; HCT 32.2 % (39.6-50.0); HGB 10.8 g/dL (13.0-17.0); Lymphocytes # (A) 0.77 X 10*3/uL (0.90-5.00); Lymphocytes % (A) 5.4 %; MCH 31.4 pg (27.0-32.0); MCHC 33.5 g/dL (32.0-37.0); MCV 93.6 FL (80.0-97.0); Mean Platelet Volume 10.2 FL (9.5-12.2); Monocytes # (A) 0.65 X 10*3/uL (0.20-1.00); Monocytes % (A) 4.5 %; NRBC Per 100 WBC 0 X 10*3/uL (0.00-0.01); Neutrophils # (A) 12.78 X 10*3/uL (1.80-7.70); Platelet Count 196 X 10*3/uL (140-440); RBC 3.44 X 10*6/uL (4.40-5.60); RDW 15.9 % (11.5-14.5); WBC 14.36 X 10*3/uL (4.50-10.00)
[2024-06-15] MEDS ORDERED: LORazepam 1 MG TAB PO PRN (09:57)
--- NOTE | 2024-06-15 10:04 | P.PN ---
Subjective Progress Note Date: 06/14/24 This is a pleasant 53-year-old male who was recently admitted with right hand swelling and concerns for cellulitis as well as rheumatoid arthritis. Orthopedics following and scheduled to undergo I&D with washout today. Patient is maintained on antibiotics with infectious disease following and will await deep tissue cultures to determine appropriate antibiotics. Patient to continue with local wound care and elevating right hand while at rest. Continue with pain management. Cultures preliminary showing presumptive Staph aureus MSSA. Kidney functions worsened at 2.3 creatinine and will consult nephrology and appreciate input and recommendations. Continue IV hydration. Also recommend incentive spirometer and increased activity as tolerated and getting out of the bed more frequently. Monitor for any fevers. 06/09/2024 Patient is seen in follow-up status post incision and drainage along with washout of the right hand with orthopedics today. Per OR documentation, there were copious amounts of purulent drainage noted requiring 2 small incisions and cultures were obtained. Preliminary cultures are showing Staphylococcus aureus and will await finalized cultures. Infectious disease following and will discuss if patient will require likely IV antibiotics on discharge. Patient is afebrile although white count remains elevated at 14.06. Patient is also maintained on gentle hydration and will continue along with nafcillin per ID recommendations. Will discuss further with infectious disease regarding discharge planning. Patient is not ready for discharge as of yet. Patient to continue on CIWA protocol and encouraged increase activity as tolerated. Patient does not appear to be actively withdrawing although continues to have difficulty with pain management. 06/10/2024 Patient is seen in follow-up today status post incision and drainage with washout with orthopedics maintained on antibiotics with infectious disease following as well. Patient continues to report significant pain in the hand and difficulty managing pain which has been adjusted and will obtain repeat CT for further evaluation. Patient has been instructed to continue with dressing changes per orthopedics and wound care. Elevate right hand while at rest. Awaiting cultures to determine discharge antibiotics and also to place a PICC line although blood cultures remain positive. Will follow-up with daily blood cultures to monitor clearance of bacteremia. White count remains elevated although patient is afebrile. 06/13/2024 Patient is seen in follow-up today continues on IV antibiotics with infectious disease and orthopedics following. Blood cultures remain positive although most recent on 06/10 are negative at this time and will need to monitor for clearance of bacteremia for PICC line placement. Patient will require IV antibiotics on discharge. Orthopedics following recommending continuing with continued IV antibiotic therapy. Patient is afebrile and white count is trending down. Patient continues to report significant back pain and has been using K-pad and muscle relaxers along with pain medications. Encouraged increase activity as tolerated. 06/14/2024 Patient seen in follow-up with multiple consultations continue to follow including orthopedics as well as infectious disease. Blood cultures remain positive with MSSA Staphylococcus aureus and initial repeat blood cultures from 06/10/2024 have now become positive with continued Staph aureus. Patient kidney functions also continue to be elevated with an elevated BUN of 44.8 and creatinine is 3.0. Nephrology is following discussing possible biopsy in the near future. Sodium did improve at 132. White count remains elevated at 17.27 and patient is maintained on antibiotics in the form of ampicillin. Given patient's continued bacteremia discussed with infectious disease and will transition to daptomycin and continue with daily blood cultures to monitor clearance of the bacteremia. Patient also with orthopedics following with concerns of continued ongoing infection as well as cervical neck pain and spasms did initially order an MRI although unable to and x-ray images have been ordered and pending. Review of systems: Constitutional: No reports of fatigue, fever, or chills Cardiovascular: No reports of chest pain or palpitations Respiratory: No reports of shortness of breath or cough GI: No reports of nausea, no reports of vomiting, no diarrhea : No reports of dysuria or retention Neurovascular: reports of right hand pain and swelling although denies numbness, reports continued significant back pain and spasms All medications have been reviewed PHYSICAL EXAMINATION: GENERAL: The patient is alert and oriented x4, Well developed, well nourished. Mildly anxious HEENT: Pupils are round and equally reacting to light. EOMI. no scleral icterus. No conjunctival pallor. Normocephalic, atraumatic. No pharyngeal erythema. No thyromegaly. CARDIOVASCULAR: S1 and S2 muffled PULMONARY: diminished breath sounds bilaterally with no wheezing or rhonchi noted. ABDOMEN: soft. Nontender on exam. non-distended, normoactive bowel sounds. No palpable organomegaly. MUSCULOSKELETAL: No joint swelling or deformity. EXTREMITIES: No cyanosis, clubbing, or pedal edema. Significant right hand swe lling with redness has improved, surgical dressing changed and currently dry and intact NEUROLOGICAL: Gross neurological examination did not reveal any focal deficits. SKIN: No rashes. Assessment: Acute cellulitis of the right hand as well as possible rheumatoid arthritis with acute exacerbation with sepsis, present on admission, status post incision and drainage with washout with orthopedics, cultures remain positive for Staphylococcus aureus MSSA sepsis secondary to above with bacteremia, cultures from incision and drainage also showing Staphylococcus aureus, recent blood cultures from 06/10/2024 are now positive and undergoing daily blood cultures to monitor clearance of bacteremia Leukocytosis, secondary to above, trending down History of GERD Acute kidney injury, likely ATN secondary to sepsis Acute delirium with alcohol withdrawal, maintained on CIWA protocol, improved and patient is not actively withdrawing Diabetes mellitus, type II uncontrolled with hyperglycemia Thrombocytopenia, likely secondary to ongoing alcohol abuse Persistent neck and thoracic pain with left upper extremity pain and spasms, ongoing workup History of hypertension History of daily EtOH use GI prophylaxis DVT prophylaxis Full code Plan: Recommend to continue with current medications and management with orthopedics and infectious disease following. Patient is currently maintained on Unasyn and blood cultures preliminary showing Staphylococcus aureus MSSA and repeat blood cultures are growing positive as well. Repeat blood culture ordered daily. Wound culture showing this as well as patient is status post incision and drainage with washout and cultures were sent per orthopedics. Repeat blood culture from 06/10/2024 is now positive per micro lab and will continue with daily blood culture draws to monitor clearance of bacteremia. Discussed further with infectious disease and will transition to daptomycin and monitor closely Patient will require IV antibiotic on discharge although need to await finalized cultures and clearance of bacteremia for PICC line placement Orthopedics following as well and patient continues to have ongoing neck and thoracic pain causing spasms and left upper extremity pain. Further imaging including possible MRI ordered at this time. Unable to perform MRI as there was an incidental finding of a foreign object in the right forearm and will need to be further evaluated. X-ray images have been ordered per orthopedics. Follow-up on repeat labs and continue with gentle hydration Nephrology following for acute kidney injury with a creatinine of 3.0. Continuing to be elevated and discussing biopsy of the kidney per nephrology Patient is continued on heparin subcu and will monitor closely platelet levels. Encouraged increase activity as tolerated and getting up out of the bed more frequently Continue monitoring Accu-Cheks before meals and at bedtime and home medications have been resumed. Will adjust insulins accordingly Continue local wound care per ID and orthopedic recommendations and instructed patient to continue elevating right hand while at rest. Continue with soaks and washes 3 times daily per orthopedics Social work following as patient will require IV antibiotics on discharge. To verify coverage and currently awaiting finalized cultures to determine appropriate antibiotics per ID recommendations Due to multiple complex medical issues, overall prognosis is guarded The impression and plan of care has been dictated by Ruthy Ariza, nurse practitioner as directed. Dr. Wellington MD I have performed a history and examination and MDM of this patient, discussed the same with the dictator, and agree with the dictator's assessment and plan as written ,documented as a scribe. Based on total visit time, I have performed more than 50% of the visit. Any additional findings or plans will be noted. Objective - Vital Signs Vital signs: Vital Signs Temp 98.2 F 06/14/24 07:50 Pulse 92 06/14/24 07:50 Resp 16 06/14/24 07:50 BP 154/83 06/14/24 07:50 Pulse Ox 93 L 06/14/24 07:50 FiO2 Intake & Output 06/13/24 06/14/24 06/14/24 18:59 06:59 18:59 Intake Total 420 240 Balance 420 240 Intake: Intake, IV Titration 300 Amount Nafcillin 2 gm In 300 Dextrose 5% in Water 100 ml @ 50 mls/hr IVPB Q4HR [facility] Rx#:[id number] Oral 120 240 Other: Voiding Method Toilet # Voids 1 2 - Labs CBC & Chem 7: 06/15/24 05:16 06/15/24 04:47 Labs: Abnormal Lab Results - Last 24 Hours (Table) 06/13/24 06/13/24 06/13/24 Range/Units 11:50 12:47 17:22 WBC (4.50-10.00) X 10*3/uL RBC (4.40-5.60) X 10*6/uL Hgb (13.0-17.0) g/dL Hct (39.6-50.0) % RDW (11.5-14.5) % Immature Gran # (0.00-0.04) X 10*3/uL Neutrophils # (1.80-7.70) X 10*3/uL Sodium (135-145) mmol/L BUN (9.0-27.0) mg/dL Creatinine (0.6-1.5) mg/dL Est GFR (CKD-EPI) (>=60) Glucose (70-110) mg/dL POC Glucose (mg/dL) 152 H 284 H (70-110) mg/dL Calcium (8.7-10.3) mg/dL Urine Protein 1+ H (Negative) Urine Glucose (UA) 1+ H (Negative) Urine Blood Large H (Negative) Ur Leukocyte Esterase Trace H (Negative) Urine RBC 139 H (0-5) /hpf Urine WBC 17 H (0-5) /hpf Urine Bacteria Occasional H (None) /hpf 06/13/24 06/14/24 06/14/24 Range/Units 20:10 04:28 04:28 WBC 17.27 H (4.50-10.00) X 10*3/uL RBC 3.93 L (4.40-5.60) X 10*6/uL Hgb 12.5 L (13.0-17.0) g/dL Hct 37.5 L (39.6-50.0) % RDW 15.8 H (11.5-14.5) % Immature Gran # 0.26 H (0.00-0.04) X 10*3/uL Neutrophils # 14.85 H (1.80-7.70) X 10*3/uL Sodium 132 L (135-145) mmol/L BUN 44.8 H (9.0-27.0) mg/dL Creatinine 3.0 H (0.6-1.5) mg/dL Est GFR (CKD-EPI) 24 L (>=60) Glucose 143 H (70-110) mg/dL POC Glucose (mg/dL) 205 H (70-110) mg/dL Calcium 8.2 L (8.7-10.3) mg/dL Urine Protein (Negative) Urine Glucose (UA) (Negative) Urine Blood (Negative) Ur Leukocyte Esterase (Negative) Urine RBC (0-5) /hpf Urine WBC (0-5) /hpf Urine Bacteria (None) /hpf 06/14/24 06/14/24 Range/Units 06:48 07:19 WBC (4.50-10.00) X 10*3/uL RBC (4.40-5.60) X 10*6/uL Hgb (13.0-17.0) g/dL Hct (39.6-50.0) % RDW (11.5-14.5) % Immature Gran # (0.00-0.04) X 10*3/uL Neutrophils # (1.80-7.70) X 10*3/uL Sodium (135-145) mmol/L BUN (9.0-27.0) mg/dL Creatinine (0.6-1.5) mg/dL Est GFR (CKD-EPI) (>=60) Glucose (70-110) mg/dL POC Glucose (mg/dL) 168 H 146 H (70-110) mg/dL Calcium (8.7-10.3) mg/dL Urine Protein (Negative) Urine Glucose (UA) (Negative) Urine Blood (Negative) Ur Leukocyte Esterase (Negative) Urine RBC (0-5) /hpf Urine WBC (0-5) /hpf Urine Bacteria (None) /hpf Microbiology - Last 24 Hours (Table) 06/12/24 19:18 Blood Culture Gram Stain - Preliminary Blood Blood Culture - Preliminary 06/10/24 11:03 Blood Culture Gram Stain - Preliminary Blood Blood Culture - Preliminary Presumptive Staph aureus Molecular ID
--- NOTE | 2024-06-15 10:49 | P.PN ---
Subjective Patient is seen in follow-up for acute kidney injury. Renal function slightly better today. Has been voiding. No vomiting or diarrhea. Oral intake is fair. Vital signs are stable. General: No acute distress. HEENT: Head exam is unremarkable. LUNGS: No audible rhonchi or wheezes. HEART: Rate and Rhythm are regular. ABDOMEN: Nontender. EXTREMITITES: 1+ edema. Hand swelling noted. No drainage. Objective - Vital Signs Vital signs: Vital Signs Temp 98.3 F 06/15/24 00:58 Pulse 89 06/15/24 00:58 Resp 18 06/15/24 00:58 BP 136/79 06/15/24 00:58 Pulse Ox 93 L 06/15/24 00:58 FiO2 Intake & Output 06/14/24 06/15/24 06/15/24 18:59 06:59 18:59 Intake Total 1800 480 Balance 1800 480 Intake: Oral 1800 480 Other: Voiding Method Toilet Toilet Toilet Urinal Urinal Urinal # Voids 5 1 - Labs CBC & Chem 7: 06/15/24 05:16 06/15/24 04:47 Labs: Abnormal Lab Results - Last 24 Hours (Table) 06/14/24 06/14/24 06/14/24 Range/Units 12:21 17:16 20:21 WBC (4.50-10.00) X 10*3/uL RBC (4.40-5.60) X 10*6/uL Hgb (13.0-17.0) g/dL Hct (39.6-50.0) % RDW (11.5-14.5) % Immature Gran # (0.00-0.04) X 10*3/uL Neutrophils # (1.80-7.70) X 10*3/uL Lymphocytes # (0.90-5.00) X 10*3/uL Eosinophils # (0.04-0.35) X 10*3/uL Sodium (135-145) mmol/L Carbon Dioxide (21.6-31.8) mmol/L Anion Gap (4.00-12.00) mmol/L BUN (9.0-27.0) mg/dL Creatinine (0.6-1.5) mg/dL Est GFR (CKD-EPI) (>=60) Glucose (70-110) mg/dL POC Glucose (mg/dL) 134 H 146 H 172 H (70-110) mg/dL Calcium (8.7-10.3) mg/dL 06/15/24 06/15/24 06/15/24 Range/Units 04:47 05:16 06:48 WBC 14.36 H (4.50-10.00) X 10*3/uL RBC 3.44 L (4.40-5.60) X 10*6/uL Hgb 10.8 L (13.0-17.0) g/dL Hct 32.2 L (39.6-50.0) % RDW 15.9 H (11.5-14.5) % Immature Gran # 0.13 H (0.00-0.04) X 10*3/uL Neutrophils # 12.78 H (1.80-7.70) X 10*3/uL Lymphocytes # 0.77 L (0.90-5.00) X 10*3/uL Eosinophils # 0.01 L (0.04-0.35) X 10*3/uL Sodium 132 L (135-145) mmol/L Carbon Dioxide 18.1 L (21.6-31.8) mmol/L Anion Gap 12.90 H (4.00-12.00) mmol/L BUN 45.9 H (9.0-27.0) mg/dL Creatinine 2.8 H (0.6-1.5) mg/dL Est GFR (CKD-EPI) 26 L (>=60) Glucose 226 H (70-110) mg/dL POC Glucose (mg/dL) 222 H (70-110) mg/dL Calcium 8.1 L (8.7-10.3) mg/dL Microbiology - Last 24 Hours (Table) 06/12/24 19:18 Blood Culture Gram Stain - Preliminary Blood Blood Culture - Preliminary Presumptive Staph aureus 06/10/24 11:03 Blood Culture Gram Stain - Final Blood Blood Culture - Final Staphylococcus aureus Molecular ID Assessment and Plan Plan: Assessment: 1. Acute kidney injury secondary to septic ATN. Creatinine peaked at 3.0 this admission and is 2.8 today. Creatinine 0.9 dated April 08, 2023. No hydronephrosis noted on ultrasound. Urine eosinophils 1%. Serologies negative. 2. Metabolic acidosis secondary to acute kidney injury. On oral bicarb. Improved. 3. Hypokalemia from diuresis. Replaced. Better. 4. Hypervolemic hyponatremia. Improved. 5. Right hand cellulitis/abscess status post I&D in June 08, 2024. On antibiotics. Wound culture and blood culture positive for Staph aureus. Plan: Continue to hold diuretics. Maintain 1500 cc fluid restriction. Encouraged oral intake. Changed PPI to Pepcid. Preserved ejection fraction noted on echocardiogram. Prednisone added June 14, 2024 due to concern for AIN. Follow-up pending serologies. Continue to monitor renal function and urine output. Avoid nephrotoxins. Kidney biopsy pending.
[2024-06-15] MEDS: SODIUM BICARB 8.4% 50 ML SYR (1 MEQ/ML) IV STA (12:18)
[2024-06-15 12:35] LABS: Glucose,Whole Blood 242 mg/dL (70-110)
[2024-06-15 17:15] LABS: Glucose,Whole Blood 248 mg/dL (70-110)
--- NOTE | 2024-06-15 17:45 | P.PN ---
Subjective Progress Note Date: 06/15/24 Principal diagnosis: Reason for follow-up is right hand cellulitis and bacteremia Patient is a 53-year-old male with a past medical history of again for diabetes mellitus reflux hypertension osteoarthritis chronic back pain presenting to the hospital for evaluation of worsening pain swelling and redness to the right hand area patient be diagnosed with cellulitis subsequent blood culture came positive with MSSA. Patient is status post surgical drainage of the right hand abscess completed by orthopedic 06/08/2024 On today's evaluation that is at06/15/2024,the patient denies any fever or any chills, patient is breathing comfortably on room air, the patient denies chest pain shortness of breath and no significant cough, patient denies abdominal pain, no nausea vomiting or diarrhea. Still complaining of pain to the upper back area Patient white count is 14.36 creatinine is 2.8 Objective - Vital Signs Vital signs: Vital Signs Temp 97.7 F 06/15/24 12:47 Pulse 75 06/15/24 12:47 Resp 16 06/15/24 12:47 BP 146/92 06/15/24 12:47 Pulse Ox 98 06/15/24 12:47 FiO2 Intake & Output 06/14/24 06/15/24 06/15/24 18:59 06:59 18:59 Intake Total 1800 480 Balance 1800 480 Intake: Oral 1800 480 Other: Voiding Method Toilet Toilet Toilet Urinal Urinal Urinal # Voids 5 1 - Exam GENERAL DESCRIPTION: ashley pugh male lying in bed in no distress RESPIRATORY SYSTEM: Unlabored breathing , decreased breath sounds at bases HEART: S1 S2 regular rate and rhythm , ABDOMEN: Soft , no tenderness EXTREMITIES: Right hand is currently dressed no drainage - Labs CBC & Chem 7: 06/15/24 05:16 06/15/24 04:47 Labs: Abnormal Lab Results - Last 24 Hours (Table) 06/14/24 06/14/24 06/15/24 Range/Units 17:16 20:21 04:47 WBC (4.50-10.00) X 10*3/uL RBC (4.40-5.60) X 10*6/uL Hgb (13.0-17.0) g/dL Hct (39.6-50.0) % RDW (11.5-14.5) % Immature Gran # (0.00-0.04) X 10*3/uL Neutrophils # (1.80-7.70) X 10*3/uL Lymphocytes # (0.90-5.00) X 10*3/uL Eosinophils # (0.04-0.35) X 10*3/uL Sodium 132 L (135-145) mmol/L Carbon Dioxide 18.1 L (21.6-31.8) mmol/L Anion Gap 12.90 H (4.00-12.00) mmol/L BUN 45.9 H (9.0-27.0) mg/dL Creatinine 2.8 H (0.6-1.5) mg/dL Est GFR (CKD-EPI) 26 L (>=60) Glucose 226 H (70-110) mg/dL POC Glucose (mg/dL) 146 H 172 H (70-110) mg/dL Calcium 8.1 L (8.7-10.3) mg/dL 06/15/24 06/15/24 06/15/24 Range/Units 05:16 06:48 12:34 WBC 14.36 H (4.50-10.00) X 10*3/uL RBC 3.44 L (4.40-5.60) X 10*6/uL Hgb 10.8 L (13.0-17.0) g/dL Hct 32.2 L (39.6-50.0) % RDW 15.9 H (11.5-14.5) % Immature Gran # 0.13 H (0.00-0.04) X 10*3/uL Neutrophils # 12.78 H (1.80-7.70) X 10*3/uL Lymphocytes # 0.77 L (0.90-5.00) X 10*3/uL Eosinophils # 0.01 L (0.04-0.35) X 10*3/uL Sodium (135-145) mmol/L Carbon Dioxide (21.6-31.8) mmol/L Anion Gap (4.00-12.00) mmol/L BUN (9.0-27.0) mg/dL Creatinine (0.6-1.5) mg/dL Est GFR (CKD-EPI) (>=60) Glucose (70-110) mg/dL POC Glucose (mg/dL) 222 H 242 H (70-110) mg/dL Calcium (8.7-10.3) mg/dL Microbiology - Last 24 Hours (Table) 06/12/24 19:18 Blood Culture Gram Stain - Preliminary Blood Blood Culture - Preliminary Presumptive Staph aureus 06/10/24 11:03 Blood Culture Gram Stain - Final Blood Blood Culture - Final Staphylococcus aureus Molecular ID Assessment and Plan (1) Sepsis Current Visit: Yes Status: Acute Code(s): A41.9 - SEPSIS, UNSPECIFIED ORGANISM SNOMED Code(s): 53184858 (2) Cellulitis of right hand Current Visit: Yes Status: Acute Code(s): L03.113 - CELLULITIS OF RIGHT UPPER LIMB SNOMED Code(s): 82686625770770200 Plan: 1patient presented hospital with sepsis in this patient who did have elevated white count tachycardia meeting criteria for SIRS source is right hand cellu litis and likely from gram-positive skin ana 2-patient did have a positive blood culture with MSSA source likely right hand cellulitis 3patient is status post surgical drainage of the abscess and deep culture which are growing MSSA. 4patient did have persistent bacteremia concerning for possible deep infection and question of possible discitis currently undergoing workup for possible MRI of the thoracic spine 5patient also have worsening of his kidney function questionable interstitial nephritis secondary to naficillin which was discontinued yesterday patient was started on daptomycin to continue and monitor clinical course closely Dictation was produced using [employer] dictation software. please excuse any grammatical, word or spelling errors. Time with Patient: Less than 30
--- NOTE | 2024-06-15 17:45 | P.PN ---
Subjective Progress Note Date: 06/14/24 Principal diagnosis: Reason for follow-up is right hand cellulitis and bacteremia Patient is a 53-year-old male with a past medical history of again for diabetes mellitus reflux hypertension osteoarthritis chronic back pain presenting to the hospital for evaluation of worsening pain swelling and redness to the right hand area patient be diagnosed with cellulitis subsequent blood culture came positive with MSSA. Patient is status post surgical drainage of the right hand abscess completed by orthopedic 06/08/2024 On today's evaluation that is 06/14/2024 patient continues to be afebrile breathing comfortably on room air no chest pain shortness with or cough pain in the right hand has decreased intensity has been complaining of more pain to the upper back area. Patient white count is up to 17.27 creatinine 3.0 Objective - Vital Signs Vital signs: Vital Signs Temp 97.8 F 06/14/24 11:38 Pulse 106 H 06/14/24 11:38 Resp 16 06/14/24 11:38 BP 138/87 06/14/24 11:38 Pulse Ox 95 06/14/24 11:38 FiO2 Intake & Output 06/13/24 06/14/24 06/14/24 18:59 06:59 18:59 Intake Total 420 240 Balance 420 240 Intake: Intake, IV Titration 300 Amount Nafcillin 2 gm In 300 Dextrose 5% in Water 100 ml @ 50 mls/hr IVPB Q4HR [facility] Rx#:[id number] Oral 120 240 Other: Voiding Method Toilet # Voids 1 2 - Exam GENERAL DESCRIPTION: ashlye pugh male lying in bed in no distress RESPIRATORY SYSTEM: Unlabored breathing , decreased breath sounds at bases HEART: S1 S2 regular rate and rhythm , ABDOMEN: Soft , no tenderness EXTREMITIES: Right hand is currently dressed no drainage - Labs CBC & Chem 7: 06/15/24 05:16 06/15/24 04:47 Labs: Abnormal Lab Results - Last 24 Hours (Table) 06/13/24 06/13/24 06/14/24 Range/Units 17:22 20:10 04:28 WBC (4.50-10.00) X 10*3/uL RBC (4.40-5.60) X 10*6/uL Hgb (13.0-17.0) g/dL Hct (39.6-50.0) % RDW (11.5-14.5) % Immature Gran # (0.00-0.04) X 10*3/uL Neutrophils # (1.80-7.70) X 10*3/uL Sodium 132 L (135-145) mmol/L BUN 44.8 H (9.0-27.0) mg/dL Creatinine 3.0 H (0.6-1.5) mg/dL Est GFR (CKD-EPI) 24 L (>=60) Glucose 143 H (70-110) mg/dL POC Glucose (mg/dL) 284 H 205 H (70-110) mg/dL Calcium 8.2 L (8.7-10.3) mg/dL 06/14/24 06/14/24 06/14/24 Range/Units 04:28 06:48 07:19 WBC 17.27 H (4.50-10.00) X 10*3/uL RBC 3.93 L (4.40-5.60) X 10*6/uL Hgb 12.5 L (13.0-17.0) g/dL Hct 37.5 L (39.6-50.0) % RDW 15.8 H (11.5-14.5) % Immature Gran # 0.26 H (0.00-0.04) X 10*3/uL Neutrophils # 14.85 H (1.80-7.70) X 10*3/uL Sodium (135-145) mmol/L BUN (9.0-27.0) mg/dL Creatinine (0.6-1.5) mg/dL Est GFR (CKD-EPI) (>=60) Glucose (70-110) mg/dL POC Glucose (mg/dL) 168 H 146 H (70-110) mg/dL Calcium (8.7-10.3) mg/dL 06/14/24 Range/Units 12:21 WBC (4.50-10.00) X 10*3/uL RBC (4.40-5.60) X 10*6/uL Hgb (13.0-17.0) g/dL Hct (39.6-50.0) % RDW (11.5-14.5) % Immature Gran # (0.00-0.04) X 10*3/uL Neutrophils # (1.80-7.70) X 10*3/uL Sodium (135-145) mmol/L BUN (9.0-27.0) mg/dL Creatinine (0.6-1.5) mg/dL Est GFR (CKD-EPI) (>=60) Glucose (70-110) mg/dL POC Glucose (mg/dL) 134 H (70-110) mg/dL Calcium (8.7-10.3) mg/dL Microbiology - Last 24 Hours (Table) 06/12/24 19:18 Blood Culture Gram Stain - Preliminary Blood Blood Culture - Preliminary Assessment and Plan (1) Sepsis Current Visit: Yes Status: Acute Code(s): A41.9 - SEPSIS, UNSPECIFIED ORGANISM SNOMED Code(s): 29613001 (2) Cellulitis of right hand Current Visit: Yes Status: Acute Code(s): L03.113 - CELLULITIS OF RIGHT UPPER LIMB SNOMED Code(s): 53312438179492621 Plan: 1patient presented hospital with sepsis in this patient who did have elevated white count tachycardia meeting criteria for SIRS source is right hand cellulitis and likely from gram-positive skin ana 2-patient did have a positive blood culture with MSSA source likely right hand cellulitis 3patient is status post surgical drainage of the abscess and deep culture which are growing MSSA. 4patient did have persistent bacteremia concerning for possible deep infection and question of possible discitis currently undergoing workup for possible MRI of the thoracic spine care discussed with the orthopedic surgeon 5patient also have worsening of his kidney function questionable interstitial nephritis secondary to naficillin which has been discontinued we will check urine for eosinophil and start the patient on daptomycin care discussed with the MARINE UNDERWRITER for admitting team Dictation was produced using [employer] dictation software. please excuse any grammatical, word or spelling errors. Time with Patient: Less than 30
[2024-06-15 20:22] LABS: Glucose,Whole Blood 248 mg/dL (70-110)
--- NOTE | 2024-06-16 06:32 | P.PN ---
Subjective Progress Note Date: 06/15/24 This is a pleasant 53-year-old male who was recently admitted with right hand swelling and concerns for cellulitis as well as rheumatoid arthritis. Orthopedics following and scheduled to undergo I&D with washout today. Patient is maintained on antibiotics with infectious disease following and will await deep tissue cultures to determine appropriate antibiotics. Patient to continue with local wound care and elevating right hand while at rest. Continue with pain management. Cultures preliminary showing presumptive Staph aureus MSSA. Kidney functions worsened at 2.3 creatinine and will consult nephrology and appreciate input and recommendations. Continue IV hydration. Also recommend incentive spirometer and increased activity as tolerated and getting out of the bed more frequently. Monitor for any fevers. 06/09/2024 Patient is seen in follow-up status post incision and drainage along with washout of the right hand with orthopedics today. Per OR documentation, there were copious amounts of purulent drainage noted requiring 2 small incisions and cultures were obtained. Preliminary cultures are showing Staphylococcus aureus and will await finalized cultures. Infectious disease following and will discuss if patient will require likely IV antibiotics on discharge. Patient is afebrile although white count remains elevated at 14.06. Patient is also maintained on gentle hydration and will continue along with nafcillin per ID recommendations. Will discuss further with infectious disease regarding discharge planning. Patient is not ready for discharge as of yet. Patient to continue on CIWA protocol and encouraged increase activity as tolerated. Patient does not appear to be actively withdrawing although continues to have difficulty with pain management. 06/10/2024 Patient is seen in follow-up today status post incision and drainage with washout with orthopedics maintained on antibiotics with infectious disease following as well. Patient continues to report significant pain in the hand and difficulty managing pain which has been adjusted and will obtain repeat CT for further evaluation. Patient has been instructed to continue with dressing changes per orthopedics and wound care. Elevate right hand while at rest. Awaiting cultures to determine discharge antibiotics and also to place a PICC line although blood cultures remain positive. Will follow-up with daily blood cultures to monitor clearance of bacteremia. White count remains elevated although patient is afebrile. 06/13/2024 Patient is seen in follow-up today continues on IV antibiotics with infectious disease and orthopedics following. Blood cultures remain positive although most recent on 06/10 are negative at this time and will need to monitor for clearance of bacteremia for PICC line placement. Patient will require IV antibiotics on discharge. Orthopedics following recommending continuing with continued IV antibiotic therapy. Patient is afebrile and white count is trending down. Patient continues to report significant back pain and has been using K-pad and muscle relaxers along with pain medications. Encouraged increase activity as tolerated. 06/14/2024 Patient seen in follow-up with multiple consultations continue to follow including orthopedics as well as infectious disease. Blood cultures remain positive with MSSA Staphylococcus aureus and initial repeat blood cultures from 06/10/2024 have now become positive with continued Staph aureus. Patient kidney functions also continue to be elevated with an elevated BUN of 44.8 and creatinine is 3.0. Nephrology is following discussing possible biopsy in the near future. Sodium did improve at 132. White count remains elevated at 17.27 and patient is maintained on antibiotics in the form of ampicillin. Given patient's continued bacteremia discussed with infectious disease and will transition to daptomycin and continue with daily blood cultures to monitor clearance of the bacteremia. Patient also with orthopedics following with concerns of continued ongoing infection as well as cervical neck pain and spasms did initially order an MRI although unable to and x-ray images have been ordered and pending. 06/15/2024 Patient is seen in follow-up today with multiple consultations following. Patient continued on antibiotics with infectious disease following and blood cultures remain positive. Kidney functions are elevated with creatinine of 2.9 and interventional radiology is consulted per nephrology for kidney biopsy. Patient is continued on daptomycin per infectious disease and following up on daily blood cultures. Patient has been up and walking the halls and continues to report upper extremity weakness with pain and back pain. Patient is afebrile with no reports of chest pain or shortness of breath. Patient reports has been tolerating diet with no reported nausea or vomiting. Review of systems: Constitutional: No reports of fatigue, fever, or chills Cardiovascular: No reports of chest pain or palpitations Respiratory: No reports of shortness of breath or cough GI: No reports of nausea, no reports of vomiting, no diarrhea : No reports of dysuria or retention Neurovascular: reports of right hand pain and swelling although denies numbness, reports continued significant back pain and spasms All medications have been reviewed PHYSICAL EXAMINATION: GENERAL: The patient is alert and oriented x4, Well developed, well nourished. Mildly anxious HEENT: Pupils are round and equally reacting to light. EOMI. no scleral icterus. No conjunctival pallor. Normocephalic, atraumatic. No pharyngeal erythema. No thyromegaly. CARDIOVASCULAR: S1 and S2 muffled PULMONARY: diminished breath sounds bilaterally with no wheezing or rhonchi noted. ABDOMEN: soft. Nontender on exam. non-distended, normoactive bowel sounds. No palpable organomegaly. MUSCULOSKELETAL: No joint swelling or deformity. EXTREMITIES: No cyanosis, clubbing, or pedal edema. Significant right hand swelling with redness has improved, surgical dressing changed and currently dry and intact NEUROLOGICAL: Gross neurological examination did not reveal any focal deficits. SKIN: No rashes. Assessment: Acute cellulitis of the right hand with sepsis, present on admission, status post incision and drainage with washout with orthopedics, cultures remain positive for Staphylococcus aureus MSSA sepsis secondary to above with bacteremia, cultures from incision and drainage also showing Staphylococcus aureus, recent blood cultures from 06/10/2024 are now positive and undergoing daily blood cultures to monitor clearance of bacteremia Possible foreign body noted on imaging of the right forearm Possible rheumatoid arthritis with acute exacerbation Leukocytosis, secondary to above, trending down History of GERD Acute kidney injury, likely ATN secondary to sepsis Acute delirium with alcohol withdrawal, improved and patient is not actively withdrawing Diabetes mellitus, type II uncontrolled with hyperglycemia Thrombocytopenia, likely secondary to ongoing alcohol abuse Persistent neck and thoracic pain with left upper extremity pain and spasms, ongoing workup History of hypertension History of daily EtOH use GI prophylaxis DVT prophylaxis Full code Plan: Recommend to continue with current medications and management with orthopedics and infectious disease following. Patient is currently maintained on daptomycin blood cultures remain positive undergoing daily blood culture repeats until clearance of bacteremia is noted Patient will require IV antibiotic on discharge although need to await laure lized cultures and clearance of bacteremia for PICC line placement Orthopedics following as well and patient continues to have ongoing neck and thoracic pain causing spasms and left upper extremity pain. Further imaging including possible MRI ordered at this time although unable to perform MRI as t here was an incidental finding of a foreign object in the right forearm and will need to be further evaluated. X-ray images have been ordered per orthopedics. Follow-up on repeat labs and continue with gentle hydration Nephrology following for acute kidney injury with a creatinine of 2.9 with no si gnificant improvement. Continuing to be elevated and interventional radiology consulted for biopsy of the kidney, possibly on 06/16/2024 Patient is continued on heparin subcu and will monitor closely platelet levels. Encouraged increase activity as tolerated and getting up out of the bed more frequently. Patient has been up and walking the halls frequently Continue monitoring Accu-Cheks before meals and at bedtime and home medications have been resumed. Will adjust insulins accordingly Continue local wound care per ID and orthopedic recommendations and instructed patient to continue elevating right hand while at rest. Continue with soaks and washes 3 times daily per orthopedics Social work following as patient will require IV antibiotics on discharge. To verify coverage and currently awaiting finalized cultures to determine appropriate antibiotics per ID recommendations Due to multiple complex medical issues, overall prognosis is guarded The impression and plan of care has been dictated by Ruthy Ariza, nurse practitioner as directed. Dr. Wellington MD I have performed a history and examination and MDM of this patient, discussed the same with the dictator, and agree with the dictator's assessment and plan as written ,documented as a scribe. Based on total visit time, I have performed more than 50% of the visit. Any additional findings or plans will be noted. Objective - Vital Signs Vital signs: Vital Signs Temp 98.3 F 06/15/24 00:58 Pulse 89 06/15/24 00:58 Resp 18 06/15/24 00:58 BP 136/79 06/15/24 00:58 Pulse Ox 93 L 06/15/24 00:58 FiO2 Intake & Output 06/14/24 06/15/24 06/15/24 18:59 06:59 18:59 Intake Total 1800 480 Balance 1800 480 Intake: Oral 1800 480 Other: Voiding Method Toilet Toilet Toilet Urinal Urinal Urinal # Voids 5 1 - Labs CBC & Chem 7: 06/15/24 05:16 06/15/24 04:47 Labs: Abnormal Lab Results - Last 24 Hours (Table) 06/14/24 06/14/24 06/14/24 Range/Units 12:21 17:16 20:21 WBC (4.50-10.00) X 10*3/uL RBC (4.40-5.60) X 10*6/uL Hgb (13.0-17.0) g/dL Hct (39.6-50.0) % RDW (11.5-14.5) % Immature Gran # (0.00-0.04) X 10*3/uL Neutrophils # (1.80-7.70) X 10*3/uL Lymphocytes # (0.90-5.00) X 10*3/uL Eosinophils # (0.04-0.35) X 10*3/uL Sodium (135-145) mmol/L Carbon Dioxide (21.6-31.8) mmol/L Anion Gap (4.00-12.00) mmol/L BUN (9.0-27.0) mg/dL Creatinine (0.6-1.5) mg/dL Est GFR (CKD-EPI) (>=60) Glucose (70-110) mg/dL POC Glucose (mg/dL) 134 H 146 H 172 H (70-110) mg/dL Calcium (8.7-10.3) mg/dL 06/15/24 06/15/24 06/15/24 Range/Units 04:47 05:16 06:48 WBC 14.36 H (4.50-10.00) X 10*3/uL RBC 3.44 L (4.40-5.60) X 10*6/uL Hgb 10.8 L (13.0-17.0) g/dL Hct 32.2 L (39.6-50.0) % RDW 15.9 H (11.5-14.5) % Immature Gran # 0.13 H (0.00-0.04) X 10*3/uL Neutrophils # 12.78 H (1.80-7.70) X 10*3/uL Lymphocytes # 0.77 L (0.90-5.00) X 10*3/uL Eosinophils # 0.01 L (0.04-0.35) X 10*3/uL Sodium 132 L (135-145) mmol/L Carbon Dioxide 18.1 L (21.6-31.8) mmol/L Anion Gap 12.90 H (4.00-12.00) mmol/L BUN 45.9 H (9.0-27.0) mg/dL Creatinine 2.8 H (0.6-1.5) mg/dL Est GFR (CKD-EPI) 26 L (>=60) Glucose 226 H (70-110) mg/dL POC Glucose (mg/dL) 222 H (70-110) mg/dL Calcium 8.1 L (8.7-10.3) mg/dL Microbiology - Last 24 Hours (Table) 06/12/24 19:18 Blood Culture Gram Stain - Preliminary Blood Blood Culture - Preliminary Presumptive Staph aureus 06/10/24 11:03 Blood Culture Gram Stain - Final Blood Blood Culture - Final Staphylococcus aureus Molecular ID
[2024-06-16 07:09] LABS: Glucose,Whole Blood 199 mg/dL (70-110)
[2024-06-16 08:45] LABS: Basophils # (A) 0.02 X 10*3/uL (0.00-0.10); Basophils % (A) 0.2 %; Eosinophils # (A) 0.01 X 10*3/uL (0.04-0.35); Eosinophils % (A) 0.1 %; HCT 28.6 % (39.6-50.0); HGB 9.6 g/dL (13.0-17.0); Lymphocytes # (A) 1.11 X 10*3/uL (0.90-5.00); Lymphocytes % (A) 10.9 %; MCH 31.4 pg (27.0-32.0); MCHC 33.6 g/dL (32.0-37.0); MCV 93.5 FL (80.0-97.0); Mean Platelet Volume 10.1 FL (9.5-12.2); Monocytes # (A) 0.63 X 10*3/uL (0.20-1.00); Monocytes % (A) 6.2 %; NRBC Per 100 WBC 0 X 10*3/uL (0.00-0.01); Neutrophils # (A) 8.32 X 10*3/uL (1.80-7.70); Neutrophils % (A) 81.9 %; Platelet Count 199 X 10*3/uL (140-440); RBC 3.06 X 10*6/uL (4.40-5.60); RDW 15.8 % (11.5-14.5); WBC 10.16 X 10*3/uL (4.50-10.00)
[2024-06-16] MEDS: cloNIDine HCL 0.1 MG TAB PO SCH (08:46)
[2024-06-16 08:59] LABS: BUN/Creat Ratio 17.44 Ratio (12.00-20.00); Blood Urea Nitrogen 47.1 mg/dL (9.0-27.0); Carbon Dioxide 19.8 mmol/L (21.6-31.8); Chloride 104 mmol/L (96-109); Glucose 219 mg/dL (70-110); Potassium 4.2 mmol/L (3.5-5.5); Sodium 137 mmol/L (135-145)
--- NOTE | 2024-06-16 10:41 | P.PN ---
Subjective Patient is seen in follow-up for acute kidney injury. Renal function fairly stable. Has been voiding. No vomiting or diarrhea. Oral intake is fair. Vital signs are stable. General: No acute distress. HEENT: Head exam is unremarkable. LUNGS: No audible rhonchi or wheezes. HEART: Rate and Rhythm are regular. ABDOMEN: Nontender. EXTREMITITES: 1+ edema. Hand swelling noted. No drainage. Objective - Vital Signs Vital signs: Vital Signs Temp 98.1 F 06/16/24 07:39 Pulse 75 06/16/24 07:39 Resp 16 06/16/24 08:00 BP 148/83 06/16/24 07:39 Pulse Ox 93 L 06/16/24 07:39 FiO2 Intake & Output 06/15/24 06/16/24 06/16/24 18:59 06:59 18:59 Intake Total 2940 240 Balance 2940 240 Intake: Oral 2940 240 Other: Voiding Method Toilet Toilet Toilet Urinal Urinal Urinal # Voids 6 3 # Bowel Movements 1 - Labs CBC & Chem 7: 06/16/24 03:32 06/16/24 03:32 Labs: Abnormal Lab Results - Last 24 Hours (Table) 06/15/24 06/15/24 06/15/24 Range/Units 12:34 17:13 20:21 WBC (4.50-10.00) X 10*3/uL RBC (4.40-5.60) X 10*6/uL Hgb (13.0-17.0) g/dL Hct (39.6-50.0) % RDW (11.5-14.5) % Immature Gran # (0.00-0.04) X 10*3/uL Neutrophils # (1.80-7.70) X 10*3/uL Eosinophils # (0.04-0.35) X 10*3/uL Carbon Dioxide (21.6-31.8) mmol/L Anion Gap (4.00-12.00) mmol/L BUN (9.0-27.0) mg/dL Creatinine (0.6-1.5) mg/dL Est GFR (CKD-EPI) (>=60) Glucose (70-110) mg/dL POC Glucose (mg/dL) 242 H 248 H 248 H (70-110) mg/dL Calcium (8.7-10.3) mg/dL 06/16/24 06/16/24 06/16/24 Range/Units 03:32 03:32 07:08 WBC 10.16 H (4.50-10.00) X 10*3/uL RBC 3.06 L (4.40-5.60) X 10*6/uL Hgb 9.6 L (13.0-17.0) g/dL Hct 28.6 L (39.6-50.0) % RDW 15.8 H (11.5-14.5) % Immature Gran # 0.07 H (0.00-0.04) X 10*3/uL Neutrophils # 8.32 H (1.80-7.70) X 10*3/uL Eosinophils # 0.01 L (0.04-0.35) X 10*3/uL Carbon Dioxide 19.8 L (21.6-31.8) mmol/L Anion Gap 13.20 H (4.00-12.00) mmol/L BUN 47.1 H (9.0-27.0) mg/dL Creatinine 2.7 H (0.6-1.5) mg/dL Est GFR (CKD-EPI) 28 L (>=60) Glucose 219 H (70-110) mg/dL POC Glucose (mg/dL) 199 H (70-110) mg/dL Calcium 8.0 L (8.7-10.3) mg/dL Microbiology - Last 24 Hours (Table) 06/12/24 19:18 Blood Culture Gram Stain - Preliminary Blood Blood Culture - Preliminary Presumptive Staph aureus Assessment and Plan Plan: Assessment: 1. Acute kidney injury secondary to septic ATN. Creatinine peaked at 3.0 this admission and is 2.7 today. Creatinine 0.9 dated April 08, 2023. No hydronephrosis noted on ultrasound. Urine eosinophils 1%. Serologies negative. 2. Metabolic acidosis secondary to acute kidney injury. On oral bicarb. Improved. 3. Hypokalemia from diuresis. Replaced. Better. 4. Hypervolemic hyponatremia. Improved. 5. Right hand cellulitis/abscess status post I&D in June 08, 2024. On antibiotics. Wound culture and blood culture positive for Staph aureus. Plan: Lasix 20 mg IV once today. Maintain 1500 cc fluid restriction. Encouraged oral intake. Changed PPI to Pepcid. Preserved ejection fraction noted on echocardiogram. Prednisone added June 14, 2024 due to concern for AIN. Continue to monitor renal function and urine output. Avoid nephrotoxins. Kidney biopsy today. IV DDAVP 1 hour prior to biopsy.
[2024-06-16] MEDS: FUROSEMIDE 10 MG/ML 2 ML VIAL IV ONE (11:20)
[2024-06-16] MEDS: DAPTOmycin 500 MG in SODIUM CHLORIDE 0.9% 50 ML IVPB SCH (11:21)
--- NOTE | 2024-06-16 11:53 | P.PN ---
Progress Note - Text Progress Note Date: 06/16/24 The patient is seen and examined today at bedside. He is not complaining of new issues at his hand. He is continue to do soaks and regular wraps. Globally he continues to be somewhat painful. His primary pain is at the base of his neck and he describes a significant amount of trapezius pain. He had been having this pain somewhat persistently but we have been managing that with medication and focusing on the infectious process at his hand. He says he still able to mobilize and get up and around but he has to try to relieve his muscle aches at his base of his neck by rubbing his back up against the wall. He does not feel new weakness of his left upper extremity or right upper extremity. An MRI of the cervical spine was preferred but patient is not able to obtain due to foreign body including metal in their arm. 06/14/2024 forearm x-rays show tiny foreign body near the skin surface. A CT renal biopsy was not able to be conducted today. On exam he has been afebrile His left upper extremity has full active and passive range of motion with 5 out of 5 strength. His right upper extremity has full active and passive range of motion with 5 out of 5 strength. His neck has tenderness to palpation at the base of his cervical spine. There is positive muscle spasm today and his right rhomboids and right trapezius muscle. At his right hand the dressing is taken down. There is 2 surgical incisions, 1 over the dorsum of the hand and one over the dorsal aspect of the index finger. There is no active purulence. There is some serosanguineous drainage on the dressing, I was not able to express any from the dorsum of his hand or his index finger. There is no significant erythema on the volar side. There is no streaking on the volar aspect of his hand. He is able to flex and extend all 5 fingers. There is no pain with passive stretch. There is some mild tenderness over his MCP joint volarly and dorsally. At his right forearm he said that he had a piece of metal toward the ulnar aspect a few weeks ago. It is not erythematous or broken down at that space. But he can feel a small nodule in the area and he wonders if there is metal retained in there. Assessment and plan right hand abscess Status post irrigation and debridement, gradually improving Persistent neck and upper thoracic pain with left upper extremity pain and right upper extremity pain, unresolved Right forearm retained foreign body Renal insufficiency likely due to septic renal injury being managed closely with nephrology In terms of the patient's hand, continue his soaks regularly. He needs to maintain his elevation and regular dressing care. I do not see significant issues at the volar aspect of his hand to indicate flexor tendon synovitis. Continue local wound care status post irrigation and debridement of his right hand. In terms of the patient's neck pain and left upper extremity issues, he continues to have persistent pain over these areas. He is not having neurologic deficit but he has not had good resolution despite pain medications and further time. I think that further imaging of his neck is worthwhile. His recent thoracic imaging did not show any significant bony change or significant stenosis and evaluation of his cervical spine is warranted. A CT without contrast of the surgical spine has been ordered. It is difficult to determine how much we will be able to work towards management of his cervical spine issues if they are degenerative in nature given his acute infectious process currently. However with the continued process going on and his lack of good response I think that imaging of the area is necessary for further evaluation to determine if there is other etiologies involved. In regards to the patient's renal issues, he is actively involved with evaluation and workup and treatment with nephrology. They have started steroid medication as well. Dictation was produced using [employer] dictation software, please excuse any grammatical, word or spelling errors.
[2024-06-16 12:11] LABS: Glucose,Whole Blood 152 mg/dL (70-110)
--- NOTE | 2024-06-16 13:19 | CT ---
EXAMINATION TYPE: CT cervical spine wo con DATE OF EXAM: 06/16/2024 COMPARISON: CT cervical spine June 03, 2024 CLINICAL INDICATION: Male, 53 years old with history of pain, Spinal stenosis, pain TECHNIQUE: CT scan of the cervical spine is obtained without contrast, axial images are obtained, sa gittal and coronal reformatted images are also reviewed. CT DLP: 453 mGycm. Automated Exposure Control for Dose Reduction was Utilized. Contrast: , patient injected with mL of ., (none if empty) FINDINGS: Cervical spine is visualized in its entirety from C1 through upper thoracic levels, and red emonstrates a levoconvex scoliosis centered in the thoracic spine. There is grade 1 retrolisthesis C5 on C6 redemonstrated. Prevertebral soft tissue appears within normal limits. The C1-C2 articulatio n is within normal limits on the coronal images. Vertebral body heights are maintained. There is mode rate disc space narrowing and spurring at C5-C6 and C6-C7 levels redemonstrated. Posterior spur disc complex effacing the anterior thecal sac at these levels. Review of axial images shows normal-sized thyroid gland. Visualized lung apices are clear without pne umothorax. There is facet arthropathy causing [id number] bilateral neural foraminal narrowing at C5-C6 level redemonstrated. IMPRESSION: There is no acute findings in the cervical spine. No significant change from most recent CT. [facility], , 06/16/2024 1:17 PM
[2024-06-16 13:26] LABS: INR 0.9 (<1.2); Prothrombin Time 10.5 sec (10.0-12.5)
--- NOTE | 2024-06-16 14:36 | P.PN ---
Subjective Progress Note Date: 06/16/24 Principal diagnosis: Reason for follow-up is right hand cellulitis and bacteremia Patient is a 53-year-old male with a past medical history of again for diabetes mellitus reflux hypertension osteoarthritis chronic back pain presenting to the hospital for evaluation of worsening pain swelling and redness to the right hand area patient be diagnosed with cellulitis subsequent blood culture came positive with MSSA. Patient is status post surgical drainage of the right hand abscess completed by orthopedic 06/08/2024 On today's evaluation that is 06/16/2024,the patient remains to be afebrile, patient is on room air not requiring supplemental oxygen and denies any shor tness of breath no chest pain or cough.Patient denies having any nausea or vomiting, no abdominal pain and no diarrhea, pain to the right hand is currently current also complaining of pain to the mid back area. Patient white count down to 10.16, creatinine is 2.7 CT of the cervical spine done without contrast negative for any acute findings Objective - Vital Signs Vital signs: Vital Signs Temp 97.5 F L 06/16/24 12:10 Pulse 69 06/16/24 12:10 Resp 18 06/16/24 12:10 BP 161/93 06/16/24 12:10 Pulse Ox 99 06/16/24 12:10 FiO2 Intake & Output 06/15/24 06/16/24 06/16/24 18:59 06:59 18:59 Intake Total 2940 240 Balance 2940 240 Intake: Oral 2940 240 Other: Voiding Method Toilet Toilet Toilet Urinal Urinal Urinal # Voids 6 3 # Bowel Movements 1 - Exam GENERAL DESCRIPTION: ashley pugh male lying in bed in no distress RESPIRATORY SYSTEM: Unlabored breathing , decreased breath sounds at bases HEART: S1 S2 regular rate and rhythm , ABDOMEN: Soft , no tenderness EXTREMITIES: Right hand is currently dressed no drainage - Labs CBC & Chem 7: 06/16/24 03:32 06/16/24 03:32 Labs: Abnormal Lab Results - Last 24 Hours (Table) 06/15/24 06/15/24 06/16/24 Range/Units 17:13 20:21 03:32 WBC (4.50-10.00) X 10*3/uL RBC (4.40-5.60) X 10*6/uL Hgb (13.0-17.0) g/dL Hct (39.6-50.0) % RDW (11.5-14.5) % Immature Gran # (0.00-0.04) X 10*3/uL Neutrophils # (1.80-7.70) X 10*3/uL Eosinophils # (0.04-0.35) X 10*3/uL Carbon Dioxide 19.8 L (21.6-31.8) mmol/L Anion Gap 13.20 H (4.00-12.00) mmol/L BUN 47.1 H (9.0-27.0) mg/dL Creatinine 2.7 H (0.6-1.5) mg/dL Est GFR (CKD-EPI) 28 L (>=60) Glucose 219 H (70-110) mg/dL POC Glucose (mg/dL) 248 H 248 H (70-110) mg/dL Calcium 8.0 L (8.7-10.3) mg/dL 06/16/24 06/16/24 06/16/24 Range/Units 03:32 07:08 12:09 WBC 10.16 H (4.50-10.00) X 10*3/uL RBC 3.06 L (4.40-5.60) X 10*6/uL Hgb 9.6 L (13.0-17.0) g/dL Hct 28.6 L (39.6-50.0) % RDW 15.8 H (11.5-14.5) % Immature Gran # 0.07 H (0.00-0.04) X 10*3/uL Neutrophils # 8.32 H (1.80-7.70) X 10*3/uL Eosinophils # 0.01 L (0.04-0.35) X 10*3/uL Carbon Dioxide (21.6-31.8) mmol/L Anion Gap (4.00-12.00) mmol/L BUN (9.0-27.0) mg/dL Creatinine (0.6-1.5) mg/dL Est GFR (CKD-EPI) (>=60) Glucose (70-110) mg/dL POC Glucose (mg/dL) 199 H 152 H (70-110) mg/dL Calcium (8.7-10.3) mg/dL Assessment and Plan (1) Sepsis Current Visit: Yes Status: Acute Code(s): A41.9 - SEPSIS, UNSPECIFIED ORGANISM SNOMED Code(s): 09096665 (2) Cellulitis of right hand Current Visit: Yes Status: Acute Code(s): L03.113 - CELLULITIS OF RIGHT UPPER LIMB SNOMED Code(s): 03406675193568437 Plan: 1patient presented hospital with sepsis in this patient who did have elevated w vitor count tachycardia meeting criteria for SIRS source is right hand cellulitis and likely from gram-positive skin ana 2-patient did have a positive blood culture with MSSA source likely right hand cellulitis 3patient is status post surgical drainage of the abscess and deep culture which are growing MSSA. 4patient did have persistent bacteremia concerning for possible deep infection and question of possible discitis currently undergoing workup for possible MRI of the thoracic spine 5patient also have worsening of his kidney function questionable interstitial nephritis secondary to naficillin which has been discontinued nephrology is following the patient recommending a biopsy of the kidney which could not be completed as the machine broke on 06/16/2024 6we will continue patient on daptomycin at this point antibiotic clinical course closely Dictation was produced using [employer] dictation software. please excuse any grammatical, word or spelling errors. Time with Patient: Less than 30
[2024-06-16 17:03] LABS: Glucose,Whole Blood 278 mg/dL (70-110)
[2024-06-16 20:40] LABS: Glucose,Whole Blood 251 mg/dL (70-110)
[2024-06-17 07:16] LABS: Glucose,Whole Blood 200 mg/dL (70-110)
[2024-06-17 09:18] LABS: BUN/Creat Ratio 18.81 Ratio (12.00-20.00); Blood Urea Nitrogen 48.9 mg/dL (9.0-27.0); Calcium 8.3 mg/dL (8.7-10.3); Carbon Dioxide 20.9 mmol/L (21.6-31.8); Chloride 103 mmol/L (96-109); Glucose 212 mg/dL (70-110); Magnesium 2.1 mg/dL (1.5-2.4); Potassium 4.4 mmol/L (3.5-5.5); Sodium 136 mmol/L (135-145)
--- NOTE | 2024-06-17 09:41 | P.PN ---
Subjective Progress Note Date: 06/16/24 This is a pleasant 53-year-old male who was recently admitted with right hand swelling and concerns for cellulitis as well as rheumatoid arthritis. Orthopedics following and scheduled to undergo I&D with washout today. Patient is maintained on antibiotics with infectious disease following and will await deep tissue cultures to determine appropriate antibiotics. Patient to continue with local wound care and elevating right hand while at rest. Continue with pain management. Cultures preliminary showing presumptive Staph aureus MSSA. Kidney functions worsened at 2.3 creatinine and will consult nephrology and appreciate input and recommendations. Continue IV hydration. Also recommend incentive spirometer and increased activity as tolerated and getting out of the bed more frequently. Monitor for any fevers. 06/09/2024 Patient is seen in follow-up status post incision and drainage along with washout of the right hand with orthopedics today. Per OR documentation, there were copious amounts of purulent drainage noted requiring 2 small incisions and cultures were obtained. Preliminary cultures are showing Staphylococcus aureus and will await finalized cultures. Infectious disease following and will discuss if patient will require likely IV antibiotics on discharge. Patient is afebrile although white count remains elevated at 14.06. Patient is also maintained on gentle hydration and will continue along with nafcillin per ID recommendations. Will discuss further with infectious disease regarding discharge planning. Patient is not ready for discharge as of yet. Patient to continue on CIWA protocol and encouraged increase activity as tolerated. Patient does not appear to be actively withdrawing although continues to have difficulty with pain management. 06/10/2024 Patient is seen in follow-up today status post incision and drainage with washout with orthopedics maintained on antibiotics with infectious disease following as well. Patient continues to report significant pain in the hand and difficulty managing pain which has been adjusted and will obtain repeat CT for further evaluation. Patient has been instructed to continue with dressing changes per orthopedics and wound care. Elevate right hand while at rest. Awaiting cultures to determine discharge antibiotics and also to place a PICC line although blood cultures remain positive. Will follow-up with daily blood cultures to monitor clearance of bacteremia. White count remains elevated although patient is afebrile. 06/13/2024 Patient is seen in follow-up today continues on IV antibiotics with infectious disease and orthopedics following. Blood cultures remain positive although most recent on 06/10 are negative at this time and will need to monitor for clearance of bacteremia for PICC line placement. Patient will require IV antibiotics on discharge. Orthopedics following recommending continuing with continued IV antibiotic therapy. Patient is afebrile and white count is trending down. Patient continues to report significant back pain and has been using K-pad and muscle relaxers along with pain medications. Encouraged increase activity as tolerated. 06/14/2024 Patient seen in follow-up with multiple consultations continue to follow including orthopedics as well as infectious disease. Blood cultures remain positive with MSSA Staphylococcus aureus and initial repeat blood cultures from 06/10/2024 have now become positive with continued Staph aureus. Patient kidney functions also continue to be elevated with an elevated BUN of 44.8 and creatinine is 3.0. Nephrology is following discussing possible biopsy in the near future. Sodium did improve at 132. White count remains elevated at 17.27 and patient is maintained on antibiotics in the form of ampicillin. Given patient's continued bacteremia discussed with infectious disease and will transition to daptomycin and continue with daily blood cultures to monitor clearance of the bacteremia. Patient also with orthopedics following with concerns of continued ongoing infection as well as cervical neck pain and spasms did initially order an MRI although unable to and x-ray images have been ordered and pending. 06/15/2024 Patient is seen in follow-up today with multiple consultations following. Patient continued on antibiotics with infectious disease following and blood cultures remain positive. Kidney functions are elevated with creatinine of 2.9 and interventional radiology is consulted per nephrology for kidney biopsy. Patient is continued on daptomycin per infectious disease and following up on daily blood cultures. Patient has been up and walking the halls and continues to report upper extremity weakness with pain and back pain. Patient is afebrile with no reports of chest pain or shortness of breath. Patient reports has been tolerating diet with no reported nausea or vomiting. 06/16/2024 patient is continues to have significant shoulder pain with spasms with orthopedics following. Unable to obtain an MRI due to that foreign body noted in the right forearm and currently scheduled to undergo CT of the neck and upper back. Patient is continued on antibiotics as blood cultures remain posit denis with Staphylococcus aureus. White count is trending down and is 10.16 today, hemoglobin is stable at 9.6, platelets 199, potassium is 4.2 with a sodium of 137, creatinine remains elevated at 2.7 and BUN is 47.1. Review of systems: Constitutional: No reports of fatigue, fever, or chills Cardiovascular: No reports of chest pain or palpitations Respiratory: No reports of shortness of breath or cough GI: No reports of nausea, no reports of vomiting, no diarrhea : No reports of dysuria or retention Neurovascular: reports of right hand pain and swelling although denies numbness, reports continued significant back pain and spasms All medications have been reviewed PHYSICAL EXAMINATION: GENERAL: The patient is alert and oriented x4, Well developed, well nourished. Mildly anxious HEENT: Pupils are round and equally reacting to light. EOMI. no scleral icterus. No conjunctival pallor. Normocephalic, atraumatic. No pharyngeal erythema. No thyromegaly. CARDIOVASCULAR: S1 and S2 muffled PULMONARY: diminished breath sounds bilaterally with no wheezing or rhonchi noted. ABDOMEN: soft. Nontender on exam. non-distended, normoactive bowel sounds. No palpable organomegaly. MUSCULOSKELETAL: No joint swelling or deformity. EXTREMITIES: No cyanosis, clubbing, or pedal edema. Significant right hand swelling with redness has improved, surgical dressing changed and currently dry and intact NEUROLOGICAL: Gross neurological examination did not reveal any focal deficits. SKIN: No rashes. Assessment: Acute cellulitis of the right hand with sepsis, present on admission, status post incision and drainage with washout with orthopedics, cultures remain positive for Staphylococcus aureus MSSA sepsis secondary to above with bacteremia, cultures from incision and drainage also showing Staphylococcus aureus, recent blood cultures from 06/10/2024 are now positive and undergoing daily blood cultures to monitor clearance of bacteremia Possible foreign body noted on imaging of the right forearm Possible rheumatoid arthritis with acute exacerbation Leukocytosis, secondary to above, trending down History of GERD Acute kidney injury, likely ATN secondary to sepsis Acute delirium with alcohol withdrawal, improved and patient is not actively withdrawing Diabetes mellitus, type II uncontrolled with hyperglycemia Thrombocytopenia, likely secondary to ongoing alcohol abuse Persistent neck and thoracic pain with left upper extremity pain and spasms, ongoing workup History of hypertension History of daily EtOH use GI prophylaxis DVT prophylaxis Full code Plan: Recommend to continue with current medications and management with orthopedics and infectious disease following. Patient is currently maintained on daptomycin blood cultures remain positive undergoing daily blood culture repeats until clearance of bacteremia is noted Patient will require IV antibiotic on discharge although need to await finalized cultures and clearance of bacteremia for PICC line placement Orthopedics following as well and patient continues to have ongoing neck and thoracic pain causing spasms and left upper extremity pain. Further imaging including possible MRI ordered at this time although unable to perform MRI as there was an incidental finding of a foreign object in the right forearm and will need to be further evaluated. CT images of the cervical spine have been ordered per orthopedics. Follow-up on repeat labs and continue with gentle hydration Nephrology following for acute kidney injury with a creatinine of 2.8 with no significant improvement. Continuing to be elevated and interventional radiology consulted for biopsy of the kidney, possibly on 06/17/2024 if blood pressure is controlled and if IR available Patient is continued on heparin subcu and will monitor closely platelet levels. Encouraged increase activity as tolerated and getting up out of the bed more f requently. Patient has been up and walking the halls frequently Continue monitoring Accu-Cheks before meals and at bedtime and home medications have been resumed. Will adjust insulins accordingly Continue local wound care per ID and orthopedic recommendations and instructed patient to continue elevating right hand while at rest. Continue with soaks and washes 3 times daily per orthopedics Social work following as patient will require IV antibiotics on discharge. To verify coverage and currently awaiting finalized cultures to determine appropriate antibiotics per ID recommendations Due to multiple complex medical issues, overall prognosis is guarded The impression and plan of care has been dictated by Ruthy Ariza, nurse practitioner as directed. Dr. Wellington MD I have performed a history and examination and MDM of this patient, discussed the same with the dictator, and agree with the dictator's assessment and plan as written ,documented as a scribe. Based on total visit time, I have performed more than 50% of the visit. Any additional findings or plans will be noted. Objective - Vital Signs Vital signs: Vital Signs Temp 97.5 F L 06/16/24 12:10 Pulse 69 06/16/24 12:10 Resp 18 06/16/24 12:10 BP 161/93 06/16/24 12:10 Pulse Ox 99 06/16/24 12:10 FiO2 Intake & Output 06/15/24 06/16/24 06/16/24 18:59 06:59 18:59 Intake Total 2940 240 Balance 2940 240 Intake: Oral 2940 240 Other: Voiding Method Toilet Toilet Toilet Urinal Urinal Urinal # Voids 6 3 # Bowel Movements 1 - Labs CBC & Chem 7: 06/16/24 03:32 06/17/24 03:36 Labs: Abnormal Lab Results - Last 24 Hours (Table) 06/15/24 06/15/24 06/16/24 Range/Units 17:13 20:21 03:32 WBC (4.50-10.00) X 10*3/uL RBC (4.40-5.60) X 10*6/uL Hgb (13.0-17.0) g/dL Hct (39.6-50.0) % RDW (11.5-14.5) % Immature Gran # (0.00-0.04) X 10*3/uL Neutrophils # (1.80-7.70) X 10*3/uL Eosinophils # (0.04-0.35) X 10*3/uL Carbon Dioxide 19.8 L (21.6-31.8) mmol/L Anion Gap 13.20 H (4.00-12.00) mmol/L BUN 47.1 H (9.0-27.0) mg/dL Creatinine 2.7 H (0.6-1.5) mg/dL Est GFR (CKD-EPI) 28 L (>=60) Glucose 219 H (70-110) mg/dL POC Glucose (mg/dL) 248 H 248 H (70-110) mg/dL Calcium 8.0 L (8.7-10.3) mg/dL 06/16/24 06/16/24 06/16/24 Range/Units 03:32 07:08 12:09 WBC 10.16 H (4.50-10.00) X 10*3/uL RBC 3.06 L (4.40-5.60) X 10*6/uL Hgb 9.6 L (13.0-17.0) g/dL Hct 28.6 L (39.6-50.0) % RDW 15.8 H (11.5-14.5) % Immature Gran # 0.07 H (0.00-0.04) X 10*3/uL Neutrophils # 8.32 H (1.80-7.70) X 10*3/uL Eosinophils # 0.01 L (0.04-0.35) X 10*3/uL Carbon Dioxide (21.6-31.8) mmol/L Anion Gap (4.00-12.00) mmol/L BUN (9.0-27.0) mg/dL Creatinine (0.6-1.5) mg/dL Est GFR (CKD-EPI) (>=60) Glucose (70-110) mg/dL POC Glucose (mg/dL) 199 H 152 H (70-110) mg/dL Calcium (8.7-10.3) mg/dL
[2024-06-17] MEDS: hydrALAZINE HCL 20 MG/ML 1 ML VIAL IVP PRN (09:55)
[2024-06-17] MEDS: DESMOPRESSIN ACETATE 24 MCG in SODIUM CHLORIDE 0.9% 50 ML IVPB ONE (09:55)
--- NOTE | 2024-06-17 10:32 | P.PN ---
Subjective Patient is seen in follow-up for acute kidney injury. Renal function slightly better. Has been voiding. No vomiting or diarrhea. Oral intake is fair. Vital signs are stable. General: No acute distress. HEENT: Head exam is unremarkable. LUNGS: No audible rhonchi or wheezes. HEART: Rate and Rhythm are regular. ABDOMEN: Nontender. EXTREMITITES: 1+ edema. Hand swelling noted. No drainage. Objective - Vital Signs Vital signs: Vital Signs Temp 97.9 F 06/17/24 07:33 Pulse 70 06/17/24 07:33 Resp 16 06/17/24 07:33 BP 164/84 06/17/24 09:43 Pulse Ox 97 06/17/24 07:33 FiO2 Intake & Output 06/16/24 06/17/24 06/17/24 18:59 06:59 18:59 Intake Total 1180 240 240 Balance 1180 240 240 Intake: Oral 1180 240 240 Other: Voiding Method Toilet Toilet Urinal Urinal # Voids 5 3 # Bowel Movements 1 1 - Labs CBC & Chem 7: 06/16/24 03:32 06/17/24 03:36 Labs: Abnormal Lab Results - Last 24 Hours (Table) 06/16/24 06/16/24 06/16/24 Range/Units 12:09 17:02 20:30 Carbon Dioxide (21.6-31.8) mmol/L Anion Gap (4.00-12.00) mmol/L BUN (9.0-27.0) mg/dL Creatinine (0.6-1.5) mg/dL Est GFR (CKD-EPI) (>=60) Glucose (70-110) mg/dL POC Glucose (mg/dL) 152 H 278 H 251 H (70-110) mg/dL Calcium (8.7-10.3) mg/dL 06/17/24 06/17/24 Range/Units 03:36 07:14 Carbon Dioxide 20.9 L (21.6-31.8) mmol/L Anion Gap 12.10 H (4.00-12.00) mmol/L BUN 48.9 H (9.0-27.0) mg/dL Creatinine 2.6 H (0.6-1.5) mg/dL Est GFR (CKD-EPI) 29 L (>=60) Glucose 212 H (70-110) mg/dL POC Glucose (mg/dL) 200 H (70-110) mg/dL Calcium 8.3 L (8.7-10.3) mg/dL Microbiology - Last 24 Hours (Table) 06/12/24 19:18 Blood Culture Gram Stain - Final Blood Blood Culture - Final Staphylococcus aureus Assessment and Plan Plan: Assessment: 1. Acute kidney injury secondary to septic ATN. Creatinine peaked at 3.0 this admission and is 2.6 today. Creatinine 0.9 dated April 08, 2023. No hydronephrosis noted on ultrasound. Urine eosinophils 1%. Serologies negative. 2. Metabolic acidosis secondary to acute kidney injury. On oral bicarb. Improved. 3. Hypokalemia from diuresis. Replaced. Better. 4. Hypervolemic hyponatremia. Improved. 5. Right hand cellulitis/abscess status post I&D in June 08, 2024. On antibiotics. Wound culture and blood culture positive for Staph aureus. 6. Benign hypertension. Exacerbated by steroids. Plan: Lasix 20 mg IV once today. Maintain 1500 cc fluid restriction. Encouraged oral intake. Changed PPI to Pepcid. Preserved ejection fraction noted on echocardiogram. Prednisone added June 14, 2024 due to concern for AIN. Continue to monitor renal function and urine output. Avoid nephrotoxins. Kidney biopsy was to be done yesterday but was canceled due to equipment malfunction. Possibly to be done today. IV DDAVP 1 hour prior to biopsy. Add amlodipine 5 mg once daily.
[2024-06-17] MEDS: HYDROmorphone 0.5 MG/0.5 ML SYRINGE IVP PRN (11:10)
--- NOTE | 2024-06-17 12:11 | CT ---
EXAMINATION TYPE: CT biopsy renal LT DATE OF EXAM: 06/17/2024 COMPARISON: NONE CLINICAL INDICATION: Male, 53 years old with history of See IR consult for order details; left kidney bx CT DLP: 2079 mGycm The procedure was explained to the patient. The risks, complications, benefits, and alternatives wer e discussed and any questions were answered. Informed consent was obtained. Patient was placed pron e on the CT table and prepped and draped in the usual sterile fashion. Utilizing CT guidance, an 18 gauge core biopsy needle access into the left renal cortex was achieved and three 18 gauge core samples were obtained. The patient was stable throughout the procedure and r emained stable upon discharge. IMPRESSION: Successful 18 gauge core biopsy of the kidney function. [facility], , 06/17/2024 12:08 PM
[2024-06-17 12:13] LABS: Glucose,Whole Blood 218 mg/dL (70-110)
[2024-06-17] MEDS: amLODIPine 5 MG TAB PO SCH (13:04)
--- NOTE | 2024-06-17 13:10 | P.PN ---
Progress Note - Text Progress Note Date: 06/17/24 The patient is seen and examined today at bedside. He is not complaining of new issues at his hand. He is continue to do soaks and regular wraps. He continues to report pain in his bilateral trapezius muscles but it is controlled. He denies any new numbness in his bilateral upper extremities or lower extremities. An MRI of the cervical spine was preferred but patient is not able to obtain due to foreign body including metal in their arm. 06/14/2024 forearm x-rays show tiny foreign body near the skin surface. A CT c spine was obtained. CT cervical spine without contrast 06/16/2024 There is no acute findings in the cervical spine. There is grade 1 retrolisthesis C5 on C6 redemonstrated. Prevertebral soft tissue appears within normal limits. There is moderate disc space narrowing and spurring at C5-C6 and C6-C7 levels redemonstrated. Posterior spur disc complex effacing the anterior thecal sac at these levels. There is facet arthropathy causing moderate to severe bilateral neural foraminal narrowing at the C5-C6 level. On exam he has been afebrile His left upper extremity has full active and passive range of motion with 5 out of 5 strength. His right upper extremity has full active and passive range of motion with 5 out of 5 strength. His neck has tenderness to palpation at the base of his cervical spine. There is positive muscle spasm today and his right rhomboids and right trapezius muscle. At his right hand the dressing is taken down. There is 2 surgical incisions, 1 over the dorsum of the hand and one over the dorsal aspect of the index finger. There is no active purulence. There is some serosanguineous drainage on the dressing, I was not able to express any from the dorsum of his hand or his index finger. There is no significant erythema on the volar side. There is no streaking on the volar aspect of his hand. He is able to flex and extend all 5 fingers. There is no pain with passive stretch. There is some mild tenderness over his second MCP joint volarly and dorsally. He initially had difficulty extending his right ring finger but with isolated at PIP and DIP it is intact. At his right forearm he said that he had a piece of metal toward the ulnar aspect a few weeks ago. It is not erythematous or broken down at that space. But he can feel a small nodule in the area and he wonders if there is metal retained in there. Assessment and plan Right hand cellulitis/abscess status post I&D on 06/08/2024. On antibiotics. W ound culture and blood culture positive for Staph aureus. Gradually improving. Persistent neck and upper thoracic pain with left upper extremity pain and right upper extremity pain, no acute findings on CT. He remains intact neurologically. No acute surgical intervention planned at this time. Continue non-operative management. Right forearm retained foreign body Renal insufficiency likely due to septic renal injury being managed closely with nephrology In terms of the patient's hand, continue his soaks regularly. He needs to maintain his elevation and regular dressing care. I do not see significant issues at the volar aspect of his hand to indicate flexor tendon synovitis. Continue local wound care status post irrigation and debridement of his right hand. Dictation was produced using [employer] dictation software, please excuse any grammatical, word or spelling errors.
--- NOTE | 2024-06-17 15:31 | P.PN ---
Subjective Progress Note Date: 06/17/24 Principal diagnosis: Reason for follow-up is right hand cellulitis and bacteremia Patient is a 53-year-old male with a past medical history of again for diabetes mellitus reflux hypertension osteoarthritis chronic back pain presenting to the hospital for evaluation of worsening pain swelling and redness to the right hand area patient be diagnosed with cellulitis subsequent blood culture came positive with MSSA. Patient is status post surgical drainage of the right hand abscess completed by orthopedic 06/08/2024 On today's evaluation that is 06/17/2024, the patient continues to be afebrile, the patient is on room air and breathing comfortably, the Pt denies having any chest pain or cough, the patient denies having any abdominal pain no vomiting or any diarrhea, right hand Pain is controlled some pain to the neck area. Patient creatinine started 2.6 blood culture repeat from 327 has been negative so far Objective - Vital Signs Vital signs: Vital Signs Temp 98.1 F 06/17/24 13:00 Pulse 82 06/17/24 13:00 Resp 16 06/17/24 13:00 BP 160/86 06/17/24 13:00 Pulse Ox 96 06/17/24 13:00 FiO2 Intake & Output 06/16/24 06/17/24 06/17/24 18:59 06:59 18:59 Intake Total 1180 240 780 Balance 1180 240 780 Intake: Oral 1180 240 780 Other: Voiding Method Toilet Toilet Urinal Urinal # Voids 5 3 # Bowel Movements 1 1 - Exam GENERAL DESCRIPTION: ashley pugh male lying in bed in no distress RESPIRATORY SYSTEM: Unlabored breathing , decreased breath sounds at bases HEART: S1 S2 regular rate and rhythm , ABDOMEN: Soft , no tenderness EXTREMITIES: Right hand is currently dressed no drainage - Labs CBC & Chem 7: 06/16/24 03:32 06/17/24 03:36 Labs: Abnormal Lab Results - Last 24 Hours (Table) 06/16/24 06/16/24 06/17/24 Range/Units 17:02 20:30 03:36 Carbon Dioxide 20.9 L (21.6-31.8) mmol/L Anion Gap 12.10 H (4.00-12.00) mmol/L BUN 48.9 H (9.0-27.0) mg/dL Creatinine 2.6 H (0.6-1.5) mg/dL Est GFR (CKD-EPI) 29 L (>=60) Glucose 212 H (70-110) mg/dL POC Glucose (mg/dL) 278 H 251 H (70-110) mg/dL Calcium 8.3 L (8.7-10.3) mg/dL 06/17/24 06/17/24 Range/Units 07:14 12:11 Carbon Dioxide (21.6-31.8) mmol/L Anion Gap (4.00-12.00) mmol/L BUN (9.0-27.0) mg/dL Creatinine (0.6-1.5) mg/dL Est GFR (CKD-EPI) (>=60) Glucose (70-110) mg/dL POC Glucose (mg/dL) 200 H 218 H (70-110) mg/dL Calcium (8.7-10.3) mg/dL Microbiology - Last 24 Hours (Table) 06/16/24 03:32 Blood Culture - Preliminary Blood 06/12/24 19:18 Blood Culture Gram Stain - Final Blood Blood Culture - Final Staphylococcus aureus Assessment and Plan (1) Sepsis Current Visit: Yes Status: Acute Code(s): A41.9 - SEPSIS, UNSPECIFIED ORGANISM SNOMED Code(s): 76738414 (2) Cellulitis of right hand Current Visit: Yes Status: Acute Code(s): L03.113 - CELLULITIS OF RIGHT UPPER LIMB SNOMED Code(s): 63182248264841335 Plan: 1patient presented hospital with sepsis in this patient who did have elevated white count tachycardia meeting criteria for SIRS source is right hand cellulitis and likely from gram-positive skin ana 2-patient did have a positive blood culture with MSSA source likely right hand cellulitis 3patient is status post surgical drainage of the abscess and deep culture which are growing MSSA. 4patient did have persistent bacteremia concerning for possible deep infection and question of possible discitis currently undergoing workup for possible MRI of the thoracic spine 5patient also have worsening of his kidney function questionable interstitial nephritis secondary to naficillin which has been discontinued nephrology is following the patient recommending a biopsy of the kidney biopsy which has been completed results will be followed 6patient blood culture from 06/16/2024 so far negative to continue daptomycin at this point and monitor clinical course closely Dictation was produced using dragon dictation software. please excuse any grammatical, word or spelling errors. Time with Patient: Less than 30
[2024-06-17 17:44] LABS: Glucose,Whole Blood 286 mg/dL (70-110)
[2024-06-17] MEDS: HYDROcodone/APAP 7.5-325MG 1 EACH TAB PO PRN (18:18)
[2024-06-17 20:47] LABS: Glucose,Whole Blood 340 mg/dL (70-110)
--- NOTE | 2024-06-18 06:28 | P.PN ---
Subjective Progress Note Date: 06/17/24 This is a pleasant 53-year-old male who was recently admitted with right hand swelling and concerns for cellulitis as well as rheumatoid arthritis. Orthopedics following and scheduled to undergo I&D with washout today. Patient is maintained on antibiotics with infectious disease following and will await deep tissue cultures to determine appropriate antibiotics. Patient to continue with local wound care and elevating right hand while at rest. Continue with pain management. Cultures preliminary showing presumptive Staph aureus MSSA. Kidney functions worsened at 2.3 creatinine and will consult nephrology and appreciate input and recommendations. Continue IV hydration. Also recommend incentive spirometer and increased activity as tolerated and getting out of the bed more frequently. Monitor for any fevers. 06/09/2024 Patient is seen in follow-up status post incision and drainage along with washout of the right hand with orthopedics today. Per OR documentation, there were copious amounts of purulent drainage noted requiring 2 small incisions and cultures were obtained. Preliminary cultures are showing Staphylococcus aureus and will await finalized cultures. Infectious disease following and will discuss if patient will require likely IV antibiotics on discharge. Patient is afebrile although white count remains elevated at 14.06. Patient is also maintained on gentle hydration and will continue along with nafcillin per ID recommendations. Will discuss further with infectious disease regarding discharge planning. Patient is not ready for discharge as of yet. Patient to continue on CIWA protocol and encouraged increase activity as tolerated. Patient does not appear to be actively withdrawing although continues to have difficulty with pain management. 06/10/2024 Patient is seen in follow-up today status post incision and drainage with washout with orthopedics maintained on antibiotics with infectious disease following as well. Patient continues to report significant pain in the hand and difficulty managing pain which has been adjusted and will obtain repeat CT for further evaluation. Patient has been instructed to continue with dressing changes per orthopedics and wound care. Elevate right hand while at rest. Awaiting cultures to determine discharge antibiotics and also to place a PICC line although blood cultures remain positive. Will follow-up with daily blood cultures to monitor clearance of bacteremia. White count remains elevated although patient is afebrile. 06/13/2024 Patient is seen in follow-up today continues on IV antibiotics with infectious disease and orthopedics following. Blood cultures remain positive although most recent on 06/10 are negative at this time and will need to monitor for clearance of bacteremia for PICC line placement. Patient will require IV antibiotics on discharge. Orthopedics following recommending continuing with continued IV antibiotic therapy. Patient is afebrile and white count is trending down. Patient continues to report significant back pain and has been using K-pad and muscle relaxers along with pain medications. Encouraged increase activity as tolerated. 06/14/2024 Patient seen in follow-up with multiple consultations continue to follow including orthopedics as well as infectious disease. Blood cultures remain positive with MSSA Staphylococcus aureus and initial repeat blood cultures from 06/10/2024 have now become positive with continued Staph aureus. Patient kidney functions also continue to be elevated with an elevated BUN of 44.8 and creatinine is 3.0. Nephrology is following discussing possible biopsy in the near future. Sodium did improve at 132. White count remains elevated at 17.27 and patient is maintained on antibiotics in the form of ampicillin. Given patient's continued bacteremia discussed with infectious disease and will transition to daptomycin and continue with daily blood cultures to monitor clearance of the bacteremia. Patient also with orthopedics following with concerns of continued ongoing infection as well as cervical neck pain and spasms did initially order an MRI although unable to and x-ray images have been ordered and pending. 06/15/2024 Patient is seen in follow-up today with multiple consultations following. Patient continued on antibiotics with infectious disease following and blood cultures remain positive. Kidney functions are elevated with creatinine of 2.9 and interventional radiology is consulted per nephrology for kidney biopsy. Patient is continued on daptomycin per infectious disease and following up on daily blood cultures. Patient has been up and walking the halls and continues to report upper extremity weakness with pain and back pain. Patient is afebrile with no reports of chest pain or shortness of breath. Patient reports has been tolerating diet with no reported nausea or vomiting. 06/16/2024 patient is seen and evaluated this morning and continues to have significant shoulder pain with spasms with orthopedics following. Unable to obtain an MRI due to that foreign body noted in the right forearm and currently scheduled to undergo CT of the neck and upper back. Patient is continued on antibiotics as blood cultures remain positive with Staphylococcus aureus. White count is trending down and is 10.16 today, hemoglobin is stable at 9.6, platelets 199, potassium is 4.2 with a sodium of 137, creatinine remains elevated at 2.7 and BUN is 47.1. 06/17/2024 Patient is seen in follow-up this morning continues on daptomycin with infectious disease following. Most recent blood culture thus far is negative for 24 hours and awaiting finalized cultures to determine appropriate discharge antibiotics. Nephrology following as well and patient is status post kidney biopsy today which is pending. Creatinine slightly improved at 2.6 and will follow-up with repeat labs. Patient is afebrile and white count is improved and is being continued on current regimen. Blood pressures have been elevated and adjusting medications accordingly. Discussed with orthopedics regarding this possible right forearm foreign body if it can be removed if still having positive blood cultures. To reevaluate on Thursday. Review of systems: Constitutional: No reports of fatigue, fever, or chills Cardiovascular: No reports of chest pain or palpitations Respiratory: No reports of shortness of breath or cough GI: No reports of nausea, no reports of vomiting, no diarrhea : No reports of dysuria or retention Neurovascular: reports of right hand tenderness and swelling is improving, continues with upper back spasms and neck and shoulder pain All medications have been reviewed PHYSICAL EXAMINATION: GENERAL: The patient is alert and oriented x4, Well developed, well nourished. Less anxious HEENT: Pupils are round and equally reacting to light. EOMI. no scleral icterus. No conjunctival pallor. Normocephalic, atraumatic. No pharyngeal erythema. No thyromegaly. CARDIOVASCULAR: S1 and S2 muffled PULMONARY: diminished breath sounds bilaterally with no wheezing or rhonchi noted. ABDOMEN: soft. Nontender on exam. non-distended, normoactive bowel sounds. No palpable organomegaly. MUSCULOSKELETAL: No joint swelling or deformity. EXTREMITIES: No cyanosis, clubbing, or pedal edema. Significant right hand swelling with redness has improved, surgical dressing changed and currently dry and intact NEUROLOGICAL: Gross neurological examination did not reveal any focal deficits. SKIN: No rashes. Assessment: Acute cellulitis of the right hand with sepsis, present on admission, status p ost incision and drainage with washout with orthopedics, cultures remain positive for Staphylococcus aureus MSSA sepsis secondary to above with bacteremia, cultures from incision and drainage also showing Staphylococcus aureus, recent blood cultures from 06/14/2024 are negative for 24 hours and will monitor until finalized for clearance of bacteremia Possible foreign body noted on imaging of the right forearm Possible rheumatoid arthritis with acute exacerbation Leukocytosis, secondary to above, trending down History of GERD Acute kidney injury, likely ATN secondary to sepsis Acute delirium with alcohol withdrawal, improved and patient is not actively withdrawing Diabetes mellitus, type II uncontrolled with hyperglycemia Thrombocytopenia, likely secondary to ongoing alcohol abuse Persistent neck and thoracic pain with left upper extremity pain and spasms, ongoing workup History of hypertension History of daily EtOH use GI prophylaxis DVT prophylaxis Full code Plan: Recommend to continue with current medications and management with orthopedics and infectious disease following. Patient is currently maintained on daptomycin blood cultures remain positive undergoing daily blood culture repeats until clearance of bacteremia is noted. Most recent repeat blood cultures thus far remain negative for 24 hours now. Patient will require IV antibiotic on discharge although need to await finalized cultures and clearance of bacteremia for PICC line placement Orthopedics following as well and patient continues to have ongoing neck and thoracic pain causing spasms and left upper extremity pain. Further imaging including possible MRI ordered at this time although unable to perform MRI as there was an incidental finding of a foreign object in the right forearm and will need to be further evaluated. CT images of the cervical spine have been ordered per orthopedics. Discussed with orthopedics regarding that foreign body that patient feels is metal in his right forearm and we will reevaluate on Thursday to discuss possible removal of if blood cultures remain positive. Follow-up on repeat labs and continue with gentle hydration Nephrology following for acute kidney injury with a creatinine of 2.6 and is status post kidney biopsy today. Will follow-up on repeat labs Patient is continued on heparin subcu and will monitor closely platelet levels. Encouraged increase activity as tolerated and getting up out of the bed more frequently. Patient has been up and walking the halls frequently Continue monitoring Accu-Cheks before meals and at bedtime and home medications have been resumed. Will adjust insulins accordingly Continue local wound care per ID and orthopedic recommendations and instructed patient to continue elevating right hand while at rest. Continue with soaks and washes 3 times daily per orthopedics Social work following as patient will require IV antibiotics on discharge. To verify coverage and currently awaiting finalized cultures to determine approp riate antibiotics per ID recommendations Due to multiple complex medical issues, overall prognosis is guarded The impression and plan of care has been dictated by Ruthy Ariza, nurse practitioner as directed. Dr. Melody MD I have performed a history and examination and MDM of this patient, discussed the same with the dictator, and agree with the dictator's assessment and plan a s written ,documented as a scribe. Based on total visit time, I have performed more than 50% of the visit. Any additional findings or plans will be noted. Objective - Vital Signs Vital signs: Vital Signs Temp 97.9 F 06/17/24 07:33 Pulse 70 06/17/24 07:33 Resp 16 06/17/24 07:33 BP 176/85 06/17/24 07:33 Pulse Ox 97 06/17/24 07:33 FiO2 Intake & Output 06/16/24 06/17/24 06/17/24 18:59 06:59 18:59 Intake Total 1180 240 Balance 1180 240 Intake: Oral 1180 240 Other: Voiding Method Toilet Toilet Urinal Urinal # Voids 5 3 # Bowel Movements 1 1 - Labs CBC & Chem 7: 06/16/24 03:32 06/17/24 03:36 Labs: Abnormal Lab Results - Last 24 Hours (Table) 06/16/24 06/16/24 06/16/24 Range/Units 12:09 17:02 20:30 Carbon Dioxide (21.6-31.8) mmol/L Anion Gap (4.00-12.00) mmol/L BUN (9.0-27.0) mg/dL Creatinine (0.6-1.5) mg/dL Est GFR (CKD-EPI) (>=60) Glucose (70-110) mg/dL POC Glucose (mg/dL) 152 H 278 H 251 H (70-110) mg/dL Calcium (8.7-10.3) mg/dL 06/17/24 06/17/24 Range/Units 03:36 07:14 Carbon Dioxide 20.9 L (21.6-31.8) mmol/L Anion Gap 12.10 H (4.00-12.00) mmol/L BUN 48.9 H (9.0-27.0) mg/dL Creatinine 2.6 H (0.6-1.5) mg/dL Est GFR (CKD-EPI) 29 L (>=60) Glucose 212 H (70-110) mg/dL POC Glucose (mg/dL) 200 H (70-110) mg/dL Calcium 8.3 L (8.7-10.3) mg/dL Microbiology - Last 24 Hours (Table) 06/12/24 19:18 Blood Culture Gram Stain - Final Blood Blood Culture - Final Staphylococcus aureus
[2024-06-18 06:59] LABS: Basophils % (A) 0 %; Eosinophils % (A) 0 %; HCT 29.1 % (39.0-53.0); Lymphocytes % (A) 10 %; MCH 30.7 pg (25.0-35.0); MCHC 31.4 g/dL (31.0-37.0); MCV 97.7 fL (80.0-100.0); Monocytes # (A) 0.5 k/uL (0-1.0); Monocytes % (A) 5 %; Neutrophils # (A) 8.2 k/uL (1.3-7.7); Neutrophils % (A) 84 %; RBC 2.98 m/uL (4.30-5.90); RDW 15.1 % (11.5-15.5); WBC 9.8 k/uL (3.8-10.6)
[2024-06-18 07:01] LABS: HGB 9.1 gm/dL (13.0-17.5); Platelet Count 227 k/uL (150-450)
[2024-06-18 07:27] LABS: African American GFR (CKD) 36 (>60 ml/min/1.73 sqM); Anion Gap 9 mmol/L; Blood Urea Nitrogen 55 mg/dL (9-20); Calcium 8.4 mg/dL (8.4-10.2); Carbon Dioxide 22 mmol/L (22-30); Chloride 103 mmol/L (98-107); Glucose 228 mg/dL (74-99); Non-African American GFR(CKD) 31 (>60 ml/min/1.73 sqM); Potassium 4.4 mmol/L (3.5-5.1); Sodium 134 mmol/L (137-145)
[2024-06-18 07:29] LABS: Glucose,Whole Blood 250 mg/dL (70-110)
[2024-06-18] MEDS: INSULIN GLARGINE (LANTUS) 100 UNIT/ML SYR SQ SCH (10:38)
--- NOTE | 2024-06-18 12:14 | P.PN ---
Subjective Progress Note Date: 06/18/24 This is a pleasant 53-year-old male who was recently admitted with right hand swelling and concerns for cellulitis as well as rheumatoid arthritis. Orthopedics following and scheduled to undergo I&D with washout today. Patient is maintained on antibiotics with infectious disease following and will await deep tissue cultures to determine appropriate antibiotics. Patient to continue with local wound care and elevating right hand while at rest. Continue with pain management. Cultures preliminary showing presumptive Staph aureus MSSA. Kidney functions worsened at 2.3 creatinine and will consult nephrology and appreciate input and recommendations. Continue IV hydration. Also recommend incentive spirometer and increased activity as tolerated and getting out of the bed more frequently. Monitor for any fevers. 06/09/2024 Patient is seen in follow-up status post incision and drainage along with washout of the right hand with orthopedics today. Per OR documentation, there were copious amounts of purulent drainage noted requiring 2 small incisions and cultures were obtained. Preliminary cultures are showing Staphylococcus aureus and will await finalized cultures. Infectious disease following and will discuss if patient will require likely IV antibiotics on discharge. Patient is afebrile although white count remains elevated at 14.06. Patient is also maintained on gentle hydration and will continue along with nafcillin per ID recommendations. Will discuss further with infectious disease regarding discharge planning. Patient is not ready for discharge as of yet. Patient to continue on CIWA protocol and encouraged increase activity as tolerated. Patient does not appear to be actively withdrawing although continues to have difficulty with pain management. 06/10/2024 Patient is seen in follow-up today status post incision and drainage with washout with orthopedics maintained on antibiotics with infectious disease following as well. Patient continues to report significant pain in the hand and difficulty managing pain which has been adjusted and will obtain repeat CT for further evaluation. Patient has been instructed to continue with dressing changes per orthopedics and wound care. Elevate right hand while at rest. Awaiting cultures to determine discharge antibiotics and also to place a PICC line although blood cultures remain positive. Will follow-up with daily blood cultures to monitor clearance of bacteremia. White count remains elevated although patient is afebrile. 06/13/2024 Patient is seen in follow-up today continues on IV antibiotics with infectious disease and orthopedics following. Blood cultures remain positive although most recent on 06/10 are negative at this time and will need to monitor for clearance of bacteremia for PICC line placement. Patient will require IV antibiotics on discharge. Orthopedics following recommending continuing with continued IV antibiotic therapy. Patient is afebrile and white count is trending down. Memo rushing continues to report significant back pain and has been using K-pad and muscle relaxers along with pain medications. Encouraged increase activity as tolerated. 06/14/2024 Patient seen in follow-up with multiple consultations continue to follow including orthopedics as well as infectious disease. Blood cultures remain positive with MSSA Staphylococcus aureus and initial repeat blood cultures from 06/10/2024 have now become positive with continued Staph aureus. Patient kidney functions also continue to be elevated with an elevated BUN of 44.8 and creatinine is 3.0. Nephrology is following discussing possible biopsy in the near future. Sodium did improve at 132. White count remains elevated at 17.27 and patient is maintained on antibiotics in the form of ampicillin. Given patient's continued bacteremia discussed with infectious disease and will transition to daptomycin and continue with daily blood cultures to monitor clearance of the bacteremia. Patient also with orthopedics following with concerns of continued ongoing infection as well as cervical neck pain and spasms did initially order an MRI although unable to and x-ray images have been ordered and pending. 06/15/2024 Patient is seen in follow-up today with multiple consultations following. Patient continued on antibiotics with infectious disease following and blood cultures remain positive. Kidney functions are elevated with creatinine of 2.9 and interventional radiology is consulted per nephrology for kidney biopsy. Patient is continued on daptomycin per infectious disease and following up on daily blood cultures. Patient has been up and walking the halls and continues to report upper extremity weakness with pain and back pain. Patient is afebrile with no reports of chest pain or shortness of breath. Patient reports has been tolerating diet with no reported nausea or vomiting. 06/16/2024 patient is seen and evaluated this morning and continues to have significant shoulder pain with spasms with orthopedics following. Unable to obtain an MRI due to that foreign body noted in the right forearm and currently scheduled to undergo CT of the neck and upper back. Patient is continued on antibiotics as blood cultures remain positive with Staphylococcus aureus. White count is trending down and is 10.16 today, hemoglobin is stable at 9.6, platelets 199, potassium is 4.2 with a sodium of 137, creatinine remains elevated at 2.7 and BUN is 47.1. 06/17/2024 Patient is seen in follow-up this morning continues on daptomycin with infectious disease following. Most recent blood culture thus far is negative for 24 hours and awaiting finalized cultures to determine appropriate discharge antibiotics. Nephrology following as well and patient is status post kidney biopsy today which is pending. Creatinine slightly improved at 2.6 and will follow-up with repeat labs. Patient is afebrile and white count is improved and is being continued on current regimen. Blood pressures have been elevated and adjusting medications accordingly. Discussed with orthopedics regarding this possible right forearm foreign body if it can be removed if still having positive blood cultures. To reevaluate on Thursday. 06/18. Patient seen and examined. States he feels better. Denies any fever or chills. Patient has been afebrile REVIEW OF SYSTEMS: CONSTITUTIONAL: No fever, no malaise,. CARDIOVASCULAR: No chest pain, no palpitations, no syncope. PULMONARY: No shortness of breath, no cough, GASTROINTESTINAL: No diarrhea, no nausea, no vomiting, no abdominal pain. NEUROLOGICAL: No headaches, no weakness, PHYSICAL EXAMINATION: GENERAL: The patient is alert and oriented x3, not in any acute distress. Well developed, well nourished. HEENT: Pupils are round and equally reacting to light. EOMI. No scleral icterus. No conjunctival pallor. Normocephalic, atraumatic. No pharyngeal erythema. No thyromegaly. CARDIOVASCULAR: S1 and S2 present. No murmurs, rubs, or gallops. PULMONARY: Chest is clear to auscultation, no wheezing or crackles. ABDOMEN: Soft, nontender, nondistended, normoactive bowel sounds. No palpable organomegaly. MUSCULOSKELETAL: Right upper extremity bandage seen EXTREMITIES: No cyanosis, clubbing, or pedal edema. NEUROLOGICAL: Gross neurological examination did not reveal any focal deficits. SKIN: No rashes. Assessment and plan Acute cellulitis of the right hand with sepsis, present on admission, status post incision and drainage with washout with orthopedics, cultures remain positive for Staphylococcus aureus MSSA sepsis secondary to above with bacteremia, cultures from incision and drainage also showing Staphylococcus aureus, recent blood cultures from 06/14/2024 are negative for 24 hours and will monitor until finalized for clearance of bacteremia Possible foreign body noted on imaging of the right forearm Possible rheumatoid arthritis with acute exacerbation Leukocytosis, secondary to above, trending down History of GERD Acute kidney injury, likely ATN secondary to sepsis Acute delirium with alcohol withdrawal, improved and patient is not actively withdrawing Diabetes mellitus, type II uncontrolled with hyperglycemia Thrombocytopenia, likely secondary to ongoing alcohol abuse Persistent neck and thoracic pain with left upper extremity pain and spasms, ongoing workup History of hypertension History of daily EtOH use Monitor vital signs Monitor CBC Monitor CMP Repeat blood cultures ordered Continue daptomycin Continue Norvasc Monitor blood sugar levels, continue current insulin regimen Orthopedics following, Discussed with orthopedics regarding that foreign body that patient feels is metal in his right forearm and we will reevaluate on Thursday to discuss possible removal of if blood cultures remain positive. ID following Nephrology following, status post kidney biopsy currently on steroids per nephrology Labs and medication were reviewed.. Continue same treatment. Continue with symptomatic treatment. Resume home medication. Monitor labs and vitals. DVT and GI prophylaxis. Further recommendations as per clinical course of the patient Dictation was produced using [employer] dictation software. please excuse any grammatical, word or spelling errors. Objective - Vital Signs Vital signs: Vital Signs Temp 97.7 F 06/18/24 07:28 Pulse 74 06/18/24 07:28 Resp 16 06/18/24 07:28 BP 166/86 06/18/24 07:28 Pulse Ox 97 06/18/24 07:28 FiO2 Intake & Output 06/17/24 06/18/24 06/18/24 18:59 06:59 18:59 Intake Total 1260 590 240 Balance 1260 590 240 Intake: Oral 1260 590 240 Other: Voiding Method Toilet Urinal # Voids 2 - Labs CBC & Chem 7: 06/18/24 06:35 06/18/24 06:35 Labs: Abnormal Lab Results - Last 24 Hours (Table) 06/17/24 06/17/24 06/17/24 Range/Units 12:11 17:42 20:45 RBC (4.30-5.90) m/uL Hgb (13.0-17.5) gm/dL Hct (39.0-53.0) % Neutrophils # (1.3-7.7) k/uL Sodium (137-145) mmol/L BUN (9-20) mg/dL Creatinine (0.66-1.25) mg/dL Glucose (74-99) mg/dL POC Glucose (mg/dL) 218 H 286 H 340 H (70-110) mg/dL 06/18/24 06/18/24 06/18/24 Range/Units 06:35 06:35 07:27 RBC 2.98 L (4.30-5.90) m/uL Hgb 9.1 L D (13.0-17.5) gm/dL Hct 29.1 L (39.0-53.0) % Neutrophils # 8.2 H (1.3-7.7) k/uL Sodium 134 L (137-145) mmol/L BUN 55 H (9-20) mg/dL Creatinine 2.32 H (0.66-1.25) mg/dL Glucose 228 H (74-99) mg/dL POC Glucose (mg/dL) 250 H (70-110) mg/dL Microbiology - Last 24 Hours (Table) 06/16/24 03:32 Blood Culture - Preliminary Blood
[2024-06-18 12:25] LABS: Glucose,Whole Blood 212 mg/dL (70-110)
--- NOTE | 2024-06-18 13:35 | P.PN ---
Subjective Progress Note Date: 06/18/24 Patient is seen in follow-up for acute kidney injury. Renal function slightly better. Has been voiding. No vomiting or diarrhea. Oral intake is fair. he had kidney biopsy yesterday, no major issues. Vital signs are stable. General: No acute distress. HEENT: Head exam is unremarkable. LUNGS: No audible rhonchi or wheezes. HEART: Rate and Rhythm are regular. ABDOMEN: Nontender. EXTREMITITES: 1+ edema. Hand swelling noted. No drainage. Objective - Vital Signs Vital signs: Vital Signs Temp 97.5 F L 06/18/24 12:00 Pulse 67 06/18/24 12:00 Resp 16 06/18/24 12:00 BP 182/91 06/18/24 12:00 Pulse Ox 97 06/18/24 12:00 FiO2 Intake & Output 06/17/24 06/18/24 06/18/24 18:59 06:59 18:59 Intake Total 1260 590 240 Balance 1260 590 240 Intake: Oral 1260 590 240 Other: Voiding Method Toilet Urinal # Voids 2 - Labs CBC & Chem 7: 06/18/24 06:35 06/18/24 06:35 Labs: Abnormal Lab Results - Last 24 Hours (Table) 06/17/24 06/17/24 06/18/24 Range/Units 17:42 20:45 06:35 RBC 2.98 L (4.30-5.90) m/uL Hgb 9.1 L D (13.0-17.5) gm/dL Hct 29.1 L (39.0-53.0) % Neutrophils # 8.2 H (1.3-7.7) k/uL Sodium (137-145) mmol/L BUN (9-20) mg/dL Creatinine (0.66-1.25) mg/dL Glucose (74-99) mg/dL POC Glucose (mg/dL) 286 H 340 H (70-110) mg/dL 06/18/24 06/18/24 06/18/24 Range/Units 06:35 07:27 12:23 RBC (4.30-5.90) m/uL Hgb (13.0-17.5) gm/dL Hct (39.0-53.0) % Neutrophils # (1.3-7.7) k/uL Sodium 134 L (137-145) mmol/L BUN 55 H (9-20) mg/dL Creatinine 2.32 H (0.66-1.25) mg/dL Glucose 228 H (74-99) mg/dL POC Glucose (mg/dL) 250 H 212 H (70-110) mg/dL Microbiology - Last 24 Hours (Table) 06/16/24 03:32 Blood Culture - Preliminary Blood Assessment and Plan Assessment: Assessment: 1. Acute kidney injury secondary to septic ATN. Creatinine peaked at 3.0 this admission and is 2.6 -> 2.3 today. Creatinine 0.9 dated April 08, 2023. No hydronephrosis noted on ultrasound. Urine eosinophils 1%. Serologies negative. Prednisone added June 14, 2024 due to concern for AIN, s/p kidney biopsy on 06/17 2. Metabolic acidosis secondary to acute kidney injury. On oral bicarb. Improved. 3. Hypokalemia from diuresis. Replaced. Better. 4. Hypervolemic hyponatremia. Improved. 5. Right hand cellulitis/abscess status post I&D in June 08, 2024. On antibiotics. Wound culture and blood culture positive for Staph aureus. 6. Benign hypertension. Exacerbated by steroids. Plan: check CK level while he is on daptomycin Maintain 1500 cc fluid restriction. Encouraged oral intake. Changed PPI to Pepcid. Preserved ejection fraction noted on echocardiogram. Continue to monitor renal function and urine output. Avoid nephrotoxins. follow up Kidney biopsy results continue amlodipine 5 mg once daily.
--- NOTE | 2024-06-18 15:42 | P.PN ---
Subjective Progress Note Date: 06/18/24 Principal diagnosis: Reason for follow-up is right hand cellulitis and bacteremia Patient is a 53-year-old male with a past medical history of again for diabetes mellitus reflux hypertension osteoarthritis chronic back pain presenting to the hospital for evaluation of worsening pain swelling and redness to the right hand area patient be diagnosed with cellulitis subsequent blood culture came positive with MSSA. Patient is status post surgical drainage of the right hand abscess completed by orthopedic 06/08/2024 On today's evaluation that is 06/18/2024, patient did not have any fever and denies any chills, patient is breathing comfortably on room air, patient with no chest pain or cough patient did not have any abdominal pain nausea vomiting or any loose stools, pain to the right hand is currently controlled complaining of pain to the neck and upper back area. Patient white count is normalized to 9.8 creatinine is 2.32 blood culture repeat from 06/17/2019 so far negative Objective - Vital Signs Vital signs: Vital Signs Temp 97.5 F L 06/18/24 12:00 Pulse 67 06/18/24 12:00 Resp 16 06/18/24 12:00 BP 182/91 06/18/24 12:00 Pulse Ox 97 06/18/24 12:00 FiO2 Intake & Output 06/17/24 06/18/24 06/18/24 18:59 06:59 18:59 Intake Total 1260 590 480 Balance 1260 590 480 Intake: Oral 1260 590 480 Other: Voiding Method Toilet Urinal # Voids 2 - Exam GENERAL DESCRIPTION: venkataalexismertbimalashley Jimmy male lying in bed in no distress RESPIRATORY SYSTEM: Unlabored breathing , decreased breath sounds at bases HEART: S1 S2 regular rate and rhythm , ABDOMEN: Soft , no tenderness EXTREMITIES: Right hand is currently dressed no drainage - Labs CBC & Chem 7: 06/18/24 06:35 06/18/24 06:35 Labs: Abnormal Lab Results - Last 24 Hours (Table) 06/17/24 06/17/24 06/18/24 Range/Units 17:42 20:45 06:35 RBC 2.98 L (4.30-5.90) m/uL Hgb 9.1 L D (13.0-17.5) gm/dL Hct 29.1 L (39.0-53.0) % Neutrophils # 8.2 H (1.3-7.7) k/uL Sodium (137-145) mmol/L BUN (9-20) mg/dL Creatinine (0.66-1.25) mg/dL Glucose (74-99) mg/dL POC Glucose (mg/dL) 286 H 340 H (70-110) mg/dL 06/18/24 06/18/24 06/18/24 Range/Units 06:35 07:27 12:23 RBC (4.30-5.90) m/uL Hgb (13.0-17.5) gm/dL Hct (39.0-53.0) % Neutrophils # (1.3-7.7) k/uL Sodium 134 L (137-145) mmol/L BUN 55 H (9-20) mg/dL Creatinine 2.32 H (0.66-1.25) mg/dL Glucose 228 H (74-99) mg/dL POC Glucose (mg/dL) 250 H 212 H (70-110) mg/dL Microbiology - Last 24 Hours (Table) 06/16/24 03:32 Blood Culture - Preliminary Blood Assessment and Plan (1) Sepsis Current Visit: Yes Status: Acute Code(s): A41.9 - SEPSIS, UNSPECIFIED ORGANISM SNOMED Code(s): 60785835 (2) Cellulitis of right hand Current Visit: Yes Status: Acute Code(s): L03.113 - CELLULITIS OF RIGHT UPPER LIMB SNOMED Code(s): 46364812241078608 (3) MSSA bacteremia Current Visit: Yes Status: Acute Code(s): R78.81 - BACTEREMIA; B95.61 - METHICILLIN SUSCEP STAPH INFCT CAUSING DIS CLASSD [id number] SNOMED Code(s): 792265456 Plan: 1patient presented hospital with sepsis in this patient who did have elevated white count tachycardia meeting criteria for SIRS source is right hand cellulitis and likely from gram-positive skin ana 2-patient did have a positive blood culture with MSSA source likely right hand cellulitis 3patient is status post surgical drainage of the abscess and deep culture which are growing MSSA. 4patient did have persistent bacteremia concerning for possible deep infection and question of possible discitis currently undergoing workup for possible MRI of the thoracic spine 5patient also have worsening of his kidney function questionable interstitial nephritis secondary to naficillin which has been discontinued nephrology is following the patient recommending a biopsy of the kidney biopsy which has been completed results will be followed 6patient blood culture from 06/16/2024 has been negative and the patient white count normalized we will treat with daptomycin and monitor clinical course closely Dictation was produced using [email or web address] software. please excuse any grammatical, word or spelling errors. Time with Patient: Less than 30
[2024-06-18 16:34] LABS: Glucose,Whole Blood 152 mg/dL (70-110)
[2024-06-18 20:19] LABS: Glucose,Whole Blood 292 mg/dL (70-110)
[2024-06-19 07:04] LABS: Glucose,Whole Blood 210 mg/dL (70-110)
[2024-06-19 07:32] LABS: Basophils % (A) 0 %; Eosinophils % (A) 0 %; HCT 28.7 % (39.0-53.0); HGB 9.3 gm/dL (13.0-17.5); Lymphocytes # (A) 1.1 k/uL (1.0-4.8); Lymphocytes % (A) 9 %; MCH 30.8 pg (25.0-35.0); MCHC 32.5 g/dL (31.0-37.0); MCV 94.8 fL (80.0-100.0); Mean Platelet Volume 8.7; Monocytes # (A) 0.4 k/uL (0-1.0); Monocytes % (A) 4 %; Neutrophils # (A) 10.1 k/uL (1.3-7.7); Neutrophils % (A) 86 %; Platelet Count 229 k/uL (150-450); RBC 3.03 m/uL (4.30-5.90); RDW 14.7 % (11.5-15.5); WBC 11.7 k/uL (3.8-10.6)
[2024-06-19 07:34] LABS: ALT 20 U/L (4-49); AST 28 U/L (17-59); African American GFR (CKD) 34 (>60 ml/min/1.73 sqM); Albumin 2.5 g/dL (3.5-5.0); Albumin/Globulin Ratio 0.7; Alkaline Phosphatase 115 U/L (38-126); Anion Gap 9 mmol/L; Blood Urea Nitrogen 58 mg/dL (9-20); Calcium 8.4 mg/dL (8.4-10.2); Carbon Dioxide 21 mmol/L (22-30); Chloride 105 mmol/L (98-107); Globulin 3.8 g/dL; Glucose 213 mg/dL (74-99); Non-African American GFR(CKD) 29 (>60 ml/min/1.73 sqM); Potassium 4.3 mmol/L (3.5-5.1); Sodium 135 mmol/L (137-145); Total Protein 6.3 g/dL (6.3-8.2)
--- NOTE | 2024-06-19 07:58 | P.PN ---
Subjective Progress Note Date: 06/19/24 This is a pleasant 53-year-old male who was recently admitted with right hand swelling and concerns for cellulitis as well as rheumatoid arthritis. Orthopedics following and scheduled to undergo I&D with washout today. Patient is maintained on antibiotics with infectious disease following and will await deep tissue cultures to determine appropriate antibiotics. Patient to continue with local wound care and elevating right hand while at rest. Continue with pain management. Cultures preliminary showing presumptive Staph aureus MSSA. Kidney functions worsened at 2.3 creatinine and will consult nephrology and appreciate input and recommendations. Continue IV hydration. Also recommend incentive spirometer and increased activity as tolerated and getting out of the bed more frequently. Monitor for any fevers. 06/09/2024 Patient is seen in follow-up status post incision and drainage along with washout of the right hand with orthopedics today. Per OR documentation, there were copious amounts of purulent drainage noted requiring 2 small incisions and cultures were obtained. Preliminary cultures are showing Staphylococcus aureus and will await finalized cultures. Infectious disease following and will discuss if patient will require likely IV antibiotics on discharge. Patient is afebrile although white count remains elevated at 14.06. Patient is also maintained on gentle hydration and will continue along with nafcillin per ID recommendations. Will discuss further with infectious disease regarding discharge planning. Patient is not ready for discharge as of yet. Patient to continue on CIWA protocol and encouraged increase activity as tolerated. Patient does not appear to be actively withdrawing although continues to have difficulty with pain management. 06/10/2024 Patient is seen in follow-up today status post incision and drainage with washout with orthopedics maintained on antibiotics with infectious disease following as well. Patient continues to report significant pain in the hand and difficulty managing pain which has been adjusted and will obtain repeat CT for further evaluation. Patient has been instructed to continue with dressing changes per orthopedics and wound care. Elevate right hand while at rest. Awaiting cultures to determine discharge antibiotics and also to place a PICC line although blood cultures remain positive. Will follow-up with daily blood cultures to monitor clearance of bacteremia. White count remains elevated although patient is afebrile. 06/13/2024 Patient is seen in follow-up today continues on IV antibiotics with infectious disease and orthopedics following. Blood cultures remain positive although most recent on 06/10 are negative at this time and will need to monitor for clearance of bacteremia for PICC line placement. Patient will require IV antibiotics on discharge. Orthopedics following recommending continuing with continued IV antibiotic therapy. Patient is afebrile and white count is trending down. Memo rushing continues to report significant back pain and has been using K-pad and muscle relaxers along with pain medications. Encouraged increase activity as tolerated. 06/14/2024 Patient seen in follow-up with multiple consultations continue to follow including orthopedics as well as infectious disease. Blood cultures remain positive with MSSA Staphylococcus aureus and initial repeat blood cultures from 06/10/2024 have now become positive with continued Staph aureus. Patient kidney functions also continue to be elevated with an elevated BUN of 44.8 and creatinine is 3.0. Nephrology is following discussing possible biopsy in the near future. Sodium did improve at 132. White count remains elevated at 17.27 and patient is maintained on antibiotics in the form of ampicillin. Given patient's continued bacteremia discussed with infectious disease and will transition to daptomycin and continue with daily blood cultures to monitor clearance of the bacteremia. Patient also with orthopedics following with concerns of continued ongoing infection as well as cervical neck pain and spasms did initially order an MRI although unable to and x-ray images have been ordered and pending. 06/15/2024 Patient is seen in follow-up today with multiple consultations following. Patient continued on antibiotics with infectious disease following and blood cultures remain positive. Kidney functions are elevated with creatinine of 2.9 and interventional radiology is consulted per nephrology for kidney biopsy. Patient is continued on daptomycin per infectious disease and following up on daily blood cultures. Patient has been up and walking the halls and continues to report upper extremity weakness with pain and back pain. Patient is afebrile with no reports of chest pain or shortness of breath. Patient reports has been tolerating diet with no reported nausea or vomiting. 06/16/2024 patient is seen and evaluated this morning and continues to have significant shoulder pain with spasms with orthopedics following. Unable to obtain an MRI due to that foreign body noted in the right forearm and currently scheduled to undergo CT of the neck and upper back. Patient is continued on antibiotics as blood cultures remain positive with Staphylococcus aureus. White count is trending down and is 10.16 today, hemoglobin is stable at 9.6, platelets 199, potassium is 4.2 with a sodium of 137, creatinine remains elevated at 2.7 and BUN is 47.1. 06/17/2024 Patient is seen in follow-up this morning continues on daptomycin with infectious disease following. Most recent blood culture thus far is negative for 24 hours and awaiting finalized cultures to determine appropriate discharge antibiotics. Nephrology following as well and patient is status post kidney biopsy today which is pending. Creatinine slightly improved at 2.6 and will follow-up with repeat labs. Patient is afebrile and white count is improved and is being continued on current regimen. Blood pressures have been elevated and adjusting medications accordingly. Discussed with orthopedics regarding this possible right forearm foreign body if it can be removed if still having positive blood cultures. To reevaluate on Thursday. 06/18. Patient seen and examined. States he feels better. Denies any fever or chills. Patient has been afebrile 06/19. Patient seen and examined. Ambulating in the room without any difficu lty. Denies any right arm pain. Blood work done showed WBC 11.7, globin 9.3, sodium 135, potassium 4.3, BUN 58, creatinine 2.46 REVIEW OF SYSTEMS: CONSTITUTIONAL: No fever, no malaise,. CARDIOVASCULAR: No chest pain, no palpitations, no syncope. PULMONARY: No shortness of breath, no cough, GASTROINTESTINAL: No diarrhea, no nausea, no vomiting, no abdominal pain. NEUROLOGICAL: No headaches, no weakness, PHYSICAL EXAMINATION: GENERAL: The patient is alert and oriented x3, not in any acute distress. Well developed, well nourished. HEENT: Pupils are round and equally reacting to light. EOMI. No scleral icterus. No conjunctival pallor. Normocephalic, atraumatic. No pharyngeal erythema. No thyromegaly. CARDIOVASCULAR: S1 and S2 present. No murmurs, rubs, or gallops. PULMONARY: Chest is clear to auscultation, no wheezing or crackles. ABDOMEN: Soft, nontender, nondistended, normoactive bowel sounds. No palpable organomegaly. MUSCULOSKELETAL: Right upper extremity bandage seen EXTREMITIES: No cyanosis, clubbing, or pedal edema. NEUROLOGICAL: Gross neurological examination did not reveal any focal deficits. SKIN: No rashes. Assessment and plan Acute cellulitis of the right hand with sepsis, present on admission, status post incision and drainage with washout with orthopedics, cultures remain positive for Staphylococcus aureus MSSA sepsis secondary to above with bacteremia, cultures from incision and drainage also showing Staphylococcus aureus, recent blood cultures from 06/14/2024 are negative for 24 hours and will monitor until finalized for clearance of bacteremia Possible foreign body noted on imaging of the right forearm Possible rheumatoid arthritis with acute exacerbation Leukocytosis, secondary to above, trending down History of GERD Acute kidney injury, likely ATN secondary to sepsis Acute delirium with alcohol withdrawal, improved and patient is not actively withdrawing Diabetes mellitus, type II uncontrolled with hyperglycemia Thrombocytopenia, likely secondary to ongoing alcohol abuse Persistent neck and thoracic pain with left upper extremity pain and spasms, ongoing workup History of hypertension History of daily EtOH use Monitor vital signs Monitor CBC Monitor CMP Repeat blood cultures ordered, last one from 06/16 are negative Continue daptomycin Continue Norvasc Monitor blood sugar levels, continue current insulin regimen Orthopedics following, Discussed with orthopedics regarding that foreign body that patient feels is metal in his right forearm and we will reevaluate on Thursday to discuss possible removal of if blood cultures remain positive. ID following Nephrology following, status post kidney biopsy currently on steroids per nephrology Labs and medication were reviewed.. Continue same treatment. Continue with symptomatic treatment. Resume home medication. Monitor labs and vitals. DVT and GI prophylaxis. Further recommendations as per clinical course of the patient Dictation was produced using [employer] dictation software. please excuse any grammatical, word or spelling errors. Objective - Vital Signs Vital signs: Vital Signs Temp 98.1 F 06/19/24 00:00 Pulse 71 06/19/24 00:00 Resp 16 06/19/24 00:00 BP 151/83 06/19/24 00:00 Pulse Ox 97 06/19/24 00:00 FiO2 Intake & Output 06/18/24 06/19/24 06/19/24 18:59 06:59 18:59 Intake Total 1660 590 Output Total 400 Balance 1660 190 Intake: Oral 1660 590 Output: Urine 400 Other: Voiding Method Toilet Urinal # Voids 4 # Bowel Movements 1 - Labs CBC & Chem 7: 06/19/24 06:51 06/19/24 06:51 Labs: Abnormal Lab Results - Last 24 Hours (Table) 06/18/24 06/18/24 06/18/24 Range/Units 12:23 16:32 20:18 WBC (3.8-10.6) k/uL RBC (4.30-5.90) m/uL Hgb (13.0-17.5) gm/dL Hct (39.0-53.0) % Neutrophils # (1.3-7.7) k/uL Sodium (137-145) mmol/L Carbon Dioxide (22-30) mmol/L BUN (9-20) mg/dL Creatinine (0.66-1.25) mg/dL Glucose (74-99) mg/dL POC Glucose (mg/dL) 212 H 152 H 292 H (70-110) mg/dL Total Bilirubin (0.2-1.3) mg/dL Albumin (3.5-5.0) g/dL 06/19/24 06/19/24 06/19/24 Range/Units 06:51 06:51 07:04 WBC 11.7 H (3.8-10.6) k/uL RBC 3.03 L (4.30-5.90) m/uL Hgb 9.3 L (13.0-17.5) gm/dL Hct 28.7 L (39.0-53.0) % Neutrophils # 10.1 H (1.3-7.7) k/uL Sodium 135 L (137-145) mmol/L Carbon Dioxide 21 L (22-30) mmol/L BUN 58 H (9-20) mg/dL Creatinine 2.46 H (0.66-1.25) mg/dL Glucose 213 H (74-99) mg/dL POC Glucose (mg/dL) 210 H (70-110) mg/dL Total Bilirubin 2.0 H (0.2-1.3) mg/dL Albumin 2.5 L (3.5-5.0) g/dL Microbiology - Last 24 Hours (Table) 06/16/24 03:32 Blood Culture - Preliminary Blood
--- NOTE | 2024-06-19 09:59 | P.PN ---
Progress Note - Text Progress Note Date: 06/19/24 06/19/2024 progress: The patient is seen and examined today at bedside. He is not complaining of new issues at his hand. He is continue to do soaks and regular wraps. Today he reports mild bilateral trapezius pain with activity only. He denies any cervical or thoracic spine pain. He states that he is able to sweet pickle maker socks from the ground and was not able to do that previously. He denies any numbness or weakness in the upper or lower extremities bilaterally. 06/14/2024 forearm x-rays show tiny foreign body near the skin surface. A CT c spine was obtained. CT cervical spine without contrast 06/16/2024 There is no acute findings in the cervical spine. There is grade 1 retrolisthesis C5 on C6 redemonstrated. Prevertebral soft tissue appears within normal limits. There is moderate disc space narrowing and spurring at C5-C6 and C6-C7 levels redemonstrated. Posterior spur disc complex effacing the anterior thecal sac at these levels. There is facet arthropathy causing moderate to severe bilateral neural foraminal narrowing at the C5-C6 level. On exam he has been afebrile His left upper extremity has full active and passive range of motion with 5 out of 5 strength. His right upper extremity has full active and passive range of motion with 5 out of 5 strength. His cervical and thoracic spine have no tenderness to palpation. He has mild tenderness to palpation to bilateral paraspinal thoracic muscles. At his right hand the dressing is taken down. There is 2 surgical incisions, 1 over the dorsum of the hand and one over the dorsal aspect of the index finger. There is no active purulence. There is some serosanguineous drainage on the dressing, I was not able to express any from the dorsum of his hand or his index finger. There is generalized swelling over the dorsum of the hand that appears improved. There is some generalized swelling over the volar aspect of the hand. There is no significant erythema on the volar side. There is no streaking on the volar aspect of his hand. He is able to flex and extend all 5 fingers. There is no pain with passive stretch. He continues to have difficulty extending the right ring finger but with isolation at PIP and DIP it is intact. Proximal right forearm with nodule consistent with x-ray finding of foreign body near skin surface. No erythema. No skin breakdown. Assessment and plan Right hand cellulitis/abscess status post I&D on 06/08/2024. On antibiotics. Wound culture and blood culture positive for Staph aureus. Gradually improving. Right ring finger remains having difficulty with extension. He needs to maintain his elevation and regular dressing care. Continue local wound care, continue his soaks regularly. Will reassess tomorrow. Neck and upper thoracic pain with left upper extremity pain and right upper extremity pain, no acute findings on CT. Significant improvement. He remains intact neurologically. No acute surgical intervention planned at this time. Continue non-operative management. Right forearm retained foreign body Renal insufficiency Dictation was produced using [facility] [employer] dictation software, please excuse any grammatical, word or spelling errors.
[2024-06-19] MEDS: FUROSEMIDE 10 MG/ML 4 ML VIAL IV SCH (11:56)
[2024-06-19 12:08] LABS: Glucose,Whole Blood 216 mg/dL (70-110)
--- NOTE | 2024-06-19 12:20 | P.PN ---
Subjective Progress Note Date: 06/19/24 Principal diagnosis: Reason for follow-up is right hand cellulitis and bacteremia Patient is a 53-year-old male with a past medical history of again for diabetes mellitus reflux hypertension osteoarthritis chronic back pain presenting to the hospital for evaluation of worsening pain swelling and redness to the right hand area patient be diagnosed with cellulitis subsequent blood culture came positive with MSSA. Patient is status post surgical drainage of the right hand abscess completed by orthopedic 06/08/2024 On today's evaluation that is 06/19/2024, Patient is afebrile patient is currently on room air and denies having any shortness of breath, the patient den ies any chest pain or cough, the patient denies any nausea vomiting did not have any abdominal pain and no diarrhea has been complaining of mostly swelling to the lower extremity. Patient white count is 11.7, creatinine is 2.46 blood culture from 06/16/2024 so far negative Objective - Vital Signs Vital signs: Vital Signs Temp 97.8 F 06/19/24 07:05 Pulse 77 06/19/24 07:05 Resp 15 06/19/24 07:05 BP 159/82 06/19/24 07:05 Pulse Ox 97 06/19/24 07:05 FiO2 Intake & Output 06/18/24 06/19/24 06/19/24 18:59 06:59 18:59 Intake Total 1660 590 240 Output Total 400 Balance 1660 190 240 Intake: Oral 1660 590 240 Output: Urine 400 Other: Voiding Method Toilet Urinal # Voids 4 # Bowel Movements 1 - Exam GENERAL DESCRIPTION: ashley pugh male lying in bed in no distress RESPIRATORY SYSTEM: Unlabored breathing , decreased breath sounds at bases HEART: S1 S2 regular rate and rhythm , ABDOMEN: Soft , no tenderness EXTREMITIES: Right hand is currently dressed no drainage - Labs CBC & Chem 7: 06/19/24 06:51 06/19/24 06:51 Labs: Abnormal Lab Results - Last 24 Hours (Table) 06/18/24 06/18/24 06/18/24 Range/Units 12:23 16:32 20:18 WBC (3.8-10.6) k/uL RBC (4.30-5.90) m/uL Hgb (13.0-17.5) gm/dL Hct (39.0-53.0) % Neutrophils # (1.3-7.7) k/uL Sodium (137-145) mmol/L Carbon Dioxide (22-30) mmol/L BUN (9-20) mg/dL Creatinine (0.66-1.25) mg/dL Glucose (74-99) mg/dL POC Glucose (mg/dL) 212 H 152 H 292 H (70-110) mg/dL Total Bilirubin (0.2-1.3) mg/dL Albumin (3.5-5.0) g/dL 06/19/24 06/19/24 06/19/24 Range/Units 06:51 06:51 07:04 WBC 11.7 H (3.8-10.6) k/uL RBC 3.03 L (4.30-5.90) m/uL Hgb 9.3 L (13.0-17.5) gm/dL Hct 28.7 L (39.0-53.0) % Neutrophils # 10.1 H (1.3-7.7) k/uL Sodium 135 L (137-145) mmol/L Carbon Dioxide 21 L (22-30) mmol/L BUN 58 H (9-20) mg/dL Creatinine 2.46 H (0.66-1.25) mg/dL Glucose 213 H (74-99) mg/dL POC Glucose (mg/dL) 210 H (70-110) mg/dL Total Bilirubin 2.0 H (0.2-1.3) mg/dL Albumin 2.5 L (3.5-5.0) g/dL 06/19/24 Range/Units 12:07 WBC (3.8-10.6) k/uL RBC (4.30-5.90) m/uL Hgb (13.0-17.5) gm/dL Hct (39.0-53.0) % Neutrophils # (1.3-7.7) k/uL Sodium (137-145) mmol/L Carbon Dioxide (22-30) mmol/L BUN (9-20) mg/dL Creatinine (0.66-1.25) mg/dL Glucose (74-99) mg/dL POC Glucose (mg/dL) 216 H (70-110) mg/dL Total Bilirubin (0.2-1.3) mg/dL Albumin (3.5-5.0) g/dL Microbiology - Last 24 Hours (Table) 06/16/24 03:32 Blood Culture - Preliminary Blood Assessment and Plan (1) Sepsis Current Visit: Yes Status: Acute Code(s): A41.9 - SEPSIS, UNSPECIFIED ORGANISM SNOMED Code(s): 01066734 (2) Cellulitis of right hand Current Visit: Yes Status: Acute Code(s): L03.113 - CELLULITIS OF RIGHT UPPER LIMB SNOMED Code(s): 67884905868959801 (3) MSSA bacteremia Current Visit: Yes Status: Acute Code(s): R78.81 - BACTEREMIA; B95.61 - METHICILLIN SUSCEP STAPH INFCT CAUSING DIS CLASSD [id number] SNOMED Code(s): 870534019 Plan: 1patient presented hospital with sepsis in this patient who did have elevated white count tachycardia meeting criteria for SIRS source is right hand cellulitis and likely from gram-positive skin ana 2-patient did have a positive blood culture with MSSA source likely right hand cellulitis 3patient is status post surgical drainage of the abscess and deep culture which are growing MSSA. 4patient did have persistent bacteremia concerning for possible deep infection and question of possible discitis currently undergoing workup for possible MRI of the thoracic spine 5patient also have worsening of his kidney function questionable interstitial nephritis secondary to naficillin which has been discontinued nephrology is following the patient recommending a biopsy of the kidney biopsy which has been completed results will be followed 6patient blood culture from 06/16/2024 has been negative for now continue with the daptomycin, we will apply Aquacel silver dressing to the open area on the left leg and then apply Declan wrap to both legs to keep the swelling down multiple question answered Dictation was produced using [employer] dictation software. please excuse any gr ammatical, word or spelling errors. Time with Patient: Less than 30
[2024-06-19 17:15] LABS: Glucose,Whole Blood 312 mg/dL (70-110)
--- NOTE | 2024-06-19 19:32 | P.PN ---
Subjective Progress Note Date: 06/19/24 Patient is seen in follow-up for acute kidney injury. Renal function stable, Hb trending down. Has been voiding. No vomiting or diarrhea. Oral intake is fair. c/o worsening LE edema Vital signs are stable. General: No acute distress. HEENT: Head exam is unremarkable. LUNGS: No audible rhonchi or wheezes. HEART: Rate and Rhythm are regular. ABDOMEN: Nontender. EXTREMITITES: 1-2+ LE edema. Hand swelling noted. No drainage. Objective - Vital Signs Vital signs: Vital Signs Temp 97.7 F 06/19/24 16:00 Pulse 74 06/19/24 16:00 Resp 16 06/19/24 16:00 BP 188/92 06/19/24 16:00 Pulse Ox 97 06/19/24 16:00 FiO2 Intake & Output 06/19/24 06/19/24 06/20/24 06:59 18:59 06:59 Intake Total 590 1660 Output Total 400 Balance 190 1660 Intake: Oral 590 1660 Output: Urine 400 Other: Voiding Method Toilet Urinal # Voids 5 # Bowel Movements 1 - Labs CBC & Chem 7: 06/19/24 06:51 06/19/24 06:51 Labs: Abnormal Lab Results - Last 24 Hours (Table) 06/18/24 06/19/24 06/19/24 Range/Units 20:18 06:51 06:51 WBC 11.7 H (3.8-10.6) k/uL RBC 3.03 L (4.30-5.90) m/uL Hgb 9.3 L (13.0-17.5) gm/dL Hct 28.7 L (39.0-53.0) % Neutrophils # 10.1 H (1.3-7.7) k/uL Sodium 135 L (137-145) mmol/L Carbon Dioxide 21 L (22-30) mmol/L BUN 58 H (9-20) mg/dL Creatinine 2.46 H (0.66-1.25) mg/dL Glucose 213 H (74-99) mg/dL POC Glucose (mg/dL) 292 H (70-110) mg/dL Total Bilirubin 2.0 H (0.2-1.3) mg/dL Albumin 2.5 L (3.5-5.0) g/dL 06/19/24 06/19/24 06/19/24 Range/Units 07:04 12:07 17:14 WBC (3.8-10.6) k/uL RBC (4.30-5.90) m/uL Hgb (13.0-17.5) gm/dL Hct (39.0-53.0) % Neutrophils # (1.3-7.7) k/uL Sodium (137-145) mmol/L Carbon Dioxide (22-30) mmol/L BUN (9-20) mg/dL Creatinine (0.66-1.25) mg/dL Glucose (74-99) mg/dL POC Glucose (mg/dL) 210 H 216 H 312 H (70-110) mg/dL Total Bilirubin (0.2-1.3) mg/dL Albumin (3.5-5.0) g/dL Microbiology - Last 24 Hours (Table) 06/16/24 03:32 Blood Culture - Preliminary Blood Assessment and Plan Assessment: 1. Acute kidney injury secondary to septic ATN. Creatinine peaked at 3.0 this admission and is 2.6 -> 2.3 -> 2.4 today. Creatinine 0.9 dated April 08, 2023. No hydronephrosis noted on ultrasound. Urine eosinophils 1%. Serologies negative. Prednisone added June 14, 2024 due to concern for AIN, s/p kidney biopsy on 06/17 2. Metabolic acidosis secondary to acute kidney injury. On oral bicarb. Improved. 3. Hypokalemia from diuresis. Replaced. Better. 4. Hypervolemic hyponatremia. Improved. 5. Right hand cellulitis/abscess status post I&D in June 08, 2024. On antibiotics. Wound culture and blood culture positive for Staph aureus. 6. Benign hypertension. Exacerbated by steroids. Plan: start Lasix 40 mg IV BID check renal function in am monitor CK level while he is on daptomycin Maintain 1500 cc fluid restriction. Encouraged oral intake. Changed PPI to Pepcid. Preserved ejection fraction noted on echocardiogram. Continue to monitor renal function and urine output. Avoid nephrotoxins. Follow up Kidney biopsy results continue amlodipine 5 mg once daily.
[2024-06-19 20:30] LABS: Glucose,Whole Blood 354 mg/dL (70-110)
[2024-06-20 07:16] LABS: Glucose,Whole Blood 177 mg/dL (70-110)
[2024-06-20 10:35] LABS: ALT 25 U/L (4-49); AST 34 U/L (17-59); African American GFR (CKD) 34 (>60 ml/min/1.73 sqM); Albumin 2.8 g/dL (3.5-5.0); Albumin/Globulin Ratio 0.7; Alkaline Phosphatase 130 U/L (38-126); Anion Gap 9 mmol/L; Blood Urea Nitrogen 68 mg/dL (9-20); Calcium 8.6 mg/dL (8.4-10.2); Carbon Dioxide 23 mmol/L (22-30); Chloride 103 mmol/L (98-107); Globulin 4.1 g/dL; Glucose 198 mg/dL (74-99); Non-African American GFR(CKD) 30 (>60 ml/min/1.73 sqM); Potassium 4.1 mmol/L (3.5-5.1); Sodium 135 mmol/L (137-145); Total Bilirubin 2.2 mg/dL (0.2-1.3); Total Protein 6.9 g/dL (6.3-8.2)
[2024-06-20 11:35] LABS: % Iron Saturation 39.71 (15.00-50.00)
[2024-06-20 12:17] LABS: Glucose,Whole Blood 231 mg/dL (70-110)
--- NOTE | 2024-06-20 12:43 | P.PN ---
Progress Note - Text Progress Note Date: 06/20/24 05/23/2024 progress: The patient is seen and examined today at bedside. He is not complaining of new issues at his hand. He is continue to do soaks and regular wraps. Today he reports mild bilateral trapezius pain with activity only. He denies any cervical or thoracic spine pain. 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 He denies any numbness or weakness in the upper or lower extremities bilaterally. 06/14/2024 forearm x-rays show tiny foreign body near the skin surface. A CT c spine was obtained. CT cervical spine without contrast 06/16/2024 There is no acute findings in the cervical spine. There is grade 1 retrolisthesis C5 on C6 redemonstrated. Prevertebral soft tissue appears within normal limits. There is moderate disc space narrowing and spurring at C5-C6 and C6-C7 levels redemonstrated. Posterior spur disc complex effacing the anterior thecal sac at these levels. There is facet arthropathy causing moderate to severe bilateral neural foraminal narrowing at the C5-C6 level. On exam he has been afebrile His left upper extremity has full active and passive range of motion with 5 out of 5 strength. His right upper extremity has full active and passive range of motion with 5 out of 5 strength. His cervical and thoracic spine have no tenderness to palpation. He has mild tenderness to palpation to bilateral paraspinal thoracic muscles. At his right hand the dressing is taken down. There is 2 surgical incisions, 1 over the dorsum of the hand and one over the dorsal aspect of the index finger. There is no active purulence. There is some serosanguineous drainage on the dressing, I was not able to express any from the dorsum of his hand or his index finger. There is generalized swelling over the dorsum of the hand that appears improved. There is some generalized swelling over the volar aspect of the hand. Mild erythema on the volar aspect at the base of the index finger. There is no streaking on the volar aspect of his hand. He is able to flex all 5 fingers. There is no pain with passive stretch. He can flex his thumb, index, middle, pinky. He continues to have difficulty extending the right ring finger but with isolation at PIP and DIP it is intact. Proximal right forearm with nodule consistent with x-ray finding of foreign body near skin surface. No erythema. No skin breakdown. Assessment and plan Right hand cellulitis/abscess status post I&D on 06/08/2024. On antibiotics. Wound culture and blood culture positive for Staph aureus. Gradually improving. Right ring finger remains having difficulty with extension. He needs to maintain his elevation and regular dressing care. Continue local wound care, continue his soaks regularly. From an orthopedic standpoint he can discharge and follow- up as outpatient. Neck and upper thoracic pain with left upper extremity pain and right upper extremity pain, no acute findings on CT. Significant improvement. He remains intact neurologically. No acute surgical intervention planned at this time. Continue non-operative management. From an orthopedic standpoint he can discharge and follow-up as an outpatient. Right forearm retained foreign body,we can remove in our outpatient office. Renal insufficiency Dictation was produced using [employer] dictation software, please excuse any grammatical, word or spelling errors. The patient is seen and examined at bedside. I agree with the above. His hand is improving though he does have extensor weakness at his right fourth finger. The erythema is much better in his hand and there is no active pus. He needs to continue with his IV antibiotics as per infectious disease. If his PICC line is functional today then it is okay for him to be discharged home today. He has significant changes at his cervical spine with disc changes. I think that he should have an MRI of his cervical spine and we can remove the small metal fragment from his forearm on outpatient basis after he leaves. Once that is removed I think that we can proceed with further imaging of his cervical spine and consider further intervention at that point. I discussed this with him and his daughter at length and they are agreeable.
[2024-06-20 17:08] LABS: Glucose,Whole Blood 229 mg/dL (70-110)
[2024-06-20 20:27] LABS: Glucose,Whole Blood 310 mg/dL (70-110)
--- NOTE | 2024-06-20 21:05 | P.PN ---
Subjective Patient is seen for follow-up for acute kidney injury. Status post kidney biopsy, awaiting results No complaints of shortness of breath Maintained on IV Lasix Serum creatinine 2.4 Objective - Vital Signs Vital signs: Vital Signs Temp 98.2 F 06/20/24 18:32 Pulse 85 06/20/24 18:32 Resp 16 06/20/24 18:32 BP 157/81 06/20/24 18:32 Pulse Ox 99 06/20/24 18:32 FiO2 Intake & Output 06/20/24 06/20/24 06/21/24 06:59 18:59 06:59 Intake Total 240 240 Output Total 400 Balance -160 240 Intake: Oral 240 240 Output: Urine 400 Other: Voiding Method Toilet Toilet Urinal Urinal # Voids 3 # Bowel Movements 0 - Exam Patient is awake, he is comfortable, no acute distress Examination of the heart S1 and S2 Examination of the lungs bilateral breath sounds are heard Abdomen is soft nontender Examination of lower extremities shows 1+ edema Right hand is dressed. - Labs CBC & Chem 7: 06/19/24 06:51 06/20/24 09:53 Labs: Abnormal Lab Results - Last 24 Hours (Table) 06/19/24 06/20/24 06/20/24 Range/Units 06:51 07:15 09:53 ESR (0-20) mm/Hr Sodium 135 L (137-145) mmol/L BUN 68 H (9-20) mg/dL Creatinine 2.43 H (0.66-1.25) mg/dL Glucose 198 H (74-99) mg/dL POC Glucose (mg/dL) 177 H (70-110) mg/dL TIBC 209 L (228-460) UG/DL Transferrin 149.0 L (204.0-354.0) mg/dL Ferritin 821.0 H (22.0-322.0) ng/mL Total Bilirubin 2.2 H (0.2-1.3) mg/dL Alkaline Phosphatase 130 H (38-126) U/L C-Reactive Protein (<1.0) mg/dL Albumin 2.8 L (3.5-5.0) g/dL 06/20/24 06/20/24 06/20/24 Range/Units 09:53 09:53 12:16 ESR 54 H (0-20) mm/Hr Sodium (137-145) mmol/L BUN (9-20) mg/dL Creatinine (0.66-1.25) mg/dL Glucose (74-99) mg/dL POC Glucose (mg/dL) 231 H (70-110) mg/dL TIBC (228-460) UG/DL Transferrin (204.0-354.0) mg/dL Ferritin (22.0-322.0) ng/mL Total Bilirubin (0.2-1.3) mg/dL Alkaline Phosphatase (38-126) U/L C-Reactive Protein 1.7 H (<1.0) mg/dL Albumin (3.5-5.0) g/dL 06/20/24 06/20/24 Range/Units 17:03 20:26 ESR (0-20) mm/Hr Sodium (137-145) mmol/L BUN (9-20) mg/dL Creatinine (0.66-1.25) mg/dL Glucose (74-99) mg/dL POC Glucose (mg/dL) 229 H 310 H (70-110) mg/dL TIBC (228-460) UG/DL Transferrin (204.0-354.0) mg/dL Ferritin (22.0-322.0) ng/mL Total Bilirubin (0.2-1.3) mg/dL Alkaline Phosphatase (38-126) U/L C-Reactive Protein (<1.0) mg/dL Albumin (3.5-5.0) g/dL Assessment and Plan Assessment: 1. Acute kidney injury, ATN from underlying infection. UA shows 2+ protein and RBCs more than 182 with WBCs 84. Rule out underlying GN. All serologies are negative. Status post kidney biopsy, awaiting results. No proteinuria noted in 2020. No obstruction noted on ultrasound of the kidneys 2. Nongap metabolic acidosis associated with acute kidney injury 3. Right hand cellulitis/abscess status post I&D on 06/08/2024 maintained on nafcillin. Wound cultures are growing MSSA 4. Mental status changes on admission, currently improved 5. History of EtOH abuse Plan: Continue with IV Lasix Follow-up on kidney biopsy results May continue with prednisone for now Avoid NSAIDs Repeat labs in a.m.
--- NOTE | 2024-06-21 06:44 | P.PN ---
Subjective Progress Note Date: 06/20/24 This is a pleasant 53-year-old male who was recently admitted with right hand swelling and concerns for cellulitis as well as rheumatoid arthritis. Orthopedics following and scheduled to undergo I&D with washout today. Patient is maintained on antibiotics with infectious disease following and will await deep tissue cultures to determine appropriate antibiotics. Patient to continue with local wound care and elevating right hand while at rest. Continue with pain management. Cultures preliminary showing presumptive Staph aureus MSSA. Kidney functions worsened at 2.3 creatinine and will consult nephrology and appreciate input and recommendations. Continue IV hydration. Also recommend incentive spirometer and increased activity as tolerated and getting out of the bed more frequently. Monitor for any fevers. 06/09/2024 Patient is seen in follow-up status post incision and drainage along with washout of the right hand with orthopedics today. Per OR documentation, there were copious amounts of purulent drainage noted requiring 2 small incisions and cultures were obtained. Preliminary cultures are showing Staphylococcus aureus and will await finalized cultures. Infectious disease following and will discuss if patient will require likely IV antibiotics on discharge. Patient is afebrile although white count remains elevated at 14.06. Patient is also maintained on gentle hydration and will continue along with nafcillin per ID recommendations. Will discuss further with infectious disease regarding discharge planning. Patient is not ready for discharge as of yet. Patient to continue on CIWA protocol and encouraged increase activity as tolerated. Patient does not appear to be actively withdrawing although continues to have difficulty with pain management. 06/10/2024 Patient is seen in follow-up today status post incision and drainage with washout with orthopedics maintained on antibiotics with infectious disease following as well. Patient continues to report significant pain in the hand and difficulty managing pain which has been adjusted and will obtain repeat CT for further evaluation. Patient has been instructed to continue with dressing changes per orthopedics and wound care. Elevate right hand while at rest. Awaiting cultures to determine discharge antibiotics and also to place a PICC line although blood cultures remain positive. Will follow-up with daily blood cultures to monitor clearance of bacteremia. White count remains elevated although patient is afebrile. 06/13/2024 Patient is seen in follow-up today continues on IV antibiotics with infectious disease and orthopedics following. Blood cultures remain positive although most recent on 06/10 are negative at this time and will need to monitor for clearance of bacteremia for PICC line placement. Patient will require IV antibiotics on discharge. Orthopedics following recommending continuing with continued IV antibiotic therapy. Patient is afebrile and white count is trending down. Patient continues to report significant back pain and has been using K-pad and muscle relaxers along with pain medications. Encouraged increase activity as tolerated. 06/14/2024 Patient seen in follow-up with multiple consultations continue to follow including orthopedics as well as infectious disease. Blood cultures remain positive with MSSA Staphylococcus aureus and initial repeat blood cultures from 06/10/2024 have now become positive with continued Staph aureus. Patient kidney functions also continue to be elevated with an elevated BUN of 44.8 and creatinine is 3.0. Nephrology is following discussing possible biopsy in the near future. Sodium did improve at 132. White count remains elevated at 17.27 and patient is maintained on antibiotics in the form of ampicillin. Given patient's continued bacteremia discussed with infectious disease and will transition to daptomycin and continue with daily blood cultures to monitor clearance of the bacteremia. Patient also with orthopedics following with concerns of continued ongoing infection as well as cervical neck pain and spasms did initially order an MRI although unable to and x-ray images have been ordered and pending. 06/15/2024 Patient is seen in follow-up today with multiple consultations following. Patient continued on antibiotics with infectious disease following and blood cultures remain positive. Kidney functions are elevated with creatinine of 2.9 and interventional radiology is consulted per nephrology for kidney biopsy. Patient is continued on daptomycin per infectious disease and following up on daily blood cultures. Patient has been up and walking the halls and continues to report upper extremity weakness with pain and back pain. Patient is afebrile with no reports of chest pain or shortness of breath. Patient reports has been tolerating diet with no reported nausea or vomiting. 06/16/2024 patient is seen and evaluated this morning and continues to have significant shoulder pain with spasms with orthopedics following. Unable to obtain an MRI due to that foreign body noted in the right forearm and currently scheduled to undergo CT of the neck and upper back. Patient is continued on antibiotics as blood cultures remain positive with Staphylococcus aureus. White count is trending down and is 10.16 today, hemoglobin is stable at 9.6, platelets 199, potassium is 4.2 with a sodium of 137, creatinine remains elevated at 2.7 and BUN is 47.1. 06/17/2024 Patient is seen in follow-up this morning continues on daptomycin with infectious disease following. Most recent blood culture thus far is negative for 24 hours and awaiting finalized cultures to determine appropriate discharge antibiotics. Nephrology following as well and patient is status post kidney biopsy today which is pending. Creatinine slightly improved at 2.6 and will follow-up with repeat labs. Patient is afebrile and white count is improved and is being continued on current regimen. Blood pressures have been elevated and adjusting medications accordingly. Discussed with orthopedics regarding this possible right forearm foreign body if it can be removed if still having positive blood cultures. To reevaluate on Thursday. 06/20/2024 Patient is seen in follow-up this morning being followed by multiple consultat ions including nephrology, infectious disease, orthopedics. Discussed with orthopedics about possibly removing that foreign body of the right arm and will be done outpatient per orthopedics along with MRI once kidney functions have improved. Patient is status post kidney biopsy with nephrology following making adjustments to medications. Patient's blood cultures remain positive although most recent repeat is negative x 72 hours. Infectious disease following maintained on daptomycin and recommending possible cardiology consultation for RICKY as patient did have significant persistent bacteremia. Will consult cardiology and appreciate input and recommendations. Patient is afebrile and white count is trending down. Patient reports he would like to go home and awaiting clearance from consultations and discharge antibiotic recommendations. Review of systems: Constitutional: No reports of fatigue, fever, or chills Cardiovascular: No reports of chest pain or palpitations Respiratory: No reports of shortness of breath or cough GI: No reports of nausea, no reports of vomiting, no diarrhea : No reports of dysuria or retention Neurovascular: reports of upper back, neck and shoulder pain, minimal right hand pain at this point All medications have been reviewed PHYSICAL EXAMINATION: GENERAL: The patient is alert and oriented x4, Well developed, well nourished. Less anxious HEENT: Pupils are round and equally reacting to light. EOMI. no scleral icterus. No conjunctival pallor. Normocephalic, atraumatic. No pharyngeal erythema. No thyromegaly. CARDIOVASCULAR: S1 and S2 muffled PULMONARY: diminished breath sounds bilaterally with no wheezing or rhonchi noted. ABDOMEN: soft. Nontender on exam. non-distended, normoactive bowel sounds. No palpable organomegaly. MUSCULOSKELETAL: No joint swelling or deformity. EXTREMITIES: No cyanosis, clubbing, or pedal edema. Significant right hand swelling with redness has improved, surgical dressing changed and currently dry and intact NEUROLOGICAL: Gross neurological examination did not reveal any focal deficits. SKIN: No rashes. Assessment: Acute cellulitis of the right hand with sepsis, present on admission, status post incision and drainage with washout with orthopedics, cultures positive for Staphylococcus aureus MSSA sepsis secondary to above with bacteremia, cultures from incision and drainage also showing Staphylococcus aureus, recent blood cultures from 06/14/2024 are negative for 72 hours and will monitor until finalized for clearance of bacteremia Possible foreign body noted on imaging of the right forearm, evaluated by orthopedics recommending outpatient follow-up for removal of Possible rheumatoid arthritis with acute exacerbation Leukocytosis, secondary to above, trending down History of GERD Acute kidney injury, likely ATN secondary to sepsis, status post kidney biopsy which remains pending Acute delirium with alcohol withdrawal, improved and patient is not actively withdrawing Diabetes mellitus, type II uncontrolled with hyperglycemia Thrombocytopenia, likely secondary to ongoing alcohol abuse Persistent neck and thoracic pain with left upper extremity pain and spasms, ongoing workup and will have MRI outpatient per orthopedics History of hypertension History of daily EtOH use GI prophylaxis DVT prophylaxis Full code Plan: Recommend to continue with current medications and management with orthopedics and infectious disease following. Patient is currently maintained on daptomycin blood cultures remain positive undergoing daily blood culture repeats until clearance of bacteremia is noted. Most recent repeat blood cultures thus far remain negative for 72 hours now. Orthopedics planning on no further surgical intervention at this time recommending outpatient follow-up for removal of the foreign body on the right forearm as well as MRI Patient will require IV antibiotic on discharge although need to await finalized cultures and clearance of bacteremia for PICC line placement. Infectious disease recommending cardiology evaluation for possible RICKY as patient did have significant persistent bacteremia. Cardiology consulted and pending Follow-up on repeat labs and continue with gentle hydration Nephrology following for acute kidney injury with a creatinine of 2.4 and is status post kidney biopsy with results remain pending. Will follow-up on repeat labs Patient is continued on heparin subcu and will monitor closely platelet levels. Encouraged increase activity as tolerated and getting up out of the bed more frequently. Patient has been up and walking the halls frequently Continue monitoring Accu-Cheks before meals and at bedtime and home medications have been resumed. Will adjust insulins accordingly Continue local wound care per ID and orthopedic recommendations and instructed patient to continue elevating right hand while at rest. Continue with soaks and washes 3 times daily per orthopedics Social work following as patient will require IV antibiotics on discharge. To verify coverage and currently awaiting finalized cultures to determine appropriate antibiotics per ID recommendations Due to multiple complex medical issues, overall prognosis is guarded The impression and plan of care has been dictated by Ruthy Ariza, nurse practitioner as directed. Dr. Eduardo MD I have performed a history and examination and MDM of this patient, discussed the same with the dictator, and agree with the dictator's assessment and plan as written ,documented as a scribe. Based on total visit time, I have performed more than 50% of the visit. Any additional findings or plans will be noted. Objective - Vital Signs Vital signs: Vital Signs Temp 97.8 F 06/20/24 12:13 Pulse 79 06/20/24 12:13 Resp 16 06/20/24 12:13 BP 163/89 06/20/24 12:13 Pulse Ox 97 06/20/24 12:13 FiO2 Intake & Output 06/19/24 06/20/24 06/20/24 18:59 06:59 18:59 Intake Total 1660 240 240 Output Total 400 Balance 1660 -160 240 Intake: Oral 1660 240 240 Output: Urine 400 Other: Voiding Method Toilet Toilet Urinal Urinal # Voids 5 3 # Bowel Movements 1 0 - Labs CBC & Chem 7: 06/19/24 06:51 06/20/24 09:53 Labs: Abnormal Lab Results - Last 24 Hours (Table) 06/19/24 06/19/24 06/19/24 Range/Units 06:51 17:14 20:29 Sodium (137-145) mmol/L BUN (9-20) mg/dL Creatinine (0.66-1.25) mg/dL Glucose (74-99) mg/dL POC Glucose (mg/dL) 312 H 354 H (70-110) mg/dL TIBC 209 L (228-460) UG/DL Transferrin 149.0 L (204.0-354.0) mg/dL Ferritin 821.0 H (22.0-322.0) ng/mL Total Bilirubin (0.2-1.3) mg/dL Alkaline Phosphatase (38-126) U/L Albumin (3.5-5.0) g/dL 06/20/24 06/20/24 06/20/24 Range/Units 07:15 09:53 12:16 Sodium 135 L (137-145) mmol/L BUN 68 H (9-20) mg/dL Creatinine 2.43 H (0.66-1.25) mg/dL Glucose 198 H (74-99) mg/dL POC Glucose (mg/dL) 177 H 231 H (70-110) mg/dL TIBC (228-460) UG/DL Transferrin (204.0-354.0) mg/dL Ferritin (22.0-322.0) ng/mL Total Bilirubin 2.2 H (0.2-1.3) mg/dL Alkaline Phosphatase 130 H (38-126) U/L Albumin 2.8 L (3.5-5.0) g/dL Microbiology - Last 24 Hours (Table) 06/16/24 03:32 Blood Culture - Preliminary Blood
[2024-06-21 06:56] LABS: Glucose,Whole Blood 270 mg/dL (70-110)
[2024-06-21 07:33] VITALS: RESP 16
[2024-06-21] MEDS: INSULIN GLARGINE (LANTUS) 100 UNIT/ML SYR SQ SCH (08:23)
[2024-06-21 10:16] LABS: Basophils # (A) 0.01 X 10*3/uL (0.00-0.10); Basophils % (A) 0.1 %; Eosinophils # (A) 0.01 X 10*3/uL (0.04-0.35); Eosinophils % (A) 0.1 %; HCT 26.8 % (39.6-50.0); HGB 8.9 g/dL (13.0-17.0); Lymphocytes # (A) 1.13 X 10*3/uL (0.90-5.00); Lymphocytes % (A) 7.9 %; MCH 31.7 pg (27.0-32.0); MCHC 33.2 g/dL (32.0-37.0); MCV 95.4 FL (80.0-97.0); Mean Platelet Volume 10.2 FL (9.5-12.2); Monocytes # (A) 0.68 X 10*3/uL (0.20-1.00); Monocytes % (A) 4.7 %; NRBC Per 100 WBC 0 X 10*3/uL (0.00-0.01); Neutrophils # (A) 12.44 X 10*3/uL (1.80-7.70); Neutrophils % (A) 86.6 %; Platelet Count 242 X 10*3/uL (140-440); RBC 2.81 X 10*6/uL (4.40-5.60); RDW 15.7 % (11.5-14.5); WBC 14.36 X 10*3/uL (4.50-10.00)
[2024-06-21 10:35] LABS: BUN/Creat Ratio 26.12 Ratio (12.00-20.00); Blood Urea Nitrogen 62.7 mg/dL (9.0-27.0); Calcium 8.8 mg/dL (8.7-10.3); Carbon Dioxide 22.3 mmol/L (21.6-31.8); Chloride 102 mmol/L (96-109); Glucose 256 mg/dL (70-110); Potassium 4.8 mmol/L (3.5-5.5); Sodium 137 mmol/L (135-145)
[2024-06-21 12:06] LABS: Glucose,Whole Blood 326 mg/dL (70-110)
--- NOTE | 2024-06-21 13:15 | P.PN ---
Subjective Progress Note Date: 06/20/24 Principal diagnosis: Reason for follow-up is right hand cellulitis and bacteremia Patient is a 53-year-old male with a past medical history of again for diabetes mellitus reflux hypertension osteoarthritis chronic back pain presenting to the hospital for evaluation of worsening pain swelling and redness to the right hand area patient be diagnosed with cellulitis subsequent blood culture came positive with MSSA. Patient is status post surgical drainage of the right hand abscess completed by orthopedic 06/08/2024 On today's evaluation that is 06/20/2024, patient has been afebrile, patient is breathing comfortably and is currently on room air, patient denies having any significant cough no chest pain, patient denies nausea vomiting or diarrhea and no abdominal pain, pain to the right hand is currently controlled. No CBC was done today creatinine is 2.43 blood culture repeat so far negative Objective - Vital Signs Vital signs: Vital Signs Temp 97.5 F L 06/20/24 07:12 Pulse 73 06/20/24 08:00 Resp 16 06/20/24 08:00 BP 137/78 06/20/24 07:12 Pulse Ox 98 06/20/24 07:12 FiO2 Intake & Output 06/19/24 06/20/24 06/20/24 18:59 06:59 18:59 Intake Total 1660 240 240 Output Total 400 Balance 1660 -160 240 Intake: Oral 1660 240 240 Output: Urine 400 Other: Voiding Method Toilet Toilet Urinal Urinal # Voids 5 3 # Bowel Movements 1 0 - Exam GENERAL DESCRIPTION: ashley pugh male lying in bed in no distress RESPIRATORY SYSTEM: Unlabored breathing , decreased breath sounds at bases HEART: S1 S2 regular rate and rhythm , ABDOMEN: Soft , no tenderness EXTREMITIES: Right hand is currently dressed no drainage - Labs CBC & Chem 7: 06/21/24 06:03 06/21/24 06:03 Labs: Abnormal Lab Results - Last 24 Hours (Table) 06/19/24 06/19/24 06/19/24 Range/Units 12:07 17:14 20:29 Sodium (137-145) mmol/L BUN (9-20) mg/dL Creatinine (0.66-1.25) mg/dL Glucose (74-99) mg/dL POC Glucose (mg/dL) 216 H 312 H 354 H (70-110) mg/dL Total Bilirubin (0.2-1.3) mg/dL Alkaline Phosphatase (38-126) U/L Albumin (3.5-5.0) g/dL 06/20/24 06/20/24 Range/Units 07:15 09:53 Sodium 135 L (137-145) mmol/L BUN 68 H (9-20) mg/dL Creatinine 2.43 H (0.66-1.25) mg/dL Glucose 198 H (74-99) mg/dL POC Glucose (mg/dL) 177 H (70-110) mg/dL Total Bilirubin 2.2 H (0.2-1.3) mg/dL Alkaline Phosphatase 130 H (38-126) U/L Albumin 2.8 L (3.5-5.0) g/dL Microbiology - Last 24 Hours (Table) 06/16/24 03:32 Blood Culture - Preliminary Blood Assessment and Plan (1) Sepsis Current Visit: Yes Status: Acute Code(s): A41.9 - SEPSIS, UNSPECIFIED ORGANISM SNOMED Code(s): 75679924 (2) Cellulitis of right hand Current Visit: Yes Status: Acute Code(s): L03.113 - CELLULITIS OF RIGHT UPPER LIMB SNOMED Code(s): 68980517351426132 (3) MSSA bacteremia Current Visit: Yes Status: Acute Code(s): R78.81 - BACTEREMIA; B95.61 - METHICILLIN SUSCEP STAPH INFCT CAUSING DIS CLASSD ELSWHR SNOMED Code(s): 030409473 Plan: 1patient presented hospital with sepsis in this patient who did have elevated white count tachycardia meeting criteria for SIRS source is right hand cellulitis and likely from gram-positive skin ana 2-patient did have a positive blood culture with MSSA source likely right hand cellulitis 3patient is status post surgical drainage of the abscess and deep culture which are growing MSSA. 4patient did have persistent bacteremia concerning for possible deep infection and question of possible discitis currently undergoing workup for possible MRI of the thoracic spine 5patient also have worsening of his kidney function questionable interstitial nephritis secondary to naficillin which has been discontinued nephrology is following the patient recommending a biopsy of the kidney biopsy which has been completed results will be followed 6patient blood culture from 06/16/2024 has been negative, PICC line has been ordered, Ortho is recommending removal of the metal from the right arm and MRI as an outpatient discussed with the TACK PULLER to get a cardiology eval for RICKY because of his persistent bacteremia Dictation was produced using [employer] dictation software. please excuse any grammatical, word or spelling errors. Time with Patient: Less than 30
--- NOTE | 2024-06-21 13:16 | P.PN ---
Subjective Progress Note Date: 06/21/24 Principal diagnosis: Reason for follow-up is right hand cellulitis and bacteremia Patient is a 53-year-old male with a past medical history of again for diabetes mellitus reflux hypertension osteoarthritis chronic back pain presenting to the hospital for evaluation of worsening pain swelling and redness to the right hand area patient be diagnosed with cellulitis subsequent blood culture came positive with MSSA. Patient is status post surgical drainage of the right hand abscess completed by orthopedic 06/08/2024 On today's evaluation that is 06/21/2024, Patient is afebrile this morning patient denies having any chest pain shortness of breath or cough, the patient is currently on room air, patient denies any abdominal pain no diarrhea no nausea no vomiting, pain to the right hand is currently controlled. The patient white count is up to 14.36 creatinine is 2.4 blood culture from 06/16/2024 negative Objective - Vital Signs Vital signs: Vital Signs Temp 98.2 F 06/21/24 06:55 Pulse 77 06/21/24 06:55 Resp 16 06/21/24 06:55 BP 166/86 06/21/24 06:55 Pulse Ox 97 06/21/24 06:55 FiO2 Intake & Output 06/20/24 06/21/24 06/21/24 18:59 06:59 18:59 Intake Total 240 540 240 Balance 240 540 240 Intake: Oral 240 540 240 Other: Voiding Method Toilet Toilet Toilet Urinal Urinal Urinal # Voids 2 - Exam GENERAL DESCRIPTION: ashley pugh male lying in bed in no distress RESPIRATORY SYSTEM: Unlabored breathing , decreased breath sounds at bases HEART: S1 S2 regular rate and rhythm , ABDOMEN: Soft , no tenderness EXTREMITIES: Right hand is currently dressed no drainage - Labs CBC & Chem 7: 06/21/24 06:03 06/21/24 06:03 Labs: Abnormal Lab Results - Last 24 Hours (Table) 06/19/24 06/20/24 06/20/24 Range/Units 06:51 09:53 09:53 WBC (4.50-10.00) X 10*3/uL RBC (4.40-5.60) X 10*6/uL Hgb (13.0-17.0) g/dL Hct (39.6-50.0) % RDW (11.5-14.5) % Immature Gran # (0.00-0.04) X 10*3/uL Neutrophils # (1.80-7.70) X 10*3/uL Eosinophils # (0.04-0.35) X 10*3/uL ESR 54 H (0-20) mm/Hr Anion Gap (4.00-12.00) mmol/L BUN (9.0-27.0) mg/dL Creatinine (0.6-1.5) mg/dL Est GFR (CKD-EPI) (>=60) BUN/Creatinine Ratio (12.00-20.00) Ratio Glucose (70-110) mg/dL POC Glucose (mg/dL) (70-110) mg/dL TIBC 209 L (228-460) UG/DL Transferrin 149.0 L (204.0-354.0) mg/dL Ferritin 821.0 H (22.0-322.0) ng/mL C-Reactive Protein 1.7 H (<1.0) mg/dL 06/20/24 06/20/24 06/20/24 Range/Units 12:16 17:03 20:26 WBC (4.50-10.00) X 10*3/uL RBC (4.40-5.60) X 10*6/uL Hgb (13.0-17.0) g/dL Hct (39.6-50.0) % RDW (11.5-14.5) % Immature Gran # (0.00-0.04) X 10*3/uL Neutrophils # (1.80-7.70) X 10*3/uL Eosinophils # (0.04-0.35) X 10*3/uL ESR (0-20) mm/Hr Anion Gap (4.00-12.00) mmol/L BUN (9.0-27.0) mg/dL Creatinine (0.6-1.5) mg/dL Est GFR (CKD-EPI) (>=60) BUN/Creatinine Ratio (12.00-20.00) Ratio Glucose (70-110) mg/dL POC Glucose (mg/dL) 231 H 229 H 310 H (70-110) mg/dL TIBC (228-460) UG/DL Transferrin (204.0-354.0) mg/dL Ferritin (22.0-322.0) ng/mL C-Reactive Protein (<1.0) mg/dL 06/21/24 06/21/24 06/21/24 Range/Units 06:03 06:03 06:54 WBC 14.36 H (4.50-10.00) X 10*3/uL RBC 2.81 L (4.40-5.60) X 10*6/uL Hgb 8.9 L (13.0-17.0) g/dL Hct 26.8 L (39.6-50.0) % RDW 15.7 H (11.5-14.5) % Immature Gran # 0.09 H (0.00-0.04) X 10*3/uL Neutrophils # 12.44 H (1.80-7.70) X 10*3/uL Eosinophils # 0.01 L (0.04-0.35) X 10*3/uL ESR (0-20) mm/Hr Anion Gap 12.70 H (4.00-12.00) mmol/L BUN 62.7 H (9.0-27.0) mg/dL Creatinine 2.4 H (0.6-1.5) mg/dL Est GFR (CKD-EPI) 32 L (>=60) BUN/Creatinine Ratio 26.12 H (12.00-20.00) Ratio Glucose 256 H (70-110) mg/dL POC Glucose (mg/dL) 270 H (70-110) mg/dL TIBC (228-460) UG/DL Transferrin (204.0-354.0) mg/dL Ferritin (22.0-322.0) ng/mL C-Reactive Protein (<1.0) mg/dL Assessment and Plan (1) Sepsis Current Visit: Yes Status: Acute Code(s): A41.9 - SEPSIS, UNSPECIFIED [facility] SNOMED Code(s): 42399607 (2) Cellulitis of right hand Current Visit: Yes Status: Acute Code(s): L03.113 - CELLULITIS OF RIGHT UPPER LIMB SNOMED Code(s): 19420493170841139 (3) MSSA bacteremia Current Visit: Yes Status: Acute Code(s): R78.81 - BACTEREMIA; B95.61 - METHICILLIN SUSCEP STAPH INFCT CAUSING DIS CLASSD ELSWHR SNOMED Code(s): 996726010 Plan: 1patient presented hospital with sepsis in this patient who did have elevated white count tachycardia meeting criteria for SIRS source is right hand cellulitis and likely from gram-positive skin ana 2-patient did have a positive blood culture with MSSA source likely right hand cellulitis 3patient is status post surgical drainage of the abscess and deep culture which are growing MSSA. 4patient did have persistent bacteremia concerning for possible deep infection and question of possible discitis currently undergoing workup for possible MRI of the thoracic spine 5patient also have worsening of his kidney function questionable interstitial nephritis secondary to naficillin which has been discontinued nephrology is following the patient recommending a biopsy of the kidney biopsy which has been completed. 6patient blood culture from 06/16/2024 has been negative, PICC line has been placed, await cardiology patient for possible RICKY, prescription for outpatient daptomycin provided the case loader operator Dictation was produced using [employer] dictation software. please excuse any grammatical, word or spelling errors. Time with Patient: Less than 30
--- NOTE | 2024-06-21 13:26 | P.PN ---
Subjective Patient is seen for follow-up for acute kidney injury. Kidney biopsy showed no significant scarring or interstitial fibrosis. There were changes noted which are mostly related to recent infection. Prednisone will be discontinued. No complaints of shortness of breath Maintained on IV Lasix Serum creatinine 2.4 Objective - Vital Signs Vital signs: Vital Signs Temp 97.4 F L 06/21/24 11:35 Pulse 78 06/21/24 11:35 Resp 16 06/21/24 11:35 BP 146/85 06/21/24 11:35 Pulse Ox 99 06/21/24 11:35 FiO2 Intake & Output 06/20/24 06/21/24 06/21/24 18:59 06:59 18:59 Intake Total 240 540 240 Balance 240 540 240 Intake: Oral 240 540 240 Other: Voiding Method Toilet Toilet Toilet Urinal Urinal Urinal # Voids 2 - Exam Patient is awake, he is comfortable, no acute distress Examination of the heart S1 and S2 Examination of the lungs bilateral breath sounds are heard Abdomen is soft nontender Examination of lower extremities shows 1+ edema Right hand is dressed. - Labs CBC & Chem 7: 06/21/24 06:03 06/21/24 06:03 Labs: Abnormal Lab Results - Last 24 Hours (Table) 06/20/24 06/20/24 06/20/24 Range/Units 09:53 09:53 17:03 WBC (4.50-10.00) X 10*3/uL RBC (4.40-5.60) X 10*6/uL Hgb (13.0-17.0) g/dL Hct (39.6-50.0) % RDW (11.5-14.5) % Immature Gran # (0.00-0.04) X 10*3/uL Neutrophils # (1.80-7.70) X 10*3/uL Eosinophils # (0.04-0.35) X 10*3/uL ESR 54 H (0-20) mm/Hr Anion Gap (4.00-12.00) mmol/L BUN (9.0-27.0) mg/dL Creatinine (0.6-1.5) mg/dL Est GFR (CKD-EPI) (>=60) BUN/Creatinine Ratio (12.00-20.00) Ratio Glucose (70-110) mg/dL POC Glucose (mg/dL) 229 H (70-110) mg/dL C-Reactive Protein 1.7 H (<1.0) mg/dL 06/20/24 06/21/24 06/21/24 Range/Units 20:26 06:03 06:03 WBC 14.36 H (4.50-10.00) X 10*3/uL RBC 2.81 L (4.40-5.60) X 10*6/uL Hgb 8.9 L (13.0-17.0) g/dL Hct 26.8 L (39.6-50.0) % RDW 15.7 H (11.5-14.5) % Immature Gran # 0.09 H (0.00-0.04) X 10*3/uL Neutrophils # 12.44 H (1.80-7.70) X 10*3/uL Eosinophils # 0.01 L (0.04-0.35) X 10*3/uL ESR (0-20) mm/Hr Anion Gap 12.70 H (4.00-12.00) mmol/L BUN 62.7 H (9.0-27.0) mg/dL Creatinine 2.4 H (0.6-1.5) mg/dL Est GFR (CKD-EPI) 32 L (>=60) BUN/Creatinine Ratio 26.12 H (12.00-20.00) Ratio Glucose 256 H (70-110) mg/dL POC Glucose (mg/dL) 310 H (70-110) mg/dL C-Reactive Protein (<1.0) mg/dL 06/21/24 06/21/24 Range/Units 06:54 12:04 WBC (4.50-10.00) X 10*3/uL RBC (4.40-5.60) X 10*6/uL Hgb (13.0-17.0) g/dL Hct (39.6-50.0) % RDW (11.5-14.5) % Immature Gran # (0.00-0.04) X 10*3/uL Neutrophils # (1.80-7.70) X 10*3/uL Eosinophils # (0.04-0.35) X 10*3/uL ESR (0-20) mm/Hr Anion Gap (4.00-12.00) mmol/L BUN (9.0-27.0) mg/dL Creatinine (0.6-1.5) mg/dL Est GFR (CKD-EPI) (>=60) BUN/Creatinine Ratio (12.00-20.00) Ratio Glucose (70-110) mg/dL POC Glucose (mg/dL) 270 H 326 H (70-110) mg/dL C-Reactive Protein (<1.0) mg/dL Microbiology - Last 24 Hours (Table) 06/16/24 03:32 Blood Culture - Final Blood Assessment and Plan Assessment: 1. Acute kidney injury, ATN from underlying infection. UA shows 2+ protein and RBCs more than 182 with WBCs 84. Kidney biopsy showed changes suggestive of recent underlying infection. No significant scarring noted. Official report is still pending. All serologies are negative. No proteinuria noted in 2020. No obstruction noted on ultrasound of the kidneys 2. Nongap metabolic acidosis associated with acute kidney injury 3. Right hand cellulitis/abscess status post I&D on 06/08/2024 maintained on nafcillin. Wound cultures are growing MSSA 4. Mental status changes on admission, currently improved 5. History of EtOH abuse Plan: Continue to diurese patient. Can switch to oral diuretics. Can DC prednisone Avoid NSAIDs Repeat labs in a.m.
[2024-06-21 15:53] VITALS: BP 179/98; PULSE 86; TEMP 98
[2024-06-21 16:58] LABS: Glucose,Whole Blood 315 mg/dL (70-110)
[2024-06-22] MEDS ORDERED: predniSONE 20 MG TAB PO SCH (09:00)
--- NOTE | 2024-06-22 16:44 | CDI ---
Documentation Clarification Form Date: 06/22/2024 04:32:21 PM From: Patricia Ventura Phone: Admit Date: 06/05/2024 08:47:00 PM Patient Name: Adria Romo Visit Number: [id number] Discharge Date: 06/21/2024 05:37:00 PM ATTENTION: The Clinical Documentation Specialists (CDI) and [facility] Coding Staff appreciate your assistance in clarifying documentation. Please respond to the clarification below the line at the bottom and electronically sign. The CDI & [facility] Coding staff will review the response and follow-up if needed. Please note: Queries are made part of the Legal Health Record. If you have any questions, please contact the author of this message via ITS. Doctor/Provider: Karishma Martinez Excisional debridementof right hand is documented in the Operative Report [06/08/2024]. Additional clarification regarding the procedure is requested. History/Risk factors: This 53-year-old gentleman with a past medical history ofdiabetes mellitus, GERD,hypertension, history of ETOH, andrheumatoid arthritis, is complaining of neck and back painas well as significantright arm pain. There is some significant swelling Pre-Operative Diagnosis: Right hand abscess,right hand cellulitis, minimal response to antibiotics Postoperative Diagnosis: Right hand abscess,right hand cellulitis, minimal response to antibiotics Clinical Indicators: He had a nonsterile tourniquetplacedover his proximal arm before the draping but we didnotinflateit.Over the dorsum of his hand I made a longitudinal 2 cm incision. I was able todissectthrough the skin and scope his tissue and there was obvious copious amounts of purulence and pus that was able to beevacuated. There is greater than 100 cc of pus at the space. I took deep cultures at the right hand x 2 for this. This was copiouslyirrigatedand suctioned dry. At the index finger I alsoplacedsmall incision at the dorsal ulnar aspect and we had pus from that space through theabscesswhich was able to beextracted. It extended down to the deep space. It did not seem to extend into the flexor tendon sheath. We were able toextractsignificant pus from that space. Both areas were copiouslyirrigatedsuctioned dry. There was denuded tissue which wasexcisedappropriately. All of the pus that wasremovedand we put at least 3 L of antibiotic saline and regular saline. The area wasperfused appropriately without any evidence of further purulence. Treatment: Drainage, excisional debridement and antibiotics Please clarify the following: depth of excisional debridement of hand [ X] skin and subcutaneous fascia [ ] muscle [ ] tendon [ ] bone (metacarpal) Please clarify depth of excisional debridement in index finger [ X] skin and subcutaneous fascia [ ] Muscle [ ] tendon [ ] bone (Template Last Revised: May 2020) excisional debridement was carried out at e skin and subcutaneous fascia. Irrigation and exploration was extended to the muscle tendons, and bone at both sites MTDD
--- NOTE | 2024-06-23 10:29 | P.DS ---
Providers Date of admission: 06/05/24 20:47 Expected date of discharge: 06/21/24 Attending physician: Sara Cardoso MD Consults: 06/05/24 18:51 Consult Physician Routine Consulting Provider: Karishma Martinez Consult Reason/Comments: BackPainRhandEdema Do you want consulting provider notified?: Yes 06/05/24 21:25 Consult Physician Routine Consulting Provider: Ftio Kunz Consult Reason/Comments: sepsis Do you want consulting provider notified?: Yes 06/07/24 19:02 Consult Physician Urgent Consulting Provider: Yolanda Hogan Consult Reason/Comments: harsh, ckd, right hand cellulitis Do you want consulting provider notified?: Yes 06/20/24 14:39 Consult Physician Urgent Consulting Provider: Ronald Daigle Consult Reason/Comments: persistent bacteremia, poss RICKY?? Do you want consulting provider notified?: Yes Primary care physician: Stated None Hospital Course: Final diagnosis Acute cellulitis of the right hand with sepsis, present on admission, status post incision and drainage with washout with orthopedics, cultures positive for Staphylococcus aureus MSSA sepsis secondary to above with bacteremia, cultures from incision and drainage also showing Staphylococcus aureus, recent blood cultures from 06/14/2024 are negative for 5 days and remain negative Possible foreign body noted on imaging of the right forearm, evaluated by orthopedics recommending outpatient follow-up for removal of Leukocytosis, secondary to above, trending down History of GERD Acute kidney injury, likely ATN secondary to sepsis, status post kidney biopsy which remains pending Acute delirium with alcohol withdrawal, improved and patient is not actively withdrawing Diabetes mellitus, type II uncontrolled with hyperglycemia Thrombocytopenia, likely secondary to ongoing alcohol abuse Persistent neck and thoracic pain with left upper extremity pain and spasms, ongoing workup and will have MRI outpatient per orthopedics History of hypertension History of daily EtOH use GI prophylaxis DVT prophylaxis Full code Discharge disposition Patient is being discharged in a stable condition with guarded prognosis to home with home care. Patient will follow-up with Dr. Mohsen Clark in the outpatient setting upon discharge. Patient is to continue with PICC line and IV antibiotics in the form of daptomycin with close outpatient follow-up with orthopedics as well as infectious disease and nephrology as scheduled. Patient has a pending kidney biopsy and will follow-up with nephrology for results. Total time taken is greater than 35 minutes. Hospital course This is a 53-year-old male who was recently admitted with right hand swelling and redness with concerns of cellulitis of the right hand with sepsis present on admission. Multiple consultations following including orthopedics and patient is status post incision and drainage with washout and deep cultures remain MSSA positive. Patient also with persistent bacteremia and HARSH likely ATN due to sepsis is status post kidney biopsy with nephrology following closely. Creatinine currently 2.4 and patient is making urine and will follow-up outpatient with nephrology. Patient most recent blood culture from 06/16 remains negative for 5 days and has received a PICC line and is being scheduled for IV daptomycin outpatient. Home care is being arranged and will continue with local wound care along with IV antibiotic therapy. Patient to follow-up with orthopedics this week and will discuss possible foreign body removal of the right forearm and further MRI regarding continued ongoing thoracic back pain and cervical pain with upper extremity issues. Discussed with cardiology regarding possible RICKY although not felt to be relevant at this point as cultures are now negative and may follow-up outpatient. Please refer to other consultation notes for further HPI. Currently no reports of chest pain, shortness of breath, or palpitations. Patient is afebrile. No reports of nausea or vomiting and patient is tolerating diet. Patient will be discharged home today. Guarded prognosis and high risk for readmissions given significant comorbidities. Physical exam: Gen: This is a 53-year-old male who is awake, alert and oriented x 3, well- developed, well-nourished HEENT: Head is atraumatic, normocephalic. Pupils equal, round. Sclerae is anicteric. NECK: Supple. No JVD. No lymphadenopathy. No thyromegaly. LUNGS: Diminished breath sounds bilaterally otherwise clear to auscultation. No wheezes or rhonchi. No intercostal retractions. HEART: Regular rate and rhythm. No murmur. ABDOMEN: Soft. Thin. Bowel sounds are present. No masses. No tenderness. EXTREMITIES: No pedal edema. No calf tenderness. Right hand surgical dressing is dry and intact with Declan wrap noted and significant improvements in swelling and redness NEUROLOGICAL: Patient is awake, alert and oriented x3. Cranial nerves 2 through 12 are grossly intact. Please refer to medication reconciliation sheet for a list of medications. The impression and plan of care has been dictated by Ruthy Ariza, Nurse Practitioner as directed. Dr. Eduardo MD I have performed a history and examination and MDM of this patient, discussed the same with the dictator, and agree with the dictator's assessment and plan as written ,documented as a scribe. Based on total visit time, I have performed more than 50% of the visit. Patient Condition at Discharge: Stable Plan - Discharge Summary Discharge Rx Participant: No New Discharge Prescriptions: New DAPTOmycin [Cubicin] 500 mg IV Q24HR #40 each cloNIDine HCL [Catapres] 0.1 mg PO BID #60 tab predniSONE [Deltasone] 20 mg PO DAILY #8 tab Cyclobenzaprine [Flexeril] 10 mg PO TID PRN #30 tab PRN Reason: Muscle Spasm Folic Acid 1 mg PO DAILY@1200 #30 tab HYDROcodone/APAP 7.5-325MG [[place] 7.5-325] 1 each PO Q4H PRN #12 tab PRN Reason: Pain Multivitamins, Thera [Multivitamin (formulary)] 1 each PO DAILY@1200 #30 tab amLODIPine [Norvasc] 10 mg PO DAILY #60 tab Famotidine [Pepcid] 20 mg PO DAILY #30 tab Sodium Bicarbonate Tab 650 mg PO BID #60 tab Thiamine [Vitamin B-1] 100 mg PO BID-W/MEALS #60 tab Furosemide [Lasix] 40 mg PO BID #60 tablet Continue Insulin Degludec [Tresiba Flextouch U-100 Pen] 25 units SQ BID Discontinued HYDROcodone/APAP 5-325MG [[place] 5-325] 1 tab PO Q4HR PRN 3 Days #18 tab PRN Reason: Pain Discharge Medication List Insulin Degludec [Tresiba Flextouch U-100 Pen] 25 units SQ BID 12/31/20 [History] Cyclobenzaprine [Flexeril] 10 mg PO TID PRN #30 tab 06/21/24 [Rx] DAPTOmycin [Cubicin] 500 mg IV Q24HR #40 each 06/21/24 [Rx] Famotidine [Pepcid] 20 mg PO DAILY #30 tab 06/21/24 [Rx] Folic Acid 1 mg PO DAILY@1200 #30 tab 06/21/24 [Rx] Furosemide [Lasix] 40 mg PO BID #60 tablet 06/21/24 [Rx] HYDROcodone/APAP 7.5-325MG [[place] 7.5-325] 1 each PO Q4H PRN #12 tab 06/21/24 [Rx] Multivitamins, Thera [Multivitamin (formulary)] 1 each PO DAILY@1200 #30 tab 06/21/24 [Rx] Sodium Bicarbonate Tab 650 mg PO BID #60 tab 06/21/24 [Rx] Thiamine [Vitamin B-1] 100 mg PO BID-W/MEALS #60 tab 06/21/24 [Rx] amLODIPine [Norvasc] 10 mg PO DAILY #60 tab 06/21/24 [Rx] cloNIDine HCL [Catapres] 0.1 mg PO BID #60 tab 06/21/24 [Rx] predniSONE [Deltasone] 20 mg PO DAILY #8 tab 06/21/24 [Rx] Follow up Appointment(s)/Referral(s): Yolanda Hogan MD [STAFF PHYSICIAN] - 07/13/24 11:00 am Karishma Martinez DO [Doctor of Osteopathic Medicine] - 06/24/24 2:30 pm Daisy Yuan MD [STAFF PHYSICIAN] - 1 Week (please call to schedule a new patient appointment. ext [phone]) [facility], [REFERRING] - 1 Week [facility] [NON-STAFF] - 1 Week Fito Kunz MD [STAFF PHYSICIAN] - 06/27/24 3:45 pm Ambulatory/Diagnostic Orders: Basic Metabolic Panel [LAB.AMB] Location: None Selected C Reactive Protein [LAB.AMB] Location: None Selected Complete Blood Count w/diff [LAB.AMB] Location: None Selected Erythrocyte Sedimentation Rate [LAB.AMB] Location: None Selected Patient Instructions/Handouts: Cellulitis (GEN), Sepsis (DC), Alcohol Withdrawal (DC) Activity/Diet/Wound Care/Special Instructions: 1. He may continue with daily dressing changes with the muscle, nonstick Telfa, 4 x 4, Kerelx, and Declan wrap as needed. 2. Keep his right hand clean and dry. 3. Do not soak in water. Discharge/Stand Alone Forms: AA Valorie Chris, Area PCPs Discharge Disposition: HOME WITH HOME HEALTH SERVICES
== END 2024-06-21 17:37 | disposition home health service (06) | DRG 853 ==
LOC: EC 16:03 → SUPCPDRO 16:03 → 5NMEDONC 20:47
PROVIDERS: ADMIT Internal Medicine; ATTEND Internal Medicine
PROC: 0P9 Upper Bones, Drainage (ICD-10-PCS; 2024-06-08)
PROC: 0P9T0ZZ Drainage of Right Finger Phalanx, Open Approach (ICD-10-PCS; 2024-06-08)
PROC: 0JBJ0ZZ Excision of Right Hand Subcutaneous Tissue and Fascia, Open Approach (ICD-10-PCS; principal; 2024-06-08 08:30)
PROC: 0TB13ZX Excision of Left Kidney, Percutaneous Approach, Diagnostic (ICD-10-PCS; 2024-06-17)
PROC: 02HV33Z Insertion of Infusion Device into Superior Vena Cava, Percutaneous Approach (ICD-10-PCS; 2024-06-21)
DX: A41.01 Sepsis due to Methicillin susceptible Staphylococcus aureus (principal); N17.0 Acute kidney failure with tubular necrosis; F10.231 Alcohol dependence with withdrawal delirium; E87.20 Acidosis, unspecified; E87.1 Hypo-osmolality and hyponatremia; D69.59 Other secondary thrombocytopenia; E11.65 Type 2 diabetes mellitus with hyperglycemia; M06.9 Rheumatoid arthritis, unspecified; I10 Essential (primary) hypertension; L02.511 Cutaneous abscess of right hand; L03.113 Cellulitis of right upper limb; Z79.4 Long term (current) use of insulin; G89.29 Other chronic pain; M54.6 Pain in thoracic spine; M79.89 Other specified soft tissue disorders; M47.812 Spondylosis without myelopathy or radiculopathy, cervical region; K21.9 Gastro-esophageal reflux disease without esophagitis; L03.011 Cellulitis of right finger; M50.30 Other cervical disc degeneration, unspecified cervical region; M48.02 Spinal stenosis, cervical region; E87.6 Hypokalemia; E87.70 Fluid overload, unspecified; T38.0X5A Adverse effect of glucocorticoids and synthetic analogues, initial encounter; Z88.8 Allergy status to other drugs, medicaments and biological substances
CPT/HCPCS: 36415; 36573; 71046; 71275; 72050; 72125; 74174; 76770; 77012; 80048; 80053; 80074; 80320; 81001; 82140; 82550; 82728; 82803; 82947; 83036; 83516; 83540; 83550; 83605; 83690; 83735; 84100; 84132; 84550; 85025; 85379; 85610; 85652; 85730; 86038; 86140; 86160; 86225; 86334; 86335; 86431; 86850; 86900; 86901; 87040; 87070; 87075; 87077; 87186; 87205; 87390; 93005; 93306; 93970; 96361; 96365; 96366; 96367; 96372; 96375; 96376; 99285

== ENCOUNTER 2024-06-29 19:26 | Emergency (ER) | payer BC ==
--- NOTE | 2024-06-29 22:12 | ED ---
Recheck HPI - General Source: patient Mode of arrival: ambulatory Limitations: no limitations <Magy Rueda - Last Filed: 06/29/24 22:09> <Patrica Dave - Last Filed: 07/04/24 00:24> - General Chief Complaint: Recheck/Abnormal Lab/Rx Stated Complaint: picc line bleeding out Time Seen by Provider: 06/29/24 22:10 - History of Present Illness Initial Comments: 53-year-old male presenting with chief complaint of bleeding from his PICC line. Patient had the PICC line placed on Thursday he is receiving antibiotics for hand infection. He does not believe he is on any anticoagulants but he is unsure. He denies any injury or trauma to the area. (Magy Rueda) - Related Data Home Medications Medication Instructions Recorded Confirmed Insulin Degludec [Tresiba 25 units SQ BID 12/31/20 06/05/24 Flextouch U-100 Pen] Previous Rx's Medication Instructions Recorded Cyclobenzaprine [Flexeril] 10 mg PO TID PRN #30 tab 06/21/24 DAPTOmycin [Cubicin] 500 mg IV Q24HR #40 each 06/21/24 Famotidine [Pepcid] 20 mg PO DAILY #30 tab 06/21/24 Folic Acid 1 mg PO DAILY@1200 #30 tab 06/21/24 Furosemide [Lasix] 40 mg PO BID #60 tablet 06/21/24 HYDROcodone/APAP 7.5-325MG [[place] 1 each PO Q4H PRN #12 tab 06/21/24 7.5-325] Multivitamins, Thera [Multivitamin 1 each PO DAILY@1200 #30 tab 06/21/24 (formulary)] Sodium Bicarbonate Tab 650 mg PO BID #60 tab 06/21/24 Thiamine [Vitamin B-1] 100 mg PO BID-W/MEALS #60 tab 06/21/24 amLODIPine [Norvasc] 10 mg PO DAILY #60 tab 06/21/24 cloNIDine HCL [Catapres] 0.1 mg PO BID #60 tab 06/21/24 predniSONE [Deltasone] 20 mg PO DAILY #8 tab 06/21/24 Allergies Allergy/AdvReac Type Severity Reaction Status Date / Time metformin AdvReac Nausea Verified 06/29/24 20:00 Review of Systems ROS Other: All systems not noted in ROS Statement are negative. <Magy Rueda - Last Filed: 06/29/24 22:09> ROS Other: All systems not noted in ROS Statement are negative. <Patrica Dave - Last Filed: 07/04/24 00:24> ROS Statement: Those systems with pertinent positive or pertinent negative responses have been documented in the HPI. Past Medical History Past Medical History: Diabetes Mellitus, GERD/Reflux, Hypertension, Osteoarthritis (OA) Additional Past Medical History / Comment(s): Neuropathy legs and feet, Ulcerative Colitis, "resolved for some time now". History of Any Multi-Drug Resistant Organisms: None Reported Past Surgical History: Orthopedic Surgery Additional Past Surgical History / Comment(s): 3rd & 4th fingers reattached w/bone grafts after accident, colonoscopy. Past Anesthesia/Blood Transfusion Reactions: No Reported Reaction Past Psychological History: No Psychological Hx Reported Smoking Status: Never smoker Past Alcohol Use History: Abuse, Daily Past Drug Use History: Marijuana - Past Family History Father Family Medical History: Diabetes Mellitus, Hyperlipidemia, Hypertension Brother(s) Family Medical History: Diabetes Mellitus, Hyperlipidemia, Hypertension <Magy Rueda - Last Filed: 06/29/24 22:09> General Exam Limitations: no limitations <Magy Rueda - Last Filed: 06/29/24 22:09> Limitations: no limitations General appearance: alert, in no apparent distress Head exam: Present: atraumatic, normocephalic, normal inspection Eye exam: Present: normal appearance, PERRL, EOMI. Absent: scleral icterus, conjunctival injection, periorbital swelling Respiratory exam: Present: normal lung sounds bilaterally. Absent: respiratory distress, wheezes, rales, rhonchi, stridor Cardiovascular Exam: Present: regular rate, normal rhythm, normal heart sounds. Absent: systolic murmur, diastolic murmur, rubs, gallop, clicks Extremities exam: Present: other (PICC line present in left upper extremity with minimal bleeding) Neurological exam: Present: alert, oriented X3 Psychiatric exam: Present: normal affect, normal mood Skin exam: Present: warm, dry, intact, normal color. Absent: rash <Patrica Dave - Last Filed: 07/04/24 00:24> - General Exam Comments Initial Comments: Visual Physical Exam Vital signs reviewed General: Well-appearing, nontoxic, no acute distress. Head: Normocephalic, atraumatic Eyes: PERRLA, EOMI ENT: Airway patent Chest: Nonlabored breathing Skin: No visual rash, normal skin tone Neuro: Alert and oriented 3 Musculoskeletal: No gross abnormalities (Magy Rueda) Course Vital Signs 06/29/24 06/30/24 06/30/24 19:55 00:37 02:32 Temperature 98.2 F 98.4 F 98.3 F Pulse Rate 101 H 96 95 Respiratory 18 21 19 Rate Blood Pressure 117/79 113/71 118/88 O2 Sat by Pulse 99 97 96 Oximetry Medical Decision Making <Magy Rueda - Last Filed: 06/29/24 22:09> <Patrica Dave - Last Filed: 07/04/24 00:24> - Medical Decision Making I performed the quick note portion of this visit, electronically signed Magy Rueda PA-C (Magy Rueda) Was pt. sent in by a medical professional or institution ([facility], [facility], urgent care, hospital, or fdc...) When possible be specific @ -No Did you speak to anyone other than the patient for history (EMS, parent, family, police, friend...)? What history was obtained from this source @ -No Did you review nursing and triage notes (agree or disagree)? Why? @ -I reviewed and agree with nursing and triage notes Were old charts reviewed (outside hosp., previous admission, EMS record, old EKG, old radiological studies, urgent care reports/EKG's, fdc records)? Report findings @ -No old charts were reviewed Differential Diagnosis (chest pain, altered mental status, abdominal pain women, abdominal pain men, vaginal bleeding, weakness, fever, dyspnea, syncope, headache, dizziness, GI bleed, back pain, seizure, CVA, palpatations, mental health, musculoskeletal)? @ -Not applicable EKG interpreted by me (3pts min.). @ -None X-rays interpreted by me (1pt min.). @ -None done CT interpreted by me (1pt min.). @ -None done U/S interpreted by me (1pt. min.). @ -None done What testing was considered but not performed or refused? (CT, X-rays, U/S, labs)? Why? @ -None What meds were considered but not given or refused? Why? @ -None Did you discuss the management of the patient with other professionals (professionals i.e. , PA, [employer], lab, RT, psych nurse, social insurance analyst, deputy county counsel, teacher, staff air tactical officer, patient case coordinator)? Give summary @ -No Was smoking cessation discussed for >3mins.? @ -No Was critical care preformed (if so, how long)? @ -No Were there social determinants of health that impacted care today? How? (Homelessness, low income, unemployed, alcoholism, drug addiction, transportation, low edu. Level, literacy, decrease access to med. care, alf, rehab)? @ -No Was there de-escalation of care discussed even if they declined (Discuss DNR or withdrawal of care, Hospice)? DNR status @ -No What co-morbidities impacted this encounter? (DM, HTN, Smoking, COPD, CAD, Cancer, CVA, ARF, Chemo, Hep., AIDS, mental health diagnosis, sleep apnea, morbid obesity)? @ -None Was patient admitted / discharged? Hospital course, mention meds given and route, prescriptions, significant lab abnormalities, going to OR and other pertinent info. @ -Discharge. Patient presented emergency department for evaluation of bleeding around his PICC line. This was assessed by removing the dressing and hemostasis was achieved. Dressing was replaced in a sterile fashion. He will be discharged home he was administered a dose of his antibiotics in the emergency department prior to discharge. He is understanding agreeable with plan. Patient stable at time of discharge. Case discussed with Dr. Pacheco. Undiagnosed new problem with uncertain prognosis? @ -No Drug Therapy requiring intensive monitoring for toxicity (Heparin, Nitro, Insulin, Cardizem)? @ -No Were any procedures done? @ -No Diagnosis/symptom? @ -Bleeding around PICC line Acute, or Chronic, or Acute on Chronic? @ -Acute Uncomplicated (without systemic symptoms) or Complicated (systemic symptoms)? @ -Uncomplicated Side effects of treatment? @ -No Exacerbation, Progression, or Severe Exacerbation? @ -No Poses a threat to life or bodily function? How? (Chest pain, [place], [place], pneumonia, PE, COPD, DKA, ARF, appy, cholecystitis, CVA, Diverticulitis, Homicidal, [place] icidal, threat to staff... and all critical care pts) @ -No (Patrica Dave) - Lab Data Lab Results 06/30/24 Range/Units 00:33 POC Glucose (mg/dL) 331 H (70-110) mg/dL POC Glu Mems Process Engineer ID Leo King Disposition <Magy Rueda - Last Filed: 06/29/24 22:09> Is patient prescribed a controlled substance at d/c from ED?: No <Patrica Dave - Last Filed: 07/04/24 00:24> Clinical Impression: Bleeding from PICC line Disposition: HOME SELF-CARE Condition: Stable Instructions (If sedation given, give patient instructions): How to Care for Your PICC (Peripherally Inserted Central Catheter) (ED) Additional Instructions: Please follow up with your doctor. Return to the emergency department for new or worsening symptoms. Referrals: None,Stated [Primary Care Provider] - 1-2 days
[2024-06-30 00:34] LABS: Glucose,Whole Blood 331 mg/dL (70-110)
[2024-06-30] MEDS: DAPTOmycin 500 MG in SODIUM CHLORIDE 0.9% 50 ML IVPB SCH (01:45)
[2024-06-30 02:34] VITALS: BP 118/88; PULSE 95; RESP 19; TEMP 98.3
[2024-06-30] MEDS: INSULIN LISPRO (HumaLOG) 100 UNIT/ML 10 mL VL SQ ONE (02:40)
== END 2024-06-30 02:43 | disposition home or self-care (01) ==
LOC: EC 19:26
DX: T82.838A Hemorrhage due to vascular prosthetic devices, implants and grafts, initial encounter (principal); Z88.5 Allergy status to narcotic agent
CPT/HCPCS: 36415; 99283; 96365; J0878

== ENCOUNTER 2024-07-11 15:20 | Inpatient (IN) | payer BC, OTHER ==
[2024-07-11 16:13] LABS: Basophils # (A) 0.02 10*3/uL (0.00-0.10); Basophils % (A) 0.2 %; Eosinophils # (A) 0.06 10*3/uL (0.04-0.35); Eosinophils % (A) 0.7 %; HCT 29.4 % (39.6-50.0); HGB 10.2 g/dL (13.0-17.0); Lymphocytes # (A) 1.02 10*3/uL (0.90-5.00); Lymphocytes % (A) 11.8 %; MCH 31.9 pg (27.0-32.0); MCHC 34.7 g/dL (32.0-37.0); Monocytes # (A) 0.62 10*3/uL (0.20-1.00); Monocytes % (A) 7.2 %; Neutrophils # (A) 6.86 10*3/uL (1.80-7.70); Neutrophils % (A) 79.4 %; Platelet Count 118 10*3/uL (140-440); WBC 8.64 10*3/uL (4.50-10.00)
[2024-07-11 16:20] LABS: Appearance,Urine Clear (Clear); Bacteria,Urine Rare /hpf; Bilirubin,Urine Negative (Negative); Blood,Urine Large (Negative); Color,Urine Light Red; Glucose,Urine (UA) 3+ (Negative); Ketones,Urine Negative (Negative); Leukocyte Esterase,Urine Negative (Negative); Nitrite,Urine Negative (Negative); Protein,Urine 1+ (Negative); RBC,Urine >182 /hpf (0-5); Specific Gravity,Urine 1.011 (1.001-1.035); Squamous Epithelial Cell,Urine 1 /hpf (0-4); Urobilinogen,Urine <2.0 mg/dL (<2.0); WBC,Urine 14 /hpf (0-5)
[2024-07-11 16:24] LABS: ALT 33 U/L (4-49); AST 31 U/L (17-59); African American GFR (CKD) 11 (>60 ml/min/1.73 sqM); Albumin 3.2 g/dL (3.5-5.0); Alkaline Phosphatase 177 U/L (38-126); Anion Gap 17 mmol/L; Calcium 9.4 mg/dL (8.4-10.2); Carbon Dioxide 16 mmol/L (22-30); Chloride 100 mmol/L (98-107); Glucose 270 mg/dL (74-99); Magnesium 1.8 mg/dL (1.6-2.3); Non-African American GFR(CKD) 9 (>60 ml/min/1.73 sqM); Partial Thromboplastin Time 27.6 sec (22.0-30.0); Phosphorus 7.1 mg/dL (2.5-4.5); Potassium 4.3 mmol/L (3.5-5.1); Prothrombin Time 10.7 sec (10.0-12.5); Sodium 133 mmol/L (137-145); Total Bilirubin 1.1 mg/dL (0.2-1.3); Total Protein 7.1 g/dL (6.3-8.2)
[2024-07-11 16:25] LABS: MCV 91.9 fL (80.0-97.0)
--- NOTE | 2024-07-11 16:28 | ED ---
Recheck HPI - General Chief Complaint: Recheck/Abnormal Lab/Rx Stated Complaint: ABN Labs Time Seen by Provider: 07/11/24 15:35 Source: patient, RN notes reviewed Mode of arrival: ambulatory Limitations: no limitations - History of Present Illness Initial Comments: This is a 53-year-old male who presents to the emergency department for abnormal renal function. Patient has been receiving daptomycin via PICC line in the left upper extremity for the last several weeks due to an infection in the right hand. He states that he has blood work done each week to monitor his progress. He was told that his blood work today demonstrated worsening kidney function and he was sent to the emergency department for evaluation. Patient does note feeling very fatigued. States that his legs also feel very heavy. He was started on Lasix during this last hospitalization due to the swelling in his lower extremities. States that the swelling has now resolved, however he is continuing to take the Lasix. Denies a hx of CHF. MD Complaint: abnormal lab - Related Data Home Medications Medication Instructions Recorded Confirmed Insulin Degludec [Tresiba 25 units SQ DAILY 12/31/20 07/11/24 Flextouch U-100 Pen] DAPTOmycin [Cubicin] 500 mg IV Q2D 07/11/24 07/11/24 HYDROcodone/APAP 7.5-325MG [[place]ains 1 tab PO Q4H PRN 07/11/24 07/11/24 7.5-325] Multivitamins, Thera [Multivitamin 1 tab PO DAILY@1200 07/11/24 07/11/24 (formulary)] Previous Rx's Medication Instructions Recorded Cyclobenzaprine [Flexeril] 10 mg PO TID PRN #30 tab 06/21/24 Famotidine [Pepcid] 20 mg PO DAILY #30 tab 06/21/24 Folic Acid 1 mg PO DAILY@1200 #30 tab 06/21/24 Furosemide [Lasix] 40 mg PO BID #60 tablet 06/21/24 Sodium Bicarbonate Tab 650 mg PO BID #60 tab 06/21/24 Thiamine [Vitamin B-1] 100 mg PO BID-W/MEALS #60 tab 06/21/24 amLODIPine [Norvasc] 10 mg PO DAILY #60 tab 06/21/24 cloNIDine HCL [Catapres] 0.1 mg PO BID #60 tab 06/21/24 Allergies Allergy/AdvReac Type Severity Reaction Status Date / Time metformin AdvReac Nausea Verified 07/11/24 17:01 Review of Systems ROS Statement: Those systems with pertinent positive or pertinent negative responses have been documented in the HPI. ROS Other: All systems not noted in ROS Statement are negative. Past Medical History Past Medical History: Diabetes Mellitus, GERD/Reflux, Hypertension, Osteoarthritis (OA) Additional Past Medical History / Comment(s): Neuropathy legs and feet, Ulcerative Colitis, "resolved for some time now". History of Any Multi-Drug Resistant Organisms: None Reported Past Surgical History: Orthopedic Surgery Additional Past Surgical History / Comment(s): 3rd & 4th fingers reattached w/bone grafts after accident, colonoscopy. Past Anesthesia/Blood Transfusion Reactions: No Reported Reaction Past Psychological History: No Psychological Hx Reported Smoking Status: Never smoker Past Alcohol Use History: Abuse, Daily Past Drug Use History: Marijuana - Past Family History Father Family Medical History: Diabetes Mellitus, Hyperlipidemia, Hypertension Brother(s) Family Medical History: Diabetes Mellitus, Hyperlipidemia, Hypertension General Exam Limitations: no limitations General appearance: alert, in no apparent distress Head exam: Present: atraumatic, normocephalic, normal inspection Respiratory exam: Present: normal lung sounds bilaterally. Absent: respiratory distress, wheezes, rales, rhonchi, stridor Cardiovascular Exam: Present: regular rate, normal rhythm Neurological exam: Present: alert, oriented X3, CN II-XII intact Psychiatric exam: Present: normal affect, normal mood Skin exam: Present: warm, dry Course Vital Signs 07/11/24 07/11/24 07/11/24 15:30 17:29 19:00 Temperature 97.6 F Pulse Rate 95 82 90 Respiratory 16 20 18 Rate Blood Pressure 120/84 134/86 135/90 O2 Sat by Pulse 100 100 99 Oximetry 07/11/24 07/11/24 07/11/24 20:00 21:00 22:00 Temperature Pulse Rate 80 89 90 Respiratory 18 18 18 Rate Blood Pressure 144/90 131/90 125/85 O2 Sat by Pulse 97 99 98 Oximetry 07/11/24 07/12/24 07/12/24 23:00 00:00 03:00 Temperature Pulse Rate 86 90 75 Respiratory 18 18 16 Rate Blood Pressure 125/92 124/86 119/84 O2 Sat by Pulse 97 98 98 Oximetry 07/12/24 08:10 Temperature 98.1 F Pulse Rate 83 Respiratory 18 Rate Blood Pressure 121/83 O2 Sat by Pulse 100 Oximetry Medical Decision Making - Medical Decision Making This is a 53-year-old male who presents to the emergency department for abnormal renal function. Was pt. sent in by a medical professional or institution? @ -No Did you speak to anyone other than the patient for history? @ -No Did you review nursing and triage notes? @ -Yes, and I agree, it is accurate with regards to the patient's symptoms. Were old charts reviewed? @ -No Differential Diagnosis? @ -Infection, medications, dehydration, this is not meant to be an all- inclusive list. EKG interpreted by me (3pts min.)? @ -EKG interpreted by me demonstrating the following: Sinus rhythm. Ventri cular rate 81 bpm, NV interval 161 ms, QRS duration 112 ms, QTc 409 ms. X-rays interpreted by me (1pt min.)? @ -Not obtained CT interpreted by me (1pt min.)? @ -Not obtained U/S interpreted by me (1pt. min.)? @ -Renal ultrasound obtained. My interpretation identifies no hydronephrosis. What testing was considered but not performed? (CT, X-rays, U/S, labs)? Why? @ -None What meds were considered but not given? Why? @ -None Did you discuss the management of the patient with other professionals? @ -Yes, Chio Clarke with [facility], who accepts the patient for admission. Did you reconcile home meds? @ -Yes Was smoking cessation discussed for >3mins.? @ -No Was critical care preformed (if so, how long)? @ -No Were there social determinants of health that impacted care today? How? (Homelessness, low income, unemployed, alcoholism, drug addiction, tr ansportation, low edu. Level, literacy, decrease access to med. care, intermediate, rehab)? @ -No Was there de-escalation of care discussed even if they declined? (Discuss DNR or withdrawal of care, Hospice)? @ -No What co-morbidities impacted this encounter? (DM, HTN, Smoking, COPD, CAD, Cancer, CVA, Hep., AIDS, mental health diagnosis, sleep apnea, morbid obesity)? @ -DM, HTN, renal disease Was patient admitted / discharged? @ -Admitted. Lab work demonstrates an LISSETT with a BUN of 122, creatinine of 6.46, and eGFR of 9. Patient is still making his own urine and urinating quite a bit secondary to taking the Lasix. Urinalysis contains a large amount of blood and only a small elevation in WBCs. Urine sent for culture. Creatinine kinase negative. Renal ultrasound obtained revealing no acute process. The cause of the LISSETT is not clear at this point. It could be secondary to the ongoing Lasix use or other medications he is taking. Given that the swelling in his extremities has resolved he was given a liter bolus of lactated Ringer's and started on a small amount of maintenance fluids. We did obtain the results of the MRI he had at [facility] on 07/06 as they had concern for discitis. He had some questionable hyperdensities in the cervical spine and the case was discussed with Dr. Suazo, orthopedics. He advised that he will reach out to Dr. Martinez regarding these findings and advised listing him as a consult for the patient. Patient admitted to medicine for the LISSETT. Consult placed for nephrology, ID consulted given the infection in his right hand, and orthopedics was consulted regarding the neck pain with an abnormal MRI. Case discussed with ED attending, Dr. Galloway. Undiagnosed new problem with uncertain prognosis? @ -None Drug Therapy requiring intensive monitoring for toxicity (Heparin, Nitro, Insulin, Cardizem)? @ -None Were any procedures done? @ -None Diagnosis/symptom? @ -LISSETT Acute, or Chronic, or Acute on Chronic? @ -Acute Uncomplicated (without systemic symptoms) or Complicated (systemic symptoms)? @ -Complicated Side effects of treatment? @ -None Exacerbation, Progression, or Severe Exacerbation] @ -Not applicable Poses a threat to life or bodily function? @ -Yes, can lead to life-threatening metabolic abnormalities - Lab Data Result diagrams: 07/11/24 16:03 07/12/24 07:07 Lab Results 07/11/24 07/11/24 07/11/24 Range/Units 16:03 16:03 16:03 WBC 8.64 (4.50-10.00) 10*3/uL RBC 3.20 L (4.40-5.60) 10*6/uL Hgb 10.2 L (13.0-17.0) g/dL Hct 29.4 L (39.6-50.0) % MCV 91.9 D (80.0-97.0) fL MCH 31.9 (27.0-32.0) pg MCHC 34.7 (32.0-37.0) g/dL Plt Count 118 L (140-440) 10*3/uL MPV 11.0 (9.5-12.2) fL Immature Gran % (Auto) 0.7 % Neutrophils % 79.4 % Lymphocytes % 11.8 % Monocytes % 7.2 % Eosinophils % 0.7 % Basophils % 0.2 % Immature Gran # 0.06 H (0.00-0.04) 10*3/uL Neutrophils # 6.86 (1.80-7.70) 10*3/uL Lymphocytes # 1.02 (0.90-5.00) 10*3/uL Monocytes # 0.62 (0.20-1.00) 10*3/uL Eosinophils # 0.06 (0.04-0.35) 10*3/uL Basophils # 0.02 (0.00-0.10) 10*3/uL PT 10.7 (10.0-12.5) sec INR 1.0 (<1.2) APTT 27.6 (22.0-30.0) sec Sodium (137-145) mmol/L Potassium (3.5-5.1) mmol/L Chloride (98-107) mmol/L Carbon Dioxide (22-30) mmol/L Anion Gap mmol/L BUN (9-20) mg/dL Creatinine (0.66-1.25) mg/dL Est GFR (CKD-EPI)AfAm (>60 ml/min/1.73 sqM) Est GFR (CKD-EPI)NonAf (>60 ml/min/1.73 sqM) Glucose (74-99) mg/dL Calcium (8.4-10.2) mg/dL Phosphorus (2.5-4.5) mg/dL Magnesium (1.6-2.3) mg/dL Total Bilirubin (0.2-1.3) mg/dL AST (17-59) U/L ALT (4-49) U/L Alkaline Phosphatase (38-126) U/L Creatine Kinase (55-170) U/L Total Protein (6.3-8.2) g/dL Albumin (3.5-5.0) g/dL Urine Color Light Red Urine Appearance Clear (Clear) Urine pH 6.0 (5.0-8.0) Ur Specific [place] 1.011 (1.001-1.035) Urine Protein 1+ H (Negative) Urine Glucose (UA) 3+ H (Negative) Urine Ketones Negative (Negative) Urine Blood Large H (Negative) Urine Nitrite Negative (Negative) Urine Bilirubin Negative (Negative) Urine Urobilinogen <2.0 (<2.0) mg/dL Ur Leukocyte Esterase Negative (Negative) Urine RBC >182 H (0-5) /hpf Urine WBC 14 H (0-5) /hpf Ur Squamous Epith Cells 1 (0-4) /hpf Urine Bacteria Rare H (None) /hpf 07/11/24 07/11/24 Range/Units 16:03 16:03 WBC (4.50-10.00) 10*3/uL RBC (4.40-5.60) 10*6/uL Hgb (13.0-17.0) g/dL Hct (39.6-50.0) % MCV (80.0-97.0) fL MCH (27.0-32.0) pg MCHC (32.0-37.0) g/dL Plt Count (140-440) 10*3/uL MPV (9.5-12.2) fL Immature Gran % (Auto) % Neutrophils % % Lymphocytes % % Monocytes % % Eosinophils % % Basophils % % Immature Gran # (0.00-0.04) 10*3/uL Neutrophils # (1.80-7.70) 10*3/uL Lymphocytes # (0.90-5.00) 10*3/uL Monocytes # (0.20-1.00) 10*3/uL Eosinophils # (0.04-0.35) 10*3/uL Basophils # (0.00-0.10) 10*3/uL PT (10.0-12.5) sec INR (<1.2) APTT (22.0-30.0) sec Sodium 133 L (137-145) mmol/L Potassium 4.3 (3.5-5.1) mmol/L Chloride 100 (98-107) mmol/L Carbon Dioxide 16 L (22-30) mmol/L Anion Gap 17 mmol/L BUN 122 H* (9-20) mg/dL Creatinine 6.46 H (0.66-1.25) mg/dL Est GFR (CKD-EPI)AfAm 11 (>60 ml/min/1.73 sqM) Est GFR (CKD-EPI)NonAf 9 (>60 ml/min/1.73 sqM) Glucose 270 H (74-99) mg/dL Calcium 9.4 (8.4-10.2) mg/dL Phosphorus 7.1 H (2.5-4.5) mg/dL Magnesium 1.8 (1.6-2.3) mg/dL Total Bilirubin 1.1 (0.2-1.3) mg/dL AST 31 (17-59) U/L ALT 33 (4-49) U/L Alkaline Phosphatase 177 H (38-126) U/L Creatine Kinase 36 L (55-170) U/L Total Protein 7.1 (6.3-8.2) g/dL Albumin 3.2 L (3.5-5.0) g/dL Urine Color Urine Appearance (Clear) Urine pH (5.0-8.0) Ur Specific [place] (1.001-1.035) Urine Protein (Negative) Urine Glucose (UA) (Negative) Urine Ketones (Negative) Urine Blood (Negative) Urine Nitrite (Negative) Urine Bilirubin (Negative) Urine Urobilinogen (<2.0) mg/dL Ur Leukocyte Esterase (Negative) Urine RBC (0-5) /hpf Urine WBC (0-5) /hpf Ur Squamous Epith Cells (0-4) /hpf Urine Bacteria (None) /hpf - Radiology Data Radiology results: report reviewed, image reviewed Disposition Clinical Impression: Renal failure, LISSETT (acute kidney injury) Disposition: ADMITTED IP TO THIS HOSP
[2024-07-11 16:35] LABS: Blood Urea Nitrogen 122 mg/dL (9-20)
[2024-07-11] MEDS: LACTATED RINGERS 1,000 ML IV ONE (17:21)
[2024-07-11] MEDS ORDERED: NALOXONE 0.4 MG/ML 1 ML VIAL IV PRN (17:28)
[2024-07-11] MEDS ORDERED: ACETAMINOPHEN TAB 325 MG TAB PO PRN (17:28)
--- NOTE | 2024-07-11 18:33 | US ---
EXAMINATION TYPE: US kidneys/renal and bladder DATE OF EXAM: 07/11/2024 COMPARISON: 06/10/2024 CLINICAL INDICATION: Male, 53 years old with history of Renal failure, hematuria; renal failure, estelita turia TECHNIQUE: Grayscale imaging of the bilateral kidneys and urinary bladder: FINDINGS: EXAM MEASUREMENTS: Right Kidney: 12.2 x 6.8 x 6.2 cm Left Kidney: 13.6 x 6.7 x 5.1 cm Right Kidney: slightly enlarged Left Kidney: slightly enlarged Bladder: wnl Bilateral Jets seen: yes splenomegaly measuring 15.1cm There is no evidence for hydronephrosis at this point in time. No nephrolithiasis is seen. No julisa s are identified. The urinary bladder is anechoic. IMPRESSION: 1. No obstructive uropathy or renal calculus. 2. Mild splenomegaly. [facility], , 07/11/2024 6:30 PM
[2024-07-11] MEDS: LACTATED RINGERS 1,000 ML IV SCH (19:08)
[2024-07-11] MEDS ORDERED: CYCLOBENZAPRINE 10 MG TAB PO PRN (19:29)
[2024-07-11] MEDS: cloNIDine HCL 0.1 MG TAB PO SCH (21:23)
[2024-07-11] MEDS: SODIUM BICARBONATE TAB 650 MG TAB PO SCH (21:23)
[2024-07-11] MEDS: MORPHINE SULFATE 4 MG/ML SYRINGE IV PRN (21:23)
[2024-07-12] MEDS: ONDANSETRON 4 MG/2 ML VIAL IVP PRN (01:06)
[2024-07-12 07:38] LABS: Glucose,Whole Blood 252 mg/dL (70-110)
[2024-07-12] MEDS: FAMOTIDINE 20 MG TAB PO SCH (08:11)
[2024-07-12] MEDS: amLODIPine 10 MG TAB PO SCH (08:11)
[2024-07-12] MEDS: THIAMINE 100 MG TAB PO SCH (08:12)
[2024-07-12] MEDS: PANTOPRAZOLE 40 MG/10 ML VIAL IV SCH (08:13)
[2024-07-12 08:21] LABS: ALT 27 U/L (4-49); AST 25 U/L (17-59); African American GFR (CKD) 10 (>60 ml/min/1.73 sqM); Alkaline Phosphatase 176 U/L (38-126); Anion Gap 18 mmol/L; Carbon Dioxide 18 mmol/L (22-30); Chloride 101 mmol/L (98-107); Glucose 241 mg/dL (74-99); Magnesium 1.6 mg/dL (1.6-2.3); Non-African American GFR(CKD) 8 (>60 ml/min/1.73 sqM); Potassium 4.3 mmol/L (3.5-5.1); Sodium 137 mmol/L (137-145); Total Protein 6.6 g/dL (6.3-8.2)
[2024-07-12] MEDS: INSULIN GLARGINE (LANTUS) 100 UNIT/ML SYR SQ SCH (08:21)
[2024-07-12] MEDS: DAPTOmycin 500 MG in SODIUM CHLORIDE 0.9% 50 ML IVPB SCH (08:23)
[2024-07-12 08:24] LABS: Blood Urea Nitrogen 109 mg/dL (9-20)
[2024-07-12] MEDS: HYDROcodone/APAP 7.5-325MG 1 EACH TAB PO PRN (08:28)
[2024-07-12] MEDS ORDERED: DAPTOmycin 500 MG VIAL IV SCH (09:00)
--- NOTE | 2024-07-12 10:32 | P.HPIM ---
History of Present Illness 53-year-old male sent Emergency Department because of worsening renal function serum creatinine about 6.1. His baseline creatinine appears to be around 2.4 from his last hospitalization and discharge. Patient was started on Lasix upon discharge because of extensive bilateral lower extremity edema. Patient was sent home on daptomycin. Patient still is on daptomycin patient CK is not elevated. Patient's urine analysis showed significant RBC, 1+ protein. Patient does feel fatigued patient right upper extremity swelling significantly improved patient also had a recent MRI MRI results are not available. Patient had a neck pain at that time there was a concern about discitis. Patient is presently on bicarbonate supplementation orally and lactated Ringer's nephrology was consulted. Ultrasound of the kidney did not show any obstructive uropathy. REVIEW OF SYSTEMS: All other systems are negative except those mentioned in the HPI PHYSICAL EXAMINATION: GENERAL: The patient is alert and oriented x3, not in any acute distress. Well developed, well nourished. HEENT: Pupils are round and equally reacting to light. EOMI. No scleral icterus. No conjunctival pallor. Normocephalic, atraumatic. No pharyngeal erythema. No thyromegaly. CARDIOVASCULAR: S1 and S2 present. No murmurs, rubs, or gallops. PULMONARY: Chest is clear to auscultation, no wheezing or crackles. ABDOMEN: Soft, nontender, nondistended, normoactive bowel sounds. No palpable organomegaly. MUSCULOSKELETAL: No joint swelling or deformity. Right upper extremity significantly improved swelling very minimal redness EXTREMITIES: No cyanosis, clubbing, or pedal edema. NEUROLOGICAL: Gross neurological examination did not reveal any focal deficits. SKIN: No rashes. Assessment and plan -Acute renal failure: Secondary to possibly diuretic therapy. Possibility of acute tubular necrosis with a superimposed prerenal azotemia, vasomotor nephro lora. Continue with IV fluids continued bicarbonate nephrology evaluated the patient patient is urinating at this time. - Chronic kidney disease stage IV -Type 2 diabetes mellitus with possible diabetic nephropathy - Gastroesophageal reflux disease - Hypertension patient blood pressure is within normal limits was resumed on antihypertensive medications Alcohol use but has not been drinking lately. - Neck pain pending MRI results from out patient office DVT prophylaxis: Early ambulation Past Medical History Past Medical History: Diabetes Mellitus, GERD/Reflux, Hypertension, Osteoarthritis (OA) Additional Past Medical History / Comment(s): Neuropathy legs and feet, Ulcerative Colitis, "resolved for some time now". History of Any Multi-Drug Resistant Organisms: None Reported Past Surgical History: Orthopedic Surgery Additional Past Surgical History / Comment(s): 3rd & 4th fingers reattached w/bone grafts after accident, colonoscopy. Past Anesthesia/Blood Transfusion Reactions: No Reported Reaction Past Psychological History: No Psychological Hx Reported Smoking Status: Never smoker Past Alcohol Use History: Abuse, Daily Past Drug Use History: Marijuana - Past Family History Father Family Medical History: Diabetes Mellitus, Hyperlipidemia, Hypertension Brother(s) Family Medical History: Diabetes Mellitus, Hyperlipidemia, Hypertension Medications and Allergies Home Medications Medication Instructions Recorded Confirmed Type Insulin Degludec [Tresiba 25 units SQ DAILY 12/31/20 07/11/24 History Flextouch U-100 Pen] Cyclobenzaprine [Flexeril] 10 mg PO TID PRN #30 tab 06/21/24 07/11/24 Rx Famotidine [Pepcid] 20 mg PO DAILY #30 tab 06/21/24 07/11/24 Rx Folic Acid 1 mg PO DAILY@1200 #30 tab 06/21/24 07/11/24 Rx Furosemide [Lasix] 40 mg PO BID #60 tablet 06/21/24 07/11/24 Rx Sodium Bicarbonate Tab 650 mg PO BID #60 tab 06/21/24 07/11/24 Rx Thiamine [Vitamin B-1] 100 mg PO BID-W/MEALS #60 tab 06/21/24 07/11/24 Rx amLODIPine [Norvasc] 10 mg PO DAILY #60 tab 06/21/24 07/11/24 Rx cloNIDine HCL [Catapres] 0.1 mg PO BID #60 tab 06/21/24 07/11/24 Rx DAPTOmycin [Cubicin] 500 mg IV Q2D 07/11/24 07/11/24 History HYDROcodone/APAP 7.5-325MG [Rueter 1 tab PO Q4H PRN 07/11/24 07/11/24 History 7.5-325] Multivitamins, Thera [Multivitamin 1 tab PO DAILY@1200 07/11/24 07/11/24 History (formulary)] Allergies Allergy/AdvReac Type Severity Reaction Status Date / Time metformin AdvReac Nausea Verified 07/11/24 17:01 Physical Exam Vitals: Vital Signs Temp Pulse Resp BP Pulse Ox 07/12/24 08:10 98.1 F 83 18 121/83 100 07/12/24 03:00 75 16 119/84 98 07/12/24 00:00 90 18 124/86 98 07/11/24 23:00 86 18 125/92 97 07/11/24 22:00 90 18 125/85 98 07/11/24 21:00 89 18 131/90 99 07/11/24 20:00 80 18 144/90 97 07/11/24 19:00 90 18 135/90 99 07/11/24 17:29 82 20 134/86 100 07/11/24 15:30 97.6 F 95 16 120/84 100 Intake and Output 07/11/24 07/12/24 07/12/24 22:59 06:59 14:59 Other: Weight 79.379 kg Results CBC & Chem 7: 07/11/24 16:03 07/12/24 07:07 Labs: Abnormal Lab Results - Last 24 Hours (Table) 07/11/24 07/11/24 07/11/24 Range/Units 16:03 16:03 16:03 RBC 3.20 L (4.40-5.60) 10*6/uL Hgb 10.2 L (13.0-17.0) g/dL Hct 29.4 L (39.6-50.0) % Plt Count 118 L (140-440) 10*3/uL Immature Gran # 0.06 H (0.00-0.04) 10*3/uL Sodium 133 L (137-145) mmol/L Carbon Dioxide 16 L (22-30) mmol/L BUN 122 H* (9-20) mg/dL Creatinine 6.46 H (0.66-1.25) mg/dL Glucose 270 H (74-99) mg/dL POC Glucose (mg/dL) (70-110) mg/dL Phosphorus 7.1 H (2.5-4.5) mg/dL Alkaline Phosphatase 177 H (38-126) U/L Creatine Kinase (55-170) U/L Albumin 3.2 L (3.5-5.0) g/dL Urine Protein 1+ H (Negative) Urine Glucose (UA) 3+ H (Negative) Urine Blood Large H (Negative) Urine RBC >182 H (0-5) /hpf Urine WBC 14 H (0-5) /hpf Urine Bacteria Rare H (None) /hpf 07/11/24 07/12/24 07/12/24 Range/Units 16:03 07:07 07:37 RBC (4.40-5.60) 10*6/uL Hgb (13.0-17.0) g/dL Hct (39.6-50.0) % Plt Count (140-440) 10*3/uL Immature Gran # (0.00-0.04) 10*3/uL Sodium (137-145) mmol/L Carbon Dioxide 18 L (22-30) mmol/L BUN 109 H* (9-20) mg/dL Creatinine 6.90 H (0.66-1.25) mg/dL Glucose 241 H (74-99) mg/dL POC Glucose (mg/dL) 252 H (70-110) mg/dL Phosphorus (2.5-4.5) mg/dL Alkaline Phosphatase 176 H (38-126) U/L Creatine Kinase 36 L (55-170) U/L Albumin 3.0 L (3.5-5.0) g/dL Urine Protein (Negative) Urine Glucose (UA) (Negative) Urine Blood (Negative) Urine RBC (0-5) /hpf Urine WBC (0-5) /hpf Urine Bacteria (None) /hpf
--- NOTE | 2024-07-12 11:22 | P.NPCON ---
History of Present Illness - Reason for Consult acute renal failure - History of Present Illness Reason for consultation: Acute kidney injury History of present illness: Patient is a 53-year-old male seen in renal consultation for acute kidney injury. Creatinine 6.46 on admission and is 6.9 today. Patient is receiving IV fluids. Patient was admitted at this facility in May 2024 with hand infection and underwent debridement. 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 Patient did receive prednisone for a few days and subsequently was tapered off. Patient had blood work done and was advised to go to the hospital due to abnormal renal function. Patient states he still been receiving daptomycin for the hand infection. He denies any further surgeries since last admission. Patient did have edema and was taking Lasix 40 mg twice daily which is currently held. He received a liter bolus of LR and is currently maintained on LR at 75 cc an hour. Patient is nonoliguric and has good urine output. He denies use of nonsteroidals. Hemodynamically stable. He does have history of diabetes. Denies history of coronary artery disease. Vital signs are stable. General: No acute distress. HEENT: Head exam is unremarkable. LUNGS: No audible rhonchi or wheezes. HEART: Rate and Rhythm are regular. ABDOMEN: Nontender. EXTREMITITES: No edema. Past Medical History Past Medical History: Diabetes Mellitus, GERD/Reflux, Hypertension, Osteoarthr itis (OA) Additional Past Medical History / Comment(s): Neuropathy legs and feet, Ulcerative Colitis, "resolved for some time now". History of Any Multi-Drug Resistant Organisms: None Reported Past Surgical History: Orthopedic Surgery Additional Past Surgical History / Comment(s): 3rd & 4th fingers reattached w/bone grafts after accident, colonoscopy. Past Anesthesia/Blood Transfusion Reactions: No Reported Reaction Past Psychological History: No Psychological Hx Reported Smoking Status: Never smoker Past Alcohol Use History: Abuse, Daily Past Drug Use History: Marijuana - Past Family History Father Family Medical History: Diabetes Mellitus, Hyperlipidemia, Hypertension Brother(s) Family Medical History: Diabetes Mellitus, Hyperlipidemia, Hypertension Medications and Allergies Home Medications Medication Instructions Recorded Confirmed Type Insulin Degludec [Tresiba 25 units SQ DAILY 12/31/20 07/11/24 History Flextouch U-100 Pen] Cyclobenzaprine [Flexeril] 10 mg PO TID PRN #30 tab 06/21/24 07/11/24 Rx Famotidine [Pepcid] 20 mg PO DAILY #30 tab 06/21/24 07/11/24 Rx Folic Acid 1 mg PO DAILY@1200 #30 tab 06/21/24 07/11/24 Rx Furosemide [Lasix] 40 mg PO BID #60 tablet 06/21/24 07/11/24 Rx Sodium Bicarbonate Tab 650 mg PO BID #60 tab 06/21/24 07/11/24 Rx Thiamine [Vitamin B-1] 100 mg PO BID-W/MEALS #60 tab 06/21/24 07/11/24 Rx amLODIPine [Norvasc] 10 mg PO DAILY #60 tab 06/21/24 07/11/24 Rx cloNIDine HCL [Catapres] 0.1 mg PO BID #60 tab 06/21/24 07/11/24 Rx DAPTOmycin [Cubicin] 500 mg IV Q2D 07/11/24 07/11/24 History HYDROcodone/APAP 7.5-325MG [[place] 1 tab PO Q4H PRN 07/11/24 07/11/24 History 7.5-325] Multivitamins, Thera [Multivitamin 1 tab PO DAILY@1200 07/11/24 07/11/24 History (formulary)] Allergies Allergy/AdvReac Type Severity Reaction Status Date / Time metformin AdvReac Nausea Verified 07/11/24 17:01 Physical Exam Vitals: Vital Signs Temp Pulse Resp BP Pulse Ox 07/12/24 08:10 98.1 F 83 18 121/83 100 07/12/24 03:00 75 16 119/84 98 07/12/24 00:00 90 18 124/86 98 07/11/24 23:00 86 18 125/92 97 07/11/24 22:00 90 18 125/85 98 07/11/24 21:00 89 18 131/90 99 07/11/24 20:00 80 18 144/90 97 07/11/24 19:00 90 18 135/90 99 07/11/24 17:29 82 20 134/86 100 07/11/24 15:30 97.6 F 95 16 120/84 100 Intake and Output 07/11/24 07/12/24 07/12/24 22:59 06:59 14:59 Other: Weight 79.379 kg Results - Lab Results Most recent lab results Calcium 9.0 mg/dL (8.4-10.2) 07/12/24 07:07 Phosphorus 7.1 mg/dL (2.5-4.5) H 07/11/24 16:03 Magnesium 1.6 mg/dL (1.6-2.3) 07/12/24 07:07 07/11/24 16:03 07/12/24 07:07 Assessment and Plan Plan: Assessment: 1. Acute kidney injury secondary to ATN. Creatinine 6.9 today. Nonoliguric. Serologies done May 2024 were negative. 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 Creatinine during last admission was as low as 1.78 and as high as 3.0. It was 2.4 on the day of discharge June 21, 2024. No evidence of hydronephrosis noted on kidney ultrasound. 2. Hand infection on antibiotics. 3. Diabetes mellitus. 4. Metabolic acidosis secondary to acute kidney injury. 5. Hypovolemic hyponatremia improved with IV fluids. Plan: Increase rate of LR to 100 cc an hour. Maintain oral bicarb. Avoid nephrotoxins. Continue to hold diuretics. Check urine eosinophils. Continue to assess daily for need for renal replacement therapy. Thank you for the consultation. I will continue to follow the patient with you during his hospital stay.
[2024-07-12] MEDS: MULTIVITAMINS, THERA 1 EACH TAB PO SCH (11:58)
[2024-07-12] MEDS: FOLIC ACID 1 MG TAB PO SCH (11:58)
[2024-07-12] MEDS ORDERED: DEXTROSE 50% SYRINGE 50 ML IVP PRN ×2 (14:09)
[2024-07-12] MEDS: CYCLOBENZAPRINE 5 MG TAB PO PRN (14:42)
[2024-07-12 16:40] LABS: Glucose,Whole Blood 245 mg/dL (70-110)
[2024-07-12] MEDS: INSULIN LISPRO (HumaLOG) 100 UNIT/ML 10 mL VL SQ SCH (16:43)
--- NOTE | 2024-07-12 17:10 | P.CNOR ---
History of Present Illness - [facility] Consult date: 07/12/24 Consult reason: neck pain History of present illness: Patient is well-known to our service. He is a pleasant 53-year-old male who is seen and examined at bedside today. We are in consult in regards to his neck pain and evaluation for discitis. Patient has been having neck pain and pain toward his shoulders over the past several months. Just over a month ago he was seen and evaluated and was found to have an acute infection of his right hand. He underwent surgical irrigation and debridement hide his right hand and right index finger on 06/08/2024. There was obvious purulence and pus at that area and he has been on IV antibiotics since that time. He is continue with some pain control for his neck since then. He has not been having any neurologic change in his upper extremities or his lower extremities. He has been treated with an antibiotic regimen continue the IV antibiotics on a regular basis. He had follow-up and labs taken which showed significant elevated creatinine and BUN and kidney function issues. His creatinine was 6.4 yesterday and 6.9 today. He was sent to the emergency room in regards to acute renal failure. He continues to have soreness at the base of his neck and extending out his bilateral shoulders. The swelling in his right hand has decreased and there is no erythema. He still has limited motion in his right index finger and some decreased extension at his middle and ring finger of the right hand. There is no erythema there is no pus there is no drainage. He was seen at our office a couple weeks ago and had a metallic foreign body removed from his forearm and then underwent a MRI of his cervical spine at [facility] reviewed the imaging and the results and dictation. Review of Systems As per [facility]. He denies any new numbness tingling in his upper extremities. Denies any numbness tingling or weakness at his upper or lower extremities. Denies any nausea or vomiting. He did he says he has pain at the base of his neck and towards bilateral shoulders. This has been essentially unchanged for him. He continues continues to take his IV antibiotics as scheduled. He feels his hand has made improvement. He has significant stiffness of his right index finger and limited extension of his ring and long finger of the right Past Medical History Past Medical History: Diabetes Mellitus, GERD/Reflux, Hypertension, Osteoarthritis (OA) Additional Past Medical History / Comment(s): Neuropathy legs and feet, Ulcerative Colitis, "resolved for some time now". cellulits. Right hand abscess status post open irrigation and debridement 4 weeks postop from 06/08/2024 History of Any Multi-Drug Resistant Organisms: None Reported Past Surgical History: Orthopedic Surgery Additional Past Surgical History / Comment(s): 3rd & 4th fingers reattached w/bone grafts after accident, colonoscopy. Past Anesthesia/Blood Transfusion Reactions: No Reported Reaction Past Psychological History: No Psychological Hx Reported Smoking Status: Never smoker Past Alcohol Use History: Abuse, Daily Additional Past Alcohol Use History / Comment(s): Quit smoking 06/27/21, was down to 4-5 cigs/day, prior to quitting. Had smoked since age 17. Patient states normally drinks a pint of whiskey daily but has not had any alcohol since 06/27/21. Past Drug Use History: Marijuana Additional Drug Use History / Comment(s): Occasional Marijuana use, "none in a while". - Past Family History Father Family Medical History: Diabetes Mellitus, Hyperlipidemia, Hypertension Brother(s) Family Medical History: Diabetes Mellitus, Hyperlipidemia, Hypertension Medications and Allergies Home Medications Medication Instructions Recorded Confirmed Type Insulin Degludec [Tresiba 25 units SQ DAILY 12/31/20 07/11/24 History Flextouch U-100 Pen] Cyclobenzaprine [Flexeril] 10 mg PO TID PRN #30 tab 06/21/24 07/11/24 Rx Famotidine [Pepcid] 20 mg PO DAILY #30 tab 06/21/24 07/11/24 Rx Folic Acid 1 mg PO DAILY@1200 #30 tab 06/21/24 07/11/24 Rx Furosemide [Lasix] 40 mg PO BID #60 tablet 06/21/24 07/11/24 Rx Sodium Bicarbonate Tab 650 mg PO BID #60 tab 06/21/24 07/11/24 Rx Thiamine [Vitamin B-1] 100 mg PO BID-W/MEALS #60 tab 06/21/24 07/11/24 Rx amLODIPine [Norvasc] 10 mg PO DAILY #60 tab 06/21/24 07/11/24 Rx cloNIDine HCL [Catapres] 0.1 mg PO BID #60 tab 06/21/24 07/11/24 Rx DAPTOmycin [Cubicin] 500 mg IV Q2D 07/11/24 07/11/24 History HYDROcodone/APAP 7.5-325MG [[place] 1 tab PO Q4H PRN 07/11/24 07/11/24 History 7.5-325] Multivitamins, Thera [Multivitamin 1 tab PO DAILY@1200 07/11/24 07/11/24 History (formulary)] Allergies Allergy/AdvReac Type Severity Reaction Status Date / Time metformin AdvReac Nausea Verified 07/11/24 17:01 Physical Examination Osteopathic Statement: *. No significant issues noted on an osteopathic structural exam other than those noted in the History and Physical/Consult. - C Spine: dermatomal strength & reflexes right Shoulder strength: flexion: 5/5 (His next nontender to palpation at the midline. There is no erythema. He has adequate motion. He has spasm of his paraspinals and over his trapezium bilaterally) Shoulder strength: extension: 5/5 (His right index finger he is able to move but has significant stiffness at his DIP PIP and MCP joints. He is able to flex them about 40 degrees each actively but does not have significant passive motion. He has an extensor lag at his ring and middle finger. 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 He is about 4 out of 5 strength which is unchanged from last month. There is no erythema there is no drainage.) Results - Labs Labs: Abnormal Lab Results - Last 24 Hours (Table) 07/11/24 07/12/24 07/12/24 Range/Units 16:03 07:07 07:37 Carbon Dioxide 18 L (22-30) mmol/L BUN 109 H* (9-20) mg/dL Creatinine 6.90 H (0.66-1.25) mg/dL Glucose 241 H (74-99) mg/dL POC Glucose (mg/dL) 252 H (70-110) mg/dL Alkaline Phosphatase 176 H (38-126) U/L Creatine Kinase 36 L (55-170) U/L Albumin 3.0 L (3.5-5.0) g/dL 07/12/24 Range/Units 16:39 Carbon Dioxide (22-30) mmol/L BUN (9-20) mg/dL Creatinine (0.66-1.25) mg/dL Glucose (74-99) mg/dL POC Glucose (mg/dL) 245 H (70-110) mg/dL Alkaline Phosphatase (38-126) U/L Creatine Kinase (55-170) U/L Albumin (3.5-5.0) g/dL H & H 07/11/24 Range/Units 16:03 Hgb 10.2 L (13.0-17.0) g/dL Hct 29.4 L (39.6-50.0) % Coagulation 07/11/24 Range/Units 16:03 INR 1.0 (<1.2) Result Diagrams: 07/11/24 16:03 07/12/24 07:07 - Diagnostic results Cervical MRI with/without contrast: report reviewed, image reviewed (MRI of the cervical spine from [facility] shows some increased signal at C5-6 disc space without obvious abscess. There is some increased signal at C5 and C6 vertebral body. There is no epidural abscess. There is disc protrusion C4-5 C5-6 C6-7. There is foraminal stenosis at each of those le) Assessment and Plan Assessment: Acute renal failure 4-week status post irrigation debridement of right hand abscess which appears to be healing adequately, on long-term IV antibiotics Possible discitis C5-6 Degenerative disc disease C4-5 C5-6 C6-7 Disc protrusion and foraminal stenosis C4-5 C5-6 C6-7 Neck pain with upper extremity radiculopathy Plan: Acute renal failure 4-week status post irrigation debridement of right hand abscess which appears to be healing adequately, on long-term IV antibiotics Possible discitis C5-6 Degenerative disc disease C4-5 C5-6 C6-7 Disc protrusion and foraminal stenosis C4-5 C5-6 C6-7 Neck pain with upper extremity radiculopathy The patient's acute issues deal primarily with his renal failure. He is getting acute management for this with medicine and nephrology. He is continuing his management. He is being treated over the past 4 weeks with IV antibiotics for his deep space infection in his right hand. He will continue his management as per medicine and infectious disease. We do not have further plans for any surgical intervention for his right hand The patient cervical spine has some suggestion of discitis at C5-6. There is no epidural abscess or acute neurologic change from his cervical spine. He has a number of degenerative changes at his cervical spine at C4-5 C5-6 and C6-7 with evidence of foraminal stenosis and disc protrusion. I think that these are causing him symptoms at his neck and toward his bilateral shoulders with radiculopathy. He is not having any acute neurologic change and at this point with his renal issues and his infection I would not plan acute surgical intervention unless his neurologic issues seem to be worsening. He still remains somewhat comfortable in terms of his mobility and it is okay for him to try to mobilize lightly. I do not think that he would be able to perform heavy activities or repetitive bending twisting or lifting but he is not unsafe with generalized ambulation in the room and into the halls. His cervical spine has significant changes which may require further intervention and the possibility of cervical fusion. I would not plan for that at this point given his active infectious process that is being treated and we w ould wait till he has clearance of the infectious process before considering surgical intervention at his cervical spine. He would also need to be medically stabilized particularly given his acute renal failure currently. I discussed this with him and he will continue his medical management for now.
[2024-07-12 20:08] LABS: Glucose,Whole Blood 197 mg/dL (70-110)
--- NOTE | 2024-07-12 21:28 | P.CONS ---
History of Present Illness - Reason for Consult Consult date: 07/12/24 Known Requesting physician: Shruti Darden - Chief Complaint Weakness no energy nausea x days - History of Present Illness Patient is a 53-year-old male with a past medical history for diabetes mellitus reflux hypertension osteoarthritis recent mission the hospital right hand abscess and did have MSSA bacteremia he was treated with cefazolin followed by Naficillin and did have significant worsening of his kidney function hence antibiotic was switched over to daptomycin patient did have a kidney biopsy on his last admission and the patient was getting daptomycin in outpatient setting recently did have MRI of the cervical spine in the outpatient setting by orthopedics concerning for possible C5-6 discitis follow abscess patient was seen in the office yesterday with significant worsening of his overall clinical condition for the patient has been sent to the hospital he was noted to have significant worsening of his kidney function with a creatinine up to 6.90 with elevated BUN patient did have a count of 8.64 patient has been admitted to hospital continued on daptomycin infectious disease was consulted for further management of antibiotic therapy, patient complaining of generalized weakness low energy P denies having any headache or URI symptoms no chest pain no shortness occasional cough no nausea vomiting abdominal pain or diarrhea still complaining of pain to the right hand but no worsening drainage or any focal weakness Review of Systems Positive point and negatives has been mentioned in the HPI, complete review of systems was performed and all other systems are negative Past Medical History Past Medical History: Diabetes Mellitus, GERD/Reflux, Hypertension, Osteo arthritis (OA) Additional Past Medical History / Comment(s): Neuropathy legs and feet, Ulcerative Colitis, "resolved for some time now". History of Any Multi-Drug Resistant Organisms: None Reported Past Surgical History: Orthopedic Surgery Additional Past Surgical History / Comment(s): 3rd & 4th fingers reattached w/bone grafts after accident, colonoscopy. Past Anesthesia/Blood Transfusion Reactions: No Reported Reaction Past Psychological History: No Psychological Hx Reported Smoking Status: Never smoker Past Alcohol Use History: Abuse, Daily Past Drug Use History: Marijuana - Past Family History Father Family Medical History: Diabetes Mellitus, Hyperlipidemia, Hypertension Brother(s) Family Medical History: Diabetes Mellitus, Hyperlipidemia, Hypertension Medications and Allergies Home Medications Medication Instructions Recorded Confirmed Type Insulin Degludec [Tresiba 25 units SQ DAILY 12/31/20 07/11/24 History Flextouch U-100 Pen] Cyclobenzaprine [Flexeril] 10 mg PO TID PRN #30 tab 06/21/24 07/11/24 Rx Famotidine [Pepcid] 20 mg PO DAILY #30 tab 06/21/24 07/11/24 Rx Folic Acid 1 mg PO DAILY@1200 #30 tab 06/21/24 07/11/24 Rx Furosemide [Lasix] 40 mg PO BID #60 tablet 06/21/24 07/11/24 Rx Sodium Bicarbonate Tab 650 mg PO BID #60 tab 06/21/24 07/11/24 Rx Thiamine [Vitamin B-1] 100 mg PO BID-W/MEALS #60 tab 06/21/24 07/11/24 Rx amLODIPine [Norvasc] 10 mg PO DAILY #60 tab 06/21/24 07/11/24 Rx cloNIDine HCL [Catapres] 0.1 mg PO BID #60 tab 06/21/24 07/11/24 Rx DAPTOmycin [Cubicin] 500 mg IV Q2D 07/11/24 07/11/24 History HYDROcodone/APAP 7.5-325MG [[place] 1 tab PO Q4H PRN 07/11/24 07/11/24 History 7.5-325] Multivitamins, Thera [Multivitamin 1 tab PO DAILY@1200 07/11/24 07/11/24 History (formulary)] Allergies Allergy/AdvReac Type Severity Reaction Status Date / Time metformin AdvReac Nausea Verified 07/11/24 17:01 Physical Exam Vitals: Vital Signs Temp Pulse Resp BP Pulse Ox 07/12/24 08:10 98.1 F 83 18 121/83 100 07/12/24 03:00 75 16 119/84 98 07/12/24 00:00 90 18 124/86 98 07/11/24 23:00 86 18 125/92 97 07/11/24 22:00 90 18 125/85 98 07/11/24 21:00 89 18 131/90 99 07/11/24 20:00 80 18 144/90 97 07/11/24 19:00 90 18 135/90 99 07/11/24 17:29 82 20 134/86 100 07/11/24 15:30 97.6 F 95 16 120/84 100 Intake and Output 07/11/24 07/12/24 07/12/24 22:59 06:59 14:59 Other: Weight 79.379 kg GENERAL DESCRIPTION: Middle-age male lying in bed, no distress. No tachypnea or accessory muscle of respiration use. HEENT: Shows Pallor , no scleral icterus. Oral mucous membrane is dry. No pharyngeal erythema or thrush NECK: Trachea central, no thyromegaly. LUNGS: Unlabored breathing. Clear to auscultation anteriorly. No wheeze or crackle. HEART: S1, S2, regular rate and rhythm. No loud murmur ABDOMEN: Soft, no tenderness , guarding or rigidity, no organomegaly EXTREMITIES: Right hand dorsal wound with some swelling no redness or drainage SKIN: No rash, no masses palpable. NEUROLOGICAL: The patient is awake, alert, oriented x3, mood and affect normal. Results CBC & Chem 7: 07/11/24 16:03 07/12/24 07:07 Labs: Abnormal Lab Results - Last 24 Hours (Table) 07/11/24 07/11/24 07/11/24 Range/Units 16:03 16:03 16:03 RBC 3.20 L (4.40-5.60) 10*6/uL Hgb 10.2 L (13.0-17.0) g/dL Hct 29.4 L (39.6-50.0) % Plt Count 118 L (140-440) 10*3/uL Immature Gran # 0.06 H (0.00-0.04) 10*3/uL Sodium 133 L (137-145) mmol/L Carbon Dioxide 16 L (22-30) mmol/L BUN 122 H* (9-20) mg/dL Creatinine 6.46 H (0.66-1.25) mg/dL Glucose 270 H (74-99) mg/dL POC Glucose (mg/dL) (70-110) mg/dL Phosphorus 7.1 H (2.5-4.5) mg/dL Alkaline Phosphatase 177 H (38-126) U/L Creatine Kinase (55-170) U/L Albumin 3.2 L (3.5-5.0) g/dL Urine Protein 1+ H (Negative) Urine Glucose (UA) 3+ H (Negative) Urine Blood Large H (Negative) Urine RBC >182 H (0-5) /hpf Urine WBC 14 H (0-5) /hpf Urine Bacteria Rare H (None) /hpf 07/11/24 07/12/24 07/12/24 Range/Units 16:03 07:07 07:37 RBC (4.40-5.60) 10*6/uL Hgb (13.0-17.0) g/dL Hct (39.6-50.0) % Plt Count (140-440) 10*3/uL Immature Gran # (0.00-0.04) 10*3/uL Sodium (137-145) mmol/L Carbon Dioxide 18 L (22-30) mmol/L BUN 109 H* (9-20) mg/dL Creatinine 6.90 H (0.66-1.25) mg/dL Glucose 241 H (74-99) mg/dL POC Glucose (mg/dL) 252 H (70-110) mg/dL Phosphorus (2.5-4.5) mg/dL Alkaline Phosphatase 176 H (38-126) U/L Creatine Kinase 36 L (55-170) U/L Albumin 3.0 L (3.5-5.0) g/dL Urine Protein (Negative) Urine Glucose (UA) (Negative) Urine Blood (Negative) Urine RBC (0-5) /hpf Urine WBC (0-5) /hpf Urine Bacteria (None) /hpf Assessment and Plan (1) Abscess of right hand Current Visit: Yes Status: Acute Code(s): L02.511 - CUTANEOUS ABSCESS OF RIGHT HAND SNOMED Code(s): 08562971474989167 (2) Cervical discitis Current Visit: Yes Status: Acute Code(s): M46.42 - DISCITIS, UNSPECIFIED, CERVICAL REGION SNOMED Code(s): 012326743 (3) LISSETT (acute kidney injury) Current Visit: Yes Status: Acute Code(s): N17.9 - ACUTE KIDNEY FAILURE, UNSPECIFIED SNOMED Code(s): 58315975 (4) MSSA bacteremia Current Visit: No Status: Acute Code(s): R78.81 - BACTEREMIA; B95.61 - METHICILLIN SUSCEP STAPH INFCT CAUSING DIS CLASSD ELSWHR SNOMED Code(s): 960243689 Plan: 1patient with a complicated history with admission to hospital hospital with a right hand abscess in this patient with status post surgical drainage culture positive for MSSA and the patient also have MSSA bacteremia he did clear his bacteremia subsequently got a PICC line was getting daptomycin now presenting back to the hospital with worsening symptoms and has been diagnosed with worsening of his kidney function for his nephrology has seen the patient, patient also have recent outpatient cervical spine MRI suspicion of C5-6 discitis 2-blood culture repeated 3-patient be treated with daptomycin dose adjusted to the kidney function while waiting for condition to stabilize Question concern answered We will follow on clinical condition and cultures to further adjust medication if needed Thank you for this consultation we will follow the patient along with you Dictation was produced using 3Touch dictation software. please excuse any grammatical, word or spelling errors. Time with Patient: Greater than 30
[2024-07-13 06:16] LABS: Glucose,Whole Blood 111 mg/dL (70-110)
[2024-07-13] MEDS: INSULIN GLARGINE (LANTUS) 100 UNIT/ML SYR SQ SCH (07:07)
[2024-07-13 07:23] LABS: ALT 28 U/L (4-49); AST 36 U/L (17-59); African American GFR (CKD) 10 (>60 ml/min/1.73 sqM); Alkaline Phosphatase 185 U/L (38-126); Anion Gap 14 mmol/L; Calcium 9.3 mg/dL (8.4-10.2); Carbon Dioxide 18 mmol/L (22-30); Chloride 103 mmol/L (98-107); Glucose 100 mg/dL (74-99); Magnesium 1.7 mg/dL (1.6-2.3); Non-African American GFR(CKD) 9 (>60 ml/min/1.73 sqM); Potassium 4.1 mmol/L (3.5-5.1); Sodium 135 mmol/L (137-145); Total Bilirubin 1.1 mg/dL (0.2-1.3); Total Protein 6.7 g/dL (6.3-8.2)
[2024-07-13 07:24] LABS: Blood Urea Nitrogen 101 mg/dL (9-20)
--- NOTE | 2024-07-13 10:05 | P.PN ---
Subjective Patient is seen in follow-up for acute kidney injury on chronic kidney disease. Renal function slightly better. Nonoliguric. Denies chest pain or shortness of breath. Vital signs are stable. General: No acute distress. HEENT: Head exam is unremarkable. LUNGS: No audible rhonchi or wheezes. HEART: Rate and Rhythm are regular. ABDOMEN: Nontender. EXTREMITITES: No edema. Objective - Vital Signs Vital signs: Vital Signs Temp 97.6 F 07/13/24 08:18 Pulse 81 07/13/24 08:18 Resp 14 07/13/24 08:18 BP 127/83 07/13/24 08:18 Pulse Ox 97 07/13/24 08:18 FiO2 Intake & Output 07/12/24 07/13/24 07/13/24 18:59 06:59 18:59 Intake Total 480 240 Output Total 200 900 300 Balance 280 -900 -60 Weight 79.379 kg 78.8 kg Intake: Oral 480 240 Output: Urine 200 900 300 Other: Voiding Method Urinal Urinal - Labs CBC & Chem 7: 07/11/24 16:03 07/13/24 06:16 Labs: Abnormal Lab Results - Last 24 Hours (Table) 07/12/24 07/12/24 07/13/24 Range/Units 16:39 20:06 06:15 Sodium (137-145) mmol/L Carbon Dioxide (22-30) mmol/L BUN (9-20) mg/dL Creatinine (0.66-1.25) mg/dL Glucose (74-99) mg/dL POC Glucose (mg/dL) 245 H 197 H 111 H (70-110) mg/dL Alkaline Phosphatase (38-126) U/L Albumin (3.5-5.0) g/dL 07/13/24 Range/Units 06:16 Sodium 135 L (137-145) mmol/L Carbon Dioxide 18 L (22-30) mmol/L BUN 101 H* (9-20) mg/dL Creatinine 6.62 H (0.66-1.25) mg/dL Glucose 100 H (74-99) mg/dL POC Glucose (mg/dL) (70-110) mg/dL Alkaline Phosphatase 185 H (38-126) U/L Albumin 3.0 L (3.5-5.0) g/dL Microbiology - Last 24 Hours (Table) 07/11/24 16:03 Urine Culture - Final Urine,Voided Assessment and Plan Plan: Assessment: 1. Acute kidney injury secondary to ATN. Creatinine fairly stable at 6.6 today. Nonoliguric. Serologies done May 2024 were negative. 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 Creatinine during last admission was as low as 1.78 and as high as 3.0. It was 2.4 on the day of discharge June 21, 2024. No evidence of hydronephrosis noted on kidney ultrasound. Urine eosinophils positive at 2% this admission. 2. Hand infection on antibiotics. 3. Diabetes mellitus. 4. Metabolic acidosis secondary to acute kidney injury. 5. Hypovolemic hyponatremia improved with IV fluids. Plan: Maintain IV fluids. Maintain oral bicarb. Avoid nephrotoxins. Continue to hold diuretics. Add prednisone for presumed AIN. Change Protonix to Pepcid. Continue to assess daily for need for renal replacement therapy. No urgency at this time.
[2024-07-13 11:32] LABS: Glucose,Whole Blood 154 mg/dL (70-110)
[2024-07-13] MEDS: predniSONE 10 MG TAB PO SCH (11:41)
--- NOTE | 2024-07-13 15:04 | P.PN ---
Subjective Progress Note Date: 07/13/24 53-year-old male sent Emergency Department because of worsening renal function serum creatinine about 6.1. His baseline creatinine appears to be around 2.4 from his last hospitalization and discharge. Patient was started on Lasix upon discharge because of extensive bilateral lower extremity edema. Patient was sent home on daptomycin. Patient still is on daptomycin patient CK is not elevated. Patient's urine analysis showed significant RBC, 1+ protein. Patient does feel fatigued patient right upper extremity swelling significantly improved patient also had a recent MRI MRI results are not available. Patient had a neck pain at that time there was a concern about discitis. Patient is presently on bicarbonate supplementation orally and lactated Ringer's nephrology was consulted. Ultrasound of the kidney did not show any obstructive uropathy. 07/13/2024 Patient seen and examined at bedside. Denies chest pain or shortness of breath. No pain with hand. Today's labs sodium 135, bicarb 18, BUN 101, creatinine 6.62, glucose 100, ALP 185. REVIEW OF SYSTEMS: All other systems are negative except those mentioned in the HPI PHYSICAL EXAMINATION: Vitals reviewed GENERAL: The patient is alert and oriented x3, not in any acute distress. Well developed, well nourished. CARDIOVASCULAR: S1 and S2 present. No murmurs, rubs, or gallops. PULMONARY: Chest is clear to auscultation, no wheezing or crackles. ABDOMEN: Soft, nontender, nondistended, normoactive bowel sounds. No palpable organomegaly. MUSCULOSKELETAL: No joint swelling or deformity. Right upper extremity significantly improved swelling very minimal redness EXTREMITIES: No cyanosis, clubbing, or pedal edema. NEUROLOGICAL: Gross neurological examination did not reveal any focal deficits. SKIN: No rashes. Assessment and plan -Acute renal failure: Secondary to possibly diuretic therapy. Possibility of acute tubular necrosis with a superimposed prerenal azotemia, vasomotor nephropathy. Continue with IV fluids continued bicarbonate nephrology evaluated the patient patient is urinating at this time. Prednisone added. Hold diuretics. - Chronic kidney disease stage IV Abscess of right hand, MSSA bacteremia. Repeat blood culture. Continue daptomycin -Type 2 diabetes mellitus with possible diabetic nephropathy - Gastroesophageal reflux disease - Hypertension patient blood pressure is within normal limits was resumed on antihypertensive medications - Alcohol use but has not been drinking lately. - Neck pain, seen by orthopedic surgery will manage conservatively until medically stabilized. DVT prophylaxis: Early ambulation Dr. Brown seen patient with resident, present during exam, and agreed with moises jordan. Objective - Vital Signs Vital signs: Vital Signs Temp 97.6 F 07/13/24 08:18 Pulse 81 07/13/24 08:18 Resp 14 07/13/24 08:18 BP 127/83 07/13/24 08:18 Pulse Ox 97 07/13/24 08:18 FiO2 Intake & Output 07/12/24 07/13/24 07/13/24 18:59 06:59 18:59 Intake Total 480 240 Output Total 200 900 Balance 280 -900 240 Weight 79.379 kg 78.8 kg Intake: Oral 480 240 Output: Urine 200 900 Other: Voiding Method Urinal Urinal - Labs CBC & Chem 7: 07/11/24 16:03 07/13/24 06:16 Labs: Abnormal Lab Results - Last 24 Hours (Table) 07/12/24 07/12/24 07/13/24 Range/Units 16:39 20:06 06:15 Sodium (137-145) mmol/L Carbon Dioxide (22-30) mmol/L BUN (9-20) mg/dL Creatinine (0.66-1.25) mg/dL Glucose (74-99) mg/dL POC Glucose (mg/dL) 245 H 197 H 111 H (70-110) mg/dL Alkaline Phosphatase (38-126) U/L Albumin (3.5-5.0) g/dL 07/13/24 Range/Units 06:16 Sodium 135 L (137-145) mmol/L Carbon Dioxide 18 L (22-30) mmol/L BUN 101 H* (9-20) mg/dL Creatinine 6.62 H (0.66-1.25) mg/dL Glucose 100 H (74-99) mg/dL POC Glucose (mg/dL) (70-110) mg/dL Alkaline Phosphatase 185 H (38-126) U/L Albumin 3.0 L (3.5-5.0) g/dL Microbiology - Last 24 Hours (Table) 07/11/24 16:03 Urine Culture - Final Urine,Voided
[2024-07-13 16:33] LABS: Glucose,Whole Blood 161 mg/dL (70-110)
[2024-07-13 20:00] LABS: Glucose,Whole Blood 212 mg/dL (70-110)
[2024-07-14 05:50] LABS: Glucose,Whole Blood 288 mg/dL (70-110)
[2024-07-14 06:31] LABS: HCT 22.7 % (39.6-50.0); Lymphocytes # (A) 0.57 10*3/uL (0.90-5.00); Lymphocytes % (A) 9.9 %; MCH 31.7 pg (27.0-32.0); MCHC 33.9 g/dL (32.0-37.0); MCV 93.4 fL (80.0-97.0); Mean Platelet Volume 10.7 fL (9.5-12.2); Monocytes # (A) 0.04 10*3/uL (0.20-1.00); Monocytes % (A) 0.7 %; Neutrophils # (A) 5.04 10*3/uL (1.80-7.70); Neutrophils % (A) 87.8 %; Platelet Count 145 10*3/uL (140-440); RBC 2.43 10*6/uL (4.40-5.60); RDW 13.7 % (11.5-14.5); WBC 5.74 10*3/uL (4.50-10.00)
[2024-07-14 06:43] LABS: HGB 7.7 g/dL (13.0-17.0)
[2024-07-14 06:53] LABS: African American GFR (CKD) 10 (>60 ml/min/1.73 sqM); Anion Gap 15 mmol/L; Blood Urea Nitrogen 95 mg/dL (9-20); Carbon Dioxide 17 mmol/L (22-30); Chloride 101 mmol/L (98-107); Glucose 259 mg/dL (74-99); Magnesium 1.6 mg/dL (1.6-2.3); Non-African American GFR(CKD) 9 (>60 ml/min/1.73 sqM); Potassium 4.8 mmol/L (3.5-5.1); Sodium 133 mmol/L (137-145)
[2024-07-14] MEDS ORDERED: FAMOTIDINE 20 MG TAB PO SCH (09:00)
[2024-07-14] MEDS: FAMOTIDINE 20 MG/2 ML VIAL IV SCH (09:15)
--- NOTE | 2024-07-14 11:18 | P.PN ---
Subjective Patient is seen in follow-up for acute kidney injury on chronic kidney disease. No improvement in renal function. Nonoliguric. Denies chest pain or shortness of breath. Vital signs are stable. General: No acute distress. HEENT: Head exam is unremarkable. LUNGS: No audible rhonchi or wheezes. HEART: Rate and Rhythm are regular. ABDOMEN: Nontender. EXTREMITITES: No edema. Objective - Vital Signs Vital signs: Vital Signs Temp 98.3 F 07/14/24 08:00 Pulse 112 H 07/14/24 08:00 Resp 16 07/14/24 08:00 BP 102/71 07/14/24 08:00 Pulse Ox 99 07/14/24 08:00 FiO2 Intake & Output 07/13/24 07/14/24 07/14/24 18:59 06:59 18:59 Intake Total 358 236 Output Total 850 900 Balance -492 -900 236 Weight 78.9 kg Intake: Oral 358 236 Output: Urine 850 900 Other: Voiding Method Urinal Urinal Urinal # Voids 2 - Labs CBC & Chem 7: 07/14/24 05:51 07/14/24 05:51 Labs: Abnormal Lab Results - Last 24 Hours (Table) 07/13/24 07/13/24 07/13/24 Range/Units 11:30 16:32 19:58 RBC (4.40-5.60) 10*6/uL Hgb (13.0-17.0) g/dL Hct (39.6-50.0) % Immature Gran # (0.00-0.04) 10*3/uL Lymphocytes # (0.90-5.00) 10*3/uL Monocytes # (0.20-1.00) 10*3/uL Eosinophils # (0.04-0.35) 10*3/uL Sodium (137-145) mmol/L Carbon Dioxide (22-30) mmol/L BUN (9-20) mg/dL Creatinine (0.66-1.25) mg/dL Glucose (74-99) mg/dL POC Glucose (mg/dL) 154 H 161 H 212 H (70-110) mg/dL 07/14/24 07/14/24 07/14/24 Range/Units 05:48 05:51 05:51 RBC 2.43 L (4.40-5.60) 10*6/uL Hgb 7.7 L D (13.0-17.0) g/dL Hct 22.7 L (39.6-50.0) % Immature Gran # 0.09 H (0.00-0.04) 10*3/uL Lymphocytes # 0.57 L (0.90-5.00) 10*3/uL Monocytes # 0.04 L (0.20-1.00) 10*3/uL Eosinophils # 0.00 L (0.04-0.35) 10*3/uL Sodium 133 L (137-145) mmol/L Carbon Dioxide 17 L (22-30) mmol/L BUN 95 H (9-20) mg/dL Creatinine 6.70 H (0.66-1.25) mg/dL Glucose 259 H (74-99) mg/dL POC Glucose (mg/dL) 288 H (70-110) mg/dL Assessment and Plan Plan: Assessment: 1. Acute kidney injury secondary to ATN. Creatinine stable. Nonoliguric. Serologies done May 2024 were negative. 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 Creatinine during last admission was as low as 1.78 and as high as 3.0. It was 2.4 on the day of discharge June 21, 2024. No evidence of hydronephrosis noted on kidney ultrasound. Urine eosinophils positive at 2% this admission. 2. Hand infection on antibiotics. 3. Diabetes mellitus. 4. Metabolic acidosis secondary to acute kidney injury. On oral bicarb. 5. Hypovolemic hyponatremia improved with IV fluids. Plan: Maintain IV fluids. Maintain oral bicarb. Avoid nephrotoxins. Continue to hold diuretics. Prednisone started July 13, 2024 for presumed AIN. Maintain Pepcid. Hold antihypertensives for systolic blood pressure less than 120. Continue to assess daily for need for renal replacement therapy. No urgency at this time.
[2024-07-14 11:30] LABS: Glucose,Whole Blood 365 mg/dL (70-110)
[2024-07-14] MEDS: SODIUM BICARB 8.4% 50 ML SYR (1 MEQ/ML) IV STA (12:35)
[2024-07-14] MEDS: MAGNESIUM SULFATE-D5W PMX 1 GM in DEXTROSE/WATER 1 100ML.BAG IVPB SCH (12:35)
--- NOTE | 2024-07-14 14:04 | P.PN ---
Subjective Progress Note Date: 07/13/24 Principal diagnosis: Reason for follow-up is right hand abscess and cervical discitis Patient is a 53-year-old male with a past medical history for diabetes mellitus reflux hypertension osteoarthritis recent [facility] the hospital right hand abscess and did have MSSA bacteremia with the patient was getting outpatient IV daptomycin being admitted to hospital with worsening kidney function. On today's evaluation that is 07/13/2024,the patient denies any fever or any chi lls, patient is breathing comfortably on room air, the patient denies chest pain shortness of breath and no significant cough, patient denies abdominal pain, no nausea vomiting or diarrhea. No CBC was done today, the patient creatinine 6.62 Objective - Vital Signs Vital signs: Vital Signs Temp 98.0 F 07/13/24 11:25 Pulse 82 07/13/24 11:25 Resp 14 07/13/24 11:25 BP 120/77 07/13/24 11:25 Pulse Ox 99 07/13/24 11:25 FiO2 Intake & Output 07/12/24 07/13/24 07/13/24 18:59 06:59 18:59 Intake Total 480 240 Output Total 200 900 300 Balance 280 -900 -60 Weight 79.379 kg 78.8 kg Intake: Oral 480 240 Output: Urine 200 900 300 Other: Voiding Method Urinal Urinal - Exam GENERAL DESCRIPTION: Middle-age male lying in bed in no distress RESPIRATORY SYSTEM: Unlabored breathing , decreased breath sounds at bases HEART: S1 S2 regular rate and rhythm , ABDOMEN: Soft , no tenderness EXTREMITIES: No edema feet - Labs CBC & Chem 7: 07/14/24 05:51 07/14/24 05:51 Labs: Abnormal Lab Results - Last 24 Hours (Table) 07/12/24 07/12/24 07/13/24 Range/Units 16:39 20:06 06:15 Sodium (137-145) mmol/L Carbon Dioxide (22-30) mmol/L BUN (9-20) mg/dL Creatinine (0.66-1.25) mg/dL Glucose (74-99) mg/dL POC Glucose (mg/dL) 245 H 197 H 111 H (70-110) mg/dL Hemoglobin A1c (<=6.0) % Alkaline Phosphatase (38-126) U/L Albumin (3.5-5.0) g/dL 07/13/24 07/13/24 07/13/24 Range/Units 06:16 06:16 11:30 Sodium 135 L (137-145) mmol/L Carbon Dioxide 18 L (22-30) mmol/L BUN 101 H* (9-20) mg/dL Creatinine 6.62 H (0.66-1.25) mg/dL Glucose 100 H (74-99) mg/dL POC Glucose (mg/dL) 154 H (70-110) mg/dL Hemoglobin A1c 8.6 H (<=6.0) % Alkaline Phosphatase 185 H (38-126) U/L Albumin 3.0 L (3.5-5.0) g/dL Microbiology - Last 24 Hours (Table) 07/11/24 16:03 Urine Culture - Final Urine,Voided Assessment and Plan (1) Abscess of right hand Current Visit: Yes Status: Acute Code(s): L02.511 - CUTANEOUS ABSCESS OF RIGHT HAND SNOMED Code(s): 26220855292860392 (2) Cervical discitis Current Visit: Yes Status: Acute Code(s): M46.42 - DISCITIS, UNSPECIFIED, CERVICAL REGION SNOMED Code(s): 261408967 (3) LISSETT (acute kidney injury) Current Visit: Yes Status: Acute Code(s): N17.9 - ACUTE KIDNEY FAILURE, UNSPECIFIED SNOMED Code(s): 82422659 (4) MSSA bacteremia Current Visit: No Status: Acute Code(s): R78.81 - BACTEREMIA; B95.61 - METHICILLIN SUSCEP STAPH INFCT CAUSING DIS CLASSD ELSWHR SNOMED Code(s): 698905820 Plan: 1patient with a complicated history with admission to hospital hospital with a right hand abscess in this patient with status post surgical drainage culture positive for MSSA and the patient also have MSSA bacteremia he did clear his bacteremia subsequently got a PICC line was getting daptomycin now presenting back to the hospital with worsening symptoms and has been diagnosed with worsening of his kidney function being managed by cardiology, patient also have recent outpatient cervical spine MRI suspicion of C5-6 discitis 2-blood culture repeated which are currently pending patient will continue with the daptomycin Dictation was produced using [employer] dictation software. please excuse any grammatical, word or spelling errors. Time with Patient: Less than 30
--- NOTE | 2024-07-14 14:05 | P.PN ---
Subjective Progress Note Date: 07/14/24 Principal diagnosis: Reason for follow-up is right hand abscess and cervical discitis Patient is a 53-year-old male with a past medical history for diabetes mellitus reflux hypertension osteoarthritis recent [facility] right hand abscess and did have MSSA bacteremia with the patient was getting outpatient IV daptomycin being admitted to hospital with worsening kidney function. On today's evaluation that is 07/14/2024,the patient remains to be afebrile, pat ient is on room air not requiring supplemental oxygen and denies any shortness of breath no chest pain or cough.Patient denies having any nausea or vomiting, no abdominal pain and no diarrhea has been reported. Patient white count 5.74 creatinine 6.70 Objective - Vital Signs Vital signs: Vital Signs Temp 97.9 F 07/14/24 12:00 Pulse 88 07/14/24 12:00 Resp 17 07/14/24 12:00 BP 134/87 07/14/24 12:00 Pulse Ox 98 07/14/24 12:00 FiO2 Intake & Output 07/13/24 07/14/24 07/14/24 18:59 06:59 18:59 Intake Total 358 472 Output Total 850 900 Balance -492 -900 472 Weight 78.9 kg Intake: Oral 358 472 Output: Urine 850 900 Other: Voiding Method Urinal Urinal Urinal # Voids 2 - Exam GENERAL DESCRIPTION: Middle-age male lying in bed in no distress RESPIRATORY SYSTEM: Unlabored breathing , decreased breath sounds at bases HEART: S1 S2 regular rate and rhythm , ABDOMEN: Soft , no tenderness EXTREMITIES: No edema feet - Labs CBC & Chem 7: 07/14/24 05:51 07/14/24 05:51 Labs: Abnormal Lab Results - Last 24 Hours (Table) 07/13/24 07/13/24 07/14/24 Range/Units 16:32 19:58 05:48 RBC (4.40-5.60) 10*6/uL Hgb (13.0-17.0) g/dL Hct (39.6-50.0) % Immature Gran # (0.00-0.04) 10*3/uL Lymphocytes # (0.90-5.00) 10*3/uL Monocytes # (0.20-1.00) 10*3/uL Eosinophils # (0.04-0.35) 10*3/uL Sodium (137-145) mmol/L Carbon Dioxide (22-30) mmol/L BUN (9-20) mg/dL Creatinine (0.66-1.25) mg/dL Glucose (74-99) mg/dL POC Glucose (mg/dL) 161 H 212 H 288 H (70-110) mg/dL 07/14/24 07/14/24 07/14/24 Range/Units 05:51 05:51 11:28 RBC 2.43 L (4.40-5.60) 10*6/uL Hgb 7.7 L D (13.0-17.0) g/dL Hct 22.7 L (39.6-50.0) % Immature Gran # 0.09 H (0.00-0.04) 10*3/uL Lymphocytes # 0.57 L (0.90-5.00) 10*3/uL Monocytes # 0.04 L (0.20-1.00) 10*3/uL Eosinophils # 0.00 L (0.04-0.35) 10*3/uL Sodium 133 L (137-145) mmol/L Carbon Dioxide 17 L (22-30) mmol/L BUN 95 H (9-20) mg/dL Creatinine 6.70 H (0.66-1.25) mg/dL Glucose 259 H (74-99) mg/dL POC Glucose (mg/dL) 365 H (70-110) mg/dL Assessment and Plan (1) Abscess of right hand Current Visit: Yes Status: Acute Code(s): L02.511 - CUTANEOUS ABSCESS OF RIGHT HAND SNOMED Code(s): 90457226499750874 (2) Cervical discitis Current Visit: Yes Status: Acute Code(s): M46.42 - DISCITIS, UNSPECIFIED, CERVICAL REGION SNOMED Code(s): 917935374 (3) LISSETT (acute kidney injury) Current Visit: Yes Status: Acute Code(s): N17.9 - ACUTE KIDNEY FAILURE, UNSPECIFIED SNOMED Code(s): 13803082 (4) MSSA bacteremia Current Visit: No Status: Acute Code(s): R78.81 - BACTEREMIA; B95.61 - METHICILLIN SUSCEP STAPH INFCT CAUSING DIS CLASSD ELSR SNOMED Code(s): 352609781 Plan: 1patient with a complicated history with admission to hospital hospital with a right hand abscess in this patient with status post surgical drainage culture positive for MSSA and the patient also have MSSA bacteremia he did clear his bacteremia subsequently got a PICC line was getting daptomycin now presenting back to the hospital with worsening symptoms and has been diagnosed with worsening of his kidney function being managed by cardiology, patient also have recent outpatient cervical spine MRI suspicion of C5-6 discitis 2-blood culture has been repeated which are currently pending, patient currently being treated with daptomycin to continue to monitor clinical course closely Dictation was produced using [employer] software. please excuse any grammatical, word or spelling errors. Time with Patient: Less than 30
--- NOTE | 2024-07-14 14:36 | P.PN ---
Subjective Progress Note Date: 07/14/24 53-year-old male sent Emergency Department because of worsening renal function serum creatinine about 6.1. His baseline creatinine appears to be around 2.4 from his last hospitalization and discharge. Patient was started on Lasix upon discharge because of extensive bilateral lower extremity edema. Patient was sent home on daptomycin. Patient still is on daptomycin patient CK is not elevated. Patient's urine analysis showed significant RBC, 1+ protein. Patient does feel fatigued patient right upper extremity swelling significantly improved patient also had a recent MRI MRI results are not available. Patient had a neck pain at that time there was a concern about discitis. Patient is presently on bicarbonate supplementation orally and lactated [facility] nephrology was consulted. Ultrasound of the kidney did not show any obstructive uropathy. 07/13/2024 Patient seen and examined at bedside. Denies chest pain or shortness of breath. No pain with hand. Today's labs sodium 135, bicarb 18, BUN 101, creatinine 6.62, glucose 100, ALP 185. 07/14/2024 Patient seen and examined at bedside. No pain with hand. Continue daptomycin. Nephrology following patient closely. Will hold amlodipine. Today's labs hemoglobin 7.7, sodium 133, bicarb 17, BUN 95, creatinine 6.7, glucose ranging 212 -365 REVIEW OF SYSTEMS: All other systems are negative except those mentioned in the HPI PHYSICAL EXAMINATION: Vitals reviewed GENERAL: The patient is alert and oriented x3, not in any acute distress. Well developed, well nourished. CARDIOVASCULAR: S1 and S2 present. No murmurs, rubs, or gallops. PULMONARY: Chest is clear to auscultation, no wheezing or crackles. ABDOMEN: Soft, nontender, nondistended, normoactive bowel sounds. No palpable organomegaly. MUSCULOSKELETAL: No joint swelling or deformity. Right upper extremity significantly improved swelling very minimal redness EXTREMITIES: No cyanosis, clubbing, or pedal edema. NEUROLOGICAL: Gross neurological examination did not reveal any focal deficits. SKIN: No rashes. Assessment and plan -Acute renal failure: Secondary to possibly diuretic therapy. Possibility of acute tubular necrosis with a superimposed prerenal azotemia, vasomotor nephropathy. Continue with IV fluids, continued oral bicarbonate. Nephrology evaluated the patient patient is urinating at this time. Prednisone added for presumed AIN. Hold diuretics. - Chronic kidney disease stage IV Abscess of right hand, MSSA bacteremia. Repeat blood culture. Continue daptomycin -Type 2 diabetes mellitus with possible diabetic nephropathy. - Gastroesophageal reflux disease - Hypertension patient blood pressure, hold amlodipine. - Alcohol use but has not been drinking lately. - Neck pain, seen by orthopedic surgery will manage conservatively until med ically stabilized. DVT prophylaxis: Early ambulation Dr. Brown seen patient with resident, present during exam, and agreed with findings. Objective - Vital Signs Vital signs: Vital Signs Temp 98.2 F 07/13/24 23:05 Pulse 73 07/14/24 04:00 Resp 14 07/14/24 04:00 BP 126/82 07/14/24 04:00 Pulse Ox 96 07/14/24 04:00 FiO2 Intake & Output 07/13/24 07/14/24 07/14/24 18:59 06:59 18:59 Intake Total 358 Output Total 850 900 Balance -492 -900 Weight 78.9 kg Intake: Oral 358 Output: Urine 850 900 Other: Voiding Method Urinal Urinal # Voids 2 - Labs CBC & Chem 7: 07/14/24 05:51 07/14/24 05:51 Labs: Abnormal Lab Results - Last 24 Hours (Table) 07/13/24 07/13/24 07/13/24 Range/Units 06:16 11:30 16:32 RBC (4.40-5.60) 10*6/uL Hgb (13.0-17.0) g/dL Hct (39.6-50.0) % Immature Gran # (0.00-0.04) 10*3/uL Lymphocytes # (0.90-5.00) 10*3/uL Monocytes # (0.20-1.00) 10*3/uL Eosinophils # (0.04-0.35) 10*3/uL Sodium (137-145) mmol/L Carbon Dioxide (22-30) mmol/L BUN (9-20) mg/dL Creatinine (0.66-1.25) mg/dL Glucose (74-99) mg/dL POC Glucose (mg/dL) 154 H 161 H (70-110) mg/dL Hemoglobin A1c 8.6 H (<=6.0) % 07/13/24 07/14/24 07/14/24 Range/Units 19:58 05:48 05:51 RBC (4.40-5.60) 10*6/uL Hgb (13.0-17.0) g/dL Hct (39.6-50.0) % Immature Gran # (0.00-0.04) 10*3/uL Lymphocytes # (0.90-5.00) 10*3/uL Monocytes # (0.20-1.00) 10*3/uL Eosinophils # (0.04-0.35) 10*3/uL Sodium 133 L (137-145) mmol/L Carbon Dioxide 17 L (22-30) mmol/L BUN 95 H (9-20) mg/dL Creatinine 6.70 H (0.66-1.25) mg/dL Glucose 259 H (74-99) mg/dL POC Glucose (mg/dL) 212 H 288 H (70-110) mg/dL Hemoglobin A1c (<=6.0) % 07/14/24 Range/Units 05:51 RBC 2.43 L (4.40-5.60) 10*6/uL Hgb 7.7 L D (13.0-17.0) g/dL Hct 22.7 L (39.6-50.0) % Immature Gran # 0.09 H (0.00-0.04) 10*3/uL Lymphocytes # 0.57 L (0.90-5.00) 10*3/uL Monocytes # 0.04 L (0.20-1.00) 10*3/uL Eosinophils # 0.00 L (0.04-0.35) 10*3/uL Sodium (137-145) mmol/L Carbon Dioxide (22-30) mmol/L BUN (9-20) mg/dL Creatinine (0.66-1.25) mg/dL Glucose (74-99) mg/dL POC Glucose (mg/dL) (70-110) mg/dL Hemoglobin A1c (<=6.0) %
[2024-07-14 17:28] LABS: Glucose,Whole Blood 250 mg/dL (70-110)
[2024-07-14 20:32] LABS: Glucose,Whole Blood 174 mg/dL (70-110)
[2024-07-15 05:50] LABS: Glucose,Whole Blood 238 mg/dL (70-110)
[2024-07-15 07:05] LABS: HGB 7.5 g/dL (13.0-17.0); MCH 31.4 pg (27.0-32.0); MCHC 34.1 g/dL (32.0-37.0); MCV 92.1 fL (80.0-97.0); Mean Platelet Volume 10.4 fL (9.5-12.2); Platelet Count 143 10*3/uL (140-440); RBC 2.39 10*6/uL (4.40-5.60); RDW 13.5 % (11.5-14.5); WBC 10.41 10*3/uL (4.50-10.00)
[2024-07-15 07:10] LABS: African American GFR (CKD) 12 (>60 ml/min/1.73 sqM); Anion Gap 13 mmol/L; Blood Urea Nitrogen 93 mg/dL (9-20); Carbon Dioxide 19 mmol/L (22-30); Chloride 102 mmol/L (98-107); Glucose 205 mg/dL (74-99); Magnesium 2.2 mg/dL (1.6-2.3); Non-African American GFR(CKD) 10 (>60 ml/min/1.73 sqM); Potassium 4.4 mmol/L (3.5-5.1); Sodium 134 mmol/L (137-145)
--- NOTE | 2024-07-15 11:15 | P.PN ---
Subjective Patient is seen in follow-up for acute kidney injury on chronic kidney disease. Renal function better today. Nonoliguric. Denies chest pain or shortness of breath. Vital signs are stable. General: No acute distress. HEENT: Head exam is unremarkable. LUNGS: No audible rhonchi or wheezes. HEART: Rate and Rhythm are regular. ABDOMEN: Nontender. EXTREMITITES: No edema. Objective - Vital Signs Vital signs: Vital Signs Temp 98.0 F 07/15/24 04:00 Pulse 94 07/15/24 10:07 Resp 16 07/15/24 10:07 BP 116/70 07/15/24 04:00 Pulse Ox 99 07/15/24 04:00 FiO2 Intake & Output 07/14/24 07/15/24 07/15/24 18:59 06:59 18:59 Intake Total 590 40 360 Output Total 500 Balance 590 -460 360 Weight 79.1 kg Intake: Oral 590 40 360 Output: Urine 500 Other: Voiding Method Urinal Urinal Urinal # Voids 2 2 # Bowel Movements 0 - Labs CBC & Chem 7: 07/15/24 06:28 07/15/24 06:28 Labs: Abnormal Lab Results - Last 24 Hours (Table) 07/14/24 07/14/24 07/14/24 Range/Units 11:28 17:26 20:20 WBC (4.50-10.00) 10*3/uL RBC (4.40-5.60) 10*6/uL Hgb (13.0-17.0) g/dL Hct (39.6-50.0) % Sodium (137-145) mmol/L Carbon Dioxide (22-30) mmol/L BUN (9-20) mg/dL Creatinine (0.66-1.25) mg/dL Glucose (74-99) mg/dL POC Glucose (mg/dL) 365 H 250 H 174 H (70-110) mg/dL Albumin (3.5-5.0) g/dL 07/15/24 07/15/24 07/15/24 Range/Units 05:46 06:28 06:28 WBC 10.41 H (4.50-10.00) 10*3/uL RBC 2.39 L (4.40-5.60) 10*6/uL Hgb 7.5 L (13.0-17.0) g/dL Hct 22.0 L (39.6-50.0) % Sodium 134 L (137-145) mmol/L Carbon Dioxide 19 L (22-30) mmol/L BUN 93 H (9-20) mg/dL Creatinine 5.89 H (0.66-1.25) mg/dL Glucose 205 H (74-99) mg/dL POC Glucose (mg/dL) 238 H (70-110) mg/dL Albumin 3.0 L (3.5-5.0) g/dL Assessment and Plan Plan: Assessment: 1. Acute kidney injury secondary to ATN. Renal function better today. Creatinine 5.89. Nonoliguric. Serologies done May 2024 were negative. 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 Creatinine during last admission was as low as 1 .78 and as high as 3.0. It was 2.4 on the day of discharge June 21, 2024. No evidence of hydronephrosis noted on kidney ultrasound. Urine eosinophils positive at 2% this admission. 2. Hand infection on antibiotics. 3. Diabetes mellitus. 4. Metabolic acidosis secondary to acute kidney injury. On oral bicarb. Better. 5. Hypovolemic hyponatremia improved with IV fluids. Plan: Maintain IV fluids. Maintain oral bicarb. Avoid nephrotoxins. Continue to hold diuretics. Prednisone started July 13, 2024 for presumed AIN. Maintain Pepcid. Hold antihypertensives for systolic blood pressure less than 120. Continue to assess daily for need for renal replacement therapy. No urgency at this time.
[2024-07-15 11:27] LABS: Glucose,Whole Blood 253 mg/dL (70-110)
--- NOTE | 2024-07-15 13:23 | P.PN ---
Subjective Progress Note Date: 07/15/24 53-year-old male sent Emergency Department because of worsening renal function serum creatinine about 6.1. His baseline creatinine appears to be around 2.4 from his last hospitalization and discharge. Patient was started on Lasix upon discharge because of extensive bilateral lower extremity edema. Patient was sent home on daptomycin. Patient still is on daptomycin patient CK is not elevated. Patient's urine analysis showed significant RBC, 1+ protein. Patient does feel fatigued patient right upper extremity swelling significantly improved patient also had a recent MRI MRI results are not available. Patient had a neck pain at that time there was a concern about discitis. Patient is presently on bicarbonate supplementation orally and lactated [facility] nephrology was consulted. Ultrasound of the kidney did not show any obstructive uropathy. 07/13/2024 Patient seen and examined at bedside. Denies chest pain or shortness of breath. No pain with hand. Today's labs sodium 135, bicarb 18, BUN 101, creatinine 6.62, glucose 100, ALP 185. 07/14/2024 Patient seen and examined at bedside. No pain with hand. Continue daptomycin. Nephrology following patient closely. Will hold amlodipine. Today's labs hemoglobin 7.7, sodium 133, bicarb 17, BUN 95, creatinine 6.7, glucose ranging 212 -365 07/15/2024 Patient seen and examined at bedside. No events overnight. Continue daptomycin. Continue IV fluids. Nephrology following patient closely. Today's labs WBC 10.4, hemoglobin 7.5, sodium 134, bicarb 19, BUN 93, creatinine 5.8, glucose 205. Renal functioning improving REVIEW OF SYSTEMS: All other systems are negative except those mentioned in the HPI PHYSICAL EXAMINATION: Vitals reviewed GENERAL: The patient is alert and oriented x3, not in any acute distress. Well developed, well nourished. CARDIOVASCULAR: S1 and S2 present. No murmurs, rubs, or gallops. PULMONARY: Chest is clear to auscultation, no wheezing or crackles. ABDOMEN: Soft, nontender, nondistended, normoactive bowel sounds. No palpable organomegaly. MUSCULOSKELETAL: No joint swelling or deformity. Right upper extremity significantly improved swelling very minimal redness EXTREMITIES: No cyanosis, clubbing, or pedal edema. NEUROLOGICAL: Gross neurological examination did not reveal any focal deficits. SKIN: No rashes. Assessment and plan -Acute renal failure: Secondary to possibly diuretic therapy. Possibility of acute tubular necrosis with a superimposed prerenal azotemia, vasomotor ne phropathy. Continue with IV fluids, continued oral bicarbonate. Nephrology evaluated the patient patient is urinating at this time. Prednisone added for presumed AIN. Hold diuretics. - Chronic kidney disease stage IV Abscess of right hand, MSSA bacteremia. Repeat blood culture. Continue dapto mycin -Type 2 diabetes mellitus with possible diabetic nephropathy. - Gastroesophageal reflux disease - Hypertension patient blood pressure, hold amlodipine. - Alcohol use but has not been drinking lately. - Neck pain, seen by orthopedic surgery will manage conservatively until medically stabilized. DVT prophylaxis: Early ambulation Dr. Brown seen patient with resident, present during exam, and agreed with findings. Objective - Vital Signs Vital signs: Vital Signs Temp 98.0 F 07/15/24 04:00 Pulse 94 07/15/24 04:00 Resp 14 07/15/24 04:00 BP 116/70 07/15/24 04:00 Pulse Ox 99 07/15/24 04:00 FiO2 Intake & Output 07/14/24 07/15/24 07/15/24 18:59 06:59 18:59 Intake Total 590 40 360 Output Total 500 Balance 590 -460 360 Weight 79.1 kg Intake: Oral 590 40 360 Output: Urine 500 Other: Voiding Method Urinal Urinal # Voids 2 2 # Bowel Movements 0 - Labs CBC & Chem 7: 07/15/24 06:28 07/15/24 06:28 Labs: Abnormal Lab Results - Last 24 Hours (Table) 07/14/24 07/14/24 07/14/24 Range/Units 11:28 17:26 20:20 WBC (4.50-10.00) 10*3/uL RBC (4.40-5.60) 10*6/uL Hgb (13.0-17.0) g/dL Hct (39.6-50.0) % Sodium (137-145) mmol/L Carbon Dioxide (22-30) mmol/L BUN (9-20) mg/dL Creatinine (0.66-1.25) mg/dL Glucose (74-99) mg/dL POC Glucose (mg/dL) 365 H 250 H 174 H (70-110) mg/dL Albumin (3.5-5.0) g/dL 07/15/24 07/15/24 07/15/24 Range/Units 05:46 06:28 06:28 WBC 10.41 H (4.50-10.00) 10*3/uL RBC 2.39 L (4.40-5.60) 10*6/uL Hgb 7.5 L (13.0-17.0) g/dL Hct 22.0 L (39.6-50.0) % Sodium 134 L (137-145) mmol/L Carbon Dioxide 19 L (22-30) mmol/L BUN 93 H (9-20) mg/dL Creatinine 5.89 H (0.66-1.25) mg/dL Glucose 205 H (74-99) mg/dL POC Glucose (mg/dL) 238 H (70-110) mg/dL Albumin 3.0 L (3.5-5.0) g/dL
--- NOTE | 2024-07-15 15:31 | P.PN ---
Subjective Progress Note Date: 07/15/24 Principal diagnosis: Reason for follow-up is right hand abscess and cervical discitis Patient is a 53-year-old male with a past medical history for diabetes mellitus reflux hypertension osteoarthritis recent [facility] the hospital right hand abscess and did have MSSA bacteremia with the patient was getting outpatient IV daptomycin being admitted to hospital with worsening kidney function. On today's evaluation that is 07/15/2024, the patient continues to be afebrile, the patient is on room air and breathing comfortably, the Pt denies having any chest pain or cough, the patient denies having any abdominal pain no vomiting or any diarrhea, pain to the right hand and neck area is currently controlled. Patient did have a white count of 10.41, creatinine is 5.89 Objective - Vital Signs Vital signs: Vital Signs Temp 97.7 F 07/15/24 11:57 Pulse 101 H 07/15/24 11:57 Resp 17 07/15/24 11:57 BP 142/84 07/15/24 11:57 Pulse Ox 98 07/15/24 11:57 FiO2 Intake & Output 07/14/24 07/15/24 07/15/24 18:59 06:59 18:59 Intake Total 590 40 360 Output Total 500 500 Balance 590 -460 -140 Weight 79.1 kg Intake: Oral 590 40 360 Output: Urine 500 500 Other: Voiding Method Urinal Urinal Urinal # Voids 2 2 # Bowel Movements 0 - Exam GENERAL DESCRIPTION: Middle-age male lying in bed in no distress RESPIRATORY SYSTEM: Unlabored breathing , decreased breath sounds at bases HEART: S1 S2 regular rate and rhythm , ABDOMEN: Soft , no tenderness EXTREMITIES: No edema feet - Labs CBC & Chem 7: 07/15/24 06:28 07/15/24 06:28 Labs: Abnormal Lab Results - Last 24 Hours (Table) 07/14/24 07/14/24 07/15/24 Range/Units 17:26 20:20 05:46 WBC (4.50-10.00) 10*3/uL RBC (4.40-5.60) 10*6/uL Hgb (13.0-17.0) g/dL Hct (39.6-50.0) % Sodium (137-145) mmol/L Carbon Dioxide (22-30) mmol/L BUN (9-20) mg/dL Creatinine (0.66-1.25) mg/dL Glucose (74-99) mg/dL POC Glucose (mg/dL) 250 H 174 H 238 H (70-110) mg/dL Albumin (3.5-5.0) g/dL 07/15/24 07/15/24 07/15/24 Range/Units 06:28 06:28 11:25 WBC 10.41 H (4.50-10.00) 10*3/uL RBC 2.39 L (4.40-5.60) 10*6/uL Hgb 7.5 L (13.0-17.0) g/dL Hct 22.0 L (39.6-50.0) % Sodium 134 L (137-145) mmol/L Carbon Dioxide 19 L (22-30) mmol/L BUN 93 H (9-20) mg/dL Creatinine 5.89 H (0.66-1.25) mg/dL Glucose 205 H (74-99) mg/dL POC Glucose (mg/dL) 253 H (70-110) mg/dL Albumin 3.0 L (3.5-5.0) g/dL Assessment and Plan (1) Abscess of right hand Current Visit: Yes Status: Acute Code(s): L02.511 - CUTANEOUS ABSCESS OF RIGHT HAND SNOMED Code(s): 41251445344396226 (2) Cervical discitis Current Visit: Yes Status: Acute Code(s): M46.42 - DISCITIS, UNSPECIFIED, CERVICAL REGION SNOMED Code(s): 975460076 (3) LISSETT (acute kidney injury) Current Visit: Yes Status: Acute Code(s): N17.9 - ACUTE KIDNEY FAILURE, UNSPECIFIED SNOMED Code(s): 44112450 (4) MSSA bacteremia Current Visit: No Status: Acute Code(s): R78.81 - BACTEREMIA; B95.61 - METHICILLIN SUSCEP STAPH INFCT CAUSING DIS CLASSD ELSWHR SNOMED Code(s): 444160116 Plan: 1patient with a complicated history with admission to hospital hospital with a right hand abscess in this patient with status post surgical drainage culture positive for MSSA and the patient also have MSSA bacteremia he did clear his bacteremia subsequently got a PICC line was getting daptomycin now presenting back to the hospital with worsening symptoms and has been diagnosed with worsening of his kidney function being managed by cardiology, patient also have recent outpatient cervical spine MRI suspicion of C5-6 discitis 2-blood culture repeat has been negative so far some improvement in the creatinine for now continue with the daptomycin and local care as ordered Dictation was produced using [employer] dictation software. please excuse any grammatical, word or spelling errors. Time with Patient: Less than 30
[2024-07-15 17:03] LABS: Glucose,Whole Blood 280 mg/dL (70-110)
[2024-07-15 20:14] LABS: Glucose,Whole Blood 228 mg/dL (70-110)
[2024-07-16 06:07] LABS: Glucose,Whole Blood 219 mg/dL (70-110)
[2024-07-16 07:41] LABS: Potassium 4.6 mmol/L (3.5-5.1)
[2024-07-16 07:44] LABS: African American GFR (CKD) 13 (>60 ml/min/1.73 sqM); Anion Gap 15 mmol/L; Blood Urea Nitrogen 94 mg/dL (9-20); C Reactive Protein 2.1 mg/dL (<1.0); Calcium 9.2 mg/dL (8.4-10.2); Carbon Dioxide 19 mmol/L (22-30); Chloride 101 mmol/L (98-107); Glucose 202 mg/dL (74-99); Magnesium 2.1 mg/dL (1.6-2.3); Non-African American GFR(CKD) 12 (>60 ml/min/1.73 sqM); Sodium 135 mmol/L (137-145)
[2024-07-16 11:26] LABS: Glucose,Whole Blood 248 mg/dL (70-110)
--- NOTE | 2024-07-16 11:52 | P.PN ---
Subjective Patient is seen for follow-up for acute kidney injury. Renal function has been slowly improving. Serum creatinine down to 5.2 today. Patient denies any significant complaints except for decreased mobility of his right index finger. Objective - Vital Signs Vital signs: Vital Signs Temp 97.7 F 07/16/24 09:03 Pulse 88 07/16/24 11:24 Resp 18 07/16/24 11:24 BP 138/80 07/16/24 11:24 Pulse Ox 97 07/16/24 11:24 FiO2 Intake & Output 07/15/24 07/16/24 07/16/24 18:59 06:59 18:59 Intake Total 1678 240 240 Output Total 500 1000 Balance 1178 240 -760 Weight 79.2 kg Intake: Intake, IV Titration 1200 Amount Lactated Ringers 1,000 ml 1200 @ 100 mls/hr IV .Q10H SUN Rx#:[id number] Oral 478 240 240 Output: Urine 500 1000 Other: Voiding Method Urinal Urinal # Voids 1 - Exam Patient is awake, comfortable, alert oriented x 3 No acute distress Examination of the heart S1 and S2 Examination of the lungs bilateral breath sounds are heard Abdomen is soft nontender Examination of lower extremity shows edema 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 - Labs CBC & Chem 7: 07/15/24 06:28 07/16/24 06:38 Labs: Abnormal Lab Results - Last 24 Hours (Table) 07/15/24 07/15/24 07/16/24 Range/Units 17:02 20:12 06:05 Sodium (137-145) mmol/L Carbon Dioxide (22-30) mmol/L BUN (9-20) mg/dL Creatinine (0.66-1.25) mg/dL Glucose (74-99) mg/dL POC Glucose (mg/dL) 280 H 228 H 219 H (70-110) mg/dL C-Reactive Protein (<1.0) mg/dL 07/16/24 07/16/24 Range/Units 06:38 11:24 Sodium 135 L (137-145) mmol/L Carbon Dioxide 19 L (22-30) mmol/L BUN 94 H (9-20) mg/dL Creatinine 5.28 H (0.66-1.25) mg/dL Glucose 202 H (74-99) mg/dL POC Glucose (mg/dL) 248 H (70-110) mg/dL C-Reactive Protein 2.1 H (<1.0) mg/dL Assessment and Plan Assessment: 1. Acute kidney injury secondary to ATN. Renal function better today. Creatinine 5.2. Nonoliguric. Serologies done May 2024 were negative. 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 Creatinine during last admission was as low as 1.78 and as high as 3.0. It was 2.4 on the day of discharge June 21, 2024. No evidence of hydronephrosis noted on kidney ultrasound. Urine eosinophils positive at 2% this admission. 2. Hand infection on antibiotics. 3. Diabetes mellitus. 4. Metabolic acidosis secondary to acute kidney injury. On oral bicarb. Better. 5. Hypovolemic hyponatremia improved with IV fluids. Plan: Decrease IV fluids Continue with prednisone Continue with antibiotics No indication for hemodialysis currently Renal function continues to improve. Continue to avoid nephrotoxic agents.
--- NOTE | 2024-07-16 12:07 | P.PN ---
Subjective Progress Note Date: 07/16/24 53-year-old male sent Emergency Department because of worsening renal function serum creatinine about 6.1. His baseline creatinine appears to be around 2.4 from his last hospitalization and discharge. Patient was started on Lasix upon discharge because of extensive bilateral lower extremity edema. Patient was sent home on daptomycin. Patient still is on daptomycin patient CK is not elevated. Patient's urine analysis showed significant RBC, 1+ protein. Patient does feel fatigued patient right upper extremity swelling significantly improved patient also had a recent MRI MRI results are not available. Patient had a neck pain at that time there was a concern about discitis. Patient is presently on bicarbonate supplementation orally and lactated Ringer's nephrology was consulted. Ultrasound of the kidney did not show any obstructive uropathy. 07/13/2024 Patient seen and examined at bedside. Denies chest pain or shortness of breath. No pain with hand. Today's labs sodium 135, bicarb 18, BUN 101, creatinine 6.62, glucose 100, ALP 185. 07/14/2024 Patient seen and examined at bedside. No pain with hand. Continue daptomycin. Nephrology following patient closely. Will hold amlodipine. Today's labs hemoglobin 7.7, sodium 133, bicarb 17, BUN 95, creatinine 6.7, glucose ranging 212 -365 07/15/2024 Patient seen and examined at bedside. No events overnight. Continue daptomycin. Continue IV fluids. Nephrology following patient closely. Today's labs WBC 10.4, hemoglobin 7.5, sodium 134, bicarb 19, BUN 93, creatinine 5.8, glucose 205. Renal functioning improving 07/16/2024 Patient seen and examined at bedside. No events overnight. Continue daptomycin. Continue IV fluids. Nephrology following patient closely. Today's labs sodium 135, BUN 94, creatinine 5.28. Renal renal function slowly improving. REVIEW OF SYSTEMS: All other systems are negative except those mentioned in the HPI PHYSICAL EXAMINATION: Vitals reviewed GENERAL: The patient is alert and oriented x3, not in any acute distress. Well developed, well nourished. CARDIOVASCULAR: S1 and S2 present. No murmurs, rubs, or gallops. PULMONARY: Chest is clear to auscultation, no wheezing or crackles. ABDOMEN: Soft, nontender, nondistended, normoactive bowel sounds. No palpable organomegaly. MUSCULOSKELETAL: No joint swelling or deformity. Right upper extremity significantly improved swelling very minimal redness EXTREMITIES: No cyanosis, clubbing, or pedal edema. NEUROLOGICAL: Gross neurological examination did not reveal any focal deficits. SKIN: No rashes. Assessment and plan -Acute renal failure: Secondary to possibly diuretic therapy. Possibility of acute tubular necrosis with a superimposed prerenal azotemia, vasomotor nephropathy. Continue with IV fluids, continued oral bicarbonate. Nephrology evaluated the patient patient is urinating at this time. Prednisone added for presumed AIN. Hold diuretics. - Chronic kidney disease stage IV Abscess of right hand, MSSA bacteremia. Repeat blood culture. Continue daptomycin -Type 2 diabetes mellitus with possible diabetic nephropathy. - Gastroesophageal reflux disease - Hypertension patient blood pressure, hold amlodipine. - Alcohol use but has not been drinking lately. - Neck pain, seen by orthopedic surgery will manage conservatively until medically stabilized. DVT prophylaxis: Early ambulation Dr. Harvey seen patient with resident, present during exam, and agreed with findings. Attestation I have seen and examined this patient with my resident , discussed the same with the resident/SUKUMAR, and agree with the dictator's assessment and plan as written Dr. Saurabh harvey Objective - Vital Signs Vital signs: Vital Signs Temp 97.7 F 07/16/24 09:03 Pulse 88 07/16/24 11:24 Resp 18 07/16/24 11:24 BP 138/80 07/16/24 11:24 Pulse Ox 97 07/16/24 11:24 FiO2 Intake & Output 07/15/24 07/16/24 07/16/24 18:59 06:59 18:59 Intake Total 1678 240 240 Output Total 500 1500 Balance 1178 240 -1260 Weight 79.2 kg Intake: Intake, IV Titration 1200 Amount Lactated Ringers 1,000 ml 1200 @ 100 mls/hr IV .Q10H SUN Rx#:[id number] Oral 478 240 240 Output: Urine 500 1500 Other: Voiding Method Urinal Urinal # Voids 1 - Labs CBC & Chem 7: 07/15/24 06:28 07/17/24 07:21 Labs: Abnormal Lab Results - Last 24 Hours (Table) 07/15/24 07/15/24 07/16/24 Range/Units 17:02 20:12 06:05 Sodium (137-145) mmol/L Carbon Dioxide (22-30) mmol/L BUN (9-20) mg/dL Creatinine (0.66-1.25) mg/dL Glucose (74-99) mg/dL POC Glucose (mg/dL) 280 H 228 H 219 H (70-110) mg/dL C-Reactive Protein (<1.0) mg/dL 07/16/24 07/16/24 Range/Units 06:38 11:24 Sodium 135 L (137-145) mmol/L Carbon Dioxide 19 L (22-30) mmol/L BUN 94 H (9-20) mg/dL Creatinine 5.28 H (0.66-1.25) mg/dL Glucose 202 H (74-99) mg/dL POC Glucose (mg/dL) 248 H (70-110) mg/dL C-Reactive Protein 2.1 H (<1.0) mg/dL
--- NOTE | 2024-07-16 14:52 | P.PN ---
Subjective Progress Note Date: 07/16/24 Principal diagnosis: Reason for follow-up is right hand abscess and cervical discitis Patient is a 53-year-old male with a past medical history for diabetes mellitus reflux hypertension osteoarthritis [facility] right hand abscess and did have MSSA bacteremia with the patient was getting outpatient IV daptomycin being admitted to hospital with worsening kidney function. On today's evaluation that is 07/16/2024, Patient is afebrile patient is current ly on room air and denies having any shortness of breath, the patient denies any chest pain or cough, the patient denies any nausea vomiting did not have any abdominal pain and no diarrhea pain to the right hand and neck area is currently controlled. Patient creatinine is 5.28 Objective - Vital Signs Vital signs: Vital Signs Temp 97.7 F 07/16/24 09:03 Pulse 88 07/16/24 11:24 Resp 18 07/16/24 11:24 BP 138/80 07/16/24 11:24 Pulse Ox 97 07/16/24 11:24 FiO2 Intake & Output 07/15/24 07/16/24 07/16/24 18:59 06:59 18:59 Intake Total 1678 240 240 Output Total 500 1500 Balance 1178 240 -1260 Weight 79.2 kg Intake: Intake, IV Titration 1200 Amount Lactated Ringers 1,000 ml 1200 @ 100 mls/hr IV .Q10H SUN Rx#:[id number] Oral 478 240 240 Output: Urine 500 1500 Other: Voiding Method Urinal Urinal Urinal # Voids 1 - Exam GENERAL DESCRIPTION: Middle-age male lying in bed in no distress RESPIRATORY SYSTEM: Unlabored breathing , decreased breath sounds at bases HEART: S1 S2 regular rate and rhythm , ABDOMEN: Soft , no tenderness EXTREMITIES: No edema feet - Labs CBC & Chem 7: 07/15/24 06:28 07/16/24 06:38 Labs: Abnormal Lab Results - Last 24 Hours (Table) 07/15/24 07/15/24 07/16/24 Range/Units 17:02 20:12 06:05 Sodium (137-145) mmol/L Carbon Dioxide (22-30) mmol/L BUN (9-20) mg/dL Creatinine (0.66-1.25) mg/dL Glucose (74-99) mg/dL POC Glucose (mg/dL) 280 H 228 H 219 H (70-110) mg/dL C-Reactive Protein (<1.0) mg/dL 07/16/24 07/16/24 Range/Units 06:38 11:24 Sodium 135 L (137-145) mmol/L Carbon Dioxide 19 L (22-30) mmol/L BUN 94 H (9-20) mg/dL Creatinine 5.28 H (0.66-1.25) mg/dL Glucose 202 H (74-99) mg/dL POC Glucose (mg/dL) 248 H (70-110) mg/dL C-Reactive Protein 2.1 H (<1.0) mg/dL Assessment and Plan (1) Abscess of right hand Current Visit: Yes Status: Acute Code(s): L02.511 - CUTANEOUS ABSCESS OF RIGHT HAND SNOMED Code(s): 18857512996261949 (2) Cervical discitis Current Visit: Yes Status: Acute Code(s): M46.42 - DISCITIS, UNSPECIFIED, CERVICAL REGION SNOMED Code(s): 891941783 (3) LISSETT (acute kidney injury) Current Visit: Yes Status: Acute Code(s): N17.9 - ACUTE KIDNEY FAILURE, UNSPECIFIED SNOMED Code(s): 53971250 (4) MSSA bacteremia Current Visit: No Status: Acute Code(s): R78.81 - BACTEREMIA; B95.61 - METHICILLIN SUSCEP STAPH INFCT CAUSING DIS CLASSD ELSWHR SNOMED Code(s): 679216645 Plan: 1patient with a complicated history with admission to hospital hospital with a right hand abscess in this patient with status post surgical drainage culture positive for MSSA and the patient also have MSSA bacteremia he did clear his bacteremia subsequently got a PICC line was getting daptomycin now presenting back to the hospital with worsening symptoms and has been diagnosed with worsening of his kidney function being managed by cardiology, patient also have recent outpatient cervical spine MRI suspicion of C5-6 discitis 2-blood culture repeat has been negative patient did have a gradual improvement in his creatinine being monitored by nephrology for now continue with the daptomycin and continue supportive care Dictation was produced using [employer] dictation software. please excuse any grammatical, word or spelling errors. Time with Patient: Less than 30
[2024-07-16 16:55] LABS: Glucose,Whole Blood 298 mg/dL (70-110)
[2024-07-16 20:12] LABS: Glucose,Whole Blood 239 mg/dL (70-110)
[2024-07-17 06:10] LABS: Glucose,Whole Blood 167 mg/dL (70-110)
[2024-07-17 08:35] LABS: African American GFR (CKD) 16 (>60 ml/min/1.73 sqM); Anion Gap 13 mmol/L; Blood Urea Nitrogen 86 mg/dL (9-20); C Reactive Protein 1.6 mg/dL (<1.0); Calcium 9.4 mg/dL (8.4-10.2); Carbon Dioxide 21 mmol/L (22-30); Chloride 102 mmol/L (98-107); Glucose 137 mg/dL (74-99); Magnesium 1.9 mg/dL (1.6-2.3); Non-African American GFR(CKD) 14 (>60 ml/min/1.73 sqM); Potassium 4.6 mmol/L (3.5-5.1); Sodium 136 mmol/L (137-145)
--- NOTE | 2024-07-17 11:23 | P.PN ---
Subjective Patient is seen for follow-up for acute kidney injury. Renal function has been slowly improving. Serum creatinine down to 4.5 today. Patient denies any significant complaints except for decreased mobility of his right index finger. Objective - Vital Signs Vital signs: Vital Signs Temp 97.6 F 07/17/24 09:37 Pulse 93 07/17/24 09:39 Resp 18 07/17/24 09:39 BP 147/82 07/17/24 09:37 Pulse Ox 99 07/17/24 09:37 FiO2 Intake & Output 07/16/24 07/17/24 07/17/24 18:59 06:59 18:59 Intake Total 462 118 Output Total 1500 800 500 Balance -1038 -800 -382 Weight 83.7 kg Intake: Oral 462 118 Output: Urine 1500 800 500 Other: Voiding Method Urinal Urinal Urinal # Voids 1 # Bowel Movements 1 - Exam Patient is awake, comfortable, alert oriented x 3 No acute distress Examination of the heart S1 and S2 Examination of the lungs bilateral breath sounds are heard Abdomen is soft nontender Examination of lower extremity shows edema 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 - Labs CBC & Chem 7: 07/15/24 06:28 07/17/24 07:21 Labs: Abnormal Lab Results - Last 24 Hours (Table) 07/16/24 07/16/24 07/16/24 Range/Units 06:38 11:24 16:54 ESR 34 H (0-20) mm/Hr Sodium (137-145) mmol/L Carbon Dioxide (22-30) mmol/L BUN (9-20) mg/dL Creatinine (0.66-1.25) mg/dL Glucose (74-99) mg/dL POC Glucose (mg/dL) 248 H 298 H (70-110) mg/dL C-Reactive Protein (<1.0) mg/dL 07/16/24 07/17/24 07/17/24 Range/Units 20:09 06:09 07:21 ESR (0-20) mm/Hr Sodium 136 L (137-145) mmol/L Carbon Dioxide 21 L (22-30) mmol/L BUN 86 H (9-20) mg/dL Creatinine 4.56 H (0.66-1.25) mg/dL Glucose 137 H (74-99) mg/dL POC Glucose (mg/dL) 239 H 167 H (70-110) mg/dL C-Reactive Protein 1.6 H (<1.0) mg/dL Assessment and Plan Assessment: 1. Acute kidney injury secondary to ATN. Renal function better today. Creatinine 4.5. Nonoliguric. Serologies done May 2024 were negative. 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 Creatinine during last admission was as low as 1.78 and as high as 3.0. It was 2.4 on the day of discharge June 21, 2024. No evidence of hydronephrosis noted on kidney ultrasound. Urine eosinophils positive at 2% this admission. 2. Right hand cellulitis/abscess on antibiotics. 3. Diabetes mellitus. 4. Metabolic acidosis secondary to acute kidney injury. On oral bicarb. Better. 5. Volume overload Plan: DC IV fluids Lasix x 1 Continue with prednisone Continue with antibiotics No indication for hemodialysis currently Renal function continues to improve. Continue to avoid nephrotoxic agents.
[2024-07-17 11:42] LABS: Glucose,Whole Blood 218 mg/dL (70-110)
[2024-07-17] MEDS: FUROSEMIDE 10 MG/ML 4 ML VIAL IV STA (11:58)
--- NOTE | 2024-07-17 14:32 | P.PN ---
Subjective Progress Note Date: 07/17/24 53-year-old male sent Emergency Department because of worsening renal function serum creatinine about 6.1. His baseline creatinine appears to be around 2.4 from his last hospitalization and discharge. Patient was started on Lasix upon discharge because of extensive bilateral lower extremity edema. Patient was sent home on daptomycin. Patient still is on daptomycin patient CK is not elevated. Patient's urine analysis showed significant RBC, 1+ protein. Patient does feel fatigued patient right upper extremity swelling significantly improved patient also had a recent MRI MRI results are not available. Patient had a neck pain at that time there was a concern about discitis. Patient is presently on bicarbonate supplementation orally and lactated Ringer's nephrology was consulted. Ultrasound of the kidney did not show any obstructive uropathy. 07/13/2024 Patient seen and examined at bedside. Denies chest pain or shortness of breath. No pain with hand. Today's labs sodium 135, bicarb 18, BUN 101, creatinine 6.62, glucose 100, ALP 185. 07/14/2024 Patient seen and examined at bedside. No pain with hand. Continue daptomycin. Nephrology following patient closely. Will hold amlodipine. Today's labs hemoglobin 7.7, sodium 133, bicarb 17, BUN 95, creatinine 6.7, glucose ranging 212 -365 07/15/2024 Patient seen and examined at bedside. No events overnight. Continue daptomycin. Continue IV fluids. Nephrology following patient closely. Today's labs WBC 10.4, hemoglobin 7.5, sodium 134, bicarb 19, BUN 93, creatinine 5.8, glucose 205. Renal functioning improving 07/16/2024 Patient seen and examined at bedside. No events overnight. Continue daptomycin. Continue IV fluids. Nephrology following patient closely. Today's labs sodium 135, BUN 94, creatinine 5.28. Renal renal function slowly improving. 07/17. Patient seen and examined. Blood work done this morning showed sodium 136, potassium 4.6, BUN 86, creatinine 4.56, GFR 14. REVIEW OF SYSTEMS: All other systems are negative except those mentioned in the HPI PHYSICAL EXAMINATION: Vitals reviewed GENERAL: The patient is alert and oriented x3, not in any acute distress. Well developed, well nourished. CARDIOVASCULAR: S1 and S2 present. No murmurs, rubs, or gallops. PULMONARY: Chest is clear to auscultation, no wheezing or crackles. ABDOMEN: Soft, nontender, nondistended, normoactive bowel sounds. No palpable organomegaly. MUSCULOSKELETAL: No joint swelling or deformity. Right hand significantly improved swelling very minimal redness EXTREMITIES: No cyanosis, clubbing, or pedal edema. NEUROLOGICAL: Gross neurological examination did not reveal any focal deficits. SKIN: No rashes. Assessment and plan -Acute renal failure: Secondary to possibly diuretic therapy. Possibility of acute tubular necrosis with a superimposed prerenal azotemia, vasomotor nephropathy. Strict I's and O's, daily weights, fluids were discontinued, currently was given 1 dose of IV Lasix. Continue sodium bicarb and prednisone - Chronic kidney disease stage IV Abscess of right hand, MSSA bacteremia. Continue daptomycin, ID following -Type 2 diabetes mellitus with possible diabetic nephropathy.; Monitor blood sugar levels, continue current insulin regimen of Lantus 25 units daily and sliding scale insulin - Gastroesophageal reflux disease - Hypertension continue clonidine - Alcohol use but has not been drinking lately. - Neck pain, seen by orthopedic surgery will manage conservatively until medically stabilized. DVT prophylaxis: Early ambulation Objective - Vital Signs Vital signs: Vital Signs Temp 97.6 F 07/17/24 09:37 Pulse 89 07/17/24 11:25 Resp 18 07/17/24 11:25 BP 143/91 07/17/24 11:25 Pulse Ox 98 07/17/24 11:25 FiO2 Intake & Output 07/16/24 07/17/24 07/17/24 18:59 06:59 18:59 Intake Total 462 118 Output Total 1500 800 500 Balance -2571 -574 -137 Weight 83.7 kg Intake: Oral 462 118 Output: Urine 1500 800 500 Other: Voiding Method Urinal Urinal Urinal # Voids 1 # Bowel Movements 1 - Labs CBC & Chem 7: 07/15/24 06:28 07/17/24 07:21 Labs: Abnormal Lab Results - Last 24 Hours (Table) 07/16/24 07/16/24 07/16/24 Range/Units 06:38 16:54 20:09 ESR 34 H (0-20) mm/Hr Sodium (137-145) mmol/L Carbon Dioxide (22-30) mmol/L BUN (9-20) mg/dL Creatinine (0.66-1.25) mg/dL Glucose (74-99) mg/dL POC Glucose (mg/dL) 298 H 239 H (70-110) mg/dL C-Reactive Protein (<1.0) mg/dL 07/17/24 07/17/24 07/17/24 Range/Units 06:09 07:21 11:40 ESR (0-20) mm/Hr Sodium 136 L (137-145) mmol/L Carbon Dioxide 21 L (22-30) mmol/L BUN 86 H (9-20) mg/dL Creatinine 4.56 H (0.66-1.25) mg/dL Glucose 137 H (74-99) mg/dL POC Glucose (mg/dL) 167 H 218 H (70-110) mg/dL C-Reactive Protein 1.6 H (<1.0) mg/dL
--- NOTE | 2024-07-17 15:03 | P.PN ---
Subjective Progress Note Date: 07/17/24 Principal diagnosis: Reason for follow-up is right hand abscess and cervical discitis Patient is a 53-year-old male with a past medical history for diabetes mellitus reflux hypertension osteoarthritis [facility] right hand abscess and did have MSSA bacteremia with the patient was getting outpatient IV daptomycin being admitted to hospital with worsening kidney function. On today's evaluation that is 07/17/2024, patient has been afebrile, patient is breathing comfortably and is currently on room air, patient denies having any chest pain and cough, patient denies nausea vomiting or diarrhea and no abdominal pain The patient creatinine is down to 4.56 Objective - Vital Signs Vital signs: Vital Signs Temp 97.6 F 07/17/24 09:37 Pulse 89 07/17/24 14:00 Resp 18 07/17/24 14:00 BP 143/91 07/17/24 11:25 Pulse Ox 98 07/17/24 11:25 FiO2 Intake & Output 07/16/24 07/17/24 07/17/24 18:59 06:59 18:59 Intake Total 462 118 Output Total 1500 800 500 Balance -1038 -800 -382 Weight 83.7 kg Intake: Oral 462 118 Output: Urine 1500 800 500 Other: Voiding Method Urinal Urinal Urinal # Voids 1 # Bowel Movements 1 - Exam GENERAL DESCRIPTION: Middle-age male lying in bed in no distress RESPIRATORY SYSTEM: Unlabored breathing , decreased breath sounds at bases HEART: S1 S2 regular rate and rhythm , ABDOMEN: Soft , no tenderness EXTREMITIES: No edema feet - Labs CBC & Chem 7: 07/15/24 06:28 07/17/24 07:21 Labs: Abnormal Lab Results - Last 24 Hours (Table) 07/16/24 07/16/24 07/16/24 Range/Units 06:38 16:54 20:09 ESR 34 H (0-20) mm/Hr Sodium (137-145) mmol/L Carbon Dioxide (22-30) mmol/L BUN (9-20) mg/dL Creatinine (0.66-1.25) mg/dL Glucose (74-99) mg/dL POC Glucose (mg/dL) 298 H 239 H (70-110) mg/dL C-Reactive Protein (<1.0) mg/dL 07/17/24 07/17/24 07/17/24 Range/Units 06:09 07:21 11:40 ESR (0-20) mm/Hr Sodium 136 L (137-145) mmol/L Carbon Dioxide 21 L (22-30) mmol/L BUN 86 H (9-20) mg/dL Creatinine 4.56 H (0.66-1.25) mg/dL Glucose 137 H (74-99) mg/dL POC Glucose (mg/dL) 167 H 218 H (70-110) mg/dL C-Reactive Protein 1.6 H (<1.0) mg/dL Assessment and Plan (1) Abscess of right hand Current Visit: Yes Status: Acute Code(s): L02.511 - CUTANEOUS ABSCESS OF RIGHT HAND SNOMED Code(s): 41937751476821720 (2) Cervical discitis Current Visit: Yes Status: Acute Code(s): M46.42 - DISCITIS, UNSPECIFIED, CERVICAL REGION SNOMED Code(s): 525645298 (3) LISSETT (acute kidney injury) Current Visit: Yes Status: Acute Code(s): N17.9 - ACUTE KIDNEY FAILURE, UNSPECIFIED SNOMED Code(s): 34461522 (4) MSSA bacteremia Current Visit: No Status: Acute Code(s): R78.81 - BACTEREMIA; B95.61 - ME THICILLIN SUSCEP STAPH INFCT CAUSING DIS CLASSD ELSWHR SNOMED Code(s): 42 1453494 Plan: 1patient with a complicated history with admission to hospital hospital with a right hand abscess in this patient with status post surgical drainage culture positive for MSSA and the patient also have MSSA bacteremia he did clear his bacteremia subsequently got a PICC line was getting daptomycin now presenting back to the hospital with worsening symptoms and has been diagnosed with worsening of his kidney function being managed by cardiology, patient also have recent outpatient cervical spine MRI suspicion of C5-6 discitis 2-blood culture repeat has been negative patient creatinine slowly trending down 3patient will be treated with the daptomycin for at least another 2 to 4 weeks on discharge depending upon clinical response Dictation was produced using [employer] software. please excuse any grammatical, word or spelling errors. Time with Patient: Less than 30
[2024-07-17 16:40] LABS: Glucose,Whole Blood 171 mg/dL (70-110)
[2024-07-17 19:56] LABS: Glucose,Whole Blood 353 mg/dL (70-110)
[2024-07-18 05:47] LABS: Glucose,Whole Blood 221 mg/dL (70-110)
[2024-07-18 07:39] LABS: HCT 25.7 % (39.6-50.0); HGB 8.7 g/dL (13.0-17.0); MCH 31.6 pg (27.0-32.0); MCHC 33.9 g/dL (32.0-37.0); MCV 93.5 fL (80.0-97.0); Mean Platelet Volume 9.6 fL (9.5-12.2); Platelet Count 167 10*3/uL (140-440); RBC 2.75 10*6/uL (4.40-5.60); RDW 13.5 % (11.5-14.5); WBC 9.16 10*3/uL (4.50-10.00)
[2024-07-18 08:08] LABS: African American GFR (CKD) 18 (>60 ml/min/1.73 sqM); Anion Gap 13 mmol/L; Blood Urea Nitrogen 84 mg/dL (9-20); Calcium 9.4 mg/dL (8.4-10.2); Carbon Dioxide 21 mmol/L (22-30); Chloride 102 mmol/L (98-107); Glucose 173 mg/dL (74-99); Magnesium 1.8 mg/dL (1.6-2.3); Non-African American GFR(CKD) 15 (>60 ml/min/1.73 sqM); Potassium 4.6 mmol/L (3.5-5.1); Sodium 136 mmol/L (137-145)
--- NOTE | 2024-07-18 11:03 | P.PN ---
Subjective Patient is seen for follow-up for acute kidney injury. Renal function has been slowly improving. Serum creatinine down to 4.1 today. Currently in the shower Status post Lasix yesterday Objective - Vital Signs Vital signs: Vital Signs Temp 98 F 07/18/24 09:36 Pulse 85 07/18/24 09:36 Resp 14 07/18/24 09:36 BP 140/80 07/18/24 09:36 Pulse Ox 98 07/18/24 09:36 FiO2 Intake & Output 07/17/24 07/18/24 07/18/24 18:59 06:59 18:59 Intake Total 358 280 100 Output Total 500 600 Balance -142 280 -500 Weight 83.6 kg Intake: Oral 358 280 100 Output: Urine 500 600 Other: Voiding Method Urinal Toilet # Voids 2 2 - Exam Patient is awake, comfortable, alert oriented x 3 No acute distress Examination of lower extremity shows edema 1+ bilaterally 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 intact - Labs CBC & Chem 7: 07/18/24 07:12 07/18/24 07:12 Labs: Abnormal Lab Results - Last 24 Hours (Table) 07/17/24 07/17/24 07/17/24 Range/Units 11:40 16:39 19:55 RBC (4.40-5.60) 10*6/uL Hgb (13.0-17.0) g/dL Hct (39.6-50.0) % Sodium (137-145) mmol/L Carbon Dioxide (22-30) mmol/L BUN (9-20) mg/dL Creatinine (0.66-1.25) mg/dL Glucose (74-99) mg/dL POC Glucose (mg/dL) 218 H 171 H 353 H (70-110) mg/dL C-Reactive Protein (<1.0) mg/dL 07/18/24 07/18/24 07/18/24 Range/Units 05:45 07:12 07:12 RBC 2.75 L (4.40-5.60) 10*6/uL Hgb 8.7 L (13.0-17.0) g/dL Hct 25.7 L (39.6-50.0) % Sodium 136 L (137-145) mmol/L Carbon Dioxide 21 L (22-30) mmol/L BUN 84 H (9-20) mg/dL Creatinine 4.18 H (0.66-1.25) mg/dL Glucose 173 H (74-99) mg/dL POC Glucose (mg/dL) 221 H (70-110) mg/dL C-Reactive Protein 1.0 H (<1.0) mg/dL Assessment and Plan Assessment: 1. Acute kidney injury secondary to ATN. Renal function better today. Creatinine 4.1. Nonoliguric. Serologies done May 2024 were negative. 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 Creatinine during last admission was as low as 1.78 and as high as 3.0. It was 2.4 on the day of discharge June 21, 2024. No evidence of hydronephrosis noted on kidney ultrasound. Urine eosinophils positive at 2% this admission. 2. Right hand cellulitis/abscess on antibiotics. 3. Diabetes mellitus. 4. Metabolic acidosis secondary to acute kidney injury. On oral bicarb. Better. 5. Volume overload Plan: Start scheduled dose of oral diuretics Continue with prednisone Continue with antibiotics Renal function continues to improve. Continue to avoid nephrotoxic agents.
[2024-07-18] MEDS: FUROSEMIDE 40 MG TAB PO SCH (11:29)
[2024-07-18 12:17] LABS: Glucose,Whole Blood 197 mg/dL (70-110)
--- NOTE | 2024-07-18 13:06 | P.PN ---
Subjective Progress Note Date: 07/18/2407/18patient seen and examined at bedside. He does endorse some ankle swelling but otherwise has no complaints. He is being seen by nephrology. Kidney function is gradually improving. He remains on daptomycin. Hemoglobin 9.7, sodium 136, bicarb 21, BUN 84, creatinine 4.18, glucose 173, CRP 1.0 REVIEW OF SYSTEMS: All other systems are negative except those mentioned in the HPI PHYSICAL EXAMINATION: Vitals reviewed GENERAL: The patient is alert and oriented x3, not in any acute distress. Well developed, well nourished. CARDIOVASCULAR: S1 and S2 present. No murmurs, rubs, or gallops. PULMONARY: Chest is clear to auscultation, no wheezing or crackles. ABDOMEN: Soft, nontender, nondistended, normoactive bowel sounds. No palpable organomegaly. MUSCULOSKELETAL: No joint swelling or deformity. Right hand significantly improved swelling very minimal redness EXTREMITIES: No cyanosis, clubbing. 1+ pedal edema. NEUROLOGICAL: Gross neurological examination did not reveal any focal deficits. SKIN: No rashes. Assessment and plan -Acute renal failure: Secondary to possibly diuretic therapy. Possibility of acute tubular necrosis with a superimposed prerenal azotemia, vasomotor nephropathy. Strict I's and O's, daily weights, fluids were discontinued, begin p.o. Lasix 40 mg daily continue sodium bicarb and prednisone - Chronic kidney disease stage IV Abscess of right hand, MSSA bacteremia. Continue daptomycin, ID following -Type 2 diabetes mellitus with possible diabetic nephropathy.; Monitor blood sugar levels, continue current insulin regimen of Lantus 25 units daily and sl iding scale insulin - Gastroesophageal reflux disease - Hypertension continue clonidine - Alcohol use but has not been drinking lately. - Neck pain, seen by orthopedic surgery will manage conservatively until medically stabilized. DVT prophylaxis: Early ambulation Dr. Harvey seen patient with resident, present during exam, and agreed with findings. Attestation I have seen and examined this patient with my resident , discussed the same with the resident/SUKUMAR, and agree with the dictator's assessment and plan as written Dr. Saurabh harvey Objective - Vital Signs Vital signs: Vital Signs Temp 97.7 F 07/18/24 03:55 Pulse 91 07/18/24 03:55 Resp 20 07/18/24 03:55 BP 151/85 07/18/24 03:55 Pulse Ox 97 07/18/24 03:55 FiO2 Intake & Output 07/17/24 07/18/24 07/18/24 18:59 06:59 18:59 Intake Total 358 280 Output Total 500 Balance -142 280 Weight 83.6 kg Intake: Oral 358 280 Output: Urine 500 Other: Voiding Method Urinal Toilet # Voids 2 2 - Labs CBC & Chem 7: 07/19/24 08:54 07/18/24 07:12 Labs: Abnormal Lab Results - Last 24 Hours (Table) 07/17/24 07/17/24 07/17/24 Range/Units 07:21 11:40 16:39 RBC (4.40-5.60) 10*6/uL Hgb (13.0-17.0) g/dL Hct (39.6-50.0) % Sodium 136 L (137-145) mmol/L Carbon Dioxide 21 L (22-30) mmol/L BUN 86 H (9-20) mg/dL Creatinine 4.56 H (0.66-1.25) mg/dL Glucose 137 H (74-99) mg/dL POC Glucose (mg/dL) 218 H 171 H (70-110) mg/dL C-Reactive Protein 1.6 H (<1.0) mg/dL 07/17/24 07/18/24 07/18/24 Range/Units 19:55 05:45 07:12 RBC 2.75 L (4.40-5.60) 10*6/uL Hgb 8.7 L (13.0-17.0) g/dL Hct 25.7 L (39.6-50.0) % Sodium (137-145) mmol/L Carbon Dioxide (22-30) mmol/L BUN (9-20) mg/dL Creatinine (0.66-1.25) mg/dL Glucose (74-99) mg/dL POC Glucose (mg/dL) 353 H 221 H (70-110) mg/dL C-Reactive Protein (<1.0) mg/dL
[2024-07-18 14:26] VITALS: BMI 25.0
[2024-07-18 16:58] LABS: Glucose,Whole Blood 240 mg/dL (70-110)
[2024-07-18 20:15] LABS: Glucose,Whole Blood 258 mg/dL (70-110)
[2024-07-19 06:27] LABS: Glucose,Whole Blood 138 mg/dL (70-110)
--- NOTE | 2024-07-19 07:55 | P.PN ---
Subjective Progress Note Date: 07/18/24 Principal diagnosis: Reason for follow-up is right hand abscess and cervical discitis Patient is a 53-year-old male with a past medical history for diabetes mellitus reflux hypertension osteoarthritis [facility] and did have MSSA bacteremia with the patient was getting outpatient IV daptomycin being admitted to hospital with worsening kidney function. On today's evaluation that is 07/18/2024, Patient is afebrile this morning patie nt denies having any chest pain shortness of breath or cough, the patient is currently on room air, patient denies any abdominal pain no diarrhea no nausea no vomiting, pain to the right hand has decreased in intensity. Patient white count is 9.16 creatinine 24.18 Objective - Vital Signs Vital signs: Vital Signs Temp 97.7 F 07/18/24 11:23 Pulse 84 07/18/24 11:23 Resp 14 07/18/24 11:23 BP 147/90 07/18/24 11:23 Pulse Ox 99 07/18/24 11:23 FiO2 Intake & Output 07/17/24 07/18/24 07/18/24 18:59 06:59 18:59 Intake Total 358 280 220 Output Total 500 600 Balance -142 280 -380 Weight 83.6 kg 83.6 kg Intake: Oral 358 280 220 Output: Urine 500 600 Other: Voiding Method Urinal Toilet # Voids 2 2 - Exam GENERAL DESCRIPTION: Middle-age male lying in bed in no distress RESPIRATORY SYSTEM: Unlabored breathing , decreased breath sounds at bases HEART: S1 S2 regular rate and rhythm , ABDOMEN: Soft , no tenderness EXTREMITIES: No edema feet - Labs CBC & Chem 7: 07/18/24 07:12 07/18/24 07:12 Labs: Abnormal Lab Results - Last 24 Hours (Table) 07/17/24 07/17/24 07/18/24 Range/Units 16:39 19:55 05:45 RBC (4.40-5.60) 10*6/uL Hgb (13.0-17.0) g/dL Hct (39.6-50.0) % Sodium (137-145) mmol/L Carbon Dioxide (22-30) mmol/L BUN (9-20) mg/dL Creatinine (0.66-1.25) mg/dL Glucose (74-99) mg/dL POC Glucose (mg/dL) 171 H 353 H 221 H (70-110) mg/dL C-Reactive Protein (<1.0) mg/dL 07/18/24 07/18/24 07/18/24 Range/Units 07:12 07:12 12:14 RBC 2.75 L (4.40-5.60) 10*6/uL Hgb 8.7 L (13.0-17.0) g/dL Hct 25.7 L (39.6-50.0) % Sodium 136 L (137-145) mmol/L Carbon Dioxide 21 L (22-30) mmol/L BUN 84 H (9-20) mg/dL Creatinine 4.18 H (0.66-1.25) mg/dL Glucose 173 H (74-99) mg/dL POC Glucose (mg/dL) 197 H (70-110) mg/dL C-Reactive Protein 1.0 H (<1.0) mg/dL Assessment and Plan (1) Abscess of right hand Current Visit: Yes Status: Acute Code(s): L02.511 - CUTANEOUS ABSCESS OF RIGHT HAND SNOMED Code(s): 26837090121843226 (2) Cervical discitis Current Visit: Yes Status: Acute Code(s): M46.42 - DISCITIS, UNSPECIFIED, CERVICAL REGION SNOMED Code(s): 352847388 (3) LISSETT (acute kidney injury) Current Visit: Yes Status: Acute Code(s): N17.9 - ACUTE KIDNEY FAILURE, UNSPECIFIED SNOMED Code(s): 95944625 (4) MSSA bacteremia Current Visit: No Status: Acute Code(s): R78.81 - BACTEREMIA; B95.61 - METHICILLIN SUSCEP STAPH INFCT CAUSING DIS CLASSD ELSR SNOMED Code(s): 497555469 Plan: 1patient with a complicated history with admission to hospital hospital with a right hand abscess in this patient with status post surgical drainage culture positive for MSSA and the patient also have MSSA bacteremia he did clear his bacteremia subsequently got a PICC line was getting daptomycin now presenting back to the hospital with worsening symptoms and has been diagnosed with w orsening of his kidney function being managed by cardiology, patient also have recent outpatient cervical spine MRI suspicion of C5-6 discitis 2-blood culture repeat has been negative patient creatinine slowly trending down to 4.18 3patient currently being treated treated with the daptomycin which will be continued on discharge for another 2 to 4 weeks depending upon clinical response Dictation was produced using [employer] dictation software. please excuse any grammatical, word or spelling errors. Time with Patient: Less than 30
[2024-07-19 09:26] LABS: MCH 32.3 pg (27.0-32.0); MCHC 34.6 g/dL (32.0-37.0); MCV 93.2 fL (80.0-97.0); Mean Platelet Volume 9.4 fL (9.5-12.2); Platelet Count 212 10*3/uL (140-440); RBC 2.79 10*6/uL (4.40-5.60); RDW 13.6 % (11.5-14.5); WBC 15.11 10*3/uL (4.50-10.00)
[2024-07-19 09:41] LABS: African American GFR (CKD) 18 (>60 ml/min/1.73 sqM); Anion Gap 13 mmol/L; Blood Urea Nitrogen 76 mg/dL (9-20); Calcium 9.1 mg/dL (8.4-10.2); Carbon Dioxide 20 mmol/L (22-30); Chloride 103 mmol/L (98-107); Glucose 158 mg/dL (74-99); Non-African American GFR(CKD) 16 (>60 ml/min/1.73 sqM); Potassium 4.5 mmol/L (3.5-5.1); Sodium 136 mmol/L (137-145)
--- NOTE | 2024-07-19 10:51 | P.PN ---
Subjective Progress Note Date: 07/19/2407/19patient seen and examined at bedside. No acute events overnight. He is being seen by nephrology. Kidney function is gradually improving, prednisone 30 mg twice daily. He remains on IV daptomycin, ID following. Labs today WBC 15.1, hemoglobin 9.0, sodium 136, bicarb 20, BUN 76, creatinine 4.0 REVIEW OF SYSTEMS: All other systems are negative except those mentioned in the HPI PHYSICAL EXAMINATION: Vitals reviewed GENERAL: The patient is alert and oriented x3, not in any acute distress. Well developed, well nourished. CARDIOVASCULAR: S1 and S2 present. No murmurs, rubs, or gallops. PULMONARY: Chest is clear to auscultation, no wheezing or crackles. ABDOMEN: Soft, nontender, nondistended, normoactive bowel sounds. No palpable organomegaly. MUSCULOSKELETAL: No joint swelling or deformity. Right hand significantly improved swelling very minimal redness EXTREMITIES: No cyanosis, clubbing. 1+ pedal edema. NEUROLOGICAL: Gross neurological examination did not reveal any focal deficits. SKIN: No rashes. Assessment and plan -Acute renal failure: Secondary to possibly diuretic therapy. Possibility of acute tubular necrosis with a superimposed prerenal azotemia, vasomotor nephro lora. Strict I's and O's, daily weights, fluids were discontinued, begin p.o. Lasix 40 mg daily continue sodium bicarb and prednisone 30 mg twice daily - Chronic kidney disease stage IV Abscess of right hand, MSSA bacteremia. Continue daptomycin, ID following -Type 2 diabetes mellitus with possible diabetic nephropathy.; Monitor blood sugar levels, continue current insulin regimen of Lantus 25 units daily and sliding scale insulin - Gastroesophageal reflux disease - Hypertension continue clonidine - Alcohol use but has not been drinking lately. - Neck pain, seen by orthopedic surgery will manage conservatively until medically stabilized. DVT prophylaxis: Early ambulation Dr. Harvey seen patient with resident, present during exam, and agreed with findings. Objective - Vital Signs Vital signs: Vital Signs Temp 97.0 F L 07/19/24 00:20 Pulse 91 07/19/24 05:00 Resp 16 07/19/24 05:00 BP 146/83 07/19/24 05:00 Pulse Ox 100 07/19/24 05:00 FiO2 Intake & Output 07/18/24 07/19/24 07/19/24 18:59 06:59 18:59 Intake Total 220 120 Output Total 600 Balance -380 120 Weight 83.6 kg 80.7 kg Intake: Oral 220 120 Output: Urine 600 Other: Voiding Method Toilet Toilet # Voids 2 - Labs CBC & Chem 7: 07/19/24 08:54 07/19/24 08:54 Labs: Abnormal Lab Results - Last 24 Hours (Table) 07/18/24 07/18/24 07/18/24 Range/Units 12:14 16:57 20:14 POC Glucose (mg/dL) 197 H 240 H 258 H (70-110) mg/dL 07/19/24 Range/Units 06:26 POC Glucose (mg/dL) 138 H (70-110) mg/dL
--- NOTE | 2024-07-19 11:43 | P.PN ---
Subjective Patient is seen for follow-up for acute kidney injury. Renal function has been slowly improving. Serum creatinine down to 4.0 today. Maintained on oral Lasix No significant complaints Objective - Vital Signs Vital signs: Vital Signs Temp 97.9 F 07/19/24 08:10 Pulse 96 07/19/24 08:10 Resp 16 07/19/24 08:10 BP 162/100 07/19/24 08:10 Pulse Ox 98 07/19/24 08:10 FiO2 Intake & Output 07/18/24 07/19/24 07/19/24 18:59 06:59 18:59 Intake Total 220 120 360 Output Total 600 Balance -380 120 360 Weight 83.6 kg 80.7 kg Intake: Oral 220 120 360 Output: Urine 600 Other: Voiding Method Toilet Toilet # Voids 2 - Exam Patient is awake, comfortable, alert oriented x 3 No acute distress Examination of the heart S1 and S2 Examination of the lungs bilateral breath sounds are heard Examination of lower extremity shows edema 1+ bilaterally [employer] exam grossly intact - Labs CBC & Chem 7: 07/19/24 08:54 07/19/24 08:54 Labs: Abnormal Lab Results - Last 24 Hours (Table) 07/18/24 07/18/24 07/18/24 Range/Units 12:14 16:57 20:14 WBC (4.50-10.00) 10*3/uL RBC (4.40-5.60) 10*6/uL Hgb (13.0-17.0) g/dL Hct (39.6-50.0) % MCH (27.0-32.0) pg MPV (9.5-12.2) fL Sodium (137-145) mmol/L Carbon Dioxide (22-30) mmol/L BUN (9-20) mg/dL Creatinine (0.66-1.25) mg/dL Glucose (74-99) mg/dL POC Glucose (mg/dL) 197 H 240 H 258 H (70-110) mg/dL 07/19/24 07/19/24 07/19/24 Range/Units 06:26 08:54 08:54 WBC 15.11 H (4.50-10.00) 10*3/uL RBC 2.79 L (4.40-5.60) 10*6/uL Hgb 9.0 L (13.0-17.0) g/dL Hct 26.0 L (39.6-50.0) % MCH 32.3 H (27.0-32.0) pg MPV 9.4 L (9.5-12.2) fL Sodium 136 L (137-145) mmol/L Carbon Dioxide 20 L (22-30) mmol/L BUN 76 H (9-20) mg/dL Creatinine 4.05 H (0.66-1.25) mg/dL Glucose 158 H (74-99) mg/dL POC Glucose (mg/dL) 138 H (70-110) mg/dL Assessment and Plan Assessment: 1. Acute kidney injury secondary to ATN. Renal function continues to improve. Serum creatinine 4.0 today.. Nonoliguric. Serologies done May 2024 were negative. 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 Creatinine during last admission was as low as 1.78 and as high as 3.0. It was 2.4 on the day of discharge June 21, 2024. No evidence of hydronephrosis noted on kidney ultrasound. Urine eosinophils positive at 2% this admission. 2. Right hand cellulitis/abscess on antibiotics. 3. Diabetes mellitus. 4. Metabolic acidosis secondary to acute kidney injury. On oral bicarb. Better. 5. Volume overload Plan: Continue with Lasix, increased to twice a day Continue with prednisone Continue with antibiotics Renal function continues to improve. Continue to avoid nephrotoxic agents.
[2024-07-19 11:58] LABS: Glucose,Whole Blood 217 mg/dL (70-110)
--- NOTE | 2024-07-19 15:09 | P.PN ---
Subjective Progress Note Date: 07/19/24 Principal diagnosis: Reason for follow-up is right hand abscess and cervical discitis Patient is a 53-year-old male with a past medical history for diabetes mellitus reflux hypertension osteoarthritis [facility] right [facility] abscess and did have MSSA bacteremia with the patient was getting outpatient IV daptomycin being admitted to hospital with worsening kidney function. On today's evaluation that is 07/19/2024,the patient denies any fever or any chi lls, patient is breathing comfortably on room air, the patient denies chest pain shortness of breath and no significant cough, patient denies abdominal pain, no nausea vomiting or diarrhea. Patient white count of 15.11, creatinine is 4.05 Objective - Vital Signs Vital signs: Vital Signs Temp 97.7 F 07/19/24 12:10 Pulse 90 07/19/24 12:10 Resp 16 07/19/24 12:10 BP 153/91 07/19/24 12:10 Pulse Ox 99 07/19/24 12:10 FiO2 Intake & Output 07/18/24 07/19/24 07/19/24 18:59 06:59 18:59 Intake Total 220 120 360 Output Total 600 Balance -380 120 360 Weight 83.6 kg 80.7 kg Intake: Oral 220 120 360 Output: Urine 600 Other: Voiding Method Toilet Toilet # Voids 2 - Exam GENERAL DESCRIPTION: Middle-age male lying in bed in no distress RESPIRATORY SYSTEM: Unlabored breathing , decreased breath sounds at bases HEART: S1 S2 regular rate and rhythm , ABDOMEN: Soft , no tenderness EXTREMITIES: No edema feet - Labs CBC & Chem 7: 07/19/24 08:54 07/19/24 08:54 Labs: Abnormal Lab Results - Last 24 Hours (Table) 07/18/24 07/18/24 07/19/24 Range/Units 16:57 20:14 06:26 WBC (4.50-10.00) 10*3/uL RBC (4.40-5.60) 10*6/uL Hgb (13.0-17.0) g/dL Hct (39.6-50.0) % MCH (27.0-32.0) pg MPV (9.5-12.2) fL Sodium (137-145) mmol/L Carbon Dioxide (22-30) mmol/L BUN (9-20) mg/dL Creatinine (0.66-1.25) mg/dL Glucose (74-99) mg/dL POC Glucose (mg/dL) 240 H 258 H 138 H (70-110) mg/dL 07/19/24 07/19/24 07/19/24 Range/Units 08:54 08:54 11:57 WBC 15.11 H (4.50-10.00) 10*3/uL RBC 2.79 L (4.40-5.60) 10*6/uL Hgb 9.0 L (13.0-17.0) g/dL Hct 26.0 L (39.6-50.0) % MCH 32.3 H (27.0-32.0) pg MPV 9.4 L (9.5-12.2) fL Sodium 136 L (137-145) mmol/L Carbon Dioxide 20 L (22-30) mmol/L BUN 76 H (9-20) mg/dL Creatinine 4.05 H (0.66-1.25) mg/dL Glucose 158 H (74-99) mg/dL POC Glucose (mg/dL) 217 H (70-110) mg/dL Assessment and Plan (1) Abscess of right hand Current Visit: Yes Status: Acute Code(s): L02.511 - CUTANEOUS ABSCESS OF RIGHT HAND SNOMED Code(s): 13867017561265657 (2) Cervical discitis Current Visit: Yes Status: Acute Code(s): M46.42 - DISCITIS, UNSPECIFIED, CERVICAL REGION SNOMED Code(s): 825027509 (3) LISSETT (acute kidney injury) Current Visit: Yes Status: Acute Code(s): N17.9 - ACUTE KIDNEY FAILURE, UNSPECIFIED SNOMED Code(s): 76643045 (4) MSSA bacteremia Current Visit: No Status: Acute Code(s): R78.81 - BACTEREMIA; B95.61 - METHICILLIN SUSCEP STAPH INFCT CAUSING DIS CLASSD ELSWHR SNOMED Code(s): 358835379 (5) Leukocytosis Current Visit: Yes Status: Acute Code(s): D72.829 - ELEVATED WHITE BLOOD CELL COUNT, UNSPECIFIED SNOMED Code(s): 715645641 Plan: 1patient with a complicated history with admission to hospital hospital with a right hand abscess in this patient with status post surgical drainage culture positive for MSSA and the patient also have MSSA bacteremia he did clear his bacteremia subsequently got a PICC line was getting daptomycin now presenting back to the hospital with worsening symptoms and has been diagnosed with worsening of his kidney function being managed by cardiology, patient also have recent outpatient cervical spine MRI suspicion of C5-6 discitis 2-blood culture repeat has been negative patient creatinine slowly trending down to 4.05 3patient sed rate has not normalized we will continue with daptomycin for at least 2 more weeks on discharge 4leukocytosis more likely steroid related as no evidence of any worsening infection Dictation was produced using [employer] dictation software. please excuse any grammatical, word or spelling errors.
[2024-07-19 16:47] LABS: Glucose,Whole Blood 205 mg/dL (70-110)
[2024-07-19] MEDS: FUROSEMIDE 40 MG TAB PO SCH (16:55)
[2024-07-19 20:21] LABS: Glucose,Whole Blood 359 mg/dL (70-110)
[2024-07-20 03:56] LABS: HCT 22.7 % (39.6-50.0); HGB 7.8 g/dL (13.0-17.0); MCHC 34.4 g/dL (32.0-37.0); Mean Platelet Volume 9.8 fL (9.5-12.2); Platelet Count 150 10*3/uL (140-440); RBC 2.44 10*6/uL (4.40-5.60); RDW 13.5 % (11.5-14.5)
[2024-07-20 04:00] LABS: African American GFR (CKD) 21 (>60 ml/min/1.73 sqM); Anion Gap 11 mmol/L; Blood Urea Nitrogen 81 mg/dL (9-20); Calcium 8.9 mg/dL (8.4-10.2); Carbon Dioxide 20 mmol/L (22-30); Chloride 102 mmol/L (98-107); Glucose 253 mg/dL (74-99); Magnesium 1.6 mg/dL (1.6-2.3); Non-African American GFR(CKD) 18 (>60 ml/min/1.73 sqM); Potassium 4.4 mmol/L (3.5-5.1); Sodium 133 mmol/L (137-145)
[2024-07-20 06:34] LABS: Glucose,Whole Blood 260 mg/dL (70-110)
[2024-07-20] MEDS: DAPTOmycin 500 MG in SODIUM CHLORIDE 0.9% 50 ML IVPB SCH (08:15)
[2024-07-20 11:41] LABS: Glucose,Whole Blood 272 mg/dL (70-110)
--- NOTE | 2024-07-20 13:14 | P.PN ---
Subjective Progress Note Date: 07/20/2407/20patient seen and examined at bedside. No acute events overnight. He is being seen by nephrology. Kidney function is gradually improving, prednisone 30 mg twice daily. He remains on IV daptomycin, ID following. Today's labs hemoglobin 7.8, sodium 133, bicarbonate 20, BUN 81, creatinine 3.61. REVIEW OF SYSTEMS: All other systems are negative except those mentioned in the HPI PHYSICAL EXAMINATION: Vitals reviewed GENERAL: The patient is alert and oriented x3, not in any acute distress. Well developed, well nourished. CARDIOVASCULAR: S1 and S2 present. No murmurs, rubs, or gallops. PULMONARY: Chest is clear to auscultation, no wheezing or crackles. ABDOMEN: Soft, nontender, nondistended, normoactive bowel sounds. No palpable organomegaly. MUSCULOSKELETAL: No joint swelling or deformity. Right hand significantly improved swelling very minimal redness EXTREMITIES: No cyanosis, clubbing. 1+ pedal edema. NEUROLOGICAL: Gross neurological examination did not reveal any focal deficits. SKIN: No rashes. Assessment and plan -Acute renal failure: Secondary to possibly diuretic therapy. Possibility of acute tubular necrosis with a superimposed prerenal azotemia, vasomotor nephrop athy. Strict I's and O's, daily weights, fluids were discontinued, begin p.o. Lasix 40 mg daily continue sodium bicarb and prednisone 30 mg twice daily - Chronic kidney disease stage IV Abscess of right hand, MSSA bacteremia. Continue daptomycin, ID following -Type 2 diabetes mellitus with possible diabetic nephropathy.; Monitor blood sugar levels, continue current insulin regimen of Lantus 25 units daily and sliding scale insulin - Gastroesophageal reflux disease - Hypertension continue clonidine - Alcohol use but has not been drinking lately. - Neck pain, seen by orthopedic surgery will manage conservatively until medically stabilized. DVT prophylaxis: Early ambulation Plan discharge tomorrow to home with PICC line and IV antibiotics. Dr. Brown seen patient with resident, present during exam, and agreed with findings. Objective - Vital Signs Vital signs: Vital Signs Temp 98.4 F 07/20/24 08:00 Pulse 74 07/20/24 08:00 Resp 18 07/20/24 08:00 BP 156/74 07/20/24 08:00 Pulse Ox 99 07/20/24 08:00 FiO2 Intake & Output 07/19/24 07/20/24 07/20/24 18:59 06:59 18:59 Intake Total 360 240 Output Total 1700 725 Balance -1340 -725 240 Weight 79.9 kg Intake: Intake, IV Titration 0 Amount DAPTOmycin 500 mg In 0 Sodium Chloride 0.9% 50 ml @ 100 mls/hr IVPB Q48H [facility] Rx#:[id number] Oral 360 240 Output: Urine 1700 725 Other: Voiding Method Toilet # Voids 0 # Bowel Movements 1 - Labs CBC & Chem 7: 07/20/24 03:23 07/20/24 03:23 Labs: Abnormal Lab Results - Last 24 Hours (Table) 07/19/24 07/19/24 07/19/24 Range/Units 08:54 08:54 11:57 WBC 15.11 H (4.50-10.00) 10*3/uL RBC 2.79 L (4.40-5.60) 10*6/uL Hgb 9.0 L (13.0-17.0) g/dL Hct 26.0 L (39.6-50.0) % MCH 32.3 H (27.0-32.0) pg MPV 9.4 L (9.5-12.2) fL Sodium 136 L (137-145) mmol/L Carbon Dioxide 20 L (22-30) mmol/L BUN 76 H (9-20) mg/dL Creatinine 4.05 H (0.66-1.25) mg/dL Glucose 158 H (74-99) mg/dL POC Glucose (mg/dL) 217 H (70-110) mg/dL 07/19/24 07/19/24 07/20/24 Range/Units 16:46 20:19 03:23 WBC (4.50-10.00) 10*3/uL RBC (4.40-5.60) 10*6/uL Hgb (13.0-17.0) g/dL Hct (39.6-50.0) % MCH (27.0-32.0) pg MPV (9.5-12.2) fL Sodium 133 L (137-145) mmol/L Carbon Dioxide 20 L (22-30) mmol/L BUN 81 H (9-20) mg/dL Creatinine 3.61 H (0.66-1.25) mg/dL Glucose 253 H (74-99) mg/dL POC Glucose (mg/dL) 205 H 359 H (70-110) mg/dL 07/20/24 07/20/24 Range/Units 03:23 06:33 WBC (4.50-10.00) 10*3/uL RBC 2.44 L (4.40-5.60) 10*6/uL Hgb 7.8 L (13.0-17.0) g/dL Hct 22.7 L (39.6-50.0) % MCH (27.0-32.0) pg MPV (9.5-12.2) fL Sodium (137-145) mmol/L Carbon Dioxide (22-30) mmol/L BUN (9-20) mg/dL Creatinine (0.66-1.25) mg/dL Glucose (74-99) mg/dL POC Glucose (mg/dL) 260 H (70-110) mg/dL
[2024-07-20 16:36] LABS: Glucose,Whole Blood 253 mg/dL (70-110)
--- NOTE | 2024-07-20 17:13 | P.PN ---
Subjective Progress Note Date: 07/20/24 Principal diagnosis: Reason for follow-up is right hand abscess and cervical discitis Patient is a 53-year-old male with a past medical history for diabetes mellitus reflux hypertension osteoarthritis recent [facility] the hospital right hand abscess and did have MSSA bacteremia with the patient was getting outpatient IV daptomycin being admitted to hospital with worsening kidney function. On today's evaluation that is 07/20/2024,the patient remains to be afebrile, pat ient is on room air not requiring supplemental oxygen and denies any shortness of breath no chest pain or cough.Patient denies having any nausea or vomiting, no abdominal pain and no diarrhea, pain to the hand has decreased in intensity. Patient white count is 8.10, creatinine 3.61 Objective - Vital Signs Vital signs: Vital Signs Temp 98.4 F 07/20/24 08:00 Pulse 84 07/20/24 16:00 Resp 18 07/20/24 16:00 BP 154/97 07/20/24 16:00 Pulse Ox 99 07/20/24 16:00 FiO2 Intake & Output 07/19/24 07/20/24 07/20/24 18:59 06:59 18:59 Intake Total 360 240 Output Total 1700 725 Balance -1340 -725 240 Weight 79.9 kg Intake: Intake, IV Titration 0 Amount DAPTOmycin 500 mg In 0 Sodium Chloride 0.9% 50 ml @ 100 mls/hr IVPB Q48H [facility] Rx#:[id number] Oral 360 240 Output: Urine 1700 725 Other: Voiding Method Toilet # Voids 0 # Bowel Movements 1 - Exam GENERAL DESCRIPTION: Middle-age male lying in bed in no distress RESPIRATORY SYSTEM: Unlabored breathing , decreased breath sounds at bases HEART: S1 S2 regular rate and rhythm , ABDOMEN: Soft , no tenderness EXTREMITIES: No edema feet - Labs CBC & Chem 7: 07/20/24 03:23 07/20/24 03:23 Labs: Abnormal Lab Results - Last 24 Hours (Table) 07/19/24 07/20/24 07/20/24 Range/Units 20:19 03:23 03:23 RBC 2.44 L (4.40-5.60) 10*6/uL Hgb 7.8 L (13.0-17.0) g/dL Hct 22.7 L (39.6-50.0) % Sodium 133 L (137-145) mmol/L Carbon Dioxide 20 L (22-30) mmol/L BUN 81 H (9-20) mg/dL Creatinine 3.61 H (0.66-1.25) mg/dL Glucose 253 H (74-99) mg/dL POC Glucose (mg/dL) 359 H (70-110) mg/dL 07/20/24 07/20/24 07/20/24 Range/Units 06:33 11:39 16:34 RBC (4.40-5.60) 10*6/uL Hgb (13.0-17.0) g/dL Hct (39.6-50.0) % Sodium (137-145) mmol/L Carbon Dioxide (22-30) mmol/L BUN (9-20) mg/dL Creatinine (0.66-1.25) mg/dL Glucose (74-99) mg/dL POC Glucose (mg/dL) 260 H 272 H 253 H (70-110) mg/dL Assessment and Plan (1) Abscess of right hand Current Visit: Yes Status: Acute Code(s): L02.511 - CUTANEOUS ABSCESS OF RIGHT HAND SNOMED Code(s): 21175744890481387 (2) Cervical discitis Current Visit: Yes Status: Acute Code(s): M46.42 - DISCITIS, UNSPECIFIED, CERVICAL REGION SNOMED Code(s): 791112573 (3) LISSETT (acute kidney injury) Current Visit: Yes Status: Acute Code(s): N17.9 - ACUTE KIDNEY FAILURE, UNSPECIFIED SNOMED Code(s): 42696170 (4) MSSA bacteremia Current Visit: No Status: Acute Code(s): R78.81 - BACTEREMIA; B95.61 - METHICILLIN SUSCEP STAPH INFCT CAUSING DIS CLASSD ELSWHR SNOMED Code(s): 983761218 (5) Leukocytosis Current Visit: Yes Status: Acute Code(s): D72.829 - ELEVATED WHITE BLOOD CELL COUNT, UNSPECIFIED SNOMED Code(s): 893285937 Plan: 1patient with a complicated history with admission to hospital hospital with a right hand abscess in this patient with status post surgical drainage culture positive for MSSA and the patient also have MSSA bacteremia he did clear his bacteremia subsequently got a PICC line was getting daptomycin now presenting ba ck to the hospital with worsening symptoms and has been diagnosed with worsening of his kidney function being managed by cardiology, patient also have recent outpatient cervical spine MRI suspicion of C5-6 discitis 2-blood culture repeat has been negative patient creatinine slowly trending down for stop 3patient sed rate has not normalized we will continue with daptomycin for at least 2 more weeks on discharge, currently waiting for insurance reinstatement and outpatient IV antibiotics arrangement before discharge Dictation was produced using [employer] dictation software. please excuse any gram matical, word or spelling errors. Time with Patient: Less than 30
[2024-07-20 20:27] LABS: Glucose,Whole Blood 180 mg/dL (70-110)
[2024-07-21 03:44] VITALS: RESP 17
[2024-07-21] MEDS: hydrALAZINE HCL 25 MG TAB PO STA (04:06)
[2024-07-21 06:14] LABS: Glucose,Whole Blood 205 mg/dL (70-110)
[2024-07-21 07:56] LABS: African American GFR (CKD) 23 (>60 ml/min/1.73 sqM); Anion Gap 14 mmol/L; Blood Urea Nitrogen 78 mg/dL (9-20); Calcium 9.2 mg/dL (8.4-10.2); Carbon Dioxide 18 mmol/L (22-30); Chloride 104 mmol/L (98-107); Glucose 191 mg/dL (74-99); Non-African American GFR(CKD) 19 (>60 ml/min/1.73 sqM); Sodium 136 mmol/L (137-145)
[2024-07-21] MEDS: HYDROcodone/APAP 5-325MG 1 EACH TAB PO PRN (08:46)
[2024-07-21 11:22] LABS: Glucose,Whole Blood 249 mg/dL (70-110)
--- NOTE | 2024-07-21 12:02 | P.PN ---
Subjective Patient is seen for follow-up for acute kidney injury. Renal function has been slowly improving. Serum creatinine down to 3.6 today. Maintained on oral Lasix No significant complaints Objective - Vital Signs Vital signs: Vital Signs Temp 97.6 F 07/21/24 08:10 Pulse 95 07/21/24 08:10 Resp 17 07/21/24 08:10 BP 166/96 07/21/24 08:10 Pulse Ox 100 07/21/24 08:10 FiO2 Intake & Output 07/20/24 07/21/24 07/21/24 18:59 06:59 18:59 Intake Total 240 780 240 Balance 240 780 240 Weight 79 kg Intake: Oral 240 780 240 Other: Voiding Method Toilet Toilet # Voids 2 - Exam Patient is awake, comfortable, alert oriented x 3 No acute distress Examination of the heart S1 and S2 Examination of the lungs bilateral breath sounds are heard Examination of lower extremity shows edema 1+ bilaterally Right index finger not easily flexed [employer] exam grossly intact - Labs CBC & Chem 7: 07/20/24 03:23 07/21/24 07:16 Labs: Abnormal Lab Results - Last 24 Hours (Table) 07/20/24 07/20/24 07/21/24 Range/Units 16:34 20:26 06:13 Sodium (137-145) mmol/L Carbon Dioxide (22-30) mmol/L BUN (9-20) mg/dL Creatinine (0.66-1.25) mg/dL Glucose (74-99) mg/dL POC Glucose (mg/dL) 253 H 180 H 205 H (70-110) mg/dL 07/21/24 07/21/24 Range/Units 07:16 11:20 Sodium 136 L (137-145) mmol/L Carbon Dioxide 18 L (22-30) mmol/L BUN 78 H (9-20) mg/dL Creatinine 3.44 H (0.66-1.25) mg/dL Glucose 191 H (74-99) mg/dL POC Glucose (mg/dL) 249 H (70-110) mg/dL Assessment and Plan Assessment: 1. Acute kidney injury secondary to ATN. Renal function continues to improve. Serum creatinine 3.6 today.. Nonoliguric. Serologies done May 2024 were negative. 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 Creatinine during last admission was as low as 1.78 and as high as 3.0. It was 2.4 on the day of discharge June 21, 2024. No evidence of hydronephrosis noted on kidney ultrasound. Urine eosinophils positive at 2% this admission. 2. Right hand cellulitis/abscess on antibiotics. 3. Diabetes mellitus. 4. Metabolic acidosis secondary to acute kidney injury. On oral bicarb. Better. 5. Volume overload Plan: Continue with Lasix, increased to twice a day Continue with prednisone Continue with antibiotics Renal function continues to improve. Continue to avoid nephrotoxic agents.
--- NOTE | 2024-07-21 12:03 | P.PN ---
Subjective Patient is seen for follow-up for acute kidney injury. Renal function has been slowly improving. Serum creatinine down to 3.4 today. Maintained on oral Lasix No significant complaints Objective - Vital Signs Vital signs: Vital Signs Temp 97.6 F 07/21/24 08:10 Pulse 95 07/21/24 08:10 Resp 17 07/21/24 08:10 BP 166/96 07/21/24 08:10 Pulse Ox 100 07/21/24 08:10 FiO2 Intake & Output 07/20/24 07/21/24 07/21/24 18:59 06:59 18:59 Intake Total 240 780 240 Balance 240 780 240 Weight 79 kg Intake: Oral 240 780 240 Other: Voiding Method Toilet Toilet # Voids 2 - Exam Patient is awake, comfortable, alert oriented x 3 No acute distress Examination of the heart S1 and S2 Examination of the lungs bilateral breath sounds are heard Examination of lower extremity shows edema trace bilaterally, improved Right index finger not easily flexed [employer]ER exam grossly intact - Labs CBC & Chem 7: 07/20/24 03:23 07/21/24 07:16 Labs: Abnormal Lab Results - Last 24 Hours (Table) 07/20/24 07/20/24 07/21/24 Range/Units 16:34 20:26 06:13 Sodium (137-145) mmol/L Carbon Dioxide (22-30) mmol/L BUN (9-20) mg/dL Creatinine (0.66-1.25) mg/dL Glucose (74-99) mg/dL POC Glucose (mg/dL) 253 H 180 H 205 H (70-110) mg/dL 07/21/24 07/21/24 Range/Units 07:16 11:20 Sodium 136 L (137-145) mmol/L Carbon Dioxide 18 L (22-30) mmol/L BUN 78 H (9-20) mg/dL Creatinine 3.44 H (0.66-1.25) mg/dL Glucose 191 H (74-99) mg/dL POC Glucose (mg/dL) 249 H (70-110) mg/dL Assessment and Plan Assessment: 1. Acute kidney injury secondary to ATN. Renal function continues to improve. Serum creatinine 3.4 today.. Nonoliguric. Serologies done May 2024 were negative. 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 Creatinine during last admission was as low as 1.78 and as high as 3.0. It was 2.4 on the day of discharge June 21, 2024. No evidence of hydronephrosis noted on kidney ultrasound. Urine eosinophils positive at 2% this admission. 2. Right hand cellulitis/abscess on antibiotics. 3. Diabetes mellitus. 4. Metabolic acidosis secondary to acute kidney injury. On oral bicarb. Better. 5. Volume overload, improved Plan: Decrease Lasix to once a day upon discharge. Continue with prednisone Continue with antibiotics Renal function continues to improve. Continue to avoid nephrotoxic agents.
[2024-07-21 12:38] VITALS: BP 159/88; PULSE 84; TEMP 97.8
--- NOTE | 2024-07-21 14:57 | P.DS ---
Providers Date of admission: 07/11/24 19:24 Expected date of discharge: 07/21/24 Attending physician: Jane Brown Consults: 07/11/24 17:08 Consult Physician Urgent Consulting Provider: Jarad Andres Consult Reason/Comments: LISSETT Do you want consulting provider notified?: Yes Consult Physician Urgent Consulting Provider: Fito Kunz Consult Reason/Comments: Known Do you want consulting provider notified?: Yes 07/11/24 17:26 Consult Physician Urgent Consulting Provider: Karishma Martinez Consult Reason/Comments: Neck and back pain, abnormal MRI Do you want consulting provider notified?: Yes Primary care physician: Yfn Duran Hospital Course: Discharge diagnoses; Acute renal failure Chronic kidney disease stage IV Abscess of right hand, MSSA bacteremia Type 2 diabetes mellitus with possible diabetic nephropathy Gastroesophageal reflux disease Hypertension continue clonidine Alcohol use but has not been drinking lately. Neck pain Hospital course; 53-year-old male sent Emergency Department because of worsening renal function serum creatinine about 6.1. His baseline creatinine appears to be around 2.4 from his last hospitalization and discharge. Patient was started on Lasix upon discharge because of extensive bilateral lower extremity edema. Patient was sent home on daptomycin. Patient still is on daptomycin patient CK is not elevated. Patient's urine analysis showed significant RBC, 1+ protein. Patient does feel fatigued patient right upper extremity swelling significantly improved patient also had a recent MRI MRI results are not available. Patient had a neck pain at that time there was a concern about discitis. Patient is presently on bicarbonate supplementation orally and lactated [facility] nephrology was consulted. Ultrasound of the kidney did not show any obstructive uropathy. During hospital stay patient was seen for acute kidney injury secondary to ATN. 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 Eosinophils 2%. And was started on prednisone. He also continued IV antibiotics for abscess of right hand. Patient discharged home in stable condition. He will continue with IV antibiotics at home and follow-up with Dr. Kunz. Also he will need to continue Lasix once daily and continue prednisone 60 mg for 3 days and then lower dose to 30 mg daily, he will need follow-up with nephrology. PHYSICAL EXAMINATION: Vitals reviewed GENERAL: The patient is alert and oriented x3, not in any acute distress. Well developed, well nourished. CARDIOVASCULAR: S1 and S2 present. No murmurs, rubs, or gallops. PULMONARY: Chest is clear to auscultation, no wheezing or crackles. ABDOMEN: Soft, nontender, nondistended, normoactive bowel sounds. No palpable organomegaly. MUSCULOSKELETAL: No joint swelling or deformity. Right hand significantly improved swelling very minimal redness EXTREMITIES: No cyanosis, clubbing. 1+ pedal edema. NEUROLOGICAL: Gross neurological examination did not reveal any focal deficits. SKIN: No rashes. Dr. Brown seen patient with resident, present during exam, and agreed with findings. Dictation was produced using [employer] dictation software. please excuse any grammatical, word or spelling errors. Patient Condition at Discharge: Stable Plan - Discharge Summary Discharge Rx Participant: No New Discharge Prescriptions: New predniSONE 30 mg PO BID #60 tab Continue cloNIDine HCL [Catapres] 0.1 mg PO BID #60 tab Cyclobenzaprine [Flexeril] 10 mg PO TID PRN #30 tab PRN Reason: Muscle Spasm Folic Acid 1 mg PO DAILY@1200 #30 tab Multivitamins, Thera [Multivitamin (formulary)] 1 tab PO DAILY@1200 DAPTOmycin [Cubicin] 500 mg IV Q2D Insulin Degludec [Tresiba Flextouch U-100 Pen] 25 units SQ DAILY amLODIPine [Norvasc] 10 mg PO DAILY #60 tab Famotidine [Pepcid] 20 mg PO DAILY #30 tab Sodium Bicarbonate Tab 650 mg PO BID #60 tab Thiamine [Vitamin B-1] 100 mg PO BID-W/MEALS #60 tab HYDROcodone/APAP 7.5-325MG [[place] 7.5-325] 1 tab PO Q4H PRN PRN Reason: Pain Changed Furosemide [Lasix] 40 mg PO DAILY #60 tablet Discharge Medication List Insulin Degludec [Tresiba Flextouch U-100 Pen] 25 units SQ DAILY 12/31/20 [History] Cyclobenzaprine [Flexeril] 10 mg PO TID PRN #30 tab 06/21/24 [Rx] Famotidine [Pepcid] 20 mg PO DAILY #30 tab 06/21/24 [Rx] Folic Acid 1 mg PO DAILY@1200 #30 tab 06/21/24 [Rx] Sodium Bicarbonate Tab 650 mg PO BID #60 tab 06/21/24 [Rx] Thiamine [Vitamin B-1] 100 mg PO BID-W/MEALS #60 tab 06/21/24 [Rx] amLODIPine [Norvasc] 10 mg PO DAILY #60 tab 06/21/24 [Rx] cloNIDine HCL [Catapres] 0.1 mg PO BID #60 tab 06/21/24 [Rx] DAPTOmycin [Cubicin] 500 mg IV Q2D 07/11/24 [History] HYDROcodone/APAP 7.5-325MG [[place] 7.5-325] 1 tab PO Q4H PRN 07/11/24 [History] Multivitamins, Thera [Multivitamin (formulary)] 1 tab PO DAILY@1200 07/11/24 [History] Furosemide [Lasix] 40 mg PO DAILY #60 tablet 07/21/24 [Rx] predniSONE 30 mg PO BID #60 tab 07/21/24 [Rx] Follow up Appointment(s)/Referral(s): Yfn Duran MD [Primary Care Provider] - 1-2 days (July 25, 1:00) [facility], [REFERRING] - 1-2 Days ([facility] will deliver IV antibiotics and supplies to your house on the evening of discharge between 6- 8pm. ) [facility] [NON-STAFF] - As Needed ([facility] will call you to schedule your in home nursing visits. Your first visit will be Thursday. ) Jarad Andres DO [STAFF PHYSICIAN] - 1 Week Fito Kunz MD [STAFF PHYSICIAN] - 1 Week Patient Instructions/Handouts: Acute Kidney Injury (DC), Abscess (GEN) Activity/Diet/Wound Care/Special Instructions: Continue prednisone 60 mg for next 2 days. Decrease prednisone to 30 mg daily in 3 days and continue, follow-up with nephrology in 1 week. Continue IV antibiotics, follow-up with Dr. Kunz. Take Lasix 40 mg daily. Discharge Disposition: HOME SELF-CARE
--- NOTE | 2024-07-21 22:57 | P.PN ---
Subjective Progress Note Date: 07/21/24 Principal diagnosis: Reason for follow-up is right hand abscess and cervical discitis Patient is a 53-year-old male with a past medical history for diabetes mellitus reflux hypertension osteoarthritis recent [facility] right hand abscess and did have MSSA bacteremia with the patient was getting outpatient IV daptomycin being admitted to hospital with worsening kidney function. On today's evaluation that is 07/21/2024, the patient continues to be afebrile, the patient is on room air and breathing comfortably, the Pt denies having any chest pain or cough, the patient denies having any abdominal pain no vomiting or any diarrhea, mention feeling better. Patient creatinine is down to 3.44 Objective - Vital Signs Vital signs: Vital Signs Temp 97.6 F 07/21/24 08:10 Pulse 95 07/21/24 08:10 Resp 17 07/21/24 08:10 BP 166/96 07/21/24 08:10 Pulse Ox 100 07/21/24 08:10 FiO2 Intake & Output 07/20/24 07/21/24 07/21/24 18:59 06:59 18:59 Intake Total 240 780 240 Balance 240 780 240 Weight 79 kg Intake: Oral 240 780 240 Other: Voiding Method Toilet Toilet # Voids 2 - Exam GENERAL DESCRIPTION: Middle-age male lying in bed in no distress RESPIRATORY SYSTEM: Unlabored breathing , decreased breath sounds at bases HEART: S1 S2 regular rate and rhythm , ABDOMEN: Soft , no tenderness EXTREMITIES: No edema feet - Labs CBC & Chem 7: 07/20/24 03:23 07/21/24 07:16 Labs: Abnormal Lab Results - Last 24 Hours (Table) 07/20/24 07/20/24 07/21/24 Range/Units 16:34 20:26 06:13 Sodium (137-145) mmol/L Carbon Dioxide (22-30) mmol/L BUN (9-20) mg/dL Creatinine (0.66-1.25) mg/dL Glucose (74-99) mg/dL POC Glucose (mg/dL) 253 H 180 H 205 H (70-110) mg/dL 07/21/24 07/21/24 Range/Units 07:16 11:20 Sodium 136 L (137-145) mmol/L Carbon Dioxide 18 L (22-30) mmol/L BUN 78 H (9-20) mg/dL Creatinine 3.44 H (0.66-1.25) mg/dL Glucose 191 H (74-99) mg/dL POC Glucose (mg/dL) 249 H (70-110) mg/dL Assessment and Plan (1) Abscess of right hand Status: Acute Code(s): L02.511 - CUTANEOUS ABSCESS OF RIGHT HAND SNOMED Code(s): 99435547303247082 (2) Cervical discitis Status: Acute Code(s): M46.42 - DISCITIS, UNSPECIFIED, CERVICAL REGION SNOMED Code(s): 887785455 (3) LISSETT (acute kidney injury) Status: Acute Code(s): N17.9 - ACUTE KIDNEY FAILURE, UNSPECIFIED SNOMED Code(s): 47941100 (4) MSSA bacteremia Status: Acute Code(s): R78.81 - BACTEREMIA; B95.61 - METHICILLIN SUSCEP STAPH INFCT CAUSING DIS CLASSD ELSWHR SNOMED Code(s): 937259873 (5) Leukocytosis Status: Acute Code(s): D72.829 - ELEVATED WHITE BLOOD CELL COUNT, UNSPECIFIED SNOMED Code(s): 964042005 Plan: 1patient with a complicated history with admission to hospital hospital with a right hand abscess in this patient with status post surgical drainage culture positive for MSSA and the patient also have MSSA bacteremia he did clear his bacteremia subsequently got a PICC line was getting daptomycin now presenting back to the hospital with worsening symptoms and has been diagnosed with worsening of his kidney function being managed by cardiology, patient also have recent outpatient cervical spine MRI suspicion of C5-6 discitis 2-blood culture repeat has been negative patient creatinine slowly trending down for stop 3patient sed rate has not normalized 4patient to continue the daptomycin 5 mg every 48 hours for another 2 weeks, prescription provided to the case packer with weekly monitoring of CRP and sed rate and close outpatient follow-up Dictation was produced using [employer] software. please excuse any grammatical, word or spelling errors. Time with Patient: Less than 30
== END 2024-07-21 14:25 | disposition home health service (06) | DRG 683 ==
LOC: EC 15:20 → 3SCARD 19:24
PROVIDERS: ADMIT Internal Medicine; ATTEND Internal Medicine
DX: N17.0 Acute kidney failure with tubular necrosis (principal); E87.1 Hypo-osmolality and hyponatremia; E87.20 Acidosis, unspecified; R78.81 Bacteremia; E11.22 Type 2 diabetes mellitus with diabetic chronic kidney disease; B95.61 Methicillin susceptible Staphylococcus aureus infection as the cause of diseases classified elsewhere; K51.90 Ulcerative colitis, unspecified, without complications; L02.511 Cutaneous abscess of right hand; L03.113 Cellulitis of right upper limb; N18.4 Chronic kidney disease, stage 4 (severe); I12.9 Hypertensive chronic kidney disease with stage 1 through stage 4 chronic kidney disease, or unspecified chronic kidney disease; E11.40 Type 2 diabetes mellitus with diabetic neuropathy, unspecified; Z79.4 Long term (current) use of insulin; T50.1X5A Adverse effect of loop [high-ceiling] diuretics, initial encounter; M46.42 Discitis, unspecified, cervical region; M48.02 Spinal stenosis, cervical region; E86.1 Hypovolemia; E87.70 Fluid overload, unspecified; K21.9 Gastro-esophageal reflux disease without esophagitis; Z79.2 Long term (current) use of antibiotics; Z79.899 Other long term (current) drug therapy; Z87.891 Personal history of nicotine dependence; Z88.8 Allergy status to other drugs, medicaments and biological substances
CPT/HCPCS: 36415; 76770; 80048; 80053; 81001; 82040; 82550; 83036; 83735; 84100; 85025; 85027; 85610; 85652; 85730; 86140; 87086; 87205; 93005; 96361; 96365; 96375; 99285